=== PATIENT | female | born 1950 | race Caucasian/White ===

== ENCOUNTER 2016-09-21 12:25 | Observation (INO) | payer MEDICARE, OTHER ==
[2016-09-21] MEDS ORDERED: ASPIRIN 81 MG CHEW PO STA (13:00)
[2016-09-21] MEDS ORDERED: diphenhydrAMINE 50 MG/ML 1 ML VIAL IVP STA (13:12)
[2016-09-21] MEDS ORDERED: FAMOTIDINE 20 MG/2 ML VIAL IV STA (13:12)
[2016-09-21] MEDS ORDERED: MORPHINE SULFATE 4 MG/ML SYRINGE IV STA (13:12)
[2016-09-21] MEDS ORDERED: RX INFO: IV CONTRAST WAS GIVEN 1 EACH MISC MISCELLANE PRN (13:12)
--- NOTE | 2016-09-21 13:16 | ED ---
General Adult HPI - General Source: patient, RN notes reviewed Mode of arrival: ambulatory Limitations: no limitations <Aravind Park - Last Filed: 09/21/16 13:14> <Enio Harper - Last Filed: 09/21/16 16:01> - General Chief complaint: Shortness of Breath Stated complaint: Diff breathing since last night Time Seen by Provider: 09/21/16 12:53 - History of Present Illness Initial comments: Patient is a 65-year-old female who presents emergency room today with a chief complaint of increased shortness of breath and back pain chest pain that started yesterday. She does admit she has difficult time describing the pain. She does admit to chest pain feels like pressure. States does feel similar pain that she's had in the past once when she had a heart attack. Patient states that she's been experiencing pain in the right upper back next to the shoulder blade. Patient states it is worse with movements if she moves her right arm or twists or turns. She states is tender on palpation. Patient does not she's feeling short of breath when she tries take a deep breath has increased pain. Patient denies any other complaints or symptoms. Patient denies any recent fever, chills, abdominal pain, nausea or vomiting, numbness or tingling, dysuria or hematuria, constipation or diarrhea, headaches or visual changes, or any other complaints. (Aravind Park) - Related Data Home Medications Medication Instructions Recorded Confirmed Cyclobenzaprine [Flexeril] 10 mg PO BID 10/10/14 09/21/16 HYDROcodone/APAP 10-325MG [[place] 1 tab PO TID PRN 10/10/14 09/21/16 10-325] Lisinopril 40 mg PO DAILY 10/10/14 09/21/16 Omeprazole [PriLOSEC] 20 mg PO AC-BID 10/10/14 09/21/16 metFORMIN HCL 1,000 mg PO BID 10/10/14 09/21/16 Insulin Glargine [Lantus] 25 units SQ AC-SUPPER 10/11/14 09/21/16 Latanoprost Ophth [Xalatan 0.005%] 1 drop BOTH EYES HS 10/11/14 09/21/16 Ascorbic Acid [Vitamin C] 1,000 mg PO DAILY 04/10/16 09/21/16 Aspirin EC [Ecotrin] 325 mg PO BID 04/10/16 09/21/16 Vitamin B Complex 1 cap PO DAILY 04/10/16 09/21/16 amLODIPine [Norvasc] 10 mg PO DAILY 04/10/16 09/21/16 clonazePAM [KlonoPIN] 0.25 mg PO BID 04/10/16 09/21/16 Ergocalciferol (Vitamin D2) 50,000 unit PO MO 09/21/16 09/21/16 [Vitamin D2] Ezetimibe [Zetia] 10 mg PO DAILY 09/21/16 09/21/16 Furosemide [Lasix] 20 mg PO Q48H 09/21/16 09/21/16 Insulin Regular, Human [NovoLIN R] 10 ml PO BID 09/21/16 09/21/16 Allergies Allergy/AdvReac Type Severity Reaction Status Date / Time acetaminophen Allergy Unknown Verified 09/21/16 13:45 [From Darvocet-N] cephalexin monohydrate Allergy Nausea & Verified 09/21/16 13:45 [From Keflex] Vomiting & Diarrhea codeine Allergy Unknown Verified 09/21/16 13:45 cortisone Allergy Nausea & Verified 09/21/16 13:45 Vomiting epinephrine Allergy Unknown Verified 09/21/16 13:45 iodine Allergy Rash/Hives Verified 09/21/16 13:45 methadone Allergy Nausea & Verified 09/21/16 13:45 Vomiting & Diarrhea procaine HCl [From Novocain] Allergy Rapid Verified 09/21/16 13:45 Heart Rate propoxyphene Allergy Unknown Verified 09/21/16 13:45 [From Darvocet-N] Sulfa (Sulfonamide Allergy Rash/Hives Verified 09/21/16 13:45 Antibiotics) steroids Allergy Unknown Uncoded 09/21/16 12:36 Review of Systems ROS Other: All systems not noted in ROS Statement are negative. <Aravind Park - Last Filed: 09/21/16 13:14> ROS Other: All systems not noted in ROS Statement are negative. <Enio Harper - Last Filed: 09/21/16 16:01> ROS Statement: Those systems with pertinent positive or pertinent negative responses have been documented in the HPI. Past Medical History Past Medical History: Diabetes Mellitus, Fibromyalgia, Hypertension, Osteoarthritis (OA) Additional Past Medical History / Comment(s): neuropathy History of Any Multi-Drug Resistant Organisms: None Reported Past Surgical History: Bladder Surgery, Cholecystectomy, Tubal Ligation Additional Past Surgical History / Comment(s): rhinoplasty, hand surgery bilateral-carpal tunel Past Anesthesia/Blood Transfusion Reactions: No Reported Reaction Past Psychological History: Anxiety Smoking Status: Never smoker Past Alcohol Use History: None Reported Past Drug Use History: None Reported - Past Family History Father Family Medical History: CVA/TIA, Myocardial Infarction (MD) Mother Family Medical History: Cancer <XavierAravind - Last Filed: 09/21/16 13:14> General Exam Limitations: no limitations <Aravind Park - Last Filed: 09/21/16 13:14> General appearance: alert, in no apparent distress Head exam: Present: atraumatic, normocephalic, normal inspection Eye exam: Present: normal appearance, PERRL, EOMI. Absent: scleral icterus, conjunctival injection, periorbital swelling ENT exam: Present: normal exam, mucous membranes moist Neck exam: Present: normal inspection. Absent: tenderness, meningismus, lymphadenopathy Respiratory exam: Present: normal lung sounds bilaterally. Absent: respiratory distress, wheezes, rales, rhonchi, stridor Cardiovascular Exam: Present: regular rate, normal rhythm, normal heart sounds. Absent: systolic murmur, diastolic murmur, rubs, gallop, clicks GI/Abdominal exam: Present: soft, normal bowel sounds. Absent: distended, tenderness, guarding, rebound, rigid Extremities exam: Present: normal inspection, full ROM, normal capillary refill. Absent: tenderness, pedal edema, joint swelling, calf tenderness Back exam: Present: normal inspection Neurological exam: Present: alert, oriented X3, CN II-XII intact Psychiatric exam: Present: normal affect, normal mood Skin exam: Present: warm, dry, intact, normal color. Absent: rash <Enio Harper - Last Filed: 09/21/16 16:01> - General Exam Comments Initial Comments: General: The patient is awake and alert, in mild distress. Eye: Pupils are equal, round and reactive to light, extra-ocular movements are intact. No nystagmus. There is normal conjunctiva bilaterally. No signs of icterus. Ears, nose, mouth and throat: There are moist mucous membranes and no oral lesions. Neck: The neck is supple, there is no tenderness or JVD. Cardiovascular: There is a regular rate and rhythm. No murmur, rub or gallop is appreciated. Tender to palpation to the anterior chest wall. Respiratory: Lungs are clear to auscultation, respirations are non-labored, breath sounds are equal. No wheezes, stridor, rales, or rhonchi. Gastrointestinal: Soft, non-distended, non-tender abdomen without masses or organomegaly noted. There is no rebound or guarding present. No CVA tenderness. Bowel sounds are unremarkable. Musculoskeletal: Normal ROM. Tender to palpation to the upper right side of her back and muscular areas. Strength 5/5. Sensation intact. Pulses equal bilaterally 2+. Neurological: A&O x 3. CN II-XII intact, There are no obvious motor or sensory deficits. Coordination appears grossly intact. Speech is normal. Skin: Skin is warm and dry and no rashes or lesions are noted. Psychiatric: Cooperative, appropriate mood & affect, normal judgment. (Aravind Park) Course <Aravind Park - Last Filed: 09/21/16 13:14> <Enio Harper - Last Filed: 09/21/16 16:01> Vital Signs 09/21/16 09/21/16 09/21/16 12:34 13:05 13:45 Temperature 99.0 F Pulse Rate 118 H 100 Respiratory 22 20 20 Rate Blood Pressure 204/104 180/99 O2 Sat by Pulse 98 99 Oximetry 09/21/16 09/21/16 14:15 15:15 Temperature Pulse Rate 89 92 Respiratory 20 20 Rate Blood Pressure 140/79 149/79 O2 Sat by Pulse 100 94 L Oximetry - Reevaluation(s) Reevaluation #1: 09/21/16 15:50 Patient remains chest pain 09/21/16 16:01 mild chdest pain (Enio Harper) Medical Decision Making <Aravind Park - Last Filed: 09/21/16 13:14> - Lab Data Result diagrams: 09/21/16 13:45 09/21/16 13:45 - Radiology Data Radiology results: report reviewed (Chest x-ray CTA chest negative for acute disease), image reviewed <Enio Harper - Last Filed: 09/21/16 16:01> - Medical Decision Making 65-year-old ER for reevaluation chest pain, history of coronary artery disease with strep heart attack, patient has CT which is negative for acute disease, patient will be admitted for cardiac observation and anticoagulation (Enio Harper) - Lab Data Lab Results 09/21/16 09/21/16 09/21/16 Range/Units 13:45 13:45 13:45 WBC 8.1 (3.8-10.6) k/uL RBC 4.70 (3.80-5.40) m/uL Hgb 13.9 (11.4-16.0) gm/dL Hct 41.5 (34.0-46.0) % MCV 88.5 (80.0-100.0) fL MCH 29.7 (25.0-35.0) pg MCHC 33.5 (31.0-37.0) g/dL RDW 13.5 (11.5-15.5) % Plt Count 373 (150-450) k/uL Neutrophils % 61 % Lymphocytes % 28 % Monocytes % 6 % Eosinophils % 2 % Basophils % 1 % Neutrophils # 5.0 (1.3-7.7) k/uL Lymphocytes # 2.3 (1.0-4.8) k/uL Monocytes # 0.5 (0-1.0) k/uL Eosinophils # 0.1 (0-0.7) k/uL Basophils # 0.1 (0-0.2) k/uL PT (9.0-12.0) sec INR (<1.1) APTT (22.0-30.0) sec D-Dimer (<0.60) mg/L FEU Sodium 140 (137-145) mmol/L Potassium 4.1 (3.5-5.1) mmol/L Chloride 99 (98-107) mmol/L Carbon Dioxide 29 (22-30) mmol/L Anion Gap 12 mmol/L BUN 10 (7-17) mg/dL Creatinine 0.50 L (0.52-1.04) mg/dL Est GFR (MDRD) Af Amer >60 (>60 ml/min/1.73 sqM) Est GFR (MDRD) Non-Af >60 (>60 ml/min/1.73 sqM) Glucose 169 H (74-99) mg/dL Calcium 10.3 H (8.4-10.2) mg/dL Magnesium 1.3 L (1.6-2.3) mg/dL Total Bilirubin 0.6 (0.2-1.3) mg/dL AST 26 (14-36) U/L ALT 41 (9-52) U/L Alkaline Phosphatase 98 (38-126) U/L Total Creatine Kinase 130 (30-135) U/L CK-MB (CK-2) 2.6 H* (0.0-2.4) ng/mL CK-MB (CK-2) Rel Index 2.0 Troponin I <0.012 (0.000-0.034) ng/mL Total Protein 8.0 (6.3-8.2) g/dL Albumin 4.7 (3.5-5.0) g/dL 09/21/16 Range/Units 13:45 WBC (3.8-10.6) k/uL RBC (3.80-5.40) m/uL Hgb (11.4-16.0) gm/dL Hct (34.0-46.0) % MCV (80.0-100.0) fL MCH (25.0-35.0) pg MCHC (31.0-37.0) g/dL RDW (11.5-15.5) % Plt Count (150-450) k/uL Neutrophils % % Lymphocytes % % Monocytes % % Eosinophils % % Basophils % % Neutrophils # (1.3-7.7) k/uL Lymphocytes # (1.0-4.8) k/uL Monocytes # (0-1.0) k/uL Eosinophils # (0-0.7) k/uL Basophils # (0-0.2) k/uL PT 10.1 (9.0-12.0) sec INR 1.0 (<1.1) APTT 23.8 (22.0-30.0) sec D-Dimer 0.32 (<0.60) mg/L FEU Sodium (137-145) mmol/L Potassium (3.5-5.1) mmol/L Chloride (98-107) mmol/L Carbon Dioxide (22-30) mmol/L Anion Gap mmol/L BUN (7-17) mg/dL Creatinine (0.52-1.04) mg/dL Est GFR (MDRD) Af Amer (>60 ml/min/1.73 sqM) Est GFR (MDRD) Non-Af (>60 ml/min/1.73 sqM) Glucose (74-99) mg/dL Calcium (8.4-10.2) mg/dL Magnesium (1.6-2.3) mg/dL Total Bilirubin (0.2-1.3) mg/dL AST (14-36) U/L ALT (9-52) U/L Alkaline Phosphatase (38-126) U/L Total Creatine Kinase (30-135) U/L CK-MB (CK-2) (0.0-2.4) ng/mL CK-MB (CK-2) Rel Index Troponin I (0.000-0.034) ng/mL Total Protein (6.3-8.2) g/dL Albumin (3.5-5.0) g/dL Critical Care Time Critical Care Time: Yes Total Critical Care Time: 31 <Enio Harper - Last Filed: 09/21/16 16:01> Disposition <Aravind Park - Last Filed: 09/21/16 13:14> <Enio Harper - Last Filed: 09/21/16 16:01> Clinical Impression: Chest pain Disposition: ADMITTED IP TO THIS [facility] Condition: Fair Referrals: Jae Martinez MD [Primary Care Provider] - 1-2 days
[2016-09-21 14:10] LABS: Basophils # (A) 0.1 k/uL (0-0.2); Basophils % (A) 1 %; CH 30.3; CHCM 34.4; Eosinophils # (A) 0.1 k/uL (0-0.7); Eosinophils % (A) 2 %; HCT 41.5 % (34.0-46.0); HDW 2.72; HGB 13.9 gm/dL (11.4-16.0); Luc # (Auto) 0.18; Luc % (Auto) 2; Lymphocytes # (A) 2.3 k/uL (1.0-4.8); Lymphocytes % (A) 28 %; MCH 29.7 pg (25.0-35.0); MCHC 33.5 g/dL (31.0-37.0); MCV 88.5 fL (80.0-100.0); Mean Platelet Volume 6.9; Monocytes # (A) 0.5 k/uL (0-1.0); Monocytes % (A) 6 %; Neutrophils % (A) 61 %; RDW 13.5 % (11.5-15.5); WBC 8.1 k/uL (3.8-10.6); WBC (Perox) 8.06
[2016-09-21 14:19] LABS: ALT 41 U/L (9-52); AST 26 U/L (14-36); Alkaline Phosphatase 98 U/L (38-126); Anion Gap 12 mmol/L; Blood Urea Nitrogen 10 mg/dL (7-17); Calcium 10.3 mg/dL (8.4-10.2); Carbon Dioxide 29 mmol/L (22-30); Chloride 99 mmol/L (98-107); Glucose 169 mg/dL (74-99); Magnesium 1.3 mg/dL (1.6-2.3); Non-African American GFR(MDRD) >60 (>60 ml/min/1.73 sqM); Potassium 4.1 mmol/L (3.5-5.1); Sodium 140 mmol/L (137-145); Total Bilirubin 0.6 mg/dL (0.2-1.3)
[2016-09-21 14:23] LABS: Partial Thromboplastin Time 23.8 sec (22.0-30.0); Prothrombin Time 10.1 sec (9.0-12.0)
[2016-09-21 14:30] LABS: Creatine Kinase 130 U/L (30-135)
--- NOTE | 2016-09-21 14:35 | XR ---
EXAMINATION TYPE: XR chest 2V DATE OF EXAM: 09/21/2016 2:31 PM COMPARISON: Chest x-ray May 12, 2016. HISTORY: Left-sided chest pain and shortness of breath. TECHNIQUE: Frontal and lateral views of the chest are obtained. FINDINGS: Some eventration of right hemidiaphragm is redemonstrated. There is no focal air space [place], pleural effusion, or pneumothorax seen. The cardiac silhouette size is within normal limits. The osseous structures are somewhat demineralized. Cholecystectomy clips are noted on lateral view. IMPRESSION: No acute cardiopulmonary process. No significant change from prior.
[2016-09-21 14:44] LABS: Troponin I <0.012 ng/mL (0.000-0.034)
[2016-09-21 14:45] LABS: Creatine Kinase MB 2.6 ng/mL (0.0-2.4)
--- NOTE | 2016-09-21 15:15 | CT ---
EXAMINATION TYPE: CT angio chest DATE OF EXAM: 09/21/2016 3:05 PM COMPARISON: Chest x-ray earlier today. HISTORY: Shortness of breath. CT DLP: 232.50 mGycm. Automated Exposure Control for Dose Reduction was Utilized. CONTRAST: CTA scan of the thorax is performed with IV Contrast, patient injected with 68 mL of Omnipaque 350, p ulmonary embolism protocol. MIP Images are created on CT scanner and reviewed. FINDINGS: LUNGS: Respiratory motion artifact especially towards lung bases is noted making evaluation slightly suboptimal. The lungs are grossly clear, there is no concerning parenchymal mass or nodule identified . There is no pleural effusion or pneumothorax seen. The tracheobronchial tree is patent. MEDIASTINUM: There is satisfactory enhancement of the pulmonary artery and its branches, there is no CT evidence for pulmonary embolism. There are no greater than 1 cm hilar or mediastinal lymph nodes. No cardiomegaly or pericardial effusion is seen. Coronary artery calcification is likely present. OTHER: Cholecystectomy clips are noted. Osseous structures are demineralized. Levoconvex scoliotic cu rvature centered near the thoracolumbar junction is present. IMPRESSION: No CTA evidence for pulmonary embolism. No acute pulmonary process is evident.
[2016-09-21] MEDS ORDERED: MAGNESIUM SULFATE-D5W PMX 1 GM in DEXTROSE/WATER 1 100ML.BAG IVPB ONE (15:27)
[2016-09-21] MEDS ORDERED: NALOXONE 0.4 MG/ML 1 ML VIAL IV PRN (16:01)
[2016-09-21] MEDS ORDERED: SODIUM CHLORIDE 0.9% 1,000 ML IV ONE (16:01)
[2016-09-21] MEDS ORDERED: NITROGLYCERIN SL TABS 0.4 MG TAB SUBLINGUAL PRN (16:04)
[2016-09-21] MEDS ORDERED: HEPARIN SODIUM,PORCINE 5,000 UNIT/ML 1 ML VIAL IV ONE (16:04)
[2016-09-21] MEDS ORDERED: HEPARIN SODIUM,PORCINE/D5W PMX 25,000 UNIT in DEXTROSE/WATER 1 500ML.BAG IV SCH (16:15)
[2016-09-21] MEDS ORDERED: INSULIN GLARGINE 100 UNIT/ML 10 ML VIAL SQ SCH (17:30)
[2016-09-21] MEDS ORDERED: HYDROcodone/APAP 10-325MG 1 EACH TAB PO PRN (18:34)
[2016-09-21] MEDS: MORPHINE SULFATE 4 MG/ML SYRINGE IV PRN (20:29)
[2016-09-21 20:45] LABS: Creatine Kinase 124 U/L (30-135)
[2016-09-21 20:46] VITALS: RESP 16
[2016-09-21 20:58] LABS: Creatine Kinase MB 2.2 ng/mL (0.0-2.4); Troponin I <0.012 ng/mL (0.000-0.034)
[2016-09-21] MEDS ORDERED: LATANOPROST 0.005% OPHTH DROPS 2.5 ML BTL BOTH EYES SCH (21:00)
[2016-09-21] MEDS ORDERED: clonazePAM 0.5 MG TAB PO SCH (21:00)
[2016-09-21 21:35] LABS: Glucose,Whole Blood 228 mg/dL (75-99)
[2016-09-21] MEDS: ASPIRIN 325 MG TAB PO SCH (22:00)
[2016-09-21] MEDS: CYCLOBENZAPRINE 10 MG TAB PO SCH (22:02)
[2016-09-22] MEDS ORDERED: HEPARIN SODIUM,PORCINE 5,000 UNIT/ML 1 ML VIAL IV PRN (04:24)
[2016-09-22] MEDS: MORPHINE SULFATE 4 MG/ML SYRINGE IV PRN (04:42)
[2016-09-22 06:08] LABS: Cholesterol 248 mg/dL (<200); HDL Cholesterol 46 mg/dL (40-60)
[2016-09-22 06:17] LABS: Triglycerides 624 mg/dL (<150)
[2016-09-22] MEDS ORDERED: HYDROcodone/APAP 10-325MG 1 EACH TAB PO PRN (06:53)
[2016-09-22] MEDS ORDERED: MORPHINE SULFATE 4 MG/ML SYRINGE IVP PRN (06:58)
[2016-09-22 07:06] LABS: Glucose,Whole Blood 133 mg/dL (75-99)
[2016-09-22] MEDS ORDERED: INSULIN REGULAR 100 UNIT/ML VIAL SQ SCH (07:30)
[2016-09-22] MEDS ORDERED: PANTOPRAZOLE 40 MG TABLET PO SCH (07:30)
[2016-09-22 08:18] VITALS: PULSE 74
[2016-09-22] MEDS ORDERED: DOBUTamine DRIP for NUC MED 500 MG in DEXTROSE/WATER 1 250ML.BAG IV ONE (08:50)
[2016-09-22] MEDS ORDERED: EZETIMIBE 10 MG TAB PO SCH (09:00)
[2016-09-22] MEDS ORDERED: clonazePAM 0.5 MG TAB PO SCH (09:00)
[2016-09-22] MEDS ORDERED: ASCORBIC ACID 500 MG TAB PO SCH (09:00)
[2016-09-22] MEDS ORDERED: LISINOPRIL 20 MG TAB PO SCH (09:00)
[2016-09-22] MEDS ORDERED: FUROSEMIDE 20 MG TAB PO SCH (09:00)
[2016-09-22] MEDS ORDERED: amLODIPine 10 MG TAB PO SCH (09:00)
[2016-09-22] MEDS ORDERED: ASPIRIN 325 MG TAB PO SCH (09:00)
[2016-09-22] MEDS ORDERED: ATORVASTATIN 20 MG TAB PO SCH (09:30)
[2016-09-22 10:31] LABS: Basophils % (A) 1 %; CH 29.5; CHCM 32.6; Eosinophils # (A) 0.2 k/uL (0-0.7); Eosinophils % (A) 4 %; HCT 36.8 % (34.0-46.0); HDW 2.65; HGB 11.9 gm/dL (11.4-16.0); Luc # (Auto) 0.19; Luc % (Auto) 3; Lymphocytes # (A) 2.6 k/uL (1.0-4.8); Lymphocytes % (A) 43 %; MCH 29.3 pg (25.0-35.0); MCHC 32.3 g/dL (31.0-37.0); MCV 90.9 fL (80.0-100.0); Mean Platelet Volume 7.8; Monocytes # (A) 0.5 k/uL (0-1.0); Monocytes % (A) 8 %; Neutrophils # (A) 2.5 k/uL (1.3-7.7); Neutrophils % (A) 42 %; RBC 4.04 m/uL (3.80-5.40); RDW 13.7 % (11.5-15.5); WBC (Perox) 6.57
[2016-09-22 10:42] LABS: Anion Gap 13 mmol/L; Blood Urea Nitrogen 10 mg/dL (7-17); Calcium 9.1 mg/dL (8.4-10.2); Carbon Dioxide 26 mmol/L (22-30); Chloride 103 mmol/L (98-107); Glucose 132 mg/dL (74-99); Magnesium 1.7 mg/dL (1.6-2.3); Non-African American GFR(MDRD) >60 (>60 ml/min/1.73 sqM); Potassium 3.5 mmol/L (3.5-5.1); Sodium 142 mmol/L (137-145)
[2016-09-22] MEDS: ASPIRIN 325 MG TAB PO SCH (11:31)
[2016-09-22] MEDS: CYCLOBENZAPRINE 10 MG TAB PO SCH (11:32)
[2016-09-22] MEDS ORDERED: NALOXONE 0.4 MG/ML 1 ML VIAL IV PRN (11:39)
[2016-09-22] MEDS ORDERED: NITROGLYCERIN SL TABS 0.4 MG TAB SUBLINGUAL PRN (11:40)
--- NOTE | 2016-09-22 11:48 | ECHOF ---
Referral Reason:cp MEASUREMENTS -------- HEIGHT: 160.0 cm WEIGHT: 98.0 kg BP: 197/65 RVIDd: 2.7 cm (< 3.3) IVSd: 1.0 cm (0.6 - 1.1) LVIDd: 3.6 cm (3.9 - 5.3) LVPWd: 1.2 cm (0.6 - 1.1) IVSs: 1.6 cm LVIDs: 2.9 cm LVPWs: 1.7 cm LA Diam: 3.5 cm (2.7 - 3.8) LAESV Index (A-L): 19.26 ml/m Ao Diam: 3.2 cm (2.0 - 3.7) AV Cusp: 2.0 cm (1.5 - 2.6) MV EXCURSION: 15.514 mm (> 18.000) MV EF SLOPE: 86 mm/s (70 - 150) EPSS: 0.2 cm MV E Alfonso: 0.67 m/s MV DecT: 286 ms MV A Alfonso: 0.86 m/s MV E/A Ratio: 0.78 FINDINGS -------- Sinus rhythm. This was a technically good study. The left ventricular size is normal. There is borderline concentric left ventricular hypertrophy. Overall left ventricular systolic function is normal with, an EF between 55 - 60 %. The right ventricle is normal in size and function. Normal LA size by volume 22+/-6 ml/m2. The right atrium is normal in size. Aortic valve is trileaflet and is mildly thickened. The mitral valve leaflets are mildly thickened. Mild mitral annular calcification present. Mild mitral regurgitation is present. The tricuspid valve appears structurally normal. Pulmonic valve appears structurally normal. The aortic root size is normal. Normal inferior vena cava with normal inspiratory collapse consistent with estimated right atrial pressure of 5 mmHg. There is no pericardial effusion. CONCLUSIONS -------- 1. Sinus rhythm. 2. The mitral valve leaflets are mildly thickened. 3. Mild mitral annular calcification present. 4. Mild mitral regurgitation is present. 5. The tricuspid valve appears structurally normal. 6. Pulmonic valve appears structurally normal. 7. The aortic root size is normal. 8. Normal inferior vena cava with normal inspiratory collapse consistent with estimated right atrial pressure of 5 mmHg. 9. There is no pericardial effusion. 10. This was a technically good study. 11. The left ventricular size is normal. 12. There is borderline concentric left ventricular hypertrophy. 13. Overall left ventricular systolic function is normal with, an EF between 55 - 60 %. 14. The right ventricle is normal in size and function. 15. Normal LA size by volume 22+/-6 ml/m2. 16. The right atrium is normal in size. 17. Aortic valve is trileaflet and is mildly thickened. [employer] OPERATOR: Dede Jeff RDCS
--- NOTE | 2016-09-22 11:49 | ECHOS ---
DATE OF SERVICE: 09/22/2016 AGE: 65Y SEX: F HT: 63" WT: 216 lbs. Protocol Prakash: Others: Dobutamine Stress Echo Stage: 3 Dur. of Exercise: 8:15 *Heart Rate Blood Pressure *Rest: 91 Rest: 144/66 * *Max. Achieved: 131 Maximum BP: 177/55 85% PMHR: 131 100% PMHR: 154 *METS: - INDICATIONS: Chest pain. MEDICATIONS: - Patient was given dobutamine infusion according to the standard protocol. Peak heart rate of 131 was achieved. Maximum blood pressure of 177/55 mmHg was noted. Resting EKG shows normal sinus rhythm with nonspecific ST-T changes. Occasional PVCs were noted. During dobutamine infusion, equivocal upsloping ST segment changes were noted. The baseline echocardiographic images reveals a normal left ventricular chamber size with normal left ventricular systolic function. At the peak dose of dobutamine infusion, normal increase in the wall thickness and contractility is noted. FINAL IMPRESSION: 1. This dobutamine stress echocardiographic study is negative for stress-induced ischemia. 2. EKG portion of the stress test shows equivocal ST segment changes not diagnostic of ischemia. 3. Occasional premature ventricular contractions are noted.
[2016-09-22] MEDS ORDERED: ERGOCALCIFEROL 50,000 UNIT CAP PO SCH (12:00)
[2016-09-22 12:10] LABS: Glucose,Whole Blood 235 mg/dL (75-99)
[2016-09-22 12:39] VITALS: BP 142/86; TEMP 98.7
--- NOTE | 2016-09-22 12:56 | CONS ---
DATE OF CONSULTATION: Mrs. Trent is a 65-year-old female with known history of hypertension, hyperlipidemia, diabetes mellitus, who carries the diagnosis of myocardial infarction in 1988, the details of that are not available. She follows with Dr. Luciano on a regular basis who presented with symptoms of progressive dyspnea as well as symptoms of chest discomfort, worse when she takes a deep breath. She is not very active physically. She has no clear PND, orthopnea. No peripheral edema. No dizziness, palpitation or syncope. She has been relatively stable from the cardiac standpoint, her coronary risk factors are remarkable for the hypertension, hyperlipidemia, diabetes mellitus. She is a nonsmoker. Her medications include aspirin, cyclobenzaprine, [place], insulin, lisinopril 40 mg daily, Prilosec, Klonopin 0.5 mg daily, metformin 1 gm twice a day, Lasix 20 mg q. 48 hours, Norvasc 10 mg daily, vitamin D, Zyrtec 10 mg daily. REVIEW OF SYSTEMS: RESPIRATORY SYSTEM: She had dyspnea on exertion. She had recent infection. GI SYSTEM: No recent GI bleeding except related to what appears to be hemorrhoid. SYSTEM: No dysuria or hematuria. NERVOUS SYSTEM: She had a prior history of stroke and TIA. PHYSICAL EXAMINATION: A 65-year-old female, alert, in no apparent distress. Blood pressure 148/80 with a heart in the 70s. HEAD: Normocephalic. EYES: Sclerae nonicteric. NECK: Good upstroke. No bruit. No jugular venous distention. LUNGS: Clear to auscultation. HEART: Regular rate and rhythm. S1, S2, no S3, no rub. ABDOMEN: Soft, nontender, positive bowel sounds. No organomegaly. EXTREMITIES: No edema. Intact distal pulses. Lab data revealed cholesterol 248, triglyceride 624. Troponin less than 0.012. BUN and creatinine of 10 and 0.5. Magnesium 1.3. Hemoglobin of 13.9. EKG sinus mechanism, normal axis and intervals with no acute changes. CT angiogram of the chest revealed no evidence of pulmonary embolism. Chest x-ray shows no acute infiltrate. IMPRESSION: 1. Symptoms of chest discomfort, atypical for ischemic heart disease, probably noncardiac. 2. Remote history of myocardial infarction, detail not available. 3. History of hypertension. 4. Hyperlipidemia. 5. Diabetes mellitus. RECOMMENDATIONS: From the cardiac standpoint, I will stop the IV heparin. I will proceed with obtaining a dobutamine stress echocardiogram and a transthoracic echo. If there is no evidence of inducible ischemia, then no further cardiac work-up will be needed. Thank you for this consult. Will follow with you.
--- NOTE | 2016-09-22 12:59 | P.HPIM ---
History of Present Illness H&P Date: 09/22/16 Chief Complaint: Right shoulder pain This is a 65-year-old female with a known history of myocardial infarction, diabetes mellitus, fibromyalgia, hypertension, and osteoarthritis. Patient presents to emergency room with complaints of right shoulder pain and shortness of breath. Symptoms started yesterday. Patient did have a fall about 2 months ago and had x-rays of the right shoulder done no evidence of any fractures. Patient reports no new injury. Patient was admitted to observation and cardiac workup was requested. Troponins were negative 3 sets CTA of the chest was negative for PE. Chest x-ray was negative. Patient was seen evaluated by cardiology and did undergo a stress test. Patient denies any chest pain, any nausea or vomiting, bowel movement changes or urinary symptoms. Denies any fever or chills or sweats. She does report feeling warm at times. She also reports that the [place] did help with some of the pain. Review of Systems Please refer to HPI otherwise unremarkable Past Medical History Past Medical History: CVA/TIA, Diabetes Mellitus, Fibromyalgia, Hypertension, Osteoarthritis (OA) Additional Past Medical History / Comment(s): neuropathy History of Any Multi-Drug Resistant Organisms: None Reported Past Surgical History: Bladder Surgery, Cholecystectomy, Tubal Ligation Additional Past Surgical History / Comment(s): rhinoplasty, hand surgery bilateral-carpal tunel Past Anesthesia/Blood Transfusion Reactions: No Reported Reaction Past Psychological History: Anxiety Smoking Status: Never smoker Past Alcohol Use History: None Reported Past Drug Use History: None Reported - Past Family History Father Family Medical History: CVA/TIA, Myocardial Infarction ([place]) Mother Family Medical History: Cancer Medications and Allergies Home Medications Medication Instructions Recorded Confirmed Type Cyclobenzaprine [Flexeril] 10 mg PO BID 10/10/14 09/21/16 History HYDROcodone/APAP 10-325MG [[place] 1 tab PO TID PRN 10/10/14 09/21/16 History 10-325] Lisinopril 40 mg PO DAILY 10/10/14 09/21/16 History Omeprazole [PriLOSEC] 20 mg PO AC-BID 10/10/14 09/21/16 History metFORMIN HCL 1,000 mg PO BID 10/10/14 09/21/16 History Insulin Glargine [Lantus] 25 units SQ AC-SUPPER 10/11/14 09/21/16 History Latanoprost Ophth [Xalatan 0.005%] 1 drop BOTH EYES HS 10/11/14 09/21/16 History Ascorbic Acid [Vitamin C] 1,000 mg PO DAILY 04/10/16 09/21/16 History Aspirin EC [Ecotrin] 325 mg PO BID 04/10/16 09/21/16 History Vitamin B Complex 1 cap PO DAILY 04/10/16 09/21/16 History amLODIPine [Norvasc] 10 mg PO DAILY 04/10/16 09/21/16 History clonazePAM [KlonoPIN] 0.25 mg PO BID 04/10/16 09/21/16 History Ergocalciferol (Vitamin D2) 50,000 unit PO MO 09/21/16 09/21/16 History [Vitamin D2] Ezetimibe [Zetia] 10 mg PO DAILY 09/21/16 09/21/16 History Furosemide [Lasix] 20 mg PO Q48H 09/21/16 09/21/16 History Insulin Regular, Human [NovoLIN R] 10 units SQ BID 09/21/16 09/21/16 History Allergies Allergy/AdvReac Type Severity Reaction Status Date / Time acetaminophen Allergy Unknown Verified 09/21/16 13:45 [From Darvocet-N] cephalexin monohydrate Allergy Nausea & Verified 09/21/16 13:45 [From Keflex] Vomiting & Diarrhea codeine Allergy Unknown Verified 09/21/16 13:45 cortisone Allergy Nausea & Verified 09/21/16 13:45 Vomiting epinephrine Allergy Unknown Verified 09/21/16 13:45 iodine Allergy Rash/Hives Verified 09/21/16 13:45 methadone Allergy Nausea & Verified 09/21/16 13:45 Vomiting & Diarrhea procaine HCl [From Novocain] Allergy Rapid Verified 09/21/16 13:45 Heart Rate propoxyphene Allergy Unknown Verified 09/21/16 13:45 [From Darvocet-N] Sulfa (Sulfonamide Allergy Rash/Hives Verified 09/21/16 13:45 Antibiotics) steroids Allergy Unknown Uncoded 09/21/16 12:36 Physical Exam Vitals: Vital Signs Temp Pulse Pulse Resp BP BP Pulse Ox 09/22/16 12:00 98.7 F 16 142/86 97 09/22/16 08:00 97.8 F 74 16 148/80 97 09/22/16 05:39 160/72 09/22/16 04:00 98.4 F 88 16 191/94 95 09/22/16 00:00 81 16 09/21/16 23:55 97.7 F 93 16 181/93 95 09/21/16 22:30 158/63 09/21/16 20:40 161/72 09/21/16 20:00 98.3 F 107 H 16 210/112 97 09/21/16 17:59 93 18 09/21/16 17:39 98.0 F 93 18 185/92 100 09/21/16 16:43 98.3 F 92 20 158/83 99 09/21/16 16:15 98.9 F 90 20 150/68 95 Intake and Output 09/21/16 09/22/16 09/22/16 22:59 06:59 14:59 Intake Total 184.889 Balance 184.889 Intake: Intake, IV Titration 184.889 Amount Heparin Sodium,Porcine/ 184.889 D5w Pmx 25,000 unit In Dextrose/Water 1 500ml. bag @ 12 UNITS/KG/HR 15. 78 mls/hr IV .Q24H [facility] Rx #:[id number] Other: Voiding Method Toilet Toilet Toilet # Voids 0 1 Weight 98 kg Head normocephalic Neck supple Lungs clear to auscultation bilaterally no wheezing or crackles Heart regular rate and rhythm S1-S2, no rub or gallop Abdomen is soft nontender nondistended positive bowel sounds no hepatosplenomegaly Extremities no edema. Right shoulder posterior aspect tender with palpation. No bruising or skin lesions noted. Patient has full range of motion. +2 radial pulse. Neuro alert and orientated to 3 Results CBC & Chem 7: 09/22/16 05:29 09/22/16 05:29 Labs: Abnormal Lab Results - Last 24 Hours (Table) 09/21/16 09/21/16 09/22/16 Range/Units 21:26 22:47 05:29 APTT 21.7 L (22.0-30.0) sec Glucose (74-99) mg/dL POC Glucose (mg/dL) 228 H (75-99) mg/dL Triglycerides 624 H (<150) mg/dL Cholesterol 248 H (<200) mg/dL 09/22/16 09/22/16 09/22/16 Range/Units 05:29 07:05 12:09 APTT (22.0-30.0) sec Glucose 132 H (74-99) mg/dL POC Glucose (mg/dL) 133 H 235 H (75-99) mg/dL Triglycerides (<150) mg/dL Cholesterol (<200) mg/dL Thrombosis Risk Factor Assmnt - Choose All That Apply Any of the Below Risk Factors Present?: Yes Each Factor Represents 1 point: Obesity (BMI >25) Other Risk Factors: Yes Each Risk Factor Represents 2 Points: Age 61-74 years Other congenital or acquired thrombophilia - If yes, enter type in comment: No Thrombosis Risk Factor Assessment Total Risk Factor Score: 3 Thrombosis Risk Factor Assessment Level: Moderate Risk Assessment and Plan Plan: 1. Right shoulder pain with shortness of breath: Cardiac workup negative. Troponins negative 3 sets. Stress test was negative. Patient was seen and evaluated by cardiology. CTA of the chest was negative for PE. Chest x-rays negative. Patient had x-ray of the shoulder about 2 months ago after a fall with no evidence of any fracture. 2. Hypomagnesemia and patient received magnesium supplement. Repeat magnesium level I.7 3. Hypertriglyceridemia. Low-fat low-cholesterol diet. Cardiology added Lipitor 4. History of fibromyalgia 5. Diabetes mellitus type 2 6. History of myocardial infarction 7. History of TIA 8. Generalized anxiety disorder 9. Accelerated hypertension present on admission. Now blood pressures have improved Time with Patient: Greater than 30 (Greater than 50% of the total time spent in counseling and coordination of care.I performed an examination of the patient and discussed their management with the physician W[employer]aker. I have reviewed the Physician Wearing App[employer] Shaker's notes and agree with the documented findings and plan of care)
--- NOTE | 2016-09-22 13:06 | P.DS ---
Providers Date of admission: 09/21/16 15:50 Expected date of discharge: 09/22/16 Attending physician: Jae Martinze Consults: 09/21/16 16:04 Consult Physician Stat Consulting Provider: [facility] Consult Reason/Comments: Chest pain Do you want consulting provider notified?: Yes Primary care physician: Jae [facility] Course: Discharge diagnosis 1. Right shoulder pain with shortness of breath: Cardiac workup negative. GA ruled out. Symptoms are likely due to musculoskeletal pain. Troponins negative 3 sets. Stress test was negative. Patient was seen and evaluated by cardiology. CTA of the chest was negative for PE. Chest x-rays negative. Patient had x-ray of the shoulder about 2 months ago after a fall with no evidence of any fracture. 2. Hypomagnesemia and patient received magnesium supplement. Repeat magnesium level I.7 3. Hypertriglyceridemia. Low-fat low-cholesterol diet. Cardiology added Lipitor 4. History of fibromyalgia 5. Diabetes mellitus type 2 6. History of myocardial infarction 7. History of TIA 8. Generalized anxiety disorder 9. Accelerated hypertension present on admission. Now blood pressures have improved Hospital course This is a 65-year-old female with a known history of myocardial infarction, diabetes mellitus, fibromyalgia, hypertension, and osteoarthritis. Patient presents to emergency room with complaints of right shoulder pain and shortness of breath. Symptoms started yesterday. Patient did have a fall about 2 months ago and had x-rays of the right shoulder done no evidence of any fractures. Patient reports no new injury. Patient was admitted to observation and cardiac workup was requested. Troponins were negative 3 sets CTA of the chest was negative for PE. Chest x-ray was negative. Patient was seen evaluated by cardiology and did undergo a stress test. Stress test negative for stress- induced ischemia. Echo showed preserved EF. And no significant valvular abnormality. GA and PE has been ruled out. Patient is medically and cardiac stable for discharge. She'll follow-up with Dr. Martinez in the office. She did have elevated triglyceride level of 624. Cardiology did add Lipitor 20 mg daily during this admission. Recommend that patient follows a low-fat low- cholesterol diet. Patient Condition at Discharge: Stable Plan - Discharge Summary New Discharge Prescriptions: Atorvastatin [Lipitor] 20 mg PO DAILY #30 tab Discharge Medication List Cyclobenzaprine [Flexeril] 10 mg PO BID 10/10/14 [History] HYDROcodone/APAP 10-325MG [[place] 10-325] 1 tab PO TID PRN 10/10/14 [History] Lisinopril 40 mg PO DAILY 10/10/14 [History] Omeprazole [PriLOSEC] 20 mg PO AC-BID 10/10/14 [History] metFORMIN HCL 1,000 mg PO BID 10/10/14 [History] Insulin Glargine [Lantus] 25 units SQ AC-SUPPER 10/11/14 [History] Latanoprost Ophth [Xalatan 0.005%] 1 drop BOTH EYES HS 10/11/14 [History] Ascorbic Acid [Vitamin C] 1,000 mg PO DAILY 04/10/16 [History] Aspirin EC [Ecotrin] 325 mg PO BID 04/10/16 [History] Vitamin B Complex 1 cap PO DAILY 04/10/16 [History] amLODIPine [Norvasc] 10 mg PO DAILY 04/10/16 [History] clonazePAM [KlonoPIN] 0.25 mg PO BID 04/10/16 [History] Ergocalciferol (Vitamin D2) [Vitamin D2] 50,000 unit PO MO 09/21/16 [History] Ezetimibe [Zetia] 10 mg PO DAILY 09/21/16 [History] Furosemide [Lasix] 20 mg PO Q48H 09/21/16 [History] Insulin Regular, Human [NovoLIN R] 10 units SQ BID 09/21/16 [History] Atorvastatin [Lipitor] 20 mg PO DAILY #30 tab 09/22/16 [Rx] Follow up Appointment(s)/Referral(s): Jae Martinez MD [Primary Care Provider] - 1 Week Activity/Diet/Wound Care/Special Instructions: Diet: low fat, low cholesterol, diabetic, cardiac activity: as tolerated Discharge Disposition: HOME SELF-CARE
[2016-09-22] MEDS ORDERED: INSULIN GLARGINE 100 UNIT/ML 10 ML VIAL SQ SCH (21:00)
[2016-09-23] MEDS ORDERED: ASPIRIN 325 MG TAB PO SCH (09:00)
== END 2016-09-22 14:10 | disposition home or self-care (01) ==
LOC: EC 12:25 → 3OBS 15:50 → UNDODISOB 21:00
PROVIDERS: ADMIT Internal Medicine; ATTEND Internal Medicine
DX: R06.02 Shortness of breath (principal); M25.511 Pain in right shoulder; I25.10 Atherosclerotic heart disease of native coronary artery without angina pectoris; E11.9 Type 2 diabetes mellitus without complications; E78.1 Pure hyperglyceridemia; E83.42 Hypomagnesemia; F41.1 Generalized anxiety disorder; I10 Essential (primary) hypertension; R00.0 Tachycardia, unspecified; I25.2 Old myocardial infarction; M79.7 Fibromyalgia; Z79.4 Long term (current) use of insulin; Z86.73 Personal history of transient ischemic attack (TIA), and cerebral infarction without residual deficits; R07.89 Other chest pain; M54.9 Dorsalgia, unspecified; Z79.82 Long term (current) use of aspirin; Z79.899 Other long term (current) drug therapy; M19.90 Unspecified osteoarthritis, unspecified site; Z88.6 Allergy status to analgesic agent; Z88.4 Allergy status to anesthetic agent; Z88.1 Allergy status to other antibiotic agents; Z88.5 Allergy status to narcotic agent; Z88.2 Allergy status to sulfonamides; Z88.8 Allergy status to other drugs, medicaments and biological substances
CPT/HCPCS: 36415; 93005; 93017; 93306; 93350; 85379; 80061; 80053; 80048; 82550; 82553; 83735 ×2; 84484 ×2; 85025 ×2; 85610; 85730; 71020; 71275; 99291; 96365; 96375; 96376; G0378 ×2; J1250; J2270 ×2; J1200; J1644 ×2; Q9967; J3475; 96361; 96366; 96368

== ENCOUNTER 2016-10-13 17:25 | Emergency (ER) | payer MEDICARE, OTHER ==
[2016-10-13 17:51] VITALS: RESP 18
--- NOTE | 2016-10-13 18:43 | ED ---
General Adult HPI - General Chief complaint: Upper Respiratory Infection Stated complaint: THINKS THEY HAVE BEEN POISENED BY [employer] Time Seen by Provider: 10/13/16 18:18 Source: patient, RN notes reviewed Mode of arrival: ambulatory Limitations: no limitations - History of Present Illness Initial comments: 65-year-old female presents the emergency department with a chief complaint of cough cold runny nose like symptoms. Patient states that these started ever since he was turned back on after losing power. Patient states she has sore throat. Patient states she just feels ill. They were found. Mold in her apartment as well as her she did not know if maybe that was what it was related to. Patient states she was concerned so she thought that she should be evaluated. Patient does not know if it's her environment or something else. Patient denies any high fevers with this. Patient denies production with cough. Patient denies any recent fever, chills, shortness of breath, chest pain, back pain, abdominal pain, nausea vomiting, numbness or tingling, dysuria or hematuria, constipation or diarrhea, headaches or visual changes, or any other current symptoms. - Related Data Home Medications Medication Instructions Recorded Confirmed Cyclobenzaprine [Flexeril] 10 mg PO BID 10/10/14 09/21/16 HYDROcodone/APAP 10-325MG [[place] 1 tab PO TID PRN 10/10/14 09/21/16 10-325] Lisinopril 40 mg PO DAILY 10/10/14 09/21/16 Omeprazole [PriLOSEC] 20 mg PO AC-BID 10/10/14 09/21/16 metFORMIN HCL 1,000 mg PO BID 10/10/14 09/21/16 Insulin Glargine [Lantus] 25 units SQ AC-SUPPER 10/11/14 09/21/16 Latanoprost Ophth [Xalatan 0.005%] 1 drop BOTH EYES HS 10/11/14 09/21/16 Ascorbic Acid [Vitamin C] 1,000 mg PO DAILY 04/10/16 09/21/16 Aspirin EC [Ecotrin] 325 mg PO BID 04/10/16 09/21/16 Vitamin B Complex 1 cap PO DAILY 04/10/16 09/21/16 amLODIPine [Norvasc] 10 mg PO DAILY 04/10/16 09/21/16 clonazePAM [KlonoPIN] 0.25 mg PO BID 04/10/16 09/21/16 Ergocalciferol (Vitamin D2) 50,000 unit PO MO 09/21/16 09/21/16 [Vitamin D2] Ezetimibe [Zetia] 10 mg PO DAILY 09/21/16 09/21/16 Furosemide [Lasix] 20 mg PO Q48H 09/21/16 09/21/16 Insulin Regular, Human [NovoLIN R] 10 units SQ BID 09/21/16 09/21/16 Previous Rx's Medication Instructions Recorded Atorvastatin [Lipitor] 20 mg PO DAILY #30 tab 09/22/16 Allergies Allergy/AdvReac Type Severity Reaction Status Date / Time acetaminophen Allergy Unknown Verified 10/13/16 17:51 [From Darvocet-N] cephalexin monohydrate Allergy Nausea & Verified 10/13/16 17:51 [From Keflex] Vomiting & Diarrhea codeine Allergy Unknown Verified 10/13/16 17:51 cortisone Allergy Nausea & Verified 10/13/16 17:51 Vomiting epinephrine Allergy Unknown Verified 10/13/16 17:51 iodine Allergy Rash/Hives Verified 10/13/16 17:51 methadone Allergy Nausea & Verified 10/13/16 17:51 Vomiting & Diarrhea procaine HCl [From Novocain] Allergy Rapid Verified 10/13/16 17:51 Heart Rate propoxyphene Allergy Unknown Verified 10/13/16 17:51 [From Darvocet-N] Sulfa (Sulfonamide Allergy Rash/Hives Verified 10/13/16 17:51 Antibiotics) steroids Allergy Unknown Uncoded 10/13/16 17:51 Review of Systems ROS Statement: Those systems with pertinent positive or pertinent negative responses have been documented in the HPI. ROS Other: All systems not noted in ROS Statement are negative. Past Medical History Past Medical History: CVA/TIA, Diabetes Mellitus, Fibromyalgia, Hypertension, Osteoarthritis (OA) Additional Past Medical History / Comment(s): neuropathy History of Any Multi-Drug Resistant Organisms: None Reported Past Surgical History: Bladder Surgery, Cholecystectomy, Tubal Ligation Additional Past Surgical History / Comment(s): rhinoplasty, hand surgery bilateral-carpal tunel Past Anesthesia/Blood Transfusion Reactions: No Reported Reaction Past Psychological History: Anxiety Smoking Status: Never smoker Past Alcohol Use History: None Reported Past Drug Use History: None Reported - Past Family History Father Family Medical History: CVA/TIA, Myocardial Infarction ([place]) Mother Family Medical History: Cancer General Exam - General Exam Comments Initial Comments: General exam: Alert, active, comfortable in no apparent distress Head: Normocephalic Eyes: Normal reaction of pupils, equal size, normal range of extraocular motion Ears: normal external ear canals, pink tympanic membranes with normal cone of light Nose: clear with pink turbinates Throat: no erythema or exudates with normal sized tonsils Neck: no masses, no nuchal rigidity Chest: no chest wall deformity Lungs: equal air entry with no crackles or wheeze CVS: S1 and S2 normal with no audible mumurs, regular rhythm Spine: no scoliosis or deformity Skin: no rashes Neurological: No focal deficits, tone is normal in all 4 extremities Limitations: no limitations Course Vital Signs 10/13/16 17:43 Temperature 98.7 F Pulse Rate 114 H Respiratory 18 Rate Blood Pressure 188/95 O2 Sat by Pulse 97 Oximetry Medical Decision Making - Medical Decision Making 55-year-old male presents for cough cold like symptoms. At this time patient's symptoms are consistent with upper respiratory however we did discuss that could be related to ALLERGY from the environment that she is . We discussed follow-up with the aforementioned parameters. We discussed all patient's family's questions and she states she understood and she is in the plan. This time she'll be discharged home. - Lab Data Lab Results 10/13/16 10/13/16 Range/Units 18:40 18:40 Influenza Type A RNA Not Detected (Not Detectd) Influenza Type B (PCR) Not Detected (Not Detectd) Group A Strep Rapid Negative (Negative) - Radiology Data Radiology results: report reviewed, image reviewed Disposition Clinical Impression: Upper respiratory infection Disposition: HOME SELF-CARE Condition: Stable Instructions: Upper Respiratory Infection (ED) Additional Instructions: Please use medication as discussed. Please follow up with family doctor if symptoms have not improved over the next two days. Please return to the emergency room if your symptoms increase or worsen or for any other concerns. Referrals: Jae Martinez MD [Primary Care Provider] - 1-2 days Time of Disposition: 19:17
--- NOTE | 2016-10-13 19:07 | XR ---
EXAMINATION TYPE: XR chest 2V DATE OF EXAM: 10/13/2016 6:48 PM COMPARISON: Chest x-ray and CTA chest September 21, 2016. HISTORY: Cough. TECHNIQUE: Frontal and lateral views of the chest are obtained. FINDINGS: There is no focal air space opacity, pleural effusion, or pneumothorax seen. The cardiac silhouette size is within normal limits with atherosclerotic change in thoracic aorta. Scoliotic curv ature in the upper lumbar spine is present. Cholecystectomy clips are present. IMPRESSION: No acute cardiopulmonary process. No significant change from prior.
[2016-10-13 19:34] VITALS: BP 165/97; PULSE 109; TEMP 99
== END 2016-10-13 19:48 | disposition home or self-care (01) ==
LOC: EC 17:25
DX: J06.9 Acute upper respiratory infection, unspecified (principal); E11.40 Type 2 diabetes mellitus with diabetic neuropathy, unspecified; M79.7 Fibromyalgia; I10 Essential (primary) hypertension; M19.90 Unspecified osteoarthritis, unspecified site; F41.9 Anxiety disorder, unspecified; Z88.5 Allergy status to narcotic agent; Z88.2 Allergy status to sulfonamides; Z88.1 Allergy status to other antibiotic agents; Z88.4 Allergy status to anesthetic agent; Z88.8 Allergy status to other drugs, medicaments and biological substances; Z91.09 Other allergy status, other than to drugs and biological substances; Z79.82 Long term (current) use of aspirin; Z79.4 Long term (current) use of insulin; Z79.84 Long term (current) use of oral hypoglycemic drugs; Z79.899 Other long term (current) drug therapy; Z86.73 Personal history of transient ischemic attack (TIA), and cerebral infarction without residual deficits
CPT/HCPCS: 71020; 87081; 87430; 87502; 99283

== ENCOUNTER → 2016-10-20 | Outpatient (CLI) | payer MEDICARE, OTHER ==
--- NOTE | 2016-11-03 11:30 | MM ---
Reason for exam: screening (asymptomatic). History: Patient is postmenopausal. Benign excisional biopsy of the left breast, 1976. Took estrogen beginning at age 44. Physical Findings: A clinical breast exam by your physician is recommended on an annual basis and results should be correlated with mammographic findings. MG 3D Screening Mammo W/Cad Bilateral CC and MLO view(s) were taken. Prior study comparison: March 28, 2016, mammogram, performed at [facility]. December 22, 2013, mammogram, performed at [facility]. The breast tissue is extremely dense which could obscure a lesion on mammography. Finding: There are typically benign calcifications in both breasts. There is a chronic nodularity in the left breast. No significant changes in finding since March 28, 2016 and December 22, 2013. ASSESSMENT: Benign, BI-RAD 2 RECOMMENDATION: Routine screening mammogram of both breasts in 1 year.
== END | disposition home or self-care (01) ==
LOC: RADMAMWWP 15:58
PROVIDERS: ATTEND Internal Medicine
DX: Z12.31 Encounter for screening mammogram for malignant neoplasm of breast (principal)
CPT/HCPCS: 77063; G0202

== ENCOUNTER 2016-11-26 19:27 | Inpatient (IN) | payer MEDICARE, OTHER ==
[2016-11-26] MEDS ORDERED: SODIUM CHLORIDE 0.9% 1,000 ML IV STA (20:23)
[2016-11-26 20:25] LABS: Glucose,Whole Blood 147 mg/dL (75-99)
[2016-11-26 20:53] LABS: Basophils # (A) 0.1 k/uL (0-0.2); Basophils % (A) 1 %; CH 29.6; CHCM 34.5; Eosinophils # (A) 0.3 k/uL (0-0.7); Eosinophils % (A) 3 %; HCT 39.2 % (34.0-46.0); HDW 2.81; HGB 13.7 gm/dL (11.4-16.0); Luc # (Auto) 0.25; Luc % (Auto) 3; Lymphocytes # (A) 3.2 k/uL (1.0-4.8); Lymphocytes % (A) 37 %; MCHC 34.8 g/dL (31.0-37.0); MCV 86.2 fL (80.0-100.0); Mean Platelet Volume 6.3; Monocytes # (A) 0.6 k/uL (0-1.0); Monocytes % (A) 7 %; Neutrophils # (A) 4.2 k/uL (1.3-7.7); Neutrophils % (A) 49 %; RBC 4.55 m/uL (3.80-5.40); RDW 13.3 % (11.5-15.5); WBC 8.6 k/uL (3.8-10.6); WBC (Perox) 8.46
[2016-11-26 21:04] LABS: Partial Thromboplastin Time 24.9 sec (22.0-30.0); Prothrombin Time 10.4 sec (9.0-12.0)
--- NOTE | 2016-11-26 21:07 | XR ---
EXAMINATION TYPE: XR chest 2V DATE OF EXAM: 11/26/2016 8:50 PM COMPARISON: 10/13/2016 INDICATION: Intermittent right-sided numbness TECHNIQUE: 2 view chest FINDINGS: The heart size is normal. The pulmonary vasculature is normal. The lungs are clear. There is a focal eventration of the right hemidiaphragm. IMPRESSION: 1. No acute pulmonary process.
[2016-11-26 21:08] LABS: Creatine Kinase 206 U/L (30-135)
--- NOTE | 2016-11-26 21:08 | CT ---
EXAMINATION TYPE: CT brain wo con DATE OF EXAM: 11/26/2016 9:04 PM COMPARISON: 10/10/2014 INDICATION: Right sided body numbness for 1 week DLP: 1064 mGycm, Automated exposure control for dose reduction was used. CONTRAST: None CT of the brain is performed utilizing 3 mm thick sections through the posterior fossa and 3 mm thick sections through the remaining calvarium. Study is performed within 24 hours of arrival to the hosp [facility]. No abnormal hyperdensity is present to suggest an acute intracranial hemorrhage. No mass lesion is evident. No acute infarcts are evident. Ventricles and sulci are appropriate for the patient age. Paranasal sinuses and mastoid air cells within the [id number] are clear. IMPRESSIONS: 1. No acute intracranial process.
[2016-11-26 21:10] LABS: ALT 35 U/L (9-52); AST 30 U/L (14-36); Alkaline Phosphatase 85 U/L (38-126); Anion Gap 15 mmol/L; Blood Urea Nitrogen 22 mg/dL (7-17); Calcium 10.3 mg/dL (8.4-10.2); Carbon Dioxide 24 mmol/L (22-30); Chloride 95 mmol/L (98-107); Glucose 131 mg/dL (74-99); Non-African American GFR(MDRD) >60 (>60 ml/min/1.73 sqM); Potassium 3.7 mmol/L (3.5-5.1); Sodium 134 mmol/L (137-145); Total Bilirubin 0.7 mg/dL (0.2-1.3); Total Protein 7.9 g/dL (6.3-8.2)
[2016-11-26 21:21] LABS: Creatine Kinase MB 4.6 ng/mL (0.0-2.4); Troponin I <0.012 ng/mL (0.000-0.034)
--- NOTE | 2016-11-26 21:52 | ED ---
Neuro HPI - General Chief Complaint: Neuro Symptoms/Deficit Stated Complaint: poss TIA rt side numbness Time Seen by Provider: 11/26/16 20:23 Source: patient Mode of arrival: wheelchair Limitations: no limitations - History of Present Illness Is the patient presenting with stroke symptoms?: Yes Last Known Well Date: 11/25/16 Initial Comments: This is a 66-year-old female with a history of diabetes, TIA, and stroke who presents emergency department for headache, right-sided weakness, and right hand incoordination. She states that the symptoms been going on intermittently throughout the week especially with the numbness. She states that she woke up this morning and did not feel right. She states that she had numbness at that time and the symptoms seemed to progress throughout the day. She then noted that she was having difficulty with her right hand with weakness and incoordination. She also stated that her right leg seemed to be weak. She decided come to the emergency department for evaluation. She states the last time that she felt like she was normal was sometime yesterday however again she' s been feeling intermittently numb throughout the week. She does admit to headaches which are apical for her. She usually takes aspirin for them. She also admits to neuropathic pain which is also typical for her. She denies any head trauma. No nausea or vomiting. No vision changes. No slurred speech. She does state that she has some right eye drooping however this is chronic for her. No other complaints. - Related Data Home Medications: Home Medications Medication Instructions Recorded Confirmed HYDROcodone/APAP 10-325MG [[place] 1 tab PO TID PRN 10/10/14 11/26/16 10-325] Lisinopril 40 mg PO BID 10/10/14 11/26/16 Omeprazole [PriLOSEC] 20 mg PO BID 10/10/14 11/26/16 metFORMIN HCL 1,000 mg PO BID-W/MEALS 10/10/14 11/26/16 Insulin Glargine [Lantus] 25 units SQ HS 10/11/14 11/26/16 Latanoprost Ophth [Xalatan 0.005%] 1 drop BOTH EYES HS 10/11/14 11/26/16 Ascorbic Acid [Vitamin C] 1,000 mg PO DAILY 04/10/16 11/26/16 Aspirin EC [Ecotrin] 325 mg PO BID 04/10/16 11/26/16 Vitamin B Complex 2 cap PO DAILY 04/10/16 11/26/16 amLODIPine [Norvasc] 10 mg PO DAILY 04/10/16 11/26/16 clonazePAM [KlonoPIN] 0.25 mg PO BID 04/10/16 11/26/16 Ergocalciferol (Vitamin D2) 50,000 unit PO MO 09/21/16 11/26/16 [Vitamin D2] Ezetimibe [Zetia] 10 mg PO DAILY 09/21/16 11/26/16 Furosemide [Lasix] 20 mg PO Q48H 09/21/16 11/26/16 Insulin Regular, Human [NovoLIN R] 10 units SQ W/LUNCH 09/21/16 11/26/16 Carvedilol [Coreg] 12.5 mg PO BID 11/26/16 11/26/16 Cyclobenzaprine [Flexeril] 10 mg PO BID 11/26/16 11/26/16 Allergies/Adverse Reactions: Allergies Allergy/AdvReac Type Severity Reaction Status Date / Time epinephrine Allergy Anaphylaxis Verified 11/26/16 21:27 iodine Allergy Rash/Hives Verified 11/26/16 21:27 procaine HCl [From Novocain] Allergy Anaphylaxis Verified 11/26/16 21:27 Sulfa (Sulfonamide Allergy Rash/Hives Verified 11/26/16 21:27 Antibiotics) cephalexin monohydrate AdvReac Nausea & Verified 11/26/16 21:27 [From Keflex] Vomiting & Diarrhea codeine AdvReac Nausea & Verified 11/26/16 21:35 Vomiting cortisone AdvReac Nausea & Verified 11/26/16 21:27 Vomiting/Vertigo methadone AdvReac Nausea & Verified 11/26/16 21:27 Vomiting & Diarrhea propoxyphene AdvReac Nausea & Verified 11/26/16 21:27 [From Darvocet-N] Vomiting Sipwrwx-Zcw-Vgt Reductase AdvReac Nausea & Verified 11/26/16 21:35 Inhibitor Vomiting/Muscle Weakness steroids AdvReac Nausea & Uncoded 11/26/16 21:27 Vomiting Review of Systems ROS Statement: Those systems with pertinent positive or pertinent negative responses have been documented in the HPI. ROS Other: All systems not noted in ROS Statement are negative. General Exam - General Exam Comments Initial Comments: Constitutional: Awake alert Appears comfortable Head: Normocephalic atraumatic Eyes: no conjunctival injection No scleral icterus EOMI, pupils are 4 mm and reactive bilaterally Neck: No JVD Supple Heart: Regular rate rhythm normal S1-S2 no murmurs Lungs: Clear to auscultation bilaterally No wheezing No rales Abdomen: Soft nondistended nontender Extremities: Non edematous DP pulses intact Radial pulses intact Neuro: A&Ox3 the patient does seem to have some right eye ptosis however she states that this is chronic for her. She is able to open and close her eye fully and feels like she has full strength when she does so, extraocular muscles are intact, pupils are 4 mm reactive bilaterally to the rest of her cranial nerves are intact. She does admit to some decreased sensation of the entire right arm and right leg. She is able to feel however reports that it feels like "an alien limb ". When I ask her to hold both of her arms up she feels that the right 1 is drifting and it does drift down to the gurney however does not hit the gurney. However when I test the patient's stage set up worker strength is equal bilaterally and also she has equal biceps and triceps strength bilaterally. She does not have any ataxia in her extremities. Her right leg has 5 out of 5 strength in her left leg has 5 out of 5 strength. Psych: Appropriate mood and affect Limitations: no limitations Stroke MDM - Lab Data Result diagrams: 11/26/16 20:30 11/26/16 20:30 Lab Results 11/26/16 11/26/16 11/26/16 Range/Units 20:24 20:30 20:30 WBC 8.6 (3.8-10.6) k/uL RBC 4.55 (3.80-5.40) m/uL Hgb 13.7 (11.4-16.0) gm/dL Hct 39.2 (34.0-46.0) % MCV 86.2 (80.0-100.0) fL MCH 30.0 (25.0-35.0) pg MCHC 34.8 (31.0-37.0) g/dL RDW 13.3 (11.5-15.5) % Plt Count 441 (150-450) k/uL Neutrophils % 49 % Lymphocytes % 37 % Monocytes % 7 % Eosinophils % 3 % Basophils % 1 % Neutrophils # 4.2 (1.3-7.7) k/uL Lymphocytes # 3.2 (1.0-4.8) k/uL Monocytes # 0.6 (0-1.0) k/uL Eosinophils # 0.3 (0-0.7) k/uL Basophils # 0.1 (0-0.2) k/uL PT (9.0-12.0) sec INR (<1.1) APTT (22.0-30.0) sec Sodium (137-145) mmol/L Potassium (3.5-5.1) mmol/L Chloride (98-107) mmol/L Carbon Dioxide (22-30) mmol/L Anion Gap mmol/L BUN (7-17) mg/dL Creatinine (0.52-1.04) mg/dL Est GFR (MDRD) Af Amer (>60 ml/min/1.73 sqM) Est GFR (MDRD) Non-Af (>60 ml/min/1.73 sqM) Glucose (74-99) mg/dL POC Glucose (mg/dL) 147 H (75-99) mg/dL POC Glu Lamp Mechanic ID Briseida Carmichael Calcium (8.4-10.2) mg/dL Total Bilirubin (0.2-1.3) mg/dL AST (14-36) U/L ALT (9-52) U/L Alkaline Phosphatase (38-126) U/L Total Creatine Kinase 206 H (30-135) U/L CK-MB (CK-2) 4.6 H* (0.0-2.4) ng/mL CK-MB (CK-2) Rel Index 2.2 Troponin I <0.012 (0.000-0.034) ng/mL Total Protein (6.3-8.2) g/dL Albumin (3.5-5.0) g/dL 11/26/16 11/26/16 Range/Units 20:30 20:30 WBC (3.8-10.6) k/uL RBC (3.80-5.40) m/uL Hgb (11.4-16.0) gm/dL Hct (34.0-46.0) % MCV (80.0-100.0) fL MCH (25.0-35.0) pg MCHC (31.0-37.0) g/dL RDW (11.5-15.5) % Plt Count (150-450) k/uL Neutrophils % % Lymphocytes % % Monocytes % % Eosinophils % % Basophils % % Neutrophils # (1.3-7.7) k/uL Lymphocytes # (1.0-4.8) k/uL Monocytes # (0-1.0) k/uL Eosinophils # (0-0.7) k/uL Basophils # (0-0.2) k/uL PT 10.4 (9.0-12.0) sec INR 1.0 (<1.1) APTT 24.9 (22.0-30.0) sec Sodium 134 L (137-145) mmol/L Potassium 3.7 (3.5-5.1) mmol/L Chloride 95 L (98-107) mmol/L Carbon Dioxide 24 (22-30) mmol/L Anion Gap 15 mmol/L BUN 22 H (7-17) mg/dL Creatinine 0.76 (0.52-1.04) mg/dL Est GFR (MDRD) Af Amer >60 (>60 ml/min/1.73 sqM) Est GFR (MDRD) Non-Af >60 (>60 ml/min/1.73 sqM) Glucose 131 H (74-99) mg/dL POC Glucose (mg/dL) (75-99) mg/dL POC Glu Lamp Mechanic ID Calcium 10.3 H (8.4-10.2) mg/dL Total Bilirubin 0.7 (0.2-1.3) mg/dL AST 30 (14-36) U/L ALT 35 (9-52) U/L Alkaline Phosphatase 85 (38-126) U/L Total Creatine Kinase (30-135) U/L CK-MB (CK-2) (0.0-2.4) ng/mL CK-MB (CK-2) Rel Index Troponin I (0.000-0.034) ng/mL Total Protein 7.9 (6.3-8.2) g/dL Albumin 4.6 (3.5-5.0) g/dL - NIH Stroke Scale 1a. Level of Consciousness: (0) alert 1b. LOC Questions: (0) answers correctly 1c. LOC Commands: (0) performs tasks correctly 2. Best Gaze: (0) normal 3. Visual: (0) no visual loss 4. Facial Palsy: (0) normal symmetrical movement 5a. Motor Arm Left: (0) no drift 5b. Motor Arm Right: (1) drift 6a. Motor Leg Left: (0) no drift 6b. Motor Leg Right: (0) no drift 7. Limb Ataxia: (0) absent 8. Sensory: (1) mild/moderate sensory loss 9. Best Language: (0) no aphasia 10. Dysarthria: (0) normal 11. Extinction/Inattention: (0) no abnormality - Thrombolytic Inclusion/Exclusion Thrombolytic Exclusion Criteria: Symptom Onset > 3 Hours - Medical Decision Making This is a 66-year-old female presents emergency department for numbness, weakness, and headache. She had a CT of the brain performed which was unremarkable for any acute changes. The patient did wake up and stated that she had cyst symptoms upon waking. The last time she was normal was yesterday and that she is not TPA candidate. Her neuro exam is very inconsistent. However she does have some numbness and also some weakness of the right arm. Due to her history of like to keep her in the hospital for further evaluation for possible stroke. She does follow with Dr. Black as an outpatient. The patient agrees with this plan. Dr. Maritnez accepts the admission. He requests that Dr. Black see the patient Past Medical History Past Medical History: CVA/TIA, Diabetes Mellitus, Fibromyalgia, Hypertension, Osteoarthritis (OA) Additional Past Medical History / Comment(s): neuropathy History of Any Multi-Drug Resistant Organisms: None Reported Past Surgical History: Bladder Surgery, Cholecystectomy, Tubal Ligation Additional Past Surgical History / Comment(s): rhinoplasty, hand surgery bilateral-carpal tunel Past Anesthesia/Blood Transfusion Reactions: No Reported Reaction Past Psychological History: Anxiety Smoking Status: Never smoker Past Alcohol Use History: None Reported Past Drug Use History: None Reported - Past Family History Father Family Medical History: CVA/TIA, Myocardial Infarction ([place]) Mother Family Medical History: Cancer Course Vital Signs 11/26/16 20:01 Temperature 99.0 F Pulse Rate 90 Respiratory 18 Rate Blood Pressure 147/98 O2 Sat by Pulse 97 Oximetry - Reevaluation(s) Reevaluation #1: 11/26/16 22:04 EKG showing normal sinus rhythm with a rate of 89. No abnormal ST segment changes or T-wave inversions. QTC is 481. No other abnormal intervals. No ectopy. Disposition Clinical Impression: Diabetic peripheral neuropathy, Paresthesias, Weakness Disposition: ADMITTED IP TO THIS HOSP Condition: Stable Referrals: Jae Martinez MD [Primary Care Provider] - 1-2 days
[2016-11-26] MEDS ORDERED: ASPIRIN 325 MG TAB PO STA (22:00)
[2016-11-26] MEDS: HYDROcodone/APAP 10-325MG 1 EACH TAB PO PRN (23:37)
[2016-11-27 01:11] VITALS: BMI 25.5
[2016-11-27] MEDS: FUROSEMIDE 20 MG TAB PO SCH (01:11)
[2016-11-27] MEDS: HYDROcodone/APAP 10-325MG 1 EACH TAB PO PRN ×4 (04:04→22:05)
[2016-11-27 07:07] LABS: Glucose,Whole Blood 154 mg/dL (75-99)
[2016-11-27] MEDS: metFORMIN 500 MG TAB PO SCH ×2 (07:25→17:39)
[2016-11-27] MEDS: PANTOPRAZOLE 40 MG TABLET PO SCH ×2 (07:25→22:04)
[2016-11-27] MEDS: CYCLOBENZAPRINE 10 MG TAB PO SCH ×2 (08:32→23:27)
[2016-11-27] MEDS: EZETIMIBE 10 MG TAB PO SCH (08:33)
[2016-11-27] MEDS: CARVEDILOL 12.5 MG TAB PO SCH ×2 (08:33→22:04)
[2016-11-27] MEDS: amLODIPine 10 MG TAB PO SCH (08:33)
[2016-11-27] MEDS ORDERED: LISINOPRIL 20 MG TAB PO SCH (09:00)
[2016-11-27] MEDS ORDERED: ACETAMINOPHEN TAB 325 MG TAB PO PRN (10:44)
--- NOTE | 2016-11-27 11:09 | P.HPIM ---
History of Present Illness H&P Date: 11/27/16 Chief Complaint: Right-sided numbness and weakness This is a 66-year-old female with a very complex past medical history noted below significant for history of TIAs and prior stroke with residual right- sided hemiparesis who presented to the emergency room with right-sided numbness involving her face, right upper, and the right lower extremity. Patient said that her symptoms started approximately a week ago that he was only intermittent and then she was doing well for a couple of days but yesterday she noted that the numbness was more persistent and more severe. She did not have any headache or vision change. She said that the numbness was associated with worsening weakness on her right side. She usually uses a cane to ambulate. Yesterday she was unable to walk around without her grandsons assistance. She presented to the emergency room for further evaluation. Computed tomography scan of the brain showed no acute intracranial findings. Patient was admitted to the hospital for neurology evaluation for possible TIA. This morning she said that she is having slight headache. No vision change. She is still having intermittent numbness on the right side of her body. She has a chronic facial weakness on the right side of her face that appears slightly worse compared to her usual according to her grandson. Review of Systems Review of system: 14 points review of systems were obtained and were negative except to what were mentioned in the HPI. Past Medical History Past Medical History: CVA/TIA, Diabetes Mellitus, Fibromyalgia, Hypertension, Osteoarthritis (OA), Rheumatoid Arthritis (RA) Additional Past Medical History / Comment(s): neuropathy History of Any Multi-Drug Resistant Organisms: None Reported Past Surgical History: Bladder Surgery, Cholecystectomy, Tubal Ligation Additional Past Surgical History / Comment(s): rhinoplasty, hand surgery bilateral-carpal tunel Past Anesthesia/Blood Transfusion Reactions: No Reported Reaction Past Psychological History: Anxiety Smoking Status: Never smoker Past Alcohol Use History: None Reported Past Drug Use History: None Reported - Past Family History Father Family Medical History: CVA/TIA, Liver Disease, Myocardial Infarction ([place]) Additional Family Medical History / Comment(s): alcoholic, cirrhosis of the liver Mother Family Medical History: Cancer Medications and Allergies Home Medications Medication Instructions Recorded Confirmed Type HYDROcodone/APAP 10-325MG [[place] 1 tab PO TID PRN 10/10/14 11/27/16 History 10-325] Lisinopril 40 mg PO BID 10/10/14 11/27/16 History Omeprazole [PriLOSEC] 20 mg PO BID 10/10/14 11/27/16 History metFORMIN HCL 1,000 mg PO BID-W/MEALS 10/10/14 11/27/16 History Insulin Glargine [Lantus] 25 units SQ HS 10/11/14 11/27/16 History Latanoprost Ophth [Xalatan 0.005%] 1 drop BOTH EYES HS 10/11/14 11/27/16 History Ascorbic Acid [Vitamin C] 1,000 mg PO DAILY 04/10/16 11/27/16 History Aspirin EC [Ecotrin] 325 mg PO BID 04/10/16 11/27/16 History Vitamin B Complex 2 cap PO DAILY 04/10/16 11/27/16 History amLODIPine [Norvasc] 10 mg PO DAILY 04/10/16 11/27/16 History clonazePAM [KlonoPIN] 0.25 mg PO BID 04/10/16 11/27/16 History Ergocalciferol (Vitamin D2) 50,000 unit PO MO 09/21/16 11/27/16 History [Vitamin D2] Ezetimibe [Zetia] 10 mg PO DAILY 09/21/16 11/27/16 History Furosemide [Lasix] 20 mg PO Q48H 09/21/16 11/27/16 History Insulin Regular, Human [NovoLIN R] 10 units SQ W/LUNCH 09/21/16 11/27/16 History Carvedilol [Coreg] 12.5 mg PO BID 11/26/16 11/27/16 History Cyclobenzaprine [Flexeril] 10 mg PO BID 11/26/16 11/27/16 History Allergies Allergy/AdvReac Type Severity Reaction Status Date / Time epinephrine Allergy Anaphylaxis Verified 11/27/16 00:32 iodine Allergy Rash/Hives Verified 11/27/16 00:32 procaine HCl [From Novocain] Allergy Anaphylaxis Verified 11/27/16 00:32 Sulfa (Sulfonamide Allergy Rash/Hives Verified 11/27/16 00:32 Antibiotics) cephalexin monohydrate AdvReac Nausea & Verified 11/27/16 00:32 [From Keflex] Vomiting & Diarrhea codeine AdvReac Nausea & Verified 11/27/16 00:32 Vomiting cortisone AdvReac Nausea & Verified 11/27/16 00:32 Vomiting/Vertigo methadone AdvReac Nausea & Verified 11/27/16 00:32 Vomiting & Diarrhea propoxyphene AdvReac Nausea & Verified 11/27/16 00:32 [From Marisol-N] Vomiting Qlbmhnd-Bjp-Kfh Reductase AdvReac Nausea & Verified 11/27/16 00:32 Inhibitor Vomiting/Muscle Weakness steroids AdvReac Nausea & Uncoded 11/27/16 00:32 Vomiting Physical Exam Vitals: Vital Signs Temp Pulse Pulse Resp BP BP Pulse Ox 11/27/16 08:00 97.8 F 103 H 16 143/83 97 11/27/16 04:00 97.3 F L 88 16 159/74 97 11/26/16 23:38 82 16 123/88 98 Intake and Output 11/26/16 11/27/16 11/27/16 22:59 06:59 14:59 Intake Total 240 Balance 240 Intake: Oral 240 Other: Voiding Method Toilet Toilet # Voids 1 Weight 65.4 kg 65.4 kg General: The patient is awake and alert, in no distress, and does not appear acutely ill. There is noted mild right facial droop Eye: extra-ocular movements are intact; there is normal conjunctiva bilaterally. Neck: The neck is supple, there is no tenderness or JVD. Cardiovascular: Normal S1-S2, no S3-S4, no murmurs. Respiratory: Lungs clear to auscultation bilaterally with no wheezes rhonchi or rales. Gastrointestinal: Abdomen is soft, nontender, nondistended, with no organomegaly. . Musculoskeletal: Normal ROM, no tenderness, There is no pedal edema. Neurological: There are no obvious motor deficits. Speech is normal. Skin: Skin is warm and dry Results CBC & Chem 7: 11/26/16 20:30 11/26/16 20:30 Labs: Abnormal Lab Results - Last 24 Hours (Table) 11/27/16 Range/Units 07:06 POC Glucose (mg/dL) 154 H (75-99) mg/dL Thrombosis Risk Factor Assmnt - Choose All That Apply Any of the Below Risk Factors Present?: Yes Each Factor Represents 1 point: Obesity (BMI >25) Other Risk Factors: Yes Each Risk Factor Represents 2 Points: Age 61-74 years Other congenital or acquired thrombophilia - If yes, enter type in comment: Yes Each Risk Factor Represents 5 Points: Stroke (< 1 month) Thrombosis Risk Factor Assessment Total Risk Factor Score: 8 Thrombosis Risk Factor Assessment Level: High Risk Assessment and Plan Plan: 1. Right-sided numbness/weakness 2. Possible TIA 3. History of stroke/CVA with residual right-sided hemiparesis 4. Type 2 diabetes mellitus: Relatively well-controlled 5. Essential hypertension: Blood pressure well-controlled 6. Mixed hyperlipidemia: Patient is intolerant to statin. Currently on Zetia 7. Generalized anxiety disorder Today, I reviewed her medication list and lab work results. I would obtain a fasting lipid profile. Patient had echocardiogram in September of this year showing normal ejection fraction and no significant valvular abnormalities. Carotid Doppler done in July 2016 showed less than 50% stenosis bilaterally with nail hemodynamically significant stenosis. Neurology consulted for further evaluation. May consider MRI of the brain if recommended by neurology. We will continue telemetry monitoring. Neuro checks. Subcu heparin for DVT prophylaxis. Full dose aspirin daily. Will check A1c and thyroid function test. Repeat lab work in the morning. Continue supportive care otherwise. PT/ OT evaluation.
[2016-11-27 11:10] LABS: Glucose,Whole Blood 158 mg/dL (75-99)
[2016-11-27] MEDS ORDERED: Potassium Replacement Protocol 1 EACH MISC MISCELLANE PRN (11:10)
[2016-11-27] MEDS ORDERED: Magnesium Replacement Protocol 1 EACH MISC MISCELLANE PRN (11:10)
[2016-11-27] MEDS: ONDANSETRON 4 MG/2 ML VIAL IVP PRN (12:17)
[2016-11-27 13:13] LABS: Hemoglobin A1C 6.5 % (4.2-6.1)
[2016-11-27 16:10] LABS: Glucose,Whole Blood 154 mg/dL (75-99)
--- NOTE | 2016-11-27 21:24 | P.CNNES ---
History of Present Illness Consult date: 11/27/16 History of Present Illness: The patient is a 66-year-old right-handed white female reports that yesterday while walking in [facility] with her grandson she experienced right leg loss of control and right sided weakness. Later her grandson drove her to the emergency room. She had some slurred speech as well as right facial droop. She reports having had a TIA 2 years ago where she experienced left face arm and leg weakness which was transient. She had a CT of the brain in the emergency room which did not show any acute abnormality patient is also noted to do that her right eyelid has been droopier. She reports second overall she is doing somewhat better than yesterday. Review of Systems All systems: negative Constitutional: Denies chills, Denies fever Eyes: denies blurred vision, denies pain Ears, nose, mouth and throat: Denies headache, Denies sore throat Cardiovascular: Denies chest pain, Denies shortness of breath Respiratory: Denies cough Gastrointestinal: Denies abdominal pain, Denies diarrhea, Denies nausea, Denies vomiting Genitourinary: Denies dysuria, Denies hematuria Musculoskeletal: Denies myalgias Integumentary: Denies pruritus, Denies rash Neurological: Denies numbness, Denies weakness Psychiatric: Reports as per HPI Past Medical History Past Medical History: CVA/TIA, Diabetes Mellitus, Fibromyalgia, Hypertension, Osteoarthritis (OA), Rheumatoid Arthritis (RA) Additional Past Medical History / Comment(s): neuropathy History of Any Multi-Drug Resistant Organisms: None Reported Past Surgical History: Bladder Surgery, Cholecystectomy, Tubal Ligation Additional Past Surgical History / Comment(s): rhinoplasty, hand surgery bilateral-carpal tunel Past Anesthesia/Blood Transfusion Reactions: No Reported Reaction Past Psychological History: Anxiety Smoking Status: Never smoker Past Alcohol Use History: None Reported Past Drug Use History: None Reported - Past Family History Father Family Medical History: CVA/TIA, Liver Disease, Myocardial Infarction ([place]) Additional Family Medical History / Comment(s): alcoholic, cirrhosis of the liver Mother Family Medical History: Cancer Medications and Allergies Home Medications Medication Instructions Recorded Confirmed Type HYDROcodone/APAP 10-325MG [[place] 1 tab PO TID PRN 10/10/14 11/27/16 History 10-325] Lisinopril 40 mg PO BID 10/10/14 11/27/16 History Omeprazole [PriLOSEC] 20 mg PO BID 10/10/14 11/27/16 History metFORMIN HCL 1,000 mg PO BID-W/MEALS 10/10/14 11/27/16 History Insulin Glargine [Lantus] 25 units SQ HS 10/11/14 11/27/16 History Latanoprost Ophth [Xalatan 0.005%] 1 drop BOTH EYES HS 10/11/14 11/27/16 History Ascorbic Acid [Vitamin C] 1,000 mg PO DAILY 04/10/16 11/27/16 History Aspirin EC [Ecotrin] 325 mg PO BID 04/10/16 11/27/16 History Vitamin B Complex 2 cap PO DAILY 04/10/16 11/27/16 History amLODIPine [Norvasc] 10 mg PO DAILY 04/10/16 11/27/16 History clonazePAM [KlonoPIN] 0.25 mg PO BID 04/10/16 11/27/16 History Ergocalciferol (Vitamin D2) 50,000 unit PO MO 09/21/16 11/27/16 History [Vitamin D2] Ezetimibe [Zetia] 10 mg PO DAILY 09/21/16 11/27/16 History Furosemide [Lasix] 20 mg PO Q48H 09/21/16 11/27/16 History Insulin Regular, Human [NovoLIN R] 10 units SQ W/LUNCH 09/21/16 11/27/16 History Carvedilol [Coreg] 12.5 mg PO BID 11/26/16 11/27/16 History Cyclobenzaprine [Flexeril] 10 mg PO BID 11/26/16 11/27/16 History Allergies Allergy/AdvReac Type Severity Reaction Status Date / Time epinephrine Allergy Anaphylaxis Verified 11/27/16 00:32 iodine Allergy Rash/Hives Verified 11/27/16 00:32 procaine HCl [From Novocain] Allergy Anaphylaxis Verified 11/27/16 00:32 Sulfa (Sulfonamide Allergy Rash/Hives Verified 11/27/16 00:32 Antibiotics) cephalexin monohydrate AdvReac Nausea & Verified 11/27/16 00:32 [From Keflex] Vomiting & Diarrhea codeine AdvReac Nausea & Verified 11/27/16 00:32 Vomiting cortisone AdvReac Nausea & Verified 11/27/16 00:32 Vomiting/Vertigo methadone AdvReac Nausea & Verified 11/27/16 00:32 Vomiting & Diarrhea propoxyphene AdvReac Nausea & Verified 11/27/16 00:32 [From [place]] Vomiting Ssvtrkc-Qif-Sii Reductase AdvReac Nausea & Verified 11/27/16 00:32 Inhibitor Vomiting/Muscle Weakness steroids AdvReac Nausea & Uncoded 11/27/16 00:32 Vomiting Physical Examination - Vital Signs Vital Signs: Vital Signs Temp Pulse Pulse Resp BP BP Pulse Ox 11/27/16 16:00 97.1 F L 99 18 148/73 96 11/27/16 12:00 97.6 F 95 20 142/77 95 11/27/16 08:00 97.8 F 103 H 16 143/83 97 11/27/16 04:00 97.3 F L 88 16 159/74 97 11/26/16 23:38 82 16 123/88 98 Intake and Output 11/27/16 11/27/16 11/27/16 06:59 14:59 22:59 Intake Total 670 240 Balance 670 240 Intake: IV 10 .9 FLUSH 10 Oral 660 240 Other: Voiding Method Toilet Toilet Toilet # Voids 1 Weight 65.4 kg 65.4 kg Patient Weight 11/28/16 06:59 Weight 65.4 kg - Constitutional General appearance: average body habitus - EENT EENT: PERRL, hearing intact, vision intact - Respiratory Respiratory: chest non-tender, lungs clear - Cardiovascular Cardiovascular: regular rate, normal S1, normal S2 - Neurologic Mental status she was awake alert and oriented ,there was no a aphasia or dysarthria Cranial nerve examination: PERRL, EOMI, ptosis, V1/V2/V3 grossly intact, tongue midline Speech examination: intact Detailed motor examination: other (Right hemiparesis 4/5) Reflex and gait examination: other (Could not be tested) - Psychiatric Psychiatric: mood/affect appropriate Results - Laboratory Findings CBC and BMP: 11/26/16 20:30 11/26/16 20:30 Abnormal Lab Findings: Abnormal Labs 11/27/16 11/27/16 11/27/16 07:06 11:08 16:08 POC Glucose (mg/dL) 154 H 158 H 154 H Assessment and Plan (1) Stroke Status: Acute Code(s): I63.9 - CEREBRAL INFARCTION, UNSPECIFIED Plan: The patient is a 66-year-old woman presented to the hospital with right-sided weakness involving face arm and leg as well as right ptosis. The patient has likely had a left subcortical infarct. She has been taking 2 aspirin daily. She states she's tried Plavix in the past and she did not tolerate it. The patient had a CT of the brain which did not show any acute abnormality. Recommend MRI of the brain. Her risk factors for stroke include diabetes hypertension and previous TIA also in the differential would be demyelinating disease. She reports she has had a spinal tap 2 years ago which was negative for MS
[2016-11-27 22:03] LABS: Glucose,Whole Blood 194 mg/dL (75-99)
[2016-11-27] MEDS: ASPIRIN 325 MG TAB PO SCH (22:04)
[2016-11-27] MEDS: INSULIN GLARGINE 100 UNIT/ML 10 ML VIAL SQ SCH (22:04)
[2016-11-27] MEDS: HEPARIN SODIUM,PORCINE 5,000 UNIT/ML 1 ML VIAL SQ SCH (22:04)
[2016-11-28 06:00] VITALS: RESP 16
[2016-11-28 06:15] LABS: Basophils # (A) 0.1 k/uL (0-0.2); Basophils % (A) 1 %; CH 29.6; CHCM 33.1; Eosinophils # (A) 0.3 k/uL (0-0.7); Eosinophils % (A) 6 %; HDW 2.54; HGB 11.5 gm/dL (11.4-16.0); Luc # (Auto) 0.17; Luc % (Auto) 3; Lymphocytes # (A) 2.3 k/uL (1.0-4.8); Lymphocytes % (A) 44 %; MCH 29.4 pg (25.0-35.0); MCHC 32.8 g/dL (31.0-37.0); MCV 89.9 fL (80.0-100.0); Mean Platelet Volume 6.1; Monocytes # (A) 0.4 k/uL (0-1.0); Monocytes % (A) 8 %; Neutrophils # (A) 2.1 k/uL (1.3-7.7); Neutrophils % (A) 39 %; RDW 13.6 % (11.5-15.5); WBC 5.3 k/uL (3.8-10.6); WBC (Perox) 5.65
[2016-11-28] MEDS: metFORMIN 500 MG TAB PO SCH ×2 (06:32→17:44)
[2016-11-28] MEDS: PANTOPRAZOLE 40 MG TABLET PO SCH ×2 (06:32→20:03)
[2016-11-28 06:33] LABS: Anion Gap 6 mmol/L; Blood Urea Nitrogen 18 mg/dL (7-17); Calcium 9.5 mg/dL (8.4-10.2); Carbon Dioxide 32 mmol/L (22-30); Chloride 99 mmol/L (98-107); Cholesterol 202 mg/dL (<200); Glucose 98 mg/dL (74-99); HDL Cholesterol 43 mg/dL (40-60); Magnesium 1.3 mg/dL (1.6-2.3); Non-African American GFR(MDRD) >60 (>60 ml/min/1.73 sqM); Potassium 4.4 mmol/L (3.5-5.1); Sodium 137 mmol/L (137-145); Triglycerides 221 mg/dL (<150)
[2016-11-28 06:35] LABS: Glucose,Whole Blood 119 mg/dL (75-99)
[2016-11-28] MEDS: amLODIPine 10 MG TAB PO SCH (08:18)
[2016-11-28] MEDS: HEPARIN SODIUM,PORCINE 5,000 UNIT/ML 1 ML VIAL SQ SCH ×2 (08:18→20:03)
[2016-11-28] MEDS: ASPIRIN 325 MG TAB PO SCH (08:18)
[2016-11-28] MEDS: CYCLOBENZAPRINE 10 MG TAB PO SCH ×2 (08:19→20:03)
[2016-11-28] MEDS: EZETIMIBE 10 MG TAB PO SCH (08:19)
[2016-11-28] MEDS: CARVEDILOL 12.5 MG TAB PO SCH ×2 (08:19→20:03)
[2016-11-28] MEDS: LISINOPRIL 20 MG TAB PO SCH (08:20)
[2016-11-28] MEDS: HYDROcodone/APAP 10-325MG 1 EACH TAB PO PRN ×2 (08:28→20:04)
--- NOTE | 2016-11-28 10:00 | P.PN ---
Subjective Patient is doing better today. She was up with physical therapy earlier. She still complaining of persistent numbness now limited to the right hand and the right side of her nose. Objective - Vital Signs Vital signs: Vital Signs Temp 97.1 F L 11/28/16 00:00 Pulse 87 11/28/16 04:00 Resp 16 11/28/16 04:00 BP 146/74 11/28/16 04:00 Pulse Ox 98 11/28/16 04:00 Intake & Output 11/27/16 11/28/16 11/28/16 18:59 06:59 18:59 Intake Total 910 100 Output Total 400 Balance 910 -400 100 Weight 65.4 kg 64.7 kg Intake: IV 10 .9 FLUSH 10 Oral 900 100 Output: Urine 400 Other: Voiding Method Toilet Toilet # Voids 1 - Exam General: The patient is awake and alert, in no distress Eye: there is normal conjunctiva bilaterally. Neck: The neck is supple, there is no JVD. Cardiovascular: Normal S1-S2, no S3-S4, no murmurs. Respiratory: Lungs clear to auscultation bilaterally Gastrointestinal: Abdomen is soft, nontender Musculoskeletal: There is no pedal edema. Neurological:. Speech is normal. Skin: Skin is warm and dry - Labs CBC & Chem 7: 11/28/16 05:39 11/28/16 05:39 Labs: Abnormal Lab Results - Last 24 Hours (Table) 11/27/16 11/27/16 11/27/16 Range/Units 11:08 16:08 21:31 Carbon Dioxide (22-30) mmol/L BUN (7-17) mg/dL POC Glucose (mg/dL) 158 H 154 H 194 H (75-99) mg/dL Magnesium (1.6-2.3) mg/dL Triglycerides (<150) mg/dL Cholesterol (<200) mg/dL LDL Cholesterol, Calc (0-99) mg/dL 11/28/16 11/28/16 Range/Units 05:39 06:13 Carbon Dioxide 32 H (22-30) mmol/L BUN 18 H (7-17) mg/dL POC Glucose (mg/dL) 119 H (75-99) mg/dL Magnesium 1.3 L (1.6-2.3) mg/dL Triglycerides 221 H (<150) mg/dL Cholesterol 202 H (<200) mg/dL LDL Cholesterol, Calc 115 H (0-99) mg/dL Assessment and Plan Plan: 1. Right-sided numbness/weakness 2. Possible TIA 3. History of stroke/CVA with residual right-sided hemiparesis 4. Type 2 diabetes mellitus: Relatively well-controlled 5. Essential hypertension: Blood pressure well-controlled 6. Mixed hyperlipidemia: Patient is intolerant to statin. Currently on Zetia 7. Generalized anxiety disorder Today, I reviewed her medication list and lab work results. Patient had echocardiogram in September of this year showing normal ejection fraction and no significant valvular abnormalities. Carotid Doppler done in July 2016 showed less than 50% stenosis bilaterally with nail hemodynamically significant stenosis. Neurology consulted for further evaluation, appreciate recommendations. Plan for MRI today. Patient was unable to tolerate Plavix in the past. We will continue telemetry monitoring. Subcu heparin for DVT prophylaxis. Full dose aspirin daily. A1c and thyroid function test within acceptable range.. Repeat lab work in the morning. Continue supportive care otherwise. PT/OT.
[2016-11-28 12:18] LABS: Glucose,Whole Blood 154 mg/dL (75-99)
[2016-11-28] MEDS: ONDANSETRON 4 MG/2 ML VIAL IVP PRN (12:19)
[2016-11-28] MEDS ORDERED: LORazepam 2 MG/ML SYRINGE IV STA (16:14)
[2016-11-28 16:59] LABS: Glucose,Whole Blood 148 mg/dL (75-99)
--- NOTE | 2016-11-28 17:50 | MR ---
EXAMINATION TYPE: MR brain wo con DATE OF EXAM: 11/28/2016 4:40 PM COMPARISON: CT brain dated 11/26/2016. HISTORY: Rt sided weakness for one week. TECHNIQUE: Multiplanar, multisequence images of the brain and brainstem is performed without IV contrast. FINDINGS: Corresponding to the patient's provided history of right-sided weakness for one week there is a T2 hyperintense 9 mm left thalamic lacunar injury restricting diffusion. Gliosis from prior lacu joycelyn injury is seen at the superior lateral margin of the left basal ganglia, which does not restricte d diffusion. Scattered areas of T2 hyperintensity without restricted diffusion are seen within the hogan bcortical and periventricular white matter representing nonspecific white matter changes. Other focal area of encephalomalacia from prior infarct is seen within the right posterior parietal lobe. This a gain does not restricted diffusion. Fluid is seen within the right mastoid air cells and minimally within the ethmoid sinuses. There is no extra-axial fluid collection. The ventricular system and cisternal spaces are normal in size and a ppearance. The brain volume is age appropriate. Midline structures demonstrate normal morphology. The craniocervical junction appears within normal limits. The visualized sinuses are clear and the globes are intact. IMPRESSION: 1. Subacute left thalamic lacunar infarct. 2. Multiple old areas of encephalomalacia from prior lacunar injury is and scattered areas of nonspec ific white matter change, likely on the basis of chronic microangiopathy.
[2016-11-28] MEDS: FUROSEMIDE 20 MG TAB PO SCH (20:03)
[2016-11-28 20:46] LABS: Glucose,Whole Blood 179 mg/dL (75-99)
[2016-11-28] MEDS: INSULIN GLARGINE 100 UNIT/ML 10 ML VIAL SQ SCH (21:19)
[2016-11-28] MEDS ORDERED: LATANOPROST 0.005% OPHTH DROPS 2.5 ML BTL BOTH EYES SCH (21:30)
[2016-11-29] MEDS: HYDROcodone/APAP 10-325MG 1 EACH TAB PO PRN ×2 (05:26→13:08)
[2016-11-29 06:23] LABS: Glucose,Whole Blood 143 mg/dL (75-99)
[2016-11-29] MEDS: metFORMIN 500 MG TAB PO SCH (06:35)
[2016-11-29 06:47] LABS: Basophils % (A) 1 %; CH 29.9; CHCM 34.1; Eosinophils # (A) 0.3 k/uL (0-0.7); Eosinophils % (A) 7 %; HCT 36.4 % (34.0-46.0); HDW 2.69; HGB 12.5 gm/dL (11.4-16.0); Luc # (Auto) 0.18; Luc % (Auto) 4; Lymphocytes # (A) 1.8 k/uL (1.0-4.8); Lymphocytes % (A) 42 %; MCH 30.2 pg (25.0-35.0); MCHC 34.3 g/dL (31.0-37.0); MCV 87.9 fL (80.0-100.0); Mean Platelet Volume 6.2; Monocytes # (A) 0.4 k/uL (0-1.0); Monocytes % (A) 8 %; Neutrophils # (A) 1.7 k/uL (1.3-7.7); Neutrophils % (A) 38 %; RBC 4.14 m/uL (3.80-5.40); RDW 13.1 % (11.5-15.5); WBC 4.3 k/uL (3.8-10.6); WBC (Perox) 4.47
[2016-11-29] MEDS: LISINOPRIL 20 MG TAB PO SCH (06:52)
[2016-11-29] MEDS: PANTOPRAZOLE 40 MG TABLET PO SCH (06:53)
[2016-11-29 07:00] LABS: Anion Gap 11 mmol/L; Blood Urea Nitrogen 15 mg/dL (7-17); Calcium 9.4 mg/dL (8.4-10.2); Carbon Dioxide 31 mmol/L (22-30); Chloride 100 mmol/L (98-107); Glucose 150 mg/dL (74-99); Magnesium 1.2 mg/dL (1.6-2.3); Non-African American GFR(MDRD) >60 (>60 ml/min/1.73 sqM); Potassium 3.9 mmol/L (3.5-5.1); Sodium 142 mmol/L (137-145)
[2016-11-29] MEDS: CARVEDILOL 12.5 MG TAB PO SCH (08:24)
[2016-11-29] MEDS: HEPARIN SODIUM,PORCINE 5,000 UNIT/ML 1 ML VIAL SQ SCH (08:24)
[2016-11-29] MEDS: EZETIMIBE 10 MG TAB PO SCH (08:24)
[2016-11-29] MEDS: amLODIPine 10 MG TAB PO SCH (08:24)
[2016-11-29] MEDS: ASPIRIN 325 MG TAB PO SCH (08:24)
[2016-11-29] MEDS: CYCLOBENZAPRINE 10 MG TAB PO SCH (08:24)
[2016-11-29] MEDS ORDERED: Magnesium Replacement Protocol 1 EACH MISC MISCELLANE PRN (11:13)
[2016-11-29 11:50] LABS: Glucose,Whole Blood 130 mg/dL (75-99)
--- NOTE | 2016-11-29 12:13 | P.DS ---
Providers Date of admission: 11/26/16 22:00 Expected date of discharge: 11/29/16 Attending physician: Jae Martinez Primary care physician: Jae [facility] Hospital Course: 1. Subacute left thalamic lacunar infarct with right-sided numbness/weakness 2. Generalized anxiety disorder 3. History of stroke/CVA with residual right-sided hemiparesis 4. Type 2 diabetes mellitus: Relatively well-controlled 5. Essential hypertension: Blood pressure well-controlled 6. Mixed hyperlipidemia: Patient is intolerant to statin. Currently on Zetia Today, I reviewed her medication list and lab work results. Patient had echocardiogram in September of this year showing normal ejection fraction and no significant valvular abnormalities. Carotid Doppler done in July 2016 showed less than 50% stenosis bilaterally with nail hemodynamically significant stenosis. Patient was seen and evaluated by neurology. Patient was unable to tolerate Plavix in the past and refuses to try it again. A1c and thyroid function test within acceptable range. Patient will be discharged home in a stable condition. Patient Condition at Discharge: Stable Plan - Discharge Summary New Discharge Prescriptions: RX: Magnesium Oxide [Mag-Ox] 400 mg PO DAILY #10 tablet Discharge Medication List RX: HYDROcodone/APAP 10-325MG [[place] 10-325] 1 tab PO TID PRN 10/10/14 [History] RX: Omeprazole [PriLOSEC] 20 mg PO BID 10/10/14 [History] RX: metFORMIN HCL 1,000 mg PO BID-W/MEALS 10/10/14 [History] RX: Insulin Glargine [Lantus] 25 units SQ HS 10/11/14 [History] RX: Latanoprost Ophth [Xalatan 0.005%] 1 drop BOTH EYES HS 10/11/14 [History] RX: Ascorbic Acid [Vitamin C] 1,000 mg PO DAILY 04/10/16 [History] RX: Vitamin B Complex 2 cap PO DAILY 04/10/16 [History] RX: amLODIPine [Norvasc] 10 mg PO DAILY 04/10/16 [History] RX: clonazePAM [KlonoPIN] 0.25 mg PO BID 04/10/16 [History] RX: Ergocalciferol (Vitamin D2) [Vitamin D2] 50,000 unit PO MO 09/21/16 [History ] RX: Ezetimibe [Zetia] 10 mg PO DAILY 09/21/16 [History] RX: Furosemide [Lasix] 20 mg PO Q48H 09/21/16 [History] RX: Insulin Regular, Human [NovoLIN R] 10 units SQ W/LUNCH 09/21/16 [History] RX: Carvedilol [Coreg*] 12.5 mg PO BID 11/26/16 [History] RX: Aspirin 325 mg PO DAILY tab 11/29/16 [Rx] RX: Lisinopril 40 mg PO DAILY #0 11/29/16 [Rx] RX: Magnesium Oxide [Mag-Ox] 400 mg PO DAILY #10 tablet 11/29/16 [Rx] Follow up Appointment(s)/Referral(s): [facility], [NON-STAFF] - Jae Martinez MD [Primary Care Provider] - 1 Week Discharge Disposition: HOME WITH HOME HEALTH SERVICES
[2016-11-29] MEDS: MAGNESIUM SULFATE-D5W PMX 1 GM in DEXTROSE/WATER 1 100ML.BAG IVPB SCH ×3 (12:54→15:35)
[2016-11-29 15:53] VITALS: BP 134/69; PULSE 86; TEMP 98.3
[2016-11-29 17:20] LABS: Glucose,Whole Blood 184 mg/dL (75-99)
== END 2016-11-29 17:55 | disposition home health service (06) | DRG 65 ==
LOC: EC 19:27 → 6SEL 22:00
PROVIDERS: ADMIT Internal Medicine; ATTEND Internal Medicine
DX: I63.9 Cerebral infarction, unspecified (principal); G81.91 Hemiplegia, unspecified affecting right dominant side; E11.42 Type 2 diabetes mellitus with diabetic polyneuropathy; I69.351 Hemiplegia and hemiparesis following cerebral infarction affecting right dominant side; F41.1 Generalized anxiety disorder; I10 Essential (primary) hypertension; R47.81 Slurred speech; R26.2 Difficulty in walking, not elsewhere classified; E78.2 Mixed hyperlipidemia; I65.23 Occlusion and stenosis of bilateral carotid arteries; R29.810 Facial weakness; H02.401 Unspecified ptosis of right eyelid; M19.90 Unspecified osteoarthritis, unspecified site; M06.9 Rheumatoid arthritis, unspecified; M79.7 Fibromyalgia; R51 Headache; R27.9 Unspecified lack of coordination; R29.702 NIHSS score 2; Z71.3 Dietary counseling and surveillance; Z98.51 Tubal ligation status; Z90.49 Acquired absence of other specified parts of digestive tract; Z82.49 Family history of ischemic heart disease and other diseases of the circulatory system; Z79.899 Other long term (current) drug therapy; Z79.4 Long term (current) use of insulin; Z79.82 Long term (current) use of aspirin; Z80.9 Family history of malignant neoplasm, unspecified; Z79.891 Long term (current) use of opiate analgesic; Z88.5 Allergy status to narcotic agent; Z88.2 Allergy status to sulfonamides; Z88.8 Allergy status to other drugs, medicaments and biological substances; Z88.4 Allergy status to anesthetic agent; Z88.1 Allergy status to other antibiotic agents; Z91.041 Radiographic dye allergy status; Z82.3 Family history of stroke; Z81.1 Family history of alcohol abuse and dependence; Z83.79 Family history of other diseases of the digestive system; Z91.14 Patient's other noncompliance with medication regimen
CPT/HCPCS: 36415; 70450; 70551; 71020; 80048; 80053; 80061; 82550; 82553; 83036; 83735; 84443; 84484; 85025; 85610; 85730; 93005; 99285

== ENCOUNTER 2017-04-26 20:01 | Inpatient (IN) | payer MEDICARE, OTHER ==
[2017-04-26] MEDS ORDERED: SODIUM CHLORIDE 0.9% 1,000 ML IV STA (20:31)
--- NOTE | 2017-04-26 20:36 | ED ---
General Adult HPI - General Chief complaint: Neuro Symptoms/Deficit Stated complaint: Confused/Dizzy/Numbness in limbs/TIA Time Seen by Provider: 04/26/17 20:16 Source: patient, RN notes reviewed Mode of arrival: wheelchair Limitations: no limitations - History of Present Illness Initial comments: Patient is a pleasant 66-year-old female presenting to the emergency department with concern for TIA. Patient states she has a history of previous stroke and previous TIAs. Patient complains of left-sided paresthesias. Patient states it is somewhat burning and almost painful. Patient states it is essentially resolved at this time. Patient denies any weakness. Patient also has some discomfort of her right hand. Patient had an episode of chest discomfort earlier today. Patient has been somewhat confused today. - Related Data Home Medications Medication Instructions Recorded Confirmed HYDROcodone/APAP 10-325MG [[place] 1 tab PO TID PRN 10/10/14 11/27/16 10-325] Omeprazole [PriLOSEC] 20 mg PO BID 10/10/14 11/27/16 metFORMIN HCL 1,000 mg PO BID-W/MEALS 10/10/14 11/27/16 Insulin Glargine [Lantus] 25 units SQ HS 10/11/14 11/27/16 Latanoprost Ophth [Xalatan 0.005%] 1 drop BOTH EYES HS 10/11/14 11/27/16 Ezetimibe [Zetia] 10 mg PO DAILY 09/21/16 11/27/16 Furosemide [Lasix] 20 mg PO Q48H 09/21/16 11/27/16 Insulin Regular, Human [NovoLIN R] See Protocol SQ BID-W/MEALS 09/21/16 11/27/16 Previous Rx's Medication Instructions Recorded Lisinopril 40 mg PO DAILY #0 11/29/16 Allergies Allergy/AdvReac Type Severity Reaction Status Date / Time epinephrine Allergy Anaphylaxis Verified 04/26/17 20:11 iodine Allergy Rash/Hives Verified 04/26/17 20:11 procaine HCl [From Novocain] Allergy Anaphylaxis Verified 04/26/17 20:11 Sulfa (Sulfonamide Allergy Rash/Hives Verified 04/26/17 20:11 Antibiotics) amlodipine [From Norvasc] AdvReac Diarrhea Verified 04/26/17 21:46 cephalexin monohydrate AdvReac Nausea & Verified 04/26/17 20:11 [From Keflex] Vomiting & Diarrhea codeine AdvReac Nausea & Verified 04/26/17 20:11 Vomiting cortisone AdvReac Nausea & Verified 04/26/17 20:11 Vomiting/Vertigo methadone AdvReac Nausea & Verified 04/26/17 20:11 Vomiting & Diarrhea propoxyphene AdvReac Nausea & Verified 04/26/17 20:11 [From Darvocet-N] Vomiting Gdslrel-Zsp-Avr Reductase AdvReac Nausea & Verified 04/26/17 20:11 Inhibitor Vomiting/Muscle Weakness steroids AdvReac Nausea & Uncoded 04/26/17 20:11 Vomiting Review of Systems ROS Statement: Those systems with pertinent positive or pertinent negative responses have been documented in the HPI. ROS Other: All systems not noted in ROS Statement are negative. Constitutional: Denies: fever Eyes: Denies: eye pain ENT: Denies: ear pain Respiratory: Denies: cough Cardiovascular: Reports: chest pain (Resolved) Endocrine: Denies: fatigue Gastrointestinal: Denies: abdominal pain Genitourinary: Denies: dysuria Musculoskeletal: Denies: back pain Skin: Denies: rash Neurological: Reports: paresthesias, confusion. Denies: weakness Past Medical History Past Medical History: CVA/TIA, Diabetes Mellitus, Fibromyalgia, Hypertension, Osteoarthritis (OA), Rheumatoid Arthritis (RA) Additional Past Medical History / Comment(s): neuropathy History of Any Multi-Drug Resistant Organisms: None Reported Past Surgical History: Bladder Surgery, Cholecystectomy, Tubal Ligation Additional Past Surgical History / Comment(s): rhinoplasty, hand surgery bilateral-carpal tunel Past Anesthesia/Blood Transfusion Reactions: No Reported Reaction Past Psychological History: Anxiety Smoking Status: Never smoker Past Alcohol Use History: None Reported Past Drug Use History: None Reported - Past Family History Father Family Medical History: CVA/TIA, Liver Disease, Myocardial Infarction ([place]) Additional Family Medical History / Comment(s): alcoholic, cirrhosis of the liver Mother Family Medical History: Cancer General Exam Limitations: no limitations General appearance: alert, in no apparent distress Head exam: Present: atraumatic Eye exam: Present: normal appearance, PERRL, EOMI. Absent: nystagmus ENT exam: Present: normal oropharynx Neck exam: Present: normal inspection Respiratory exam: Present: normal lung sounds bilaterally Cardiovascular Exam: Present: regular rate, normal rhythm Expanded Peripheral pulses: 2+: Radial (R), Radial (L), Dorsalis Pedis (R), Dorsalis Pedis (L) GI/Abdominal exam: Present: soft. Absent: tenderness Extremities exam: Present: normal inspection. Absent: pedal edema, calf tenderness Neurological exam: Present: alert Psychiatric exam: Present: normal affect, normal mood Skin exam: Present: normal color Course Vital Signs 04/26/17 04/26/17 04/26/17 20:08 20:25 21:21 Temperature 98.3 F Pulse Rate 91 86 75 Respiratory 18 18 16 Rate Blood Pressure 193/93 199/102 179/86 O2 Sat by Pulse 99 99 99 Oximetry - Reevaluation(s) Reevaluation #1: 04/26/17 21:[address] Cuadra, who will admit for Dr. Fermin. EKG Findings - EKG Comments: EKG Findings:: Normal sinus rhythm 85. [place] 134. QRS 82. QT 368. QTC 437. Normal axis. Normal QRS. No acute ST change. Medical Decision Making - Medical Decision Making Patient reevaluated and resting comfortably in bed. Patient and family updated on results and plan. Dr. Fermin has been paged for admission. - Lab Data Result diagrams: 04/26/17 20:40 04/26/17 20:40 Lab Results 04/26/17 04/26/17 04/26/17 Range/Units 20:40 20:40 20:40 WBC 6.7 (3.8-10.6) k/uL RBC 4.09 (3.80-5.40) m/uL Hgb 12.4 (11.4-16.0) gm/dL Hct 37.2 (34.0-46.0) % MCV 90.8 (80.0-100.0) fL MCH 30.2 (25.0-35.0) pg MCHC 33.2 (31.0-37.0) g/dL RDW 13.8 (11.5-15.5) % Plt Count 400 (150-450) k/uL Neutrophils % 44 % Lymphocytes % 43 % Monocytes % 6 % Eosinophils % 4 % Basophils % 1 % Neutrophils # 3.0 (1.3-7.7) k/uL Lymphocytes # 2.9 (1.0-4.8) k/uL Monocytes # 0.4 (0-1.0) k/uL Eosinophils # 0.2 (0-0.7) k/uL Basophils # 0.1 (0-0.2) k/uL PT (9.0-12.0) sec INR (<1.2) APTT (22.0-30.0) sec Sodium 132 L (137-145) mmol/L Potassium 3.8 (3.5-5.1) mmol/L Chloride 95 L (98-107) mmol/L Carbon Dioxide 27 (22-30) mmol/L Anion Gap 10 mmol/L BUN 21 H (7-17) mg/dL Creatinine 0.60 (0.52-1.04) mg/dL Est GFR (MDRD) Af Amer >60 (>60 ml/min/1.73 sqM) Est GFR (MDRD) Non-Af >60 (>60 ml/min/1.73 sqM) Glucose 188 H (74-99) mg/dL POC Glucose (mg/dL) (75-99) mg/dL POC Glu [employer] ID Calcium 9.8 (8.4-10.2) mg/dL Total Bilirubin 0.4 (0.2-1.3) mg/dL AST 29 (14-36) U/L ALT 47 (9-52) U/L Alkaline Phosphatase 99 (38-126) U/L Total Creatine Kinase 239 H (30-135) U/L CK-MB (CK-2) 4.6 H* (0.0-2.4) ng/mL CK-MB (CK-2) Rel Index 1.9 Troponin I <0.012 (0.000-0.034) ng/mL Total Protein 6.7 (6.3-8.2) g/dL Albumin 4.0 (3.5-5.0) g/dL 04/26/17 04/26/17 Range/Units 20:40 21:14 WBC (3.8-10.6) k/uL RBC (3.80-5.40) m/uL Hgb (11.4-16.0) gm/dL Hct (34.0-46.0) % MCV (80.0-100.0) fL MCH (25.0-35.0) pg MCHC (31.0-37.0) g/dL RDW (11.5-15.5) % Plt Count (150-450) k/uL Neutrophils % % Lymphocytes % % Monocytes % % Eosinophils % % Basophils % % Neutrophils # (1.3-7.7) k/uL Lymphocytes # (1.0-4.8) k/uL Monocytes # (0-1.0) k/uL Eosinophils # (0-0.7) k/uL Basophils # (0-0.2) k/uL PT 10.2 (9.0-12.0) sec INR 1.0 (<1.2) APTT 24.0 (22.0-30.0) sec Sodium (137-145) mmol/L Potassium (3.5-5.1) mmol/L Chloride (98-107) mmol/L Carbon Dioxide (22-30) mmol/L Anion Gap mmol/L BUN (7-17) mg/dL Creatinine (0.52-1.04) mg/dL Est GFR (MDRD) Af Amer (>60 ml/min/1.73 sqM) Est GFR (MDRD) Non-Af (>60 ml/min/1.73 sqM) Glucose (74-99) mg/dL POC Glucose (mg/dL) 180 H (75-99) mg/dL POC Glu [employer] Operator ID Guadalupe Renner Calcium (8.4-10.2) mg/dL Total Bilirubin (0.2-1.3) mg/dL AST (14-36) U/L ALT (9-52) U/L Alkaline Phosphatase (38-126) U/L Total Creatine Kinase (30-135) U/L CK-MB (CK-2) (0.0-2.4) ng/mL CK-MB (CK-2) Rel Index Troponin I (0.000-0.034) ng/mL Total Protein (6.3-8.2) g/dL Albumin (3.5-5.0) g/dL - Radiology Data Radiology results: report reviewed (Skin the brain shows no acute process), image reviewed (Chest x-ray shows no acute process) Disposition Clinical Impression: Transient ischemic attack, acute Disposition: ADMITTED IP TO THIS HOSP Referrals: Jae Martinez MD [Primary Care Provider] - 1-2 days Decision Time: 21:53
[2017-04-26 21:02] LABS: Basophils # (A) 0.1 k/uL (0-0.2); Basophils % (A) 1 %; CH 30.2; CHCM 33.4; Eosinophils # (A) 0.2 k/uL (0-0.7); Eosinophils % (A) 4 %; HCT 37.2 % (34.0-46.0); HDW 2.47; HGB 12.4 gm/dL (11.4-16.0); Luc # (Auto) 0.15; Luc % (Auto) 2; Lymphocytes # (A) 2.9 k/uL (1.0-4.8); Lymphocytes % (A) 43 %; MCH 30.2 pg (25.0-35.0); MCHC 33.2 g/dL (31.0-37.0); MCV 90.8 fL (80.0-100.0); Mean Platelet Volume 6.5; Monocytes # (A) 0.4 k/uL (0-1.0); Monocytes % (A) 6 %; Neutrophils % (A) 44 %; RBC 4.09 m/uL (3.80-5.40); RDW 13.8 % (11.5-15.5); WBC 6.7 k/uL (3.8-10.6)
--- NOTE | 2017-04-26 21:08 | XR ---
EXAMINATION TYPE: XR chest 2V DATE OF EXAM: 04/26/2017 COMPARISON: 11/26/2016 HISTORY: Chest pain TECHNIQUE: Frontal and lateral views of the chest are obtained. FINDINGS: Heart is normal. Lungs are clear. There is no heart failure. There is no pleural effusion. Bony thorax is intact. There are chest leads. IMPRESSION: No active cardiopulmonary disease. No change.
[2017-04-26 21:10] LABS: ALT 47 U/L (9-52); AST 29 U/L (14-36); Alkaline Phosphatase 99 U/L (38-126); Anion Gap 10 mmol/L; Blood Urea Nitrogen 21 mg/dL (7-17); Calcium 9.8 mg/dL (8.4-10.2); Carbon Dioxide 27 mmol/L (22-30); Chloride 95 mmol/L (98-107); Glucose 188 mg/dL (74-99); Non-African American GFR(MDRD) >60 (>60 ml/min/1.73 sqM); Potassium 3.8 mmol/L (3.5-5.1); Sodium 132 mmol/L (137-145); Total Bilirubin 0.4 mg/dL (0.2-1.3); Total Protein 6.7 g/dL (6.3-8.2)
[2017-04-26 21:16] LABS: Glucose,Whole Blood 180 mg/dL (75-99)
[2017-04-26 21:28] LABS: Creatine Kinase 239 U/L (30-135)
[2017-04-26 21:30] LABS: Prothrombin Time 10.2 sec (9.0-12.0)
[2017-04-26 21:41] LABS: Troponin I <0.012 ng/mL (0.000-0.034)
--- NOTE | 2017-04-26 21:48 | CT ---
EXAMINATION TYPE: CT brain wo con DATE OF EXAM: 04/26/2017 COMPARISON: 11/26/2016 HISTORY: Facial numbness. History of brain lesions per patient CT DLP: 1017.9 mGycm Automated exposure control for dose reduction was used. FINDINGS: There is mild cerebral cortical atrophy. There is no mass effect nor midline shift. There is no sign of intracranial hemorrhage. The calvarium is intact. IMPRESSION: MILD ATROPHY. NO ACUTE INTRACRANIAL ABNORMALITY. NO CHANGE.
[2017-04-26 21:49] LABS: Creatine Kinase MB 4.6 ng/mL (0.0-2.4)
[2017-04-26] MEDS ORDERED: ASPIRIN 325 MG TAB PO STA (21:54)
[2017-04-26] MEDS: SODIUM CHLORIDE 0.9% 1,000 ML IV SCH (22:24)
[2017-04-27] MEDS: ALPRAZolam 0.25 MG TAB PO SCH ×3 (00:42→20:47)
[2017-04-27] MEDS: LATANOPROST 0.005% OPHTH DROPS 2.5 ML BTL BOTH EYES SCH ×2 (00:43→20:47)
[2017-04-27] MEDS: metFORMIN 500 MG TAB PO SCH ×3 (00:43→16:41)
[2017-04-27] MEDS: LISINOPRIL 20 MG TAB PO SCH ×2 (00:43→08:50)
[2017-04-27] MEDS: PANTOPRAZOLE 40 MG TABLET PO SCH ×3 (00:44→16:45)
[2017-04-27] MEDS: HYDROcodone/APAP 10-325MG 1 EACH TAB PO PRN ×3 (01:33→20:46)
[2017-04-27 02:58] LABS: Cholesterol 219 mg/dL (<200); HDL Cholesterol 48 mg/dL (40-60)
[2017-04-27] MEDS: CARVEDILOL 12.5 MG TAB PO SCH ×2 (07:04→16:41)
[2017-04-27] MEDS ORDERED: INSULIN REGULAR 100 UNIT/ML VIAL SQ SCH (07:30)
[2017-04-27] MEDS: SODIUM CHLORIDE 0.9% 1,000 ML IV SCH (08:49)
[2017-04-27] MEDS: EZETIMIBE 10 MG TAB PO SCH (08:49)
[2017-04-27] MEDS: SERTRALINE 50 MG TAB PO SCH (08:49)
[2017-04-27] MEDS: FUROSEMIDE 20 MG TAB PO SCH (08:49)
[2017-04-27] MEDS ORDERED: ASPIRIN PO SCH (09:00)
--- NOTE | 2017-04-27 10:32 | US ---
EXAMINATION TYPE: US carotid duplex BILAT DATE OF EXAM: 04/27/2017 COMPARISON: US CLINICAL HISTORY: Stenosis. Stroke, stenosis EXAM MEASUREMENTS: RIGHT: Peak Systolic Velocity (PSV) cm/sec ----- Right CCA: 64.3 ----- Right ICA: 82.3 ----- Right ECA: 82.8 ICA/CCA ratio: 1.3 RIGHT: End Diastole cm/sec ----- Right CCA: 18.0 ----- Right ICA: 30.1 ----- Right ECA: 15.7 LEFT: Peak Systolic Velocity (PSV) cm/sec ----- Left CCA: 67.8 ----- Left ICA: 76.5 ----- Left ECA: 74.7 ICA/CCA ratio: 1.1 LEFT: End Diastole cm/sec ----- Left CCA: 21.6 ----- Left ICA: 26.2 ----- Left ECA: 13.4 VERTEBRALS (direction of flow): Right Vertebral: Antegrade Left Vertebral: Antegrade Rhythm: Normal Bilateral intimal thickening, minimal plaque bilateral bulb, no elevated velocities, no significant s tenosis. IMPRESSION: 1. Bilateral intimal thickening minimal plaque noted bilaterally no significant hemodynamic stenosis.
[2017-04-27 11:33] LABS: Hemoglobin A1C 6.7 % (4.2-6.1)
[2017-04-27] MEDS ORDERED: ASPIRIN 325 MG TAB PO SCH (12:00)
--- NOTE | 2017-04-27 12:00 | P.HPIM ---
History of Present Illness H&P Date: 04/27/17 Chief Complaint: Left-sided arm numbness and tingling This is a 66-year-old female with past medical history noted below significant for known history of left thalamic lacunar infarct and prior CVA with chronic right-sided hemiparesis who presented who presented to the hospital with left- sided arm numbness and tingling. Patient said that her symptoms started the day before her presentation. She said that she ran out of her lisinopril for the past few days and her blood pressure is been running high. She was seen in the neurology clinic and was advised to go to the emergency room for further evaluation. In the emergency room, patient was evaluated and underwent computed tomography scan of the brain showing no acute findings. Her symptoms resolved soon after presentation. Patient appeared confused about some of her medications dosing in particular lisinopril as she was taking 40 mg twice daily Whereas the medication was prescribed once a day. She said that her grandson is helping taking care of her. Patient said that she is back to normal self right now. She underwent carotid Doppler showing no hemodynamically significant stenosis. She is awaiting neurology evaluation. Review of Systems Review of system: 14 points review of systems were obtained and were negative except to what were mentioned in the HPI. Past Medical History Past Medical History: CVA/TIA, Diabetes Mellitus, Fibromyalgia, Hypertension, Osteoarthritis (OA), Rheumatoid Arthritis (RA) Additional Past Medical History / Comment(s): neuropathy, glaucoma, cataracts, connective tissue dysfunction, peptic ulcer disease, grade 4 hital hernia History of Any Multi-Drug Resistant Organisms: None Reported Past Surgical History: Bladder Surgery, Cholecystectomy, Tubal Ligation Additional Past Surgical History / Comment(s): rhinoplasty, hand surgery bilateral-carpal tunel Past Anesthesia/Blood Transfusion Reactions: No Reported Reaction Past Psychological History: Anxiety Smoking Status: Never smoker Past Alcohol Use History: None Reported Past Drug Use History: None Reported - Past Family History Father Family Medical History: CVA/TIA, Liver Disease, Myocardial Infarction (MD) Additional Family Medical History / Comment(s): alcoholic, cirrhosis of the liver Mother Family Medical History: Cancer Medications and Allergies Home Medications Medication Instructions Recorded Confirmed Type HYDROcodone/APAP 10-325MG [[place] 1 tab PO TID PRN 10/10/14 04/26/17 History 10-325] Omeprazole [PriLOSEC] 20 mg PO BID 10/10/14 04/26/17 History metFORMIN HCL 1,000 mg PO BID-W/MEALS 10/10/14 04/26/17 History Insulin Glargine [Lantus] 25 units SQ HS 10/11/14 04/26/17 History Latanoprost Ophth [Xalatan 0.005%] 1 drop BOTH EYES HS 10/11/14 04/26/17 History Ezetimibe [Zetia] 10 mg PO DAILY 09/21/16 04/26/17 History Furosemide [Lasix] 20 mg PO Q48H 09/21/16 04/26/17 History Insulin Regular, Human [NovoLIN R] See Protocol SQ BID-W/MEALS 09/21/16 History ALPRAZolam [Xanax] 0.125 mg PO BID 04/26/17 04/26/17 History Aspirin EC [Ecotrin Low Dose] 243 mg PO BID 04/26/17 04/26/17 History Carvedilol [Coreg] 12.5 mg PO BID 04/26/17 04/26/17 History Lisinopril 40 mg PO BID 04/26/17 04/26/17 History Sertraline HCl [Zoloft] 50 mg PO DAILY 04/26/17 04/26/17 History Allergies Allergy/AdvReac Type Severity Reaction Status Date / Time epinephrine Allergy Anaphylaxis Verified 04/26/17 20:11 iodine Allergy Rash/Hives Verified 04/26/17 20:11 procaine HCl [From Novocain] Allergy Anaphylaxis Verified 04/26/17 20:11 Sulfa (Sulfonamide Allergy Rash/Hives Verified 04/26/17 20:11 Antibiotics) amlodipine [From Norvasc] AdvReac Diarrhea Verified 04/26/17 21:46 cephalexin monohydrate AdvReac Nausea & Verified 04/26/17 20:11 [From Keflex] Vomiting & Diarrhea codeine AdvReac Nausea & Verified 04/26/17 20:11 Vomiting cortisone AdvReac Nausea & Verified 04/26/17 20:11 Vomiting/Vertigo methadone AdvReac Nausea & Verified 04/26/17 20:11 Vomiting & Diarrhea propoxyphene AdvReac Nausea & Verified 04/26/17 20:11 [From Darvocet-N] Vomiting Sdtyskb-Ioj-Nfm Reductase AdvReac Nausea & Verified 04/26/17 20:11 Inhibitor Vomiting/Muscle Weakness steroids AdvReac Nausea & Uncoded 04/26/17 20:11 Vomiting Physical Exam Vitals: Vital Signs Temp Pulse Pulse Resp BP BP Pulse Ox 04/27/17 08:00 97.2 F L 76 18 167/81 98 04/27/17 07:11 97 04/27/17 04:00 96.5 F L 79 18 143/71 98 04/27/17 00:00 97.8 F 85 18 188/90 100 04/26/17 22:49 77 18 180/93 97 04/26/17 22:27 80 17 179/86 99 04/26/17 21:21 75 16 179/86 99 04/26/17 20:25 86 18 199/102 99 04/26/17 20:08 98.3 F 91 18 193/93 99 Intake and Output 04/26/17 04/27/17 04/27/17 22:59 06:59 14:59 Intake Total 1000 100 360 Balance 1000 100 360 Intake: Amount of Fluid Infused ( 1000 ml) Intake, IV Titration 100 Amount Sodium Chloride 0.9% 1, 100 000 ml @ 100 mls/hr IV . Q10H ON LICENSE OF [facility] Rx#:[id number] Oral 360 Other: Voiding Method Toilet Toilet # Voids 2 Weight 64.41 kg 67.6 kg General: The patient is awake and alert, in no distress Eye: there is normal conjunctiva bilaterally. Neck: The neck is supple, there is no JVD. Cardiovascular: Normal S1-S2, no S3-S4, no murmurs. Respiratory: Lungs clear to auscultation bilaterally Gastrointestinal: Abdomen is soft, nontender Musculoskeletal: There is no pedal edema. Neurological:. Speech is normal. Skin: Skin is warm and dry Results CBC & Chem 7: 04/26/17 20:40 04/26/17 20:40 Labs: Abnormal Lab Results - Last 24 Hours (Table) 04/26/17 04/26/17 04/26/17 Range/Units 20:40 20:40 20:40 Sodium 132 L (137-145) mmol/L Chloride 95 L (98-107) mmol/L BUN 21 H (7-17) mg/dL Glucose 188 H (74-99) mg/dL POC Glucose (mg/dL) (75-99) mg/dL Hemoglobin A1c (4.2-6.1) % Total Creatine Kinase 239 H (30-135) U/L CK-MB (CK-2) 4.6 H* (0.0-2.4) ng/mL Triglycerides 171 H (<150) mg/dL Cholesterol 219 H (<200) mg/dL LDL Cholesterol, Calc 137 H (0-99) mg/dL 04/26/17 04/26/17 Range/Units 20:40 21:14 Sodium (137-145) mmol/L Chloride (98-107) mmol/L BUN (7-17) mg/dL Glucose (74-99) mg/dL POC Glucose (mg/dL) 180 H (75-99) mg/dL Hemoglobin A1c 6.7 H (4.2-6.1) % Total Creatine Kinase (30-135) U/L CK-MB (CK-2) (0.0-2.4) ng/mL Triglycerides (<150) mg/dL Cholesterol (<200) mg/dL LDL Cholesterol, Calc (0-99) mg/dL Thrombosis Risk Factor Assmnt - Choose All That Apply Any of the Below Risk Factors Present?: No Each Risk Factor Represents 2 Points: Age 61-74 years Thrombosis Risk Factor Assessment Total Risk Factor Score: 2 Thrombosis Risk Factor Assessment Level: Low Risk Assessment and Plan Plan: 1. Possible TIA with episode of transient numbness involving the left arm now resolved, and computed tomography scan of the brain showed no acute findings. Carotid Doppler with no hemodynamically significant stenosis. Patient is on full dose aspirin daily. She was unable to tolerate Plavix in the past and refused to take it or tried again. Awaiting neurology evaluation. 2. History of subacute left thalamic lacunar infarct 3. Prior stroke/CVA with residual right-sided hemiparesis 4. Type 2 diabetes mellitus, awaiting repeat A1c 5. Essential hypertension, blood pressure not well controlled. We will continue to monitor and adjust medication as needed 6. Mixed hyperlipidemia, currently on Zetia. Patient is intolerant to statin. Today, I reviewed her medication list the lab work results. He should symptoms resolved. Awaiting neurology evaluation. PT/OT/speech pathology consultation requested. We'll continue to monitor closely. Repeat lab work in the morning.
[2017-04-27 13:08] VITALS: BMI 26.4
[2017-04-27 16:58] LABS: Glucose,Whole Blood 169 mg/dL (75-99)
--- NOTE | 2017-04-27 18:59 | ECHOF ---
Referral Reason:Thrombus MEASUREMENTS -------- HEIGHT: 160.0 cm WEIGHT: 67.6 kg BP: 143/71 IVSd: 1.4 cm (0.6 - 1.1) LVIDd: 3.2 cm (3.9 - 5.3) LVPWd: 1.6 cm (0.6 - 1.1) IVSs: 1.6 cm LVIDs: 2.4 cm LVPWs: 1.4 cm Ao Diam: 3.1 cm (2.0 - 3.7) AV Cusp: 1.4 cm (1.5 - 2.6) LA Diam: 3.0 cm (2.7 - 3.8) MV EXCURSION: 13.536 mm (> 18.000) MV EF SLOPE: 84 mm/s (70 - 150) EPSS: 0.7 cm MV E Alfonso: 0.93 m/s MV DecT: 181 ms MV A Alfonso: 1.11 m/s MV E/A Ratio: 0.84 AV maxP.22 mmHg AV meanP.93 mmHg RAP: 5.00 mmHg RVSP: 22.70 mmHg FINDINGS -------- Sinus rhythm. This was a technically good study. The left ventricular size is normal. There is moderate concentric left ventricular hypertrophy. Overall left ventricular systolic function is normal with, an EF between 55 - 60 %. The right ventricle is normal in size and function. The left atrium is normal in size. The right atrium is normal in size. Aortic valve is trileaflet and is mildly thickened. There is mild aortic valve sclerosis. Peak/mean gradient across the Aortic Valve is 16.22mmHg / 8.93mmHg. The mitral valve leaflets are mildly thickened. There is trace mitral regurgitation. Trace tricuspid regurgitation present. The right ventricular systolic pressure, as measured by Doppler, is 22.70mmHg. Pulmonic valve appears structurally normal. The aortic root size is normal. The pericardium is normal. CONCLUSIONS -------- 1. Sinus rhythm. 2. There is mild aortic valve sclerosis. 3. Peak/mean gradient across the Aortic Valve is 16.22mmHg / 8.93mmHg. 4. The mitral valve leaflets are mildly thickened. 5. There is trace mitral regurgitation. 6. Trace tricuspid regurgitation present. 7. The right ventricular systolic pressure, as measured by Doppler, is 22.70mmHg. 8. Pulmonic valve appears structurally normal. 9. The aortic root size is normal. 10. The pericardium is normal. 11. This was a technically good study. 12. The left ventricular size is normal. 13. There is moderate concentric left ventricular hypertrophy. 14. Overall left ventricular systolic function is normal with, an EF between 55 - 60 %. 15. The right ventricle is normal in size and function. 16. The left atrium is normal in size. 17. The right atrium is normal in size. 18. Aortic valve is trileaflet and is mildly thickened. CIRCULATING PROCESS INSPECTOR: Araceli Espinosa RDCS
--- NOTE | 2017-04-27 19:32 | P.CNNES ---
History of Present Illness Consult date: 04/27/17 Requesting physician: Jae Martinez Reason for Consult: Numbness Chief complaint: Numbness on left upper extremity History of Present Illness: The patient is a pleasant 66-year-old female who is being evaluated by the neurology service for numbness and tingling involving her left side. The patient doesn't have a previous history of stroke and is on aspirin 325 mg daily at home. She states that over the past few days, she has been having numbness and tingling involving her left upper extremity but the symptoms wax and wane. She did not notice any weakness. She does have a history of carpal tunnel syndrome that has recently worsened in severity. She also has history of dyslipidemia and does take exhibit at home. Her fasting lipid panel showed elevated LDL and total cholesterol on this admission. She has been unable to tolerate statin therapy. A computed tomography scan of the brain was done which showed only mild generalized atrophy. Her carotid Doppler showed no hemodynamically significant stenosis. Her cardiac enzymes showed slightly elevated CPK and CK-MB but her troponin was normal. Her CBC was normal. Her lipid panel showed elevated cholesterol at 219 and elevated LDL at 137. Her chemistry panel showed hyponatremia at 132 and hyperglycemia at 188. I did review her EEG which was normal. At the time of my evaluation, she reports resolution in her numbness and tingling. Review of Systems All systems: negative Constitutional: Denies chills, Denies fever Eyes: denies blurred vision, denies pain Ears, nose, mouth and throat: Denies headache, Denies sore throat Cardiovascular: Denies chest pain, Denies shortness of breath Respiratory: Denies cough Gastrointestinal: Denies abdominal pain, Denies diarrhea, Denies nausea, Denies vomiting Genitourinary: Denies dysuria, Denies hematuria Musculoskeletal: Reports low back pain, Denies myalgias Integumentary: Denies pruritus, Denies rash Neurological: Reports headaches, Reports numbness, Denies weakness Psychiatric: Denies anxiety, Denies depression Endocrine: Denies fatigue, Denies weight change Past Medical History Past Medical History: CVA/TIA, Diabetes Mellitus, Fibromyalgia, Hypertension, Osteoarthritis (OA), Rheumatoid Arthritis (RA) Additional Past Medical History / Comment(s): neuropathy, glaucoma, cataracts, connective tissue dysfunction, peptic ulcer disease, grade 4 hital hernia History of Any Multi-Drug Resistant Organisms: None Reported Past Surgical History: Bladder Surgery, Cholecystectomy, Tubal Ligation Additional Past Surgical History / Comment(s): rhinoplasty, hand surgery bilateral-carpal tunel Past Anesthesia/Blood Transfusion Reactions: No Reported Reaction Past Psychological History: Anxiety Smoking Status: Never smoker Past Alcohol Use History: None Reported Past Drug Use History: None Reported - Past Family History Father Family Medical History: CVA/TIA, Liver Disease, Myocardial Infarction ([place]) Additional Family Medical History / Comment(s): alcoholic, cirrhosis of the liver Mother Family Medical History: Cancer Medications and Allergies Home Medications Medication Instructions Recorded Confirmed Type HYDROcodone/APAP 10-325MG [[place] 1 tab PO TID PRN 10/10/14 04/26/17 History 10-325] Omeprazole [PriLOSEC] 20 mg PO BID 10/10/14 04/26/17 History metFORMIN HCL 1,000 mg PO BID-W/MEALS 10/10/14 04/26/17 History Insulin Glargine [Lantus] 25 units SQ HS 10/11/14 04/26/17 History Latanoprost Ophth [Xalatan 0.005%] 1 drop BOTH EYES HS 10/11/14 04/26/17 History Ezetimibe [Zetia] 10 mg PO DAILY 09/21/16 04/26/17 History Furosemide [Lasix] 20 mg PO Q48H 09/21/16 04/26/17 History Insulin Regular, Human [NovoLIN R] See Protocol SQ BID-W/MEALS 09/21/16 History ALPRAZolam [Xanax] 0.125 mg PO BID 04/26/17 04/26/17 History Aspirin EC [Ecotrin Low Dose] 243 mg PO BID 04/26/17 04/26/17 History Carvedilol [Coreg] 12.5 mg PO BID 04/26/17 04/26/17 History Lisinopril 40 mg PO BID 04/26/17 04/26/17 History Sertraline HCl [Zoloft] 50 mg PO DAILY 04/26/17 04/26/17 History Allergies Allergy/AdvReac Type Severity Reaction Status Date / Time epinephrine Allergy Anaphylaxis Verified 04/26/17 20:11 iodine Allergy Rash/Hives Verified 04/26/17 20:11 procaine HCl [From Novocain] Allergy Anaphylaxis Verified 04/26/17 20:11 Sulfa (Sulfonamide Allergy Rash/Hives Verified 04/26/17 20:11 Antibiotics) amlodipine [From Norvasc] AdvReac Diarrhea Verified 04/26/17 21:46 cephalexin monohydrate AdvReac Nausea & Verified 04/26/17 20:11 [From Keflex] Vomiting & Diarrhea codeine AdvReac Nausea & Verified 04/26/17 20:11 Vomiting cortisone AdvReac Nausea & Verified 04/26/17 20:11 Vomiting/Vertigo methadone AdvReac Nausea & Verified 04/26/17 20:11 Vomiting & Diarrhea propoxyphene AdvReac Nausea & Verified 04/26/17 20:11 [From Darvocet-N] Vomiting Gknzcxv-Gfq-Eta Reductase AdvReac Nausea & Verified 04/26/17 20:11 Inhibitor Vomiting/Muscle Weakness steroids AdvReac Nausea & Uncoded 04/26/17 20:11 Vomiting Physical Examination - Vital Signs Vital Signs: Vital Signs Temp Pulse Pulse Resp BP BP Pulse Ox 04/27/17 16:00 98.3 F 92 18 186/98 93 L 04/27/17 14:29 183/87 04/27/17 12:00 98.1 F 81 18 191/91 96 04/27/17 08:00 97.2 F L 76 18 167/81 98 04/27/17 07:11 97 04/27/17 04:00 96.5 F L 79 18 143/71 98 04/27/17 00:00 97.8 F 85 18 188/90 100 04/26/17 22:49 77 18 180/93 97 04/26/17 22:27 80 17 179/86 99 04/26/17 21:21 75 16 179/86 99 04/26/17 20:25 86 18 199/102 99 04/26/17 20:08 98.3 F 91 18 193/93 99 Intake and Output 04/27/17 04/27/17 04/27/17 06:59 14:59 22:59 Intake Total 100 1300 240 Balance 100 1300 240 Intake: Intake, IV Titration 100 700 Amount Sodium Chloride 0.9% 1, 100 700 000 ml @ 100 mls/hr IV . Q10H [facility] Rx#:[id number] Oral 600 240 Other: Voiding Method Toilet Toilet Toilet # Voids 2 Weight 67.6 kg 67.6 kg Patient Weight 04/28/17 06:59 Weight 67.6 kg - Constitutional General appearance: average body habitus, cooperative, no acute distress - EENT EENT: ATNC, hearing intact, vision intact - Cardiovascular Cardiovascular: regular rate Extremities: no peripheral edema bilaterally - Gastrointestinal Gastrointestinal: soft, non-tender, non-distended - Integumentary Integumentary: normal - Neurologic The patient is alert aware and oriented 3. Speech and language are normal. Strength is full in all 4 extremities. Sensory exam showed normal light touch sensation in all 4 extremities. Cranial nerve testing showed slightly diminished light touch sensation on the left face compared to the right. No facial weakness is noticed. No tremors or seizure-like activity is seen. Tinel sign is positive bilaterally, left more than right - Psychiatric Psychiatric: mood/affect appropriate, cooperative Results - Laboratory Findings CBC and BMP: 04/26/17 20:40 04/26/17 20:40 Abnormal Lab Findings: Abnormal Labs 04/26/17 04/26/17 04/26/17 20:40 20:40 20:40 Sodium 132 L Chloride 95 L BUN 21 H Glucose 188 H POC Glucose (mg/dL) Hemoglobin A1c Total Creatine Kinase 239 H CK-MB (CK-2) 4.6 H* Triglycerides 171 H Cholesterol 219 H LDL Cholesterol, Calc 137 H 04/26/17 04/26/17 04/27/17 20:40 21:14 16:49 Sodium Chloride BUN Glucose POC Glucose (mg/dL) 180 H 169 H Hemoglobin A1c 6.7 H Total Creatine Kinase CK-MB (CK-2) Triglycerides Cholesterol LDL Cholesterol, Calc Assessment and Plan (1) Paresthesias Status: Acute (2) Transient ischemic attack, acute Status: Acute (3) History of stroke Status: Chronic (4) Carpal tunnel syndrome Status: Chronic (5) Chronic pain syndrome Status: Chronic (6) Mixed hyperlipidemia Status: Chronic Plan: The patient has been having recurrent episodes of numbness and tingling involving her left side, mainly her left upper extremity. I dial any ischemic etiology but this is not ruled out. She is already on aspirin 325 mg daily at home. I will switch her aspirin to Plavix 75 mg daily. I did review her lipid panel with her but she is unable to tolerate any statin therapy. Continue Zetia. I do recommend better blood pressure control. Consider adjusting her hypertension medications. I will order a serum homocysteine level. Her carotid Doppler showed no hemodynamically significant stenosis. Continue neuro checks. I will continue to follow with you. Further recommendations to follow. Time with Patient: Greater than 30
--- NOTE | 2017-04-27 20:19 | EEG ---
ELECTROENCEPHALOGRAM REPORT DATE OF SERVICE: 04/27/2017 REASON FOR TESTING: Transient ischemic attack. DESCRIPTION OF THE PROCEDURE: This EEG was performed using a 21 channel digital electroencephalograph, following international 10-20 system. DESCRIPTION OF THE RECORDING: From the beginning of the tracing, and with the patient's eyes closed, the background rhythm was mostly consisting of 8 hertz alpha frequency in the posterior occipital leads. No obvious asymmetry is seen. Frequent movement and muscle artifacts are seen. Photic stimulation was performed with a minimal driving response seen. No pathological waves were elicited. Hyperventilation was not performed. The patient remains awake throughout the tracing. No epileptiform discharges were seen. Her EKG lead showed a regular rate and rhythm. INTERPRETATION: This awake EEG can be considered within normal limits. There was no asymmetry seen. No epileptiform discharges were noticed. The absence of epileptiform discharges does not rule out the diagnosis of epilepsy, therefore clinical correlation is recommended. MMDANAL / IJJabier: [id number] /
[2017-04-27] MEDS: HEPARIN SODIUM,PORCINE 5,000 UNIT/ML 1 ML VIAL SQ SCH (20:46)
[2017-04-27] MEDS: INSULIN GLARGINE 100 UNIT/ML 10 ML VIAL SQ SCH (20:46)
[2017-04-27 21:13] LABS: Glucose,Whole Blood 154 mg/dL (75-99)
[2017-04-27] MEDS ORDERED: hydrALAZINE HCL 20 MG/ML 1 ML VIAL IVP STA (23:47)
[2017-04-28 06:04] LABS: Basophils # (A) 0.1 k/uL (0-0.2); Basophils % (A) 1 %; CH 30.5; CHCM 34.3; Eosinophils # (A) 0.2 k/uL (0-0.7); Eosinophils % (A) 4 %; HCT 36.1 % (34.0-46.0); HDW 2.52; HGB 11.8 gm/dL (11.4-16.0); Luc # (Auto) 0.15; Luc % (Auto) 3; Lymphocytes # (A) 2.5 k/uL (1.0-4.8); Lymphocytes % (A) 44 %; MCH 29.2 pg (25.0-35.0); MCHC 32.6 g/dL (31.0-37.0); MCV 89.5 fL (80.0-100.0); Mean Platelet Volume 6.8; Monocytes # (A) 0.4 k/uL (0-1.0); Monocytes % (A) 8 %; Neutrophils # (A) 2.3 k/uL (1.3-7.7); Neutrophils % (A) 41 %; RBC 4.03 m/uL (3.80-5.40); RDW 14.3 % (11.5-15.5); WBC 5.6 k/uL (3.8-10.6); WBC (Perox) 5.51
[2017-04-28 06:17] LABS: ALT 42 U/L (9-52); AST 22 U/L (14-36); Alkaline Phosphatase 81 U/L (38-126); Anion Gap 7 mmol/L; Blood Urea Nitrogen 11 mg/dL (7-17); Carbon Dioxide 31 mmol/L (22-30); Chloride 99 mmol/L (98-107); Glucose 116 mg/dL (74-99); Non-African American GFR(MDRD) >60 (>60 ml/min/1.73 sqM); Potassium 3.2 mmol/L (3.5-5.1); Sodium 137 mmol/L (137-145); Total Bilirubin 0.3 mg/dL (0.2-1.3); Total Protein 6.2 g/dL (6.3-8.2)
[2017-04-28] MEDS: CARVEDILOL 12.5 MG TAB PO SCH ×2 (06:29→15:37)
[2017-04-28] MEDS: metFORMIN 500 MG TAB PO SCH ×2 (06:29→18:45)
[2017-04-28] MEDS: PANTOPRAZOLE 40 MG TABLET PO SCH ×2 (06:29→15:37)
[2017-04-28 06:41] LABS: Glucose,Whole Blood 121 mg/dL (75-99)
[2017-04-28] MEDS: HYDROcodone/APAP 10-325MG 1 EACH TAB PO PRN ×2 (08:52→20:59)
[2017-04-28] MEDS: LISINOPRIL 20 MG TAB PO SCH (08:52)
[2017-04-28] MEDS: ALPRAZolam 0.25 MG TAB PO SCH ×2 (08:52→20:59)
[2017-04-28] MEDS: SERTRALINE 50 MG TAB PO SCH (08:53)
[2017-04-28] MEDS: EZETIMIBE 10 MG TAB PO SCH (08:54)
[2017-04-28] MEDS: CLOPIDOGREL 75 MG TAB PO SCH (08:54)
[2017-04-28] MEDS: HEPARIN SODIUM,PORCINE 5,000 UNIT/ML 1 ML VIAL SQ SCH ×2 (08:54→20:59)
[2017-04-28 11:38] LABS: Glucose,Whole Blood 196 mg/dL (75-99)
--- NOTE | 2017-04-28 12:06 | P.PN ---
Subjective Patient is doing better today. Patient said that she had a rough night last night. Her blood pressure was significantly elevated with systolic blood pressure in the 220 range. Objective - Vital Signs Vital signs: Vital Signs Temp 98.1 F 04/28/17 08:00 Pulse 80 04/28/17 08:00 Resp 18 04/28/17 08:00 BP 154/78 04/28/17 08:00 Pulse Ox 97 04/28/17 08:00 Intake & Output 04/27/17 04/28/17 04/28/17 18:59 06:59 18:59 Intake Total 1540 20 240 Balance 1540 20 240 Weight 67.6 kg 64.6 kg Intake: IV 20 .9 20 Intake, IV Titration 700 Amount Sodium Chloride 0.9% 1, 700 000 ml @ 100 mls/hr IV . Q10H [facility] Rx#:[id number] Oral 840 240 Other: Voiding Method Toilet Toilet Toilet # Voids 1 - Exam General: The patient is awake and alert, in no distress Eye: there is normal conjunctiva bilaterally. Neck: The neck is supple, there is no JVD. Cardiovascular: Normal S1-S2, no S3-S4, no murmurs. Respiratory: Lungs clear to auscultation bilaterally Gastrointestinal: Abdomen is soft, nontender Musculoskeletal: There is no pedal edema. Neurological:. Speech is normal. Skin: Skin is warm and dry - Labs CBC & Chem 7: 04/28/17 05:38 04/28/17 05:38 Labs: Abnormal Lab Results - Last 24 Hours (Table) 04/27/17 04/27/17 04/28/17 Range/Units 16:49 21:09 05:38 Potassium 3.2 L (3.5-5.1) mmol/L Carbon Dioxide 31 H (22-30) mmol/L Creatinine 0.50 L (0.52-1.04) mg/dL Glucose 116 H (74-99) mg/dL POC Glucose (mg/dL) 169 H 154 H (75-99) mg/dL Total Protein 6.2 L (6.3-8.2) g/dL 04/28/17 04/28/17 Range/Units 06:27 11:35 Potassium (3.5-5.1) mmol/L Carbon Dioxide (22-30) mmol/L Creatinine (0.52-1.04) mg/dL Glucose (74-99) mg/dL POC Glucose (mg/dL) 121 H 196 H (75-99) mg/dL Total Protein (6.3-8.2) g/dL Assessment and Plan Plan: 1. Episode of transient numbness involving the left arm now resolved. Patient was seen and evaluated by neurology. CT computed tomography scan of the brain showed no acute findings. Carotid Doppler with no hemodynamically significant stenosis. Patient is on full dose aspirin daily at home and this was switched to Plavix.. 2. History of subacute left thalamic lacunar infarct 3. Prior stroke/CVA with residual right-sided hemiparesis 4. Type 2 diabetes mellitus, awaiting repeat A1c 5. Essential hypertension, blood pressure not well controlled. Coreg dose increased to 25 mg twice a day. Hydrochlorothiazide 25 mg daily added to her regimen 6. Mixed hyperlipidemia, currently on Zetia. Patient is intolerant to statin. Today, I reviewed her medication list the lab work results. He should symptoms resolved. Appreciate neurology evaluation. PT/OT/speech pathology consultation requested. We'll continue to monitor closely. Repeat lab work in the morning. anticipate discharge tomorrow.
[2017-04-28] MEDS: HYDROCHLOROTHIAZIDE 25 MG TAB PO SCH (12:28)
--- NOTE | 2017-04-28 15:38 | P.PN ---
Subjective Principal diagnosis: Patient is a pleasant 66-year-old female who is being followed by the neurology service for numbness and tingling of the left side. Patient was on aspirin 325 mg daily at home from previous stroke. Patient came to [facility] due to increasing numbness and tingling of the left upper extremity which was not going away. She denies any upper extremity weakness. Computed tomography scan of the brain was done which showed mild generalized atrophy. Her carotid Doppler showed no hemodynamically significant stenosis. EEG was normal. At the time of my evaluation, patient states symptoms of numbness and tingling in left upper extremity have resolved. Patient appears to be in no acute distress. Objective - Vital Signs Vital signs: Vital Signs Temp 98.5 F 04/28/17 12:00 Pulse 89 04/28/17 12:00 Resp 18 04/28/17 12:00 BP 164/87 04/28/17 12:00 Pulse Ox 89 L 04/28/17 12:00 Intake & Output 04/27/17 04/28/17 04/28/17 18:59 06:59 18:59 Intake Total 1540 20 360 Balance 1540 20 360 Weight 67.6 kg 64.6 kg Intake: IV 20 .9 20 Intake, IV Titration 700 Amount Sodium Chloride 0.9% 1, 700 000 ml @ 100 mls/hr IV . Q10H [facility] Rx#:[id number] Oral 840 360 Other: Voiding Method Toilet Toilet Toilet # Voids 1 - Exam PHYSICAL EXAM: GENERAL APPEARANCE: Patient is a well-developed, female who appears to be in no acute distress. HEENT: Normocephalic, atraumatic, no facial asymmetry is seen. Neck is supple with no masses felt. CARDIOVASCULAR: Regular rate and rhythm. ABDOMEN: Nontender, nondistended. EXTREMITIES: Show no edema or clubbing. NEUROLOGICAL EXAM: Patient is awake, alert, and oriented 3. Speech and language are normal. Strength is full in all 4 extremities. Sensory exam is normal to light touch in all 4 extremities. No facial asymmetry is noted on cranial nerve testing. No tremors or seizure-like activity noted. - Labs CBC & Chem 7: 04/28/17 05:38 04/28/17 05:38 Labs: Abnormal Lab Results - Last 24 Hours (Table) 04/27/17 04/27/1717 Range/Units 16:49 21:09 05:38 Potassium 3.2 L (3.5-5.1) mmol/L Carbon Dioxide 31 H (22-30) mmol/L Creatinine 0.50 L (0.52-1.04) mg/dL Glucose 116 H (74-99) mg/dL POC Glucose (mg/dL) 169 H 154 H (75-99) mg/dL Total Protein 6.2 L (6.3-8.2) g/dL 04/28/17 04/28/17 Range/Units 06:27 11:35 Potassium (3.5-5.1) mmol/L Carbon Dioxide (22-30) mmol/L Creatinine (0.52-1.04) mg/dL Glucose (74-99) mg/dL POC Glucose (mg/dL) 121 H 196 H (75-99) mg/dL Total Protein (6.3-8.2) g/dL Assessment and Plan (1) Transient ischemic attack, acute Status: Acute (2) Carpal tunnel syndrome Status: Chronic (3) History of stroke Status: Chronic (4) Paresthesias Status: Acute Plan: The patient has been having recurrent episodes of numbness and tingling involving the left side and mainly her left upper extremity. Her upper extremity numbness and tingling symptoms have resolved. I doubt any ischemic etiology but this cannot be ruled out. I recommend that she continue Plavix 75 mg daily. I recommend she continues Zetia as she is unable to tolerate statin therapy. Her homocystine level was 8.23 which is within normal range. I recommend continuing blood pressure control. She should follow up in the office upon discharge. Feel free to call with any questions or concerns. I performed an examination of the patient and discussed the management with the DIALYSIS TECHNICIAN. I have reviewed the DIALYSIS TECHNICIAN notes and agree with the findings and plan of care.
[2017-04-28 16:38] LABS: Glucose,Whole Blood 168 mg/dL (75-99)
[2017-04-28] MEDS: LATANOPROST 0.005% OPHTH DROPS 2.5 ML BTL BOTH EYES SCH (20:59)
[2017-04-28 21:42] LABS: Glucose,Whole Blood 165 mg/dL (75-99)
[2017-04-28] MEDS: INSULIN GLARGINE 100 UNIT/ML 10 ML VIAL SQ SCH (21:45)
[2017-04-29 05:17] VITALS: RESP 16
[2017-04-29 06:02] LABS: Glucose,Whole Blood 94 mg/dL (75-99)
[2017-04-29] MEDS: metFORMIN 500 MG TAB PO SCH (06:31)
[2017-04-29] MEDS: CARVEDILOL 12.5 MG TAB PO SCH (06:31)
[2017-04-29] MEDS: PANTOPRAZOLE 40 MG TABLET PO SCH (06:31)
[2017-04-29 07:16] LABS: Basophils # (A) 0.1 k/uL (0-0.2); Basophils % (A) 1 %; CHCM 33.4; Eosinophils # (A) 0.2 k/uL (0-0.7); Eosinophils % (A) 4 %; HCT 37.2 % (34.0-46.0); HDW 2.57; HGB 12.3 gm/dL (11.4-16.0); Luc # (Auto) 0.14; Luc % (Auto) 2; Lymphocytes # (A) 2.5 k/uL (1.0-4.8); Lymphocytes % (A) 42 %; MCH 29.8 pg (25.0-35.0); MCHC 33.1 g/dL (31.0-37.0); Mean Platelet Volume 7.1; Monocytes # (A) 0.5 k/uL (0-1.0); Monocytes % (A) 9 %; Neutrophils # (A) 2.6 k/uL (1.3-7.7); Neutrophils % (A) 42 %; RBC 4.13 m/uL (3.80-5.40); RDW 13.6 % (11.5-15.5); WBC (Perox) 6.12
[2017-04-29 07:32] LABS: ALT 32 U/L (9-52); AST 26 U/L (14-36); Alkaline Phosphatase 82 U/L (38-126); Anion Gap 13 mmol/L; Blood Urea Nitrogen 13 mg/dL (7-17); Calcium 9.6 mg/dL (8.4-10.2); Carbon Dioxide 25 mmol/L (22-30); Chloride 99 mmol/L (98-107); Glucose 81 mg/dL (74-99); Non-African American GFR(MDRD) >60 (>60 ml/min/1.73 sqM); Potassium 3.2 mmol/L (3.5-5.1); Sodium 137 mmol/L (137-145); Total Bilirubin 0.4 mg/dL (0.2-1.3); Total Protein 6.8 g/dL (6.3-8.2)
[2017-04-29] MEDS: FUROSEMIDE 20 MG TAB PO SCH (07:52)
[2017-04-29] MEDS: LISINOPRIL 20 MG TAB PO SCH (07:52)
[2017-04-29] MEDS: HEPARIN SODIUM,PORCINE 5,000 UNIT/ML 1 ML VIAL SQ SCH (07:52)
[2017-04-29] MEDS: ALPRAZolam 0.25 MG TAB PO SCH (07:52)
[2017-04-29] MEDS: SERTRALINE 50 MG TAB PO SCH (07:52)
[2017-04-29] MEDS: HYDROCHLOROTHIAZIDE 25 MG TAB PO SCH (07:52)
[2017-04-29] MEDS: EZETIMIBE 10 MG TAB PO SCH (07:52)
[2017-04-29] MEDS: CLOPIDOGREL 75 MG TAB PO SCH (07:52)
[2017-04-29] MEDS: HYDROcodone/APAP 10-325MG 1 EACH TAB PO PRN (07:59)
[2017-04-29 08:04] VITALS: BP 139/77; PULSE 77; TEMP 98.2
--- NOTE | 2017-04-29 12:05 | P.DS ---
Providers Date of admission: 04/26/17 21:54 Expected date of discharge: 04/29/17 Attending physician: Jae Martinez Consults: 04/26/17 21:55 Consult Physician Routine Consulting Provider: Kyleigh Black Consult Reason/Comments: tia Do you want consulting provider notified?: Yes 04/27/17 10:20 Consult Physician Routine Consulting Provider: Kyleigh Black Consult Reason/Comments: TIA? Do you want consulting provider notified?: Yes Primary care physician: Jae [facility] Course: 1. Episode of transient numbness involving the left arm now resolved. Patient was seen and evaluated by neurology. CT computed tomography scan of the brain showed no acute findings. Carotid Doppler with no hemodynamically significant stenosis. Patient is on full dose aspirin daily at home and this was switched to Plavix. 2. History of subacute left thalamic lacunar infarct 3. Prior stroke/CVA with residual right-sided hemiparesis 4. Type 2 diabetes mellitus, awaiting repeat A1c 5. Essential hypertension, blood pressure not well controlled. Coreg dose increased to 25 mg twice a day. Hydrochlorothiazide 25 mg daily added to her regimen 6. Mixed hyperlipidemia, currently on Zetia. Patient is intolerant to statin. Patient will be discharged home in a stable condition. She will follow-up with me in the office next week. Please refer to the electronic chart for further details about this hospitalization. Plan - Discharge Summary New Discharge Prescriptions: New Carvedilol [Coreg] 25 mg PO AC-BID #60 tablet Clopidogrel [Plavix] 75 mg PO DAILY #30 tab Hydrochlorothiazide [Hydrodiuril] 25 mg PO DAILY #30 tab Lisinopril 40 mg PO DAILY #30 tab Continue Omeprazole [PriLOSEC] 20 mg PO BID metFORMIN HCL 1,000 mg PO BID-W/MEALS HYDROcodone/APAP 10-325MG [[place] 10-325] 1 tab PO TID PRN PRN Reason: Pain Insulin Glargine [Lantus] 25 units SQ HS Latanoprost Ophth [Xalatan 0.005%] 1 drop BOTH EYES HS Insulin Regular, Human [NovoLIN R] See Protocol SQ BID-W/MEALS Furosemide [Lasix] 20 mg PO Q48H Ezetimibe [Zetia] 10 mg PO DAILY Sertraline HCl [Zoloft] 50 mg PO DAILY ALPRAZolam [Xanax] 0.125 mg PO BID Discontinued Carvedilol [Coreg] 12.5 mg PO BID Aspirin EC [Ecotrin Low Dose] 243 mg PO BID Lisinopril 40 mg PO BID Discharge Medication List HYDROcodone/APAP 10-325MG [[place] 10-325] 1 tab PO TID PRN 10/10/14 [History] Omeprazole [PriLOSEC] 20 mg PO BID 10/10/14 [History] metFORMIN HCL 1,000 mg PO BID-W/MEALS 10/10/14 [History] Insulin Glargine [Lantus] 25 units SQ HS 10/11/14 [History] Latanoprost Ophth [Xalatan 0.005%] 1 drop BOTH EYES HS 10/11/14 [History] Ezetimibe [Zetia] 10 mg PO DAILY 09/21/16 [History] Furosemide [Lasix] 20 mg PO Q48H 09/21/16 [History] Insulin Regular, Human [NovoLIN R] See Protocol SQ BID-W/MEALS 09/21/16 [History ] ALPRAZolam [Xanax] 0.125 mg PO BID 04/26/17 [History] Sertraline HCl [Zoloft] 50 mg PO DAILY 04/26/17 [History] Carvedilol [Coreg] 25 mg PO AC-BID #60 tablet 04/29/17 [Rx] Clopidogrel [Plavix] 75 mg PO DAILY #30 tab 04/29/17 [Rx] Hydrochlorothiazide [Hydrodiuril] 25 mg PO DAILY #30 tab 04/29/17 [Rx] Lisinopril 40 mg PO DAILY #30 tab 04/29/17 [Rx] Follow up Appointment(s)/Referral(s): Jae Martinez MD [Primary Care Provider] - 1-2 days Discharge Disposition: HOME SELF-CARE
[2017-04-29 12:07] LABS: Glucose,Whole Blood 162 mg/dL (75-99)
== END 2017-04-29 16:58 | disposition home or self-care (01) | DRG 69 ==
LOC: EC 20:01 → 6SEL 21:54
PROVIDERS: ADMIT Internal Medicine; ATTEND Internal Medicine
DX: G45.9 Transient cerebral ischemic attack, unspecified (principal); E11.42 Type 2 diabetes mellitus with diabetic polyneuropathy; I69.351 Hemiplegia and hemiparesis following cerebral infarction affecting right dominant side; E87.1 Hypo-osmolality and hyponatremia; E11.65 Type 2 diabetes mellitus with hyperglycemia; I10 Essential (primary) hypertension; M06.9 Rheumatoid arthritis, unspecified; T46.4X6A Underdosing of angiotensin-converting-enzyme inhibitors, initial encounter; M79.7 Fibromyalgia; G56.00 Carpal tunnel syndrome, unspecified upper limb; G89.4 Chronic pain syndrome; E78.2 Mixed hyperlipidemia; R74.8 Abnormal levels of other serum enzymes; H40.9 Unspecified glaucoma; R07.89 Other chest pain; M19.90 Unspecified osteoarthritis, unspecified site; R51 Headache; K44.9 Diaphragmatic hernia without obstruction or gangrene; E11.36 Type 2 diabetes mellitus with diabetic cataract; F41.9 Anxiety disorder, unspecified; Z82.49 Family history of ischemic heart disease and other diseases of the circulatory system; Z87.11 Personal history of peptic ulcer disease; Z79.82 Long term (current) use of aspirin; Z79.4 Long term (current) use of insulin; Z79.899 Other long term (current) drug therapy; Z71.3 Dietary counseling and surveillance; Z90.49 Acquired absence of other specified parts of digestive tract; Z98.51 Tubal ligation status; Z79.891 Long term (current) use of opiate analgesic; Z88.5 Allergy status to narcotic agent; Z88.2 Allergy status to sulfonamides; Z88.8 Allergy status to other drugs, medicaments and biological substances; Z88.4 Allergy status to anesthetic agent; Z88.1 Allergy status to other antibiotic agents; Z91.041 Radiographic dye allergy status; Z81.1 Family history of alcohol abuse and dependence; Z82.3 Family history of stroke; Z80.9 Family history of malignant neoplasm, unspecified; Z83.79 Family history of other diseases of the digestive system; Z91.14 Patient's other noncompliance with medication regimen; Z86.2 Personal history of diseases of the blood and blood-forming organs and certain disorders involving the immune mechanism
CPT/HCPCS: 36415; 70450; 71020; 80053; 80061; 82550; 82553; 83036; 83090; 84484; 85025; 85610; 85730; 93005; 93306; 93880; 94760; 95819; 96360; 96361; 99285

== ENCOUNTER 2017-09-09 07:31 | Day surgery (SDC) | payer MEDICARE, OTHER ==
[2017-09-07 09:36] VITALS: BMI 25.3
[~2017-09-09 07:31] MED LIST: LACTATED RINGERS 1,000 ML IV SCH; LIDOCAINE 1% 20 ML VIAL (10MG/ML) FOR IV START INTRADERMA PRN
[2017-09-09 07:56] VITALS: RESP 18; TEMP 98.3
[2017-09-09 08:05] LABS: Glucose,Whole Blood 154 mg/dL (75-99)
[2017-09-09] MEDS ORDERED: PROPOFOL 10 MG/ML 20 ML VIAL IV ONE (08:12)
[2017-09-09] MEDS ORDERED: MIDAZOLAM 2 MG/2 ML VIAL ONE (08:12)
[2017-09-09] MEDS ORDERED: LACTATED RINGERS 1,000 ML IV ONE (08:13)
--- NOTE | 2017-09-09 08:34 | P.PCN ---
Date of Procedure: 09/09/17 Procedure(s) Performed: Brief history: Patient is a pleasant 66-year-old white female, scheduled for an elective upper endoscopy as well as colonoscopy as a part of evaluation of long-standing history of GERD/Coombs's esophagus and change in bowel habits. Procedure performed: Esophagogastroduodenoscopy with biopsy Colonoscopy Preoperative diagnosis: Long-standing history of GERD/Coombs's esophagus Change in bowel habits Anesthesia: MAC Procedure: After informed consent was obtained from the patient was brought into the endoscopy unit and IV sedation was administered by anesthesia under continuous monitoring. Initially upper endoscopy was done. The Olympus GF 160 video endoscope was inserted inserted into the mouth and esophagus intubated without any difficulty and was gradually advanced into the stomach and duodenum and carefully examined. The bulb and second part of the duodenum appeared normal. Biopsies were done from the duodenum to rule out celiac disease. The scope was then withdrawn into the stomach adequately insufflated with air and upon careful examination the antrum and body, cardia and fundus appeared normal. The scope was then withdrawn into the esophagus. The GE junction was located at 40 cm to the incisors. There was a short segment of Coombs's esophagus extending 5-6 mm proximal to the GE junction and this was biopsied. The GE junction appeared regular with no erythema erosions or ulcerations. Rest of the esophagus appeared normal. Patient tolerated the procedure well. At this time the patient continued to remain sedation. Initial digital rectal examination was normal. Olympus CF 160 video colonoscope was then inserted into the rectum and gradually advanced to the cecum without any difficulty. Careful examination was performed as the scope was gradually being withdrawn. The prep was excellent. The cecum, ascending colon, transverse colon, descending colon, sigmoid colon and rectum appeared normal. Retroflexion was performed in the rectum and no lesions were noted. Patient tolerated the procedure well. Impression: 1. Upper endoscopy revealed small hiatal hernia and short segment Coombs's esophagus 2. Colonoscopy was within normal limits with no evidence of colitis or colorectal neoplasia Recommendations: Findings of this examination were discussed with the patient as well as her family. She was advised to follow with the biopsy results. If the biopsy confirms the presence of Coombs's esophagus, she can have a repeat upper endoscopy in 2-3 years
[2017-09-09 08:47] LABS: Glucose,Whole Blood 155 mg/dL (75-99)
[2017-09-09 08:55] VITALS: BP 155/72; PULSE 83
== END 2017-09-09 09:41 | disposition home or self-care (01) ==
LOC: ORWHC2ENDO 07:31
PROVIDERS: ATTEND Internal Medicine Gastroenterology
DX: K29.70 Gastritis, unspecified, without bleeding (principal); K22.70 Barrett's esophagus without dysplasia; K21.9 Gastro-esophageal reflux disease without esophagitis; R19.4 Change in bowel habit; K44.9 Diaphragmatic hernia without obstruction or gangrene; I25.2 Old myocardial infarction; I10 Essential (primary) hypertension; M06.9 Rheumatoid arthritis, unspecified; E78.5 Hyperlipidemia, unspecified; I69.951 Hemiplegia and hemiparesis following unspecified cerebrovascular disease affecting right dominant side; F39 Unspecified mood [affective] disorder; M79.7 Fibromyalgia; F03.90 Unspecified dementia, unspecified severity, without behavioral disturbance, psychotic disturbance, mood disturbance, and anxiety; E11.21 Type 2 diabetes mellitus with diabetic nephropathy; Z79.4 Long term (current) use of insulin; Z79.02 Long term (current) use of antithrombotics/antiplatelets; Z79.899 Other long term (current) drug therapy; Z79.891 Long term (current) use of opiate analgesic
CPT/HCPCS: 88305; 45378; 43239; J2250; J2704

== ENCOUNTER 2017-10-15 17:34 | Inpatient (IN) | payer MEDICARE, OTHER ==
[2017-10-15] MEDS ORDERED: SODIUM CHLORIDE 0.9% 1,000 ML IV STA (18:12)
[2017-10-15] MEDS ORDERED: LABETALOL 5 MG/ML VIAL MDV IVP STA ×2 (18:17→19:28)
--- NOTE | 2017-10-15 18:29 | ED ---
General Adult HPI - General Chief complaint: Weakness Stated complaint: Weakness & dizziness Time Seen by Provider: 10/15/17 17:46 Source: patient, family, RN notes reviewed, old records reviewed Mode of arrival: wheelchair Limitations: no limitations - History of Present Illness Initial comments: Chief complaint and history of present illness this is a 66-year-old female with a complaint of generally not feeling well, weakness, right-sided discomfort and weakness. Past history of TIAs and - Related Data Home Medications Medication Instructions Recorded Confirmed HYDROcodone/APAP 10-325MG [[place] 1 tab PO TID PRN 10/10/14 10/15/17 10-325] Omeprazole [PriLOSEC] 20 mg PO BID 10/10/14 10/15/17 metFORMIN HCL 1,000 mg PO BID-W/MEALS 10/10/14 10/15/17 Insulin Glargine [Lantus] 25 units SQ HS 10/11/14 10/15/17 Latanoprost Ophth [Xalatan 0.005%] 1 drop BOTH EYES HS 10/11/14 10/15/17 Ezetimibe [Zetia] 10 mg PO DAILY 09/21/16 10/15/17 Furosemide [Lasix] 20 mg PO Q48H 09/21/16 10/15/17 Insulin Regular, Human [NovoLIN R] See Protocol SQ BID-W/MEALS 09/21/16 10/15/17 ALPRAZolam [Xanax] 0.125 mg PO BID 04/26/17 10/15/17 Sertraline HCl [Zoloft] 50 mg PO DAILY 04/26/17 10/15/17 Carvedilol [Coreg] 25 mg PO BID 09/07/17 10/15/17 Hydrochlorothiazide [Hydrodiuril] 25 mg PO Q48H 10/15/17 10/15/17 Previous Rx's Medication Instructions Recorded Clopidogrel [Plavix] 75 mg PO DAILY #30 tab 04/29/17 Lisinopril 40 mg PO DAILY #30 tab 04/29/17 Allergies Allergy/AdvReac Type Severity Reaction Status Date / Time bee venom protein (honey bee) Allergy Anaphylaxis Verified 10/15/17 18:18 epinephrine Allergy Anaphylaxis Verified 10/15/17 18:18 influenza virus vaccine, Allergy Rash/Hives Verified 10/15/17 18:18 specific iodine Allergy Rash/Hives Verified 10/15/17 18:18 latex Allergy Rash/Hives Verified 10/15/17 18:18 procaine HCl [From Novocain] Allergy Anaphylaxis Verified 10/15/17 18:18 Sulfa (Sulfonamide Allergy Rash/Hives Verified 10/15/17 18:18 Antibiotics) amlodipine [From Norvasc] AdvReac Diarrhea,abdominal Verified 10/15/17 18:18 pain cephalexin monohydrate AdvReac Nausea & Verified 10/15/17 18:18 [From Keflex] Vomiting & Diarrhea codeine AdvReac Nausea & Verified 10/15/17 18:18 Vomiting cortisone AdvReac Nausea & Verified 10/15/17 18:18 Vomiting/Vertigo methadone AdvReac Nausea & Verified 10/15/17 18:18 Vomiting & Diarrhea propoxyphene AdvReac Nausea & Verified 10/15/17 18:18 [From Darvocet-N] Vomiting Ukp[place]k-Gfk-Ipf Reductase AdvReac Nausea & Verified 10/15/17 18:18 Inhibitor Vomiting/Muscle Weakness steroids AdvReac Nausea & Uncoded 10/15/17 17:43 Vomiting Review of Systems ROS Statement: Those systems with pertinent positive or pertinent negative responses have been documented in the HPI. discomfort and weakness. Past history of TIAs and CVAs affect of the right side. At home her blood pressure was elevated here initial blood pressure was 210/90 repeated at 190/90 the patient had an IV started she was given labetalol 10 mg. Patient reports she has a mild headacheand didn't patient has aches and pains all systems questioned. Most significantly generalized weakness with elevated blood pressure, right arm weakness. Past history of CVAs and TIAs. That affected the right side. Patient needed assistance by her grandson to get up and around the house. States when she walks with assistance tends to lean towards the right. All systems are reviewed.Past medical problems listed include angina, CVA, DM a TIA, diabetes mellitus, 5 myalgia, GERD, hyperlipidemia, hypertension. Memory impairment. Previous [place], osteoarthritis, rheumatoid arthritis and neuropathy both feet. Surgeries bladder surgery, cholecystectomy, hysterectomy , tubal ligation, rhinoplasty, hand surgery. And foot surgery. Patient has ALLERGIES to medications include epinephrine iodine, latex, procaine, also influenza vaccine be venom. Patient states nonsmoker nondrinker. ROS Other: All systems not noted in ROS Statement are negative. Past Medical History Past Medical History: Chest Pain / Angina, CVA/TIA, Diabetes Mellitus, Fibromyalgia, GERD/Reflux, Hyperlipidemia, Hypertension, Memory Impairment, Myocardial Infarction ([place]), Osteoarthritis (OA), Rheumatoid Arthritis (RA) Additional Past Medical History / Comment(s): neuropathy both feet and hands, glaucoma, connective tissue dysfunction, peptic ulcer disease, "bad" hiatal hernia, stroke x2-loss of short term memory, chest pain "last year", occ irregular heart beat, hx ulcers, hx carpal tunnel syndrome, states stools are thin "like a ribbon". Last Myocardial Infarction Date:: 1988 History of Any Multi-Drug Resistant Organisms: None Reported Past Surgical History: Bladder Surgery, Cholecystectomy, Hysterectomy, Tubal Ligation Additional Past Surgical History / Comment(s): rhinoplasty, hand surgery bilateral-carpal tunel , states sling for rectal prolapse. Past Anesthesia/Blood Transfusion Reactions: Motion Sickness Past Psychological History: Anxiety, Depression Smoking Status: Never smoker Past Alcohol Use History: None Reported Past Drug Use History: None Reported - Past Family History Father Family Medical History: CVA/TIA, Liver Disease, Myocardial Infarction ([place]) Additional Family Medical History / Comment(s): alcoholic, cirrhosis of the liver Mother Family Medical History: Cancer General Exam - General Exam Comments Initial Comments: General: The patient is awake , has multiple complaints including just generally feeling weak, poor appetite, dizziness, weakness in the right arm ongoing for more than one day. Sightly decreased appetite. Vital signs show temp 98.6 pulse 85 respiratory rate 20 pulse ox 99% room air. Eye: Pupils are equal, round and reactive to light, extra-ocular movements are intact ; there is normal conjunctiva bilaterally. No signs of icterus. Ears, nose, mouth and throat: There are moist mucous membranes and no oral lesions. Neck: The neck is supple, there is no tenderness . Cardiovascular: There is a regular rate and rhythm. No murmur, rub or gallop is appreciated. Respiratory: Lungs are clear to auscultation, respirations are non-labored, breath sounds are equal. No wheezes, stridor, rales, or rhonchi. Gastrointestinal: Soft, non-distended, non-tender abdomen without masses or organomegaly noted. There is no rebound or guarding present. No CVA tenderness. Bowel sounds are unremarkable. Back: patient complains of back pain and shoulder pain and wrist pain. History of fibromyalgia. Musculoskeletal: generally decreased range of motion upper and lower extremities secondary to joint pain. States she needs her grandson to help her to get around. More so in the past 2 days. Neurological: complains of weakness to the right arm. Previous TIAs CVAs affect the right side. Neurologically grossly exam is intact. Skin: Skin is warm and dry and no rashes or lesions are noted. Psychiatric: Cooperative, Limitations: no limitations Course Vital Signs 10/15/17 10/15/17 10/15/17 17:38 18:41 19:25 Temperature 98.6 F Pulse Rate 85 79 77 Respiratory 18 19 20 Rate Blood Pressure 210/92 212/104 225/99 O2 Sat by Pulse 99 99 100 Oximetry EKG Findings - EKG Comments: EKG Findings:: EKG was done and reviewed at 1755. Showing normal sinus rhythm rate [address]-T wave changes no acute ST elevation no ectopy no ischemic changes. CT interval is 136 QRS 88 QT [address] Bermudez. this EKG was compared to one that had been done on 04/26/2017 and a very similar. Medical Decision Making - Medical Decision Making medical decision making; this is a 66-year-old female who is coming in by ambulance. She lives with her grandson. He states that she's been having weakness difficulty walking for the past 2 days. She describes her complaints otherwise weakness to the right arm. Past history of TIAs and CVAs. Labs show white count 6.2 hemoglobin 9 hematocrit of 35 with a potassium 3.2. INR 1.0. BUN 17 creatinine 0.60 to GFR greater than 60 and a glucose of 139. Urine clean no signs of infection. MB elevated at 3.5 troponin less than 0.012. CT the brain was done and reviewed by radiologist his entire report was reviewed. His findings include there is mild cerebral cortical atrophy. There is no mass effect or , no shift. There is no sign of intracranial hemorrhage. The calvarium is intact. There is a millimeter hypodensity in the posterior left thalamus. There is a 1 cm hypodensity in the white matter insulin right temporal lobe. There is a 5 mm hypodensity in the anterior right internal capsule. Impression; there is evidence of chronic small vessel ischemia. No acute intracranial abdomen mildly. No change. As read by Dr. Nunez Chest x-ray is done AP and lateral view and reviewed by radiologist entire report included here showing findings; heart and mediastinum are normal. Lungs are clear consolidation. There is no pleural effusion. Bony thorax is intact. Impression no active cardiopulmonary disease. Normal heart. No change. As read by Dr. Nunez she received a second dose of labetalol 10 mg. 20 minutes later blood pressure is coming down to 180/87. I discussed with the patient her normal blood pressure which is in this range per patient and grandson. Patient's case discussed with her attending. The plan is to admit the patient for right sided weakness, hypokalemia and uncontrolled high blood pressure.with consultation from her neurologist, Dr. sainz. - Lab Data Result diagrams: 10/15/17 18:24 10/15/17 18:24 Lab Results 10/15/17 10/15/17 10/15/17 Range/Units 18:24 18:24 18:24 WBC 6.2 (3.8-10.6) k/uL RBC 4.33 (3.80-5.40) m/uL Hgb 9.7 L (11.4-16.0) gm/dL Hct 35.3 (34.0-46.0) % MCV 81.5 (80.0-100.0) fL MCH 22.3 L (25.0-35.0) pg MCHC 27.4 L (31.0-37.0) g/dL RDW 14.1 (11.5-15.5) % Plt Count 420 (150-450) k/uL Neutrophils % 56 % Lymphocytes % 32 % Monocytes % 7 % Eosinophils % 2 % Basophils % 1 % Neutrophils # 3.4 (1.3-7.7) k/uL Lymphocytes # 2.0 (1.0-4.8) k/uL Monocytes # 0.4 (0-1.0) k/uL Eosinophils # 0.1 (0-0.7) k/uL Basophils # 0.1 (0-0.2) k/uL PT (9.0-12.0) sec INR (<1.2) APTT (22.0-30.0) sec Sodium 135 L (137-145) mmol/L Potassium 3.2 L (3.5-5.1) mmol/L Chloride 93 L (98-107) mmol/L Carbon Dioxide 28 (22-30) mmol/L Anion Gap 14 mmol/L BUN 17 (7-17) mg/dL Creatinine 0.60 (0.52-1.04) mg/dL Est GFR (CKD-EPI)AfAm >90 (>60 ml/min/1.73 sqM) Est GFR (CKD-EPI)NonAf >90 (>60 ml/min/1.73 sqM) Glucose 139 H (74-99) mg/dL Calcium 10.0 (8.4-10.2) mg/dL Total Bilirubin 0.3 (0.2-1.3) mg/dL AST 23 (14-36) U/L ALT 24 (9-52) U/L Alkaline Phosphatase 91 (38-126) U/L Total Creatine Kinase 172 H (30-135) U/L CK-MB (CK-2) 3.5 H* (0.0-2.4) ng/mL CK-MB (CK-2) Rel Index 2.0 Troponin I <0.012 (0.000-0.034) ng/mL Total Protein 7.5 (6.3-8.2) g/dL Albumin 4.4 (3.5-5.0) g/dL Urine Color Urine Appearance (Clear) Urine pH (5.0-8.0) Ur Specific [place] (1.001-1.035) Urine Protein (Negative) Urine Glucose (UA) (Negative) Urine Ketones (Negative) Urine Blood (Negative) Urine Nitrite (Negative) Urine Bilirubin (Negative) Urine Urobilinogen (<2.0) mg/dL Ur Leukocyte Esterase (Negative) 10/15/17 10/15/17 Range/Units 18:24 18:37 WBC (3.8-10.6) k/uL RBC (3.80-5.40) m/uL Hgb (11.4-16.0) gm/dL Hct (34.0-46.0) % MCV (80.0-100.0) fL MCH (25.0-35.0) pg MCHC (31.0-37.0) g/dL RDW (11.5-15.5) % Plt Count (150-450) k/uL Neutrophils % % Lymphocytes % % Monocytes % % Eosinophils % % Basophils % % Neutrophils # (1.3-7.7) k/uL Lymphocytes # (1.0-4.8) k/uL Monocytes # (0-1.0) k/uL Eosinophils # (0-0.7) k/uL Basophils # (0-0.2) k/uL PT 9.9 (9.0-12.0) sec INR 1.0 (<1.2) APTT 24.1 (22.0-30.0) sec Sodium (137-145) mmol/L Potassium (3.5-5.1) mmol/L Chloride (98-107) mmol/L Carbon Dioxide (22-30) mmol/L Anion Gap mmol/L BUN (7-17) mg/dL Creatinine (0.52-1.04) mg/dL Est GFR (CKD-EPI)AfAm (>60 ml/min/1.73 sqM) Est GFR (CKD-EPI)NonAf (>60 ml/min/1.73 sqM) Glucose (74-99) mg/dL Calcium (8.4-10.2) mg/dL Total Bilirubin (0.2-1.3) mg/dL AST (14-36) U/L ALT (9-52) U/L Alkaline Phosphatase (38-126) U/L Total Creatine Kinase (30-135) U/L CK-MB (CK-2) (0.0-2.4) ng/mL CK-MB (CK-2) Rel Index Troponin I (0.000-0.034) ng/mL Total Protein (6.3-8.2) g/dL Albumin (3.5-5.0) g/dL Urine Color Yellow Urine Appearance Clear (Clear) Urine pH 5.5 (5.0-8.0) Ur Specific [place] 1.006 (1.001-1.035) Urine Protein Negative (Negative) Urine Glucose (UA) Negative (Negative) Urine Ketones Negative (Negative) Urine Blood Negative (Negative) Urine Nitrite Negative (Negative) Urine Bilirubin Negative (Negative) Urine Urobilinogen <2.0 (<2.0) mg/dL Ur Leukocyte Esterase Negative (Negative) Disposition Clinical Impression: Right sided weakness, Uncontrolled hypertension, Hypokalemia Disposition: ADMITTED IP TO THIS HOSP Condition: Fair Referrals: Jae Martinez MD [Primary Care Provider] - 1-2 days
[2017-10-15 18:52] LABS: Basophils # (A) 0.1 k/uL (0-0.2); Basophils % (A) 1 %; Eosinophils # (A) 0.1 k/uL (0-0.7); Eosinophils % (A) 2 %; HCT 35.3 % (34.0-46.0); HGB 9.7 gm/dL (11.4-16.0); Lymphocytes % (A) 32 %; MCH 22.3 pg (25.0-35.0); MCHC 27.4 g/dL (31.0-37.0); MCV 81.5 fL (80.0-100.0); Mean Platelet Volume 6.4; Monocytes # (A) 0.4 k/uL (0-1.0); Monocytes % (A) 7 %; Neutrophils # (A) 3.4 k/uL (1.3-7.7); Neutrophils % (A) 56 %; Platelet Count 420 k/uL (150-450); RBC 4.33 m/uL (3.80-5.40); RDW 14.1 % (11.5-15.5); WBC 6.2 k/uL (3.8-10.6)
[2017-10-15 18:55] LABS: ALT 24 U/L (9-52); AST 23 U/L (14-36); Albumin 4.4 g/dL (3.5-5.0); Alkaline Phosphatase 91 U/L (38-126); Anion Gap 14 mmol/L; Blood Urea Nitrogen 17 mg/dL (7-17); Carbon Dioxide 28 mmol/L (22-30); Chloride 93 mmol/L (98-107); Glucose 139 mg/dL (74-99); Potassium 3.2 mmol/L (3.5-5.1); Sodium 135 mmol/L (137-145); Total Bilirubin 0.3 mg/dL (0.2-1.3); Total Protein 7.5 g/dL (6.3-8.2)
[2017-10-15 18:59] LABS: Creatine Kinase 172 U/L (30-135)
[2017-10-15 19:02] LABS: Partial Thromboplastin Time 24.1 sec (22.0-30.0); Prothrombin Time 9.9 sec (9.0-12.0)
[2017-10-15 19:06] LABS: Appearance,Urine Clear (Clear); Bilirubin,Urine Negative (Negative); Blood,Urine Negative (Negative); Color,Urine Yellow; Glucose,Urine (UA) Negative (Negative); Ketones,Urine Negative (Negative); Leukocyte Esterase,Urine Negative (Negative); Nitrite,Urine Negative (Negative); PH, Urine 5.5 (5.0-8.0); Protein,Urine Negative (Negative); Specific Gravity,Urine 1.006 (1.001-1.035); Urobilinogen,Urine <2.0 mg/dL (<2.0)
[2017-10-15 19:12] LABS: Troponin I <0.012 ng/mL (0.000-0.034)
--- NOTE | 2017-10-15 19:13 | CT ---
EXAMINATION TYPE: CT brain wo con DATE OF EXAM: 10/15/2017 COMPARISON: 04/26/2017 HISTORY: Hypertension and dizziness CT DLP: 989.4 mGycm Automated exposure control for dose reduction was used. FINDINGS: There is mild cerebral cortical atrophy. There is no mass effect normal Shift. There is no sign of intracranial hemorrhage. The calvarium is intact. There is 8 mm hypodensit y in the posterior left thalamus. There is a 1 cm hypodensity in the white matter insula right tempor al lobe. There is 5 mm hypodensity in the anterior right internal capsule. IMPRESSION: THERE IS EVIDENCE OF CHRONIC SMALL VESSEL ISCHEMIA. NO ACUTE INTRACRANIAL ABNORMALITY. NO CHANGE.
[2017-10-15 19:16] LABS: Creatine Kinase MB 3.5 ng/mL (0.0-2.4)
--- NOTE | 2017-10-15 19:29 | XR ---
EXAMINATION TYPE: XR chest 2V DATE OF EXAM: 10/15/2017 COMPARISON: 04/26/2017 HISTORY: Weakness TECHNIQUE: Frontal and lateral views of the chest are obtained. FINDINGS: Heart and mediastinum are normal. Lungs are clear of consolidation. There is no pleural ef fusion. Bony thorax is intact. IMPRESSION: No active cardiopulmonary disease. Normal heart. No change.
[2017-10-15] MEDS ORDERED: POTASSIUM CHLORIDE 20 MEQ in SODIUM CHLORIDE 0.9% 100 ML IVPB ONE (19:30)
[2017-10-15] MEDS ORDERED: NALOXONE 0.4 MG/ML 1 ML VIAL IV PRN (19:55)
[2017-10-15] MEDS: HYDROcodone/APAP 10-325MG 1 EACH TAB PO PRN (20:18)
[2017-10-15] MEDS ORDERED: POTASSIUM CHLORIDE 2 MEQ/ML 20 ML VIAL IVPB SCH (21:00)
[2017-10-15] MEDS: POTASSIUM CHLORIDE 20 MEQ in SODIUM CHLORIDE 0.9% 100 ML IVPB SCH (21:05)
[2017-10-15 21:06] LABS: Glucose,Whole Blood 77 mg/dL (75-99)
[2017-10-15] MEDS: LATANOPROST 0.005% OPHTH DROPS 2.5 ML BTL BOTH EYES SCH (21:10)
[2017-10-15] MEDS: CARVEDILOL 12.5 MG TAB PO SCH (21:11)
[2017-10-15] MEDS: ALPRAZolam 0.25 MG TAB PO SCH (21:11)
[2017-10-15] MEDS: ENALAPRILAT 1.25 MG/ML 1 ML VIAL IVP PRN (21:12)
[2017-10-15] MEDS: FAMOTIDINE 20 MG TAB PO SCH (21:12)
[2017-10-15] MEDS: SODIUM CHLORIDE 0.9% 1,000 ML IV SCH (21:13)
[2017-10-15 21:42] VITALS: BMI 25.7
[2017-10-16] MEDS: HYDROcodone/APAP 10-325MG 1 EACH TAB PO PRN ×2 (06:15→19:30)
[2017-10-16 06:38] LABS: Glucose,Whole Blood 116 mg/dL (75-99)
[2017-10-16 06:42] LABS: Basophils % (A) 0 %; Eosinophils # (A) 0.2 k/uL (0-0.7); Eosinophils % (A) 3 %; HCT 35.8 % (34.0-46.0); HGB 11.6 gm/dL (11.4-16.0); Lymphocytes # (A) 1.7 k/uL (1.0-4.8); Lymphocytes % (A) 32 %; MCH 27.1 pg (25.0-35.0); MCHC 32.4 g/dL (31.0-37.0); MCV 83.7 fL (80.0-100.0); Mean Platelet Volume 6.6; Monocytes # (A) 0.5 k/uL (0-1.0); Monocytes % (A) 9 %; Neutrophils # (A) 2.9 k/uL (1.3-7.7); Neutrophils % (A) 53 %; Platelet Count 392 k/uL (150-450); RBC 4.28 m/uL (3.80-5.40); RDW 14.4 % (11.5-15.5); WBC 5.4 k/uL (3.8-10.6)
[2017-10-16 06:51] LABS: ALT 28 U/L (9-52); AST 23 U/L (14-36); Albumin 4.2 g/dL (3.5-5.0); Alkaline Phosphatase 86 U/L (38-126); Anion Gap 9 mmol/L; Blood Urea Nitrogen 13 mg/dL (7-17); Calcium 9.9 mg/dL (8.4-10.2); Carbon Dioxide 33 mmol/L (22-30); Chloride 97 mmol/L (98-107); Glucose 124 mg/dL (74-99); Potassium 4.4 mmol/L (3.5-5.1); Sodium 139 mmol/L (137-145); Total Bilirubin 0.4 mg/dL (0.2-1.3); Total Protein 7.1 g/dL (6.3-8.2)
[2017-10-16] MEDS ORDERED: HYDROCHLOROTHIAZIDE 25 MG TAB PO SCH (09:00)
[2017-10-16 09:06] LABS: Cholesterol 262 mg/dL (<200); HDL Cholesterol 56 mg/dL (40-60); LDL Cholesterol,Calculated 174 mg/dL (0-99); Triglycerides 161 mg/dL (<150)
--- NOTE | 2017-10-16 09:08 | US ---
EXAMINATION TYPE: US carotid duplex BILAT DATE OF EXAM: 10/16/2017 COMPARISON: US 2017 CLINICAL HISTORY: right sided weakness possible CVA. Stroke EXAM MEASUREMENTS: RIGHT: Peak Systolic Velocity (PSV) cm/sec ----- Right CCA: 56.6 ----- Right ICA: 86.2 ----- Right ECA: 71.1 ICA/CCA ratio: 1.5 RIGHT: End Diastole cm/sec ----- Right CCA: 14.3 ----- Right ICA: 24.8 ----- Right ECA: 8.7 LEFT: Peak Systolic Velocity (PSV) cm/sec ----- Left CCA: 67.9 ----- Left ICA: 77.4 ----- Left ECA: 77.3 ICA/CCA ratio: 1.1 LEFT: End Diastole cm/sec ----- Left CCA: 15.6 ----- Left ICA: 25.5 ----- Left ECA: 6.0 VERTEBRALS (direction of flow): Right Vertebral: Antegrade Left Vertebral: Antegrade Rhythm: Normal IMPRESSION: Bilateral intimal thickening, minimal plaque bilateral bulb, no elevated velocities, no significant stenosis. Criteria for Assigning % of Stenosis / Diameter reduction (Estimation based on the indirect measurements of the internal carotid artery velocities (ICA PSV). 1. Normal (no stenosis)=ICA PSV < 125 cm/s: ratio < 2.0: ICA EDV<40 cm/s. 2. Less than 50% stenosis=ICA PSV < 125 cm/s: ratio < 2.0: ICA EDV<40 cm/s. 3. 50 to 69% stenosis=ICA PSV of 125 to 230 cm/s: ration 2.0 ? 4.0: ICA EDV 40-100 cm/s. 4. Greater than 70% stenosis to near occlusion= ICA PSV > 230 cm/s: ratio > 4.0: ICA EDV > 100 cm/s. 5. Near occlusion= ICA PSV velocities may be low or undetectable: variable ratio and ICA EDV. 6. Total occlusion=unable to detect flow.
[2017-10-16] MEDS: ALPRAZolam 0.25 MG TAB PO SCH ×2 (10:04→20:42)
[2017-10-16] MEDS: metFORMIN 500 MG TAB PO SCH ×2 (10:05→17:39)
[2017-10-16] MEDS: CARVEDILOL 12.5 MG TAB PO SCH ×2 (10:05→17:39)
[2017-10-16] MEDS: FAMOTIDINE 20 MG TAB PO SCH ×2 (10:06→20:42)
[2017-10-16] MEDS: CLOPIDOGREL 75 MG TAB PO SCH (10:06)
[2017-10-16] MEDS: EZETIMIBE 10 MG TAB PO SCH (10:06)
[2017-10-16] MEDS: SERTRALINE 50 MG TAB PO SCH (10:07)
[2017-10-16] MEDS: LISINOPRIL 20 MG TAB PO SCH (10:07)
[2017-10-16] MEDS: SODIUM CHLORIDE 0.9% 1,000 ML IV SCH (10:08)
[2017-10-16] MEDS ORDERED: DIAZEPAM 5 MG TAB PO STA (11:24)
[2017-10-16] MEDS: POTASSIUM CHLORIDE 20 MEQ in SODIUM CHLORIDE 0.9% 100 ML IVPB SCH (11:32)
[2017-10-16 12:25] LABS: Glucose,Whole Blood 159 mg/dL (75-99)
[2017-10-16] MEDS ORDERED: ACETAMINOPHEN TAB 325 MG TAB PO PRN (12:53)
--- NOTE | 2017-10-16 13:00 | P.HPIM ---
History of Present Illness H&P Date: 10/16/17 This is 66-year-old female with past medical history noted below significant for known history of left thalamic lacunar infarct and prior CVA with chronic right-sided hemiparesis who presented to the emergency room with generalized weakness and not feeling well. Patient said that yesterday she started feeling weak on her left side of her body more than her usual. She said that she is leaning to the right side while walking around. She reported that her grandson noticed that she was walking in circles trying to keep her balance. He decided to bring her to the emergency room for further evaluation. In the emergency room patient was found to be significantly hypertensive with systolic blood pressure greater than 200. She was given IV labetalol. Computed tomography scan of the brain showed no acute intracranial findings. Patient is currently admitted to the hospital for stroke workup. She was seen and evaluated by neurology. She said that her symptoms now resolved and she is back to her normal self. She denies any headache, vision change, nausea, or vomiting. She said that she has been taking her medications at home as prescribed except for amlodipine. Patient reported that she stopped taking amlodipine approximately 2 weeks ago. She said that is causing her upset stomach. She did not consult with me before stopping her medications. Patient's blood pressure is now still not well controlled but better than what it was on presentation. She is scheduled for an MRI of the brain this afternoon. Review of Systems Review of system: 14 points review of systems were obtained and were negative except to what were mentioned in the HPI. Past Medical History Past Medical History: Chest Pain / Angina, CVA/TIA, Diabetes Mellitus, Fibromyalgia, GERD/Reflux, Hyperlipidemia, Hypertension, Memory Impairment, Myocardial Infarction ([place]), Osteoarthritis (OA), Rheumatoid Arthritis (RA) Additional Past Medical History / Comment(s): neuropathy both feet and hands, glaucoma, connective tissue dysfunction, peptic ulcer disease, "bad" hiatal hernia, stroke x2-loss of short term memory, chest pain "last year", occ irregular heart beat, hx ulcers, hx carpal tunnel syndrome, states stools are thin "like a ribbon". Last Myocardial Infarction Date:: 1988 History of Any Multi-Drug Resistant Organisms: None Reported Past Surgical History: Bladder Surgery, Cholecystectomy, Hysterectomy, Tubal Ligation Additional Past Surgical History / Comment(s): rhinoplasty, hand surgery bilateral-carpal tunel , states sling for rectal prolapse. Past Anesthesia/Blood Transfusion Reactions: Motion Sickness Past Psychological History: Anxiety, Depression Smoking Status: Never smoker Past Alcohol Use History: None Reported Past Drug Use History: None Reported - Past Family History Father Family Medical History: CVA/TIA, Liver Disease, Myocardial Infarction ([place]) Additional Family Medical History / Comment(s): alcoholic, cirrhosis of the liver Mother Family Medical History: Cancer Medications and Allergies Home Medications Medication Instructions Recorded Confirmed Type HYDROcodone/APAP 10-325MG [[place] 1 tab PO TID PRN 10/10/14 10/15/17 History 10-325] Omeprazole [PriLOSEC] 20 mg PO BID 10/10/14 10/15/17 History metFORMIN HCL 1,000 mg PO BID-W/MEALS 10/10/14 10/15/17 History Insulin Glargine [Lantus] 25 units SQ HS 10/11/14 10/15/17 History Latanoprost Ophth [Xalatan 0.005%] 1 drop BOTH EYES HS 10/11/14 10/15/17 History Ezetimibe [Zetia] 10 mg PO DAILY 09/21/16 10/15/17 History Furosemide [Lasix] 20 mg PO Q48H 09/21/16 10/15/17 History Insulin Regular, Human [NovoLIN R] See Protocol SQ BID-W/MEALS 09/21/16 History ALPRAZolam [Xanax] 0.125 mg PO BID 04/26/17 10/15/17 History Sertraline HCl [Zoloft] 50 mg PO DAILY 04/26/17 10/15/17 History Clopidogrel [Plavix] 75 mg PO DAILY #30 tab 04/29/17 10/15/17 Rx Lisinopril 40 mg PO DAILY #30 tab 04/29/17 10/15/17 Rx Carvedilol [Coreg] 25 mg PO BID 09/07/17 10/15/17 History Hydrochlorothiazide [Hydrodiuril] 25 mg PO Q48H 10/15/17 10/15/17 History Allergies Allergy/AdvReac Type Severity Reaction Status Date / Time bee venom protein (honey bee) Allergy Anaphylaxis Verified 10/15/17 18:18 epinephrine Allergy Anaphylaxis Verified 10/15/17 18:18 influenza virus vaccine, Allergy Rash/Hives Verified 10/15/17 18:18 specific iodine Allergy Rash/Hives Verified 10/15/17 18:18 latex Allergy Rash/Hives Verified 10/15/17 18:18 procaine HCl [From Novocain] Allergy Anaphylaxis Verified 10/15/17 18:18 Sulfa (Sulfonamide Allergy Rash/Hives Verified 10/15/17 18:18 Antibiotics) amlodipine [From Norvasc] AdvReac Diarrhea,abdominal Verified 10/15/17 18:18 pain cephalexin monohydrate AdvReac Nausea & Verified 10/15/17 18:18 [From Keflex] Vomiting & Diarrhea codeine AdvReac Nausea & Verified 10/15/17 18:18 Vomiting cortisone AdvReac Nausea & Verified 10/15/17 18:18 Vomiting/Vertigo methadone AdvReac Nausea & Verified 10/15/17 18:18 Vomiting & Diarrhea propoxyphene AdvReac Nausea & Verified 10/15/17 18:18 [From Darvocet-N] Vomiting Aazpxdh-Qvz-Jep Reductase AdvReac Nausea & Verified 10/15/17 18:18 Inhibitor Vomiting/Muscle Weakness steroids AdvReac Nausea & Uncoded 10/15/17 17:43 Vomiting Physical Exam Vitals: Vital Signs Temp Pulse Pulse Resp BP BP Pulse Ox 10/16/17 08:15 98.2 F 89 18 156/96 97 10/16/17 03:41 97.4 F L 87 16 159/89 98 10/15/17 23:16 75 18 152/79 100 10/15/17 20:53 98 F 74 16 190/85 99 10/15/17 20:00 98.5 F 79 18 187/97 97 10/15/17 19:25 77 20 225/99 100 10/15/17 18:41 79 19 212/104 99 10/15/17 17:38 98.6 F 85 18 210/92 99 Intake and Output 10/15/17 10/16/17 10/16/17 22:59 06:59 14:59 Intake Total 240 240 Balance 240 240 Intake: Oral 240 240 Other: Weight 65.771 kg 65.771 kg General: The patient is awake and alert, in no distress Eye: there is normal conjunctiva bilaterally. Neck: The neck is supple, there is no JVD. Cardiovascular: Normal S1-S2, no S3-S4, no murmurs. Respiratory: Lungs clear to auscultation bilaterally Gastrointestinal: Abdomen is soft, nontender Musculoskeletal: There is no pedal edema. Neurological:. Speech is normal. Skin: Skin is warm and dry Results CBC & Chem 7: 10/16/17 06:20 10/16/17 06:20 Labs: Abnormal Lab Results - Last 24 Hours (Table) 10/15/17 10/15/17 10/15/17 Range/Units 18:24 18:24 18:24 Hgb 9.7 L (11.4-16.0) gm/dL MCH 22.3 L (25.0-35.0) pg MCHC 27.4 L (31.0-37.0) g/dL Sodium 135 L (137-145) mmol/L Potassium 3.2 L (3.5-5.1) mmol/L Chloride 93 L (98-107) mmol/L Carbon Dioxide (22-30) mmol/L Creatinine (0.52-1.04) mg/dL Glucose 139 H (74-99) mg/dL POC Glucose (mg/dL) (75-99) mg/dL Total Creatine Kinase 172 H (30-135) U/L CK-MB (CK-2) 3.5 H* (0.0-2.4) ng/mL Triglycerides (<150) mg/dL Cholesterol (<200) mg/dL LDL Cholesterol, Calc (0-99) mg/dL 10/16/17 10/16/17 10/16/17 Range/Units 06:20 06:26 07:36 Hgb (11.4-16.0) gm/dL MCH (25.0-35.0) pg MCHC (31.0-37.0) g/dL Sodium (137-145) mmol/L Potassium (3.5-5.1) mmol/L Chloride 97 L (98-107) mmol/L Carbon Dioxide 33 H (22-30) mmol/L Creatinine 0.48 L (0.52-1.04) mg/dL Glucose 124 H (74-99) mg/dL POC Glucose (mg/dL) 116 H (75-99) mg/dL Total Creatine Kinase (30-135) U/L CK-MB (CK-2) (0.0-2.4) ng/mL Triglycerides 161 H (<150) mg/dL Cholesterol 262 H (<200) mg/dL LDL Cholesterol, Calc 174 H (0-99) mg/dL 10/16/17 Range/Units 12:07 Hgb (11.4-16.0) gm/dL MCH (25.0-35.0) pg MCHC (31.0-37.0) g/dL Sodium (137-145) mmol/L Potassium (3.5-5.1) mmol/L Chloride (98-107) mmol/L Carbon Dioxide (22-30) mmol/L Creatinine (0.52-1.04) mg/dL Glucose (74-99) mg/dL POC Glucose (mg/dL) 159 H (75-99) mg/dL Total Creatine Kinase (30-135) U/L CK-MB (CK-2) (0.0-2.4) ng/mL Triglycerides (<150) mg/dL Cholesterol (<200) mg/dL LDL Cholesterol, Calc (0-99) mg/dL Microbiology - Last 24 Hours (Table) 10/15/17 18:37 Urine Culture - Preliminary Urine,Voided Thrombosis Risk Factor Assmnt - Choose All That Apply Each Risk Factor Represents 2 Points: Age 61-74 years Thrombosis Risk Factor Assessment Total Risk Factor Score: 2 Thrombosis Risk Factor Assessment Level: Low Risk Assessment and Plan Assessment: 1. Hypertensive urgency: Probably secondary to medication noncompliance. Patient said that she stopped her amlodipine 2 weeks ago. Currently all of her other blood pressure medication has been ordered. I told her that she should be on hydrochlorothiazide and Lasix daily enema every other day. We will do those changes and monitor closely. Patient was counseled extensively about medication compliance. 2. Possible TIA with episode of transient weakness involving the right side of her body, computed tomography scan of the brain showed no acute findings. Patient was seen by neurology. She is scheduled for an MRI this afternoon. 3. History of subacute left thalamic lacunar infarct 4. Prior stroke/CVA with residual right-sided hemiparesis 5. Type 2 diabetes mellitus, awaiting A1c 6. Essential hypertension: Blood pressure better controlled. We'll continue to monitor closely 7. Mixed hyperlipidemia, not well controlled. Patient is intolerant to statin. She is maintained on Zetia daily.
--- NOTE | 2017-10-16 16:45 | MR ---
"EXAMINATION TYPE: MR brain wo con DATE OF EXAM: 10/16/2017 COMPARISON: CT brain dated 10/15/2017 MRI brain dated 11/28/2016 HISTORY: CVA TECHNIQUE: Multiplanar, multisequence images of the brain and brainstem is performed without intravenous contras t. FINDINGS: Diffusion weighted images demonstrate new foci of restricted diffusion within the clay shop supervisor ior globus pallidus and putamen on the left and periventricular white matter of the left will radia ta. There is redemonstration of multiple areas of encephalomalacia from prior lacunar injury within t he right posterior parietal lobe, xochitl, right external capsule, left thalamus, and subcortical white matter. Other scattered areas of periventricular and subcortical white matter T2/FLAIR hyperintensit y are likely on the basis of chronic microangiopathy and similar to the prior exam. There is no extra-axial fluid collection or significant white matter signal abnormality. The ventric ular system and cisternal spaces are normal in size and appearance. The brain volume is age appropri ate. Midline structures demonstrate normal morphology. The craniocervical junction appears within normal limits. The globes are intact. Mild mucosal thickening is seen within the ethmoid sinuses. Remaining paranasal sinuses and mastoid air cells are well aerated. Major intracranial flow voids are maintaine d. IMPRESSION: 1. Acute lacunar infarcts of the left globus pallidus, left putamen, and periventricular white matter of the left will radiata. 2. Multifocal encephalomalacia from numerous prior lacunar injuries and nonspecific white matter lorenzo ge as seen on the prior most commonly representing sequela chronic microangiopathy. A Yellow level critical message alert has been initiated for Kyleigh Black MD via the [employer] | Critical Results System on 10/16/2017 4:43 PM. This message alert has been sent to Kyleigh rma MD via the preferences provided by the clinician for the receipt of Radiology Critical Findings. Pamela essage ID [id number]."
[2017-10-16 17:22] LABS: Glucose,Whole Blood 166 mg/dL (75-99)
[2017-10-16] MEDS: hydrALAZINE HCL 25 MG TAB PO SCH (20:43)
[2017-10-16] MEDS: HEPARIN SODIUM,PORCINE 5,000 UNIT/ML 1 ML VIAL SQ SCH (20:43)
[2017-10-16 21:02] LABS: Glucose,Whole Blood 162 mg/dL (75-99)
[2017-10-16] MEDS: INSULIN ASPART 100 UNIT/ML 1 ML 10 ML VIAL SQ SCH (22:03)
[2017-10-16] MEDS: LATANOPROST 0.005% OPHTH DROPS 2.5 ML BTL BOTH EYES SCH (22:03)
[2017-10-16] MEDS: INSULIN DETEMIR 100 UNIT/ML 10 ML VIAL SQ SCH (22:34)
[2017-10-16] MEDS: ENALAPRILAT 1.25 MG/ML 1 ML VIAL IVP PRN (23:26)
--- NOTE | 2017-10-17 00:05 | P.CNNES ---
History of Present Illness Consult date: 10/16/17 Requesting physician: Dev Bermudez Reason for Consult: TIA Chief complaint: Right sided Weakness History of Present Illness: Neurology is consulting a 66-year-old female with a past history of left thalamic lacunar infarct and prior CVA with chronic right-sided hemiparesis. Patient presented to the ED for generalized weakness and not feeling well. Patient started feeling weak on her left side of the body more than usual several days ago. Patient stated that she began leaning to the right/veering to the right with ambulation 2-3 days ago. Patient was brought to the ED where she was found to be significantly hypertensive with systolic blood pressure greater than 200. Patient was given IV labetalol. CT of the brain in the ED noted no acute intracranial findings. She was admitted for possible stroke. On contact, patient was supine in bed, resting in no acute distress. Patient stated she had an intense left unilateral headache for the last several days. Patient also stated that she had heaviness in the right upper and lower extremities greater than baseline residual deficits. She was also observed to have right eye upper lid ptosis. Patient also states that she has increased sensation to touch in the left upper and lower extremities. Review of Systems systems not noted in HPI are negative Past Medical History Past Medical History: Chest Pain / Angina, CVA/TIA, Diabetes Mellitus, Fibromyalgia, GERD/Reflux, Hyperlipidemia, Hypertension, Memory Impairment, Myocardial Infarction ([place]), Osteoarthritis ([place]), Rheumatoid Arthritis ([place]) Additional Past Medical History / Comment(s): neuropathy both feet and hands, glaucoma, connective tissue dysfunction, peptic ulcer disease, "bad" hiatal hernia, stroke x2-loss of short term memory, chest pain "last year", occ irregular heart beat, hx ulcers, hx carpal tunnel syndrome, states stools are thin "like a ribbon". Last Myocardial Infarction Date:: 1988 History of Any Multi-Drug Resistant Organisms: None Reported Past Surgical History: Bladder Surgery, Cholecystectomy, Hysterectomy, Tubal Ligation Additional Past Surgical History / Comment(s): rhinoplasty, hand surgery bilateral-carpal tunel , states sling for rectal prolapse. Past Anesthesia/Blood Transfusion Reactions: Motion Sickness Past Psychological History: Anxiety, Depression Smoking Status: Never smoker Past Alcohol Use History: None Reported Past Drug Use History: None Reported - Past Family History Father Family Medical History: CVA/TIA, Liver Disease, Myocardial Infarction ([place]) Additional Family Medical History / Comment(s): alcoholic, cirrhosis of the liver Mother Family Medical History: Cancer Medications and Allergies Home Medications Medication Instructions Recorded Confirmed Type HYDROcodone/APAP 10-325MG [[place] 1 tab PO TID PRN 10/10/14 10/15/17 History 10-325] Omeprazole [PriLOSEC] 20 mg PO BID 10/10/14 10/15/17 History metFORMIN HCL 1,000 mg PO BID-W/MEALS 10/10/14 10/15/17 History Insulin Glargine [Lantus] 25 units SQ HS 10/11/14 10/15/17 History Latanoprost Ophth [Xalatan 0.005%] 1 drop BOTH EYES HS 10/11/14 10/15/17 History Ezetimibe [Zetia] 10 mg PO DAILY 09/21/16 10/15/17 History Furosemide [Lasix] 20 mg PO Q48H 09/21/16 10/15/17 History Insulin Regular, Human [NovoLIN R] See Protocol SQ BID-W/MEALS 09/21/16 History ALPRAZolam [Xanax] 0.125 mg PO BID 04/26/17 10/15/17 History Sertraline HCl [Zoloft] 50 mg PO DAILY 04/26/17 10/15/17 History Clopidogrel [Plavix] 75 mg PO DAILY #30 tab 04/29/17 10/15/17 Rx Lisinopril 40 mg PO DAILY #30 tab 04/29/17 10/15/17 Rx Carvedilol [Coreg] 25 mg PO BID 09/07/17 10/15/17 History Hydrochlorothiazide [Hydrodiuril] 25 mg PO Q48H 10/15/17 10/15/17 History Allergies Allergy/AdvReac Type Severity Reaction Status Date / Time bee venom protein (honey bee) Allergy Anaphylaxis Verified 10/15/17 18:18 epinephrine Allergy Anaphylaxis Verified 10/15/17 18:18 influenza virus vaccine, Allergy Rash/Hives Verified 10/15/17 18:18 specific iodine Allergy Rash/Hives Verified 10/15/17 18:18 latex Allergy Rash/Hives Verified 10/15/17 18:18 procaine HCl [From Novocain] Allergy Anaphylaxis Verified 10/15/17 18:18 Sulfa (Sulfonamide Allergy Rash/Hives Verified 10/15/17 18:18 Antibiotics) amlodipine [From Norvasc] AdvReac Diarrhea,abdominal Verified 10/15/17 18:18 pain cephalexin monohydrate AdvReac Nausea & Verified 10/15/17 18:18 [From Keflex] Vomiting & Diarrhea codeine AdvReac Nausea & Verified 10/15/17 18:18 Vomiting cortisone AdvReac Nausea & Verified 10/15/17 18:18 Vomiting/Vertigo methadone AdvReac Nausea & Verified 10/15/17 18:18 Vomiting & Diarrhea propoxyphene AdvReac Nausea & Verified 10/15/17 18:18 [From Darvocet-N] Vomiting Wodzeiw-Tui-Llv Reductase AdvReac Nausea & Verified 10/15/17 18:18 Inhibitor Vomiting/Muscle Weakness steroids AdvReac Nausea & Uncoded 10/15/17 17:43 Vomiting Physical Examination - Vital Signs Vital Signs: Vital Signs Temp Pulse Resp BP Pulse Ox 10/16/17 20:00 97.7 F 81 19 189/101 96 10/16/17 16:05 97.9 F 78 18 158/80 99 10/16/17 11:15 97.7 F 72 18 128/63 97 10/16/17 08:15 98.2 F 89 18 156/96 97 10/16/17 03:41 97.4 F L 87 16 159/89 98 Intake and Output 10/16/17 10/16/1718 14:59 22:59 06:59 Intake Total 430 430 Balance 430 430 Intake: Oral 430 430 Other: # Voids 2 General appearance: Alert & oriented x4, no apparent distress. Head: Atraumatic, normocephalic, normal inspection Eyes: Well appearance, PERRLA, EOMI. Absent scleral icterus, conjunctival injection, nystagmus, periorbital swelling. Ear, nose and throat: Normal exam, mucous membranes moist Neck: Normal inspection, absent tenderness, lymphadenopathy. Respiratory: No increased work of breathing Cardiovascular: Regular rate, rhythm GI/abdominal: no guarding, no rebound, no rigidity. Extremities: All range of motion, normal capillary refill, no tenderness, pedal edema joint swelling, calf tenderness. Neurological: cranial nerves II through XII intact right lateralizing weakness, greater than previous baseline no seizure activity noted on physical exam facial assymetry noted-- right upper lid ptosis right pronator drift and no nystagmus. positive dysmetria right greater than left Left lower extremity: 3-4/5 Right lower extremity: 3/5 Left upper extremity: 3-4/5 Right upper extremity: 3/5 Sensation: increased in left upper and lower extremities Psychological: Mood and affect appropriate for setting. Results - Laboratory Findings CBC and BMP: 10/16/17 06:20 10/16/17 06:20 Abnormal Lab Findings: Abnormal Labs 10/15/17 10/15/17 10/15/17 18:24 18:24 18:24 Hgb 9.7 L MCH 22.3 L MCHC 27.4 L Sodium 135 L Potassium 3.2 L Chloride 93 L Carbon Dioxide Creatinine Glucose 139 H POC Glucose (mg/dL) Total Creatine Kinase 172 H CK-MB (CK-2) 3.5 H* Triglycerides Cholesterol LDL Cholesterol, Calc 10/16/17 10/16/17 10/16/17 06:20 06:26 07:36 Hgb MCH MCHC Sodium Potassium Chloride 97 L Carbon Dioxide 33 H Creatinine 0.48 L Glucose 124 H POC Glucose (mg/dL) 116 H Total Creatine Kinase CK-MB (CK-2) Triglycerides 161 H Cholesterol 262 H LDL Cholesterol, Calc 174 H 10/16/17 10/16/17 10/16/17 12:07 17:05 20:54 Hgb MCH MCHC Sodium Potassium Chloride Carbon Dioxide Creatinine Glucose POC Glucose (mg/dL) 159 H 166 H 162 H Total Creatine Kinase CK-MB (CK-2) Triglycerides Cholesterol LDL Cholesterol, Calc Assessment and Plan (1) Right sided weakness Current Visit: Yes Status: Acute Code(s): R53.1 - WEAKNESS SNOMED Code(s) : 550450940 (2) Uncontrolled hypertension Current Visit: Yes Status: Acute Code(s): I10 - ESSENTIAL (PRIMARY) HYPERTENSION SNOMED Code(s): 49768679 (3) Stroke Current Visit: No Status: Acute Code(s): I63.9 - CEREBRAL INFARCTION, UNSPECIFIED SNOMED Code(s): 922393344 Plan: 1. Stroke 2. Right-sided weakness 3. Uncontrolled hypertension Based on the patient's complaints, physical exam findings, it does appear that the patient does have increased deficits in the right eyelid,right upper and lower extremities as well as increased sensation in the left upper and lower extremities. CT brain was previously negative. ordered:MRI brain without contrast at this time due to the patient's allergy to IV contrast dye and daily maximum allowable contrast medium. ordered:Carotid Doppler study ordered:Serum homocystine level ordered:fasting lipid panel continue neuro checks as ordered Continue DVT prophylaxis Continue Plavix 75 mg by mouth daily Continue Zetia 10 mg by mouth daily- for now Based on diagnostic workup consider possible change from Zetia to Lipitor unless contraindicated. status: Neurology will continue to follow and provide updates as needed or warranted. I have discussed the plan of care with the physician prior to implementation and he agrees with the plan as implemented.
[2017-10-17] MEDS: ENALAPRILAT 1.25 MG/ML 1 ML VIAL IVP PRN ×3 (04:11→20:55)
[2017-10-17] MEDS: HYDROcodone/APAP 10-325MG 1 EACH TAB PO PRN ×2 (04:11→20:55)
[2017-10-17 06:08] LABS: Glucose,Whole Blood 70 mg/dL (75-99)
[2017-10-17] MEDS: INSULIN ASPART 100 UNIT/ML 1 ML 10 ML VIAL SQ SCH ×4 (06:20→21:34)
[2017-10-17 06:38] LABS: Basophils % (A) 1 %; Eosinophils # (A) 0.2 k/uL (0-0.7); Eosinophils % (A) 4 %; HCT 35.3 % (34.0-46.0); HGB 11.7 gm/dL (11.4-16.0); Lymphocytes # (A) 1.8 k/uL (1.0-4.8); Lymphocytes % (A) 39 %; MCH 27.5 pg (25.0-35.0); MCHC 33.2 g/dL (31.0-37.0); MCV 82.8 fL (80.0-100.0); Mean Platelet Volume 6.4; Monocytes # (A) 0.4 k/uL (0-1.0); Monocytes % (A) 8 %; Neutrophils # (A) 2.1 k/uL (1.3-7.7); Neutrophils % (A) 45 %; Platelet Count 376 k/uL (150-450); RBC 4.26 m/uL (3.80-5.40); RDW 14.1 % (11.5-15.5); WBC 4.7 k/uL (3.8-10.6)
[2017-10-17 06:51] LABS: Anion Gap 10 mmol/L; Blood Urea Nitrogen 14 mg/dL (7-17); Calcium 9.8 mg/dL (8.4-10.2); Carbon Dioxide 31 mmol/L (22-30); Chloride 94 mmol/L (98-107); Glucose 77 mg/dL (74-99); Potassium 3.5 mmol/L (3.5-5.1); Sodium 135 mmol/L (137-145)
[2017-10-17] MEDS: metFORMIN 500 MG TAB PO SCH ×2 (06:54→18:26)
[2017-10-17] MEDS: CARVEDILOL 12.5 MG TAB PO SCH ×2 (06:55→18:26)
[2017-10-17] MEDS ORDERED: FUROSEMIDE 20 MG TAB PO SCH (09:00)
[2017-10-17] MEDS: ALPRAZolam 0.25 MG TAB PO SCH ×2 (09:03→20:46)
[2017-10-17] MEDS: hydrALAZINE HCL 25 MG TAB PO SCH ×3 (09:03→20:46)
[2017-10-17] MEDS: FAMOTIDINE 20 MG TAB PO SCH ×2 (09:03→20:46)
[2017-10-17] MEDS: SERTRALINE 50 MG TAB PO SCH (09:04)
[2017-10-17] MEDS: LISINOPRIL 20 MG TAB PO SCH (09:04)
[2017-10-17] MEDS: HEPARIN SODIUM,PORCINE 5,000 UNIT/ML 1 ML VIAL SQ SCH ×2 (09:05→20:46)
[2017-10-17] MEDS: CLOPIDOGREL 75 MG TAB PO SCH (11:02)
[2017-10-17] MEDS: EZETIMIBE 10 MG TAB PO SCH (11:02)
[2017-10-17] MEDS: HYDROCHLOROTHIAZIDE 25 MG TAB PO SCH (11:03)
[2017-10-17] MEDS: FUROSEMIDE 20 MG TAB PO SCH (11:03)
[2017-10-17 11:13] LABS: Glucose,Whole Blood 195 mg/dL (75-99)
--- NOTE | 2017-10-17 11:23 | CONS ---
CONSULTATION CHIEF COMPLAINT: CVANeil Carrero is a 66-year-old lady with history of hypertension, diabetes, who presented to hospital with right-sided weakness. The patient has a history of thalamic infarct in the past. She developed new onset worsening of the weakness on the right side of her body. Due to this, she came to the ER. She had severely elevated blood pressures and subsequently was evaluated by Neurology, who requested a transesophageal echo on her. At the time of my evaluation, she appears comfortable at rest. The neurological deficit has improved. An MRA shows lacunar infarct. PAST MEDICAL HISTORY: Past medical history is significant for hypertension and diabetes. MEDICATIONS: Medications at home included Plavix, lisinopril 40 q. daily, Coreg 25 b.i.d., HydroDIURIL, Xanax, Zoloft, Lasix, Zetia, insulin, metformin, Prilosec. FAMILY HISTORY: Family history is negative for premature coronary artery disease. SOCIAL HISTORY: Social history is negative for current smoking, ETOH abuse or drug abuse. REVIEW OF SYSTEMS: HEENT is unremarkable. CARDIAC: As described above. RESPIRATORY: Negative. GI: Negative. GENITOURINARY: Negative. ALLERGIES/IMMUNOLOGY: Negative. SKIN: Negative. MUSCULOSKELETAL: Significant for arthritis. PSYCHOSOCIAL: Negative ENDOCRINE: Negative. HEMATOLOGICAL: Negative. DERM: Negative. CONSTITUTIONAL: Negative. ONCOLOGICAL: Negative. Rest of the system review is not relevant. PHYSICAL EXAMINATION: On exam, patient is comfortable at rest. Vital signs are stable. Blood pressure is 152/75. There is no jugular venous distention. Carotid upstroke is normal. There is no bruit. Chest exam reveals good air entry bilaterally. Heart exam reveals first and second heart sounds. No gallop. No murmur. No rub. Abdomen is soft, nontender. Examination of extremities did not reveal edema. Peripheral pulses are felt. She has right lower extremity weakness. EKG shows normal sinus rhythm. LABS: Labs show that the hemoglobin is 11.7. Potassium is 3.5. Creatinine is 0.5. ASSESSMENT: 1. Acute cerebrovascular accident, rule out cardiac source of thromboembolic phenomenon. 2. Hypertension. 3. Dyslipidemia. 4. insulin-dependent diabetes. PLAN: The patient has multiple risk factors for stroke, but will perform transesophageal echo as per the neurologist's request. I reviewed all her records. MMODL / IJN: [id number] /
[2017-10-17 12:09] LABS: Hemoglobin A1C 6.5 % (4.0-6.0)
[2017-10-17] MEDS ORDERED: Potassium Replacement Protocol 1 EACH MISC MISCELLANE PRN (14:01)
--- NOTE | 2017-10-17 14:15 | P.PN ---
Subjective Patient is awake and alert today. No events overnight. I reviewed her MRI report with her today. Objective - Vital Signs Vital signs: Vital Signs Temp 98.6 F 10/17/17 08:50 Pulse 83 10/17/17 11:15 Resp 16 10/17/17 11:15 BP 153/70 10/17/17 11:15 Pulse Ox 98 10/17/17 11:15 Intake & Output 10/16/17 10/17/17 10/17/17 18:59 06:59 18:59 Intake Total 430 630 Balance 430 630 Weight 64 kg Intake: Oral 430 630 Other: # Voids 2 2 - Exam General: The patient is awake and alert, in no distress Eye: there is normal conjunctiva bilaterally. Neck: The neck is supple, there is no JVD. Cardiovascular: Normal S1-S2, no S3-S4, no murmurs. Respiratory: Lungs clear to auscultation bilaterally Gastrointestinal: Abdomen is soft, nontender Musculoskeletal: There is no pedal edema. Neurological:. Speech is normal. Skin: Skin is warm and dry - Labs CBC & Chem 7: 10/17/17 06:11 10/17/17 06:11 Labs: Abnormal Lab Results - Last 24 Hours (Table) 10/16/17 10/16/17 10/17/17 Range/Units 17:05 20:54 05:56 Sodium (137-145) mmol/L Chloride (98-107) mmol/L Carbon Dioxide (22-30) mmol/L Creatinine (0.52-1.04) mg/dL POC Glucose (mg/dL) 166 H 162 H 70 L (75-99) mg/dL 10/17/17 10/17/17 Range/Units 06:11 11:07 Sodium 135 L (137-145) mmol/L Chloride 94 L (98-107) mmol/L Carbon Dioxide 31 H (22-30) mmol/L Creatinine 0.50 L (0.52-1.04) mg/dL POC Glucose (mg/dL) 195 H (75-99) mg/dL Microbiology - Last 24 Hours (Table) 10/15/17 18:37 Urine Culture - Final Urine,Voided Assessment and Plan Assessment: 1. Acute lacunar infarct involving the left globus pallidus, left putamen, and left will radiata. Patient was seen and evaluated by neurology. She is maintained on Plavix daily. Plan for ABBEY on Thursday for further evaluation. 2. Hypertensive urgency: Blood pressure better controlled. Probably secondary to medication noncompliance. I added hydralazine 25 mg 3 times a day to her regimen. Patient was counseled extensively about medication compliance. 3. History of subacute left thalamic lacunar infarct 4. Prior stroke/CVA with residual right-sided hemiparesis 5. Type 2 diabetes mellitus, awaiting A1c 6. Essential hypertension: Blood pressure better controlled. We'll continue to monitor closely 7. Mixed hyperlipidemia, not well controlled. Patient is intolerant to statin. She is maintained on Zetia daily. Plan for ABBEY on Thursday
[2017-10-17] MEDS: POTASSIUM CHLORIDE ER 20 MEQ TAB.ER PO SCH (16:44)
[2017-10-17 17:21] LABS: Glucose,Whole Blood 194 mg/dL (75-99)
[2017-10-17] MEDS: LATANOPROST 0.005% OPHTH DROPS 2.5 ML BTL BOTH EYES SCH (20:46)
[2017-10-17 20:49] LABS: Glucose,Whole Blood 182 mg/dL (75-99)
[2017-10-17] MEDS: INSULIN DETEMIR 100 UNIT/ML 10 ML VIAL SQ SCH (21:35)
--- NOTE | 2017-10-18 00:39 | P.PN ---
Subjective Progress Note Date: 10/17/17 Principal diagnosis: Acute CVA Interval update (10/17/17): Patient was ambulating in the room, AOx4 on contact, in no acute distress. Patient states that her right hemiparesis is approximately 90% resolved. Headache has resolved as well. MR brain on 10/16/17 had critical finding that was communicated to supervising physician noting acute lacunar infarct in the left globus pallidus, left putamen, and periventricular white matter of the left will radiata. Also noted was multiofocal encephalomalacia, from numerous prior lacunar infarcts. Supervising physician ordered ABBEY for investigation of acute cerebrovascular accident, rule out cardiac thromboembolic phenomenon. Cardiology was also consulted by supervising physician. Neurology is following on a 66 year old female with history of thalamic infarct and prior CVA with acute on chronic right hemiparesis. Patient presented to the ED for generalized weakness and weakness. Patient developed leftsided UE and LEweakness more than usual. Patient was extremely hypertensive, given labetalol. CT brain in the ED noted no acute intracranial findings. Patient was admitted for possible stroke. Objective - Vital Signs Vital signs: Vital Signs Temp 97.9 F 10/17/17 20:00 Pulse 95 10/17/17 20:00 Resp 20 10/17/17 20:00 BP 228/111 10/17/17 20:00 Pulse Ox 98 10/17/17 20:00 Intake & Output 10/17/17 10/17/17 10/18/17 06:59 18:59 06:59 Intake Total 630 300 Balance 630 300 Weight 64 kg Intake: Oral 630 300 Other: # Voids 2 2 - Exam General appearance: Alert & oriented x4, no apparent distress. Head: Atraumatic, normocephalic, normal inspection Eyes: PERRLA, EOMI. Absent scleral icterus, conjunctival injection, nystagmus, periorbital swelling. Ear, nose and throat: Normal exam, mucous membranes moist Neck: Normal inspection, absent tenderness, lymphadenopathy. Respiratory: No increased work of breathing Cardiovascular: Regular rate, rhythm GI/abdominal: no tenderness, no guarding, no rebound, no rigidity. Extremities: All range of motion, normal capillary refill, no tenderness, pedal edema joint swelling, calf tenderness. Neurological: cranial nerves II through XII intact lateralizing weakness, prior right sided - 90% resolved no seizure activity noted on physical exam no pronator drift and no nystagmus. All upper extremities: 4+/5 All lower extremities: 4+/5 Psychological: Mood and affect appropriate for setting. - Labs CBC & Chem 7: 10/17/17 06:11 10/17/17 06:11 Labs: Abnormal Lab Results - Last 24 Hours (Table) 10/17/17 10/17/17 10/17/17 Range/Units 05:56 06:11 11:07 Sodium 135 L (137-145) mmol/L Chloride 94 L (98-107) mmol/L Carbon Dioxide 31 H (22-30) mmol/L Creatinine 0.50 L (0.52-1.04) mg/dL POC Glucose (mg/dL) 70 L 195 H (75-99) mg/dL 10/17/17 10/17/17 Range/Units 17:19 20:44 Sodium (137-145) mmol/L Chloride (98-107) mmol/L Carbon Dioxide (22-30) mmol/L Creatinine (0.52-1.04) mg/dL POC Glucose (mg/dL) 194 H 182 H (75-99) mg/dL Microbiology - Last 24 Hours (Table) 10/15/17 18:37 Urine Culture - Final Urine,Voided Assessment and Plan (1) Right sided weakness Current Visit: Yes Status: Acute Code(s): R53.1 - WEAKNESS SNOMED Code(s) : 459287959 (2) Uncontrolled hypertension Current Visit: Yes Status: Acute Code(s): I10 - ESSENTIAL (PRIMARY) HYPERTENSION SNOMED Code(s): 01822315 (3) Stroke Current Visit: No Status: Acute Code(s): I63.9 - CEREBRAL INFARCTION, UNSPECIFIED SNOMED Code(s): 396053145 Plan: 1. Stroke 2. Right-sided weakness- 90% resolved 3. Uncontrolled hypertension Based on the patient's complaints, physical exam findings, it does appear that the patient did have increased deficits in the right eyelid,right upper and lower extremities as well as increased sensation in the left upper and lower extremities consistent with CVA. CT brain was previously negative. MRI brain without contrast; multiple old infarcts, acute infarct noted (see comments in HPI) Carotid Doppler study-mild plaque ordered:Serum homocystine level- pending fasting lipid panel-abnormal continue neuro checks as ordered Continue DVT prophylaxis Continue Plavix 75 mg by mouth daily Continue Zetia 10 mg by mouth daily- for now ABBEY: rule out thromboembolic event, scheduled for Thu10/19/17 Based on diagnostic workup consider possible change from Zetia to Lipitor unless contraindicated. status: Neurology will continue to follow and provide updates as needed or warranted. I have discussed the plan of care with the physician prior to implementation and he agrees with the plan as implemented.
[2017-10-18 06:18] LABS: Glucose,Whole Blood 70 mg/dL (75-99)
[2017-10-18] MEDS: INSULIN ASPART 100 UNIT/ML 1 ML 10 ML VIAL SQ SCH ×4 (06:24→21:11)
[2017-10-18 06:47] LABS: Basophils # (A) 0.1 k/uL (0-0.2); Basophils % (A) 1 %; Eosinophils # (A) 0.2 k/uL (0-0.7); Eosinophils % (A) 3 %; HCT 35.9 % (34.0-46.0); HGB 12.3 gm/dL (11.4-16.0); Lymphocytes # (A) 2.6 k/uL (1.0-4.8); Lymphocytes % (A) 42 %; MCH 27.9 pg (25.0-35.0); MCHC 34.2 g/dL (31.0-37.0); MCV 81.8 fL (80.0-100.0); Mean Platelet Volume 6.4; Monocytes # (A) 0.5 k/uL (0-1.0); Monocytes % (A) 9 %; Neutrophils # (A) 2.7 k/uL (1.3-7.7); Neutrophils % (A) 43 %; Platelet Count 422 k/uL (150-450); RBC 4.39 m/uL (3.80-5.40); RDW 14.2 % (11.5-15.5); WBC 6.2 k/uL (3.8-10.6)
[2017-10-18 06:59] LABS: Anion Gap 11 mmol/L; Blood Urea Nitrogen 17 mg/dL (7-17); Carbon Dioxide 32 mmol/L (22-30); Chloride 94 mmol/L (98-107); Glucose 57 mg/dL (74-99); Potassium 3.6 mmol/L (3.5-5.1); Sodium 137 mmol/L (137-145)
[2017-10-18 08:46] LABS: Glucose,Whole Blood 214 mg/dL (75-99)
[2017-10-18] MEDS: SERTRALINE 50 MG TAB PO SCH (08:52)
[2017-10-18] MEDS: metFORMIN 500 MG TAB PO SCH ×2 (08:52→17:51)
[2017-10-18] MEDS: HYDROcodone/APAP 10-325MG 1 EACH TAB PO PRN ×2 (08:52→16:42)
[2017-10-18] MEDS: FAMOTIDINE 20 MG TAB PO SCH ×2 (08:52→19:38)
[2017-10-18] MEDS: HEPARIN SODIUM,PORCINE 5,000 UNIT/ML 1 ML VIAL SQ SCH ×2 (08:53→19:38)
[2017-10-18] MEDS: CARVEDILOL 12.5 MG TAB PO SCH ×2 (08:53→17:51)
[2017-10-18] MEDS: LISINOPRIL 20 MG TAB PO SCH (08:53)
[2017-10-18] MEDS: POTASSIUM CHLORIDE ER 20 MEQ TAB.ER PO SCH ×2 (08:53→11:54)
[2017-10-18] MEDS: hydrALAZINE HCL 25 MG TAB PO SCH ×3 (09:20→17:51)
--- NOTE | 2017-10-18 10:13 | CT ---
EXAMINATION TYPE: CT brain wo con DATE OF EXAM: 10/18/2017 COMPARISON: Previous study dated 10/15/2017. HISTORY: HX OF CVA, HYPERTENSION, HEADACHE CT DLP: 1121 mGycm Automated exposure control for dose reduction was used. FINDINGS: There are mild, generalized changes of sulcal prominence and ventriculomegaly, compatible with atroph ic change. There is diffuse periventricular white matter lucency, compatible with chronic white matte r ischemic change. There are multiple old lacunar infarct in the left thalamus as well as the posteri or limb of the external capsule on the left. There is no acute mass effect, midline shift or intracra nial blood. Visualized portions of the paranasal sinuses and mastoids are clear. The bony calvarium is intact. IMPRESSION: 1. NO ACUTE INTRACRANIAL ABNORMALITY. 2. MULTIPLE OLD LEFT-SIDED INFARCT. 3. ATROPHIC CHANGE. 4. CHRONIC WHITE MATTER ISCHEMIC CHANGE.
[2017-10-18] MEDS: ONDANSETRON 4 MG/2 ML VIAL IVP PRN ×2 (10:42→19:38)
[2017-10-18] MEDS: CLOPIDOGREL 75 MG TAB PO SCH (10:42)
[2017-10-18] MEDS: ENALAPRILAT 1.25 MG/ML 1 ML VIAL IVP PRN (10:42)
[2017-10-18] MEDS: ALPRAZolam 0.25 MG TAB PO SCH ×2 (10:42→19:38)
[2017-10-18] MEDS: HYDROCHLOROTHIAZIDE 25 MG TAB PO SCH (10:43)
--- NOTE | 2017-10-18 11:06 | CONS ---
CONSULTATION DATE OF SERVICE: 10/18/2017. HISTORY: Alise is admitted to hospital with a CVA and Cardiology had been consulted for a ABBEY. This morning she had another episode of weakness and went for a CT scan. She denies chest pain or difficulty in breathing. Blood pressures have been elevated. She is currently on Coreg 25 b.i.d., IV Vasotec, Lasix, Apresoline 25 t.i.d., and metformin. PHYSICAL EXAM: Blood pressure is elevated at 198/87. Chest exam reveals good air entry bilaterally. Heart exam reveals first and second heart sounds. No gallop. Extremities did not reveal any edema. Peripheral pulses are palpable. ASSESSMENT: Cerebrovascular accident, probably secondary to severe uncontrolled hypertension. PLAN: I will perform a transesophageal echo on her tomorrow. If the blood pressures are well controlled, if not, we may just to at bedside agitated saline contrast study. MMODL / IJN: [id number] /
[2017-10-18 11:47] LABS: Glucose,Whole Blood 127 mg/dL (75-99)
[2017-10-18] MEDS: EZETIMIBE 10 MG TAB PO SCH (11:53)
[2017-10-18] MEDS: FUROSEMIDE 20 MG TAB PO SCH (11:54)
--- NOTE | 2017-10-18 13:40 | ECHOF ---
Referral Reason:Stroke MEASUREMENTS -------- HEIGHT: 160.0 cm WEIGHT: 64.0 kg BP: 153/70 RVIDd: 2.4 cm (< 3.3) IVSd: 1.0 cm (0.6 - 1.1) LVIDd: 4.0 cm (3.9 - 5.3) LVPWd: 1.3 cm (0.6 - 1.1) IVSs: 1.5 cm LVIDs: 2.8 cm LVPWs: 1.4 cm LA Diam: 3.5 cm (2.7 - 3.8) LAESV Index (A-L): 28.59 ml/m Ao Diam: 3.1 cm (2.0 - 3.7) AV Cusp: 2.2 cm (1.5 - 2.6) MV EXCURSION: 12.408 mm (> 18.000) MV EF SLOPE: 37 mm/s (70 - 150) EPSS: 0.6 cm MV E Alfonso: 0.70 m/s MV DecT: 325 ms MV A Alfonso: 0.94 m/s MV E/A Ratio: 0.74 AV maxP.26 mmHg AV maxP.26 mmHg AV meanP.40 mmHg FINDINGS -------- Sinus rhythm. This was a technically good study. The left ventricular size is normal. There is mild concentric left ventricular hypertrophy. Overa ll left ventricular systolic function is normal with, an EF between 60 - 65 %. The right ventricle is normal in size. LA is midly dilated 29-33ml/m2. The right atrium is normal in size. There is mild aortic valve sclerosis. Peak/mean gradient across the Aortic Valve is 14.26mmHg / 7.4 0mmHg. The mitral valve leaflets are mildly thickened. Mild mitral annular calcification present. The tricuspid valve appears structurally normal. Trace/mild (physiologic) pulmonic regurgitation. The aortic root size is normal. Normal inferior vena cava with normal inspiratory collapse consistent with estimated right atrial pre ssure of 5 mmHg. There is no pericardial effusion. CONCLUSIONS -------- 1. Sinus rhythm. 2. This was a technically good study. 3. The left ventricular size is normal. 4. There is mild concentric left ventricular hypertrophy. 5. Overall left ventricular systolic function is normal with, an EF between 60 - 65 %. 6. The right ventricle is normal in size. 7. LA is midly dilated 29-33ml/m2. 8. The right atrium is normal in size. 9. There is mild aortic valve sclerosis. 10. Peak/mean gradient across the Aortic Valve is 14.26mmHg / 7.40mmHg. 11. The mitral valve leaflets are mildly thickened. 12. Mild mitral annular calcification present. 13. The tricuspid valve appears structurally normal. 14. Trace/mild (physiologic) pulmonic regurgitation. 15. The aortic root size is normal. 16. Normal inferior vena cava with normal inspiratory collapse consistent with estimated right atrial pressure of 5 mmHg. 17. There is no pericardial effusion. DATABASE SOFTWARE TECHNICIAN: Dede Jeff RDCS
--- NOTE | 2017-10-18 14:42 | P.PN ---
Subjective Patient is awake and alert today. No events overnight. I Objective - Vital Signs Vital signs: Vital Signs Temp 98 F 10/18/17 08:25 Pulse 84 10/18/17 13:19 Resp 16 10/18/17 11:30 BP 101/57 10/18/17 13:19 Pulse Ox 96 10/18/17 10:35 Intake & Output 10/17/17 10/18/17 10/18/17 18:59 06:59 18:59 Intake Total 300 Balance 300 Weight 63.5 kg Intake: Oral 300 Other: # Voids 2 2 2 - Exam General: The patient is awake and alert, in no distress Eye: there is normal conjunctiva bilaterally. Neck: The neck is supple, there is no JVD. Cardiovascular: Normal S1-S2, no S3-S4, no murmurs. Respiratory: Lungs clear to auscultation bilaterally Gastrointestinal: Abdomen is soft, nontender Musculoskeletal: There is no pedal edema. Neurological:. Speech is normal. Skin: Skin is warm and dry - Labs CBC & Chem 7: 10/18/17 05:52 10/18/17 05:52 Labs: Abnormal Lab Results - Last 24 Hours (Table) 10/17/17 10/17/17 10/18/17 Range/Units 17:19 20:44 05:52 Chloride 94 L (98-107) mmol/L Carbon Dioxide 32 H (22-30) mmol/L Glucose 57 L (74-99) mg/dL POC Glucose (mg/dL) 194 H 182 H (75-99) mg/dL 10/18/17 10/18/17 10/18/17 Range/Units 06:15 08:33 11:45 Chloride (98-107) mmol/L Carbon Dioxide (22-30) mmol/L Glucose (74-99) mg/dL POC Glucose (mg/dL) 70 L 214 H 127 H (75-99) mg/dL Assessment and Plan Assessment: 1. Acute lacunar infarct involving the left globus pallidus, left putamen, and left will radiata. Patient was seen and evaluated by neurology. She is maintained on Plavix daily. Plan for ABBEY on Thursday for further evaluation. 2. Hypertensive urgency: Blood pressure better controlled. Probably secondary to medication noncompliance. I added hydralazine 25 mg 3 times a day to her regimen. Patient was counseled extensively about medication compliance. 3. History of subacute left thalamic lacunar infarct 4. Prior stroke/CVA with residual right-sided hemiparesis 5. Type 2 diabetes mellitus, awaiting A1c 6. Essential hypertension: Blood pressure better controlled. We'll continue to monitor closely 7. Mixed hyperlipidemia, not well controlled. Patient is intolerant to statin. She is maintained on Zetia daily. Plan for ABBEY on Thursday
[2017-10-18 17:02] LABS: Glucose,Whole Blood 133 mg/dL (75-99)
--- NOTE | 2017-10-18 18:05 | P.PN ---
Subjective Progress Note Date: 10/18/17 Principal diagnosis: Acute CVA Interval Update 10/18/17: Patient is being followed by neurology for acute left lacunar infarct with multiple prior infarcts. Patient is scheduled for ABEBY tomorrow with Cardiology to rule out embolic phenomenon. On contact today, the patient was supine in bed AOx4. Patient was complaining of increased bilateral frontal head pain through the night that was still continuing to escalate in intensity. Pain was described as "ice pick" like and behind the eyes and in the fronto-temporal areas. Patient also was having increased nausea with intermittent feeling of urge to vomit but had not vomited. Nursing was given orders from other providers for medication to maintain blood pressure control but nothing was decreasing the BP. Patient's BP was in the high 190's at this point. Objective - Vital Signs Vital signs: Vital Signs Temp 99 F 10/18/17 16:29 Pulse 88 10/18/17 16:29 Resp 16 10/18/17 16:30 BP 159/77 10/18/17 16:29 Pulse Ox 97 10/18/17 16:29 Intake & Output 10/17/17 10/18/17 10/18/17 18:59 06:59 18:59 Intake Total 300 Balance 300 Weight 63.5 kg Intake: Oral 300 Other: # Voids 2 2 2 - Exam General appearance: Alert & oriented x4, no apparent distress. Head: Atraumatic, normocephalic, normal inspection Eyes: PERRLA, EOMI. extreme retro-ocular pain bilaterally Ear, nose and throat: Normal exam, mucous membranes moist Neck: Normal inspection, absent tenderness, lymphadenopathy. Respiratory: No increased work of breathing Cardiovascular: Regular rate, rhythm GI/abdominal: nausea, with guarding of the abdomen Extremities: All range of motion, normal capillary refill, no tenderness, pedal edema joint swelling, calf tenderness. Neurological: cranial nerves II through XII intact lateralizing weakness, prior right sided - 90% resolved no seizure activity noted on physical exam no pronator drift and no nystagmus. All upper extremities: 4+/5 All lower extremities: 4+/5 Psychological: Mood and affect appropriate for setting. - Labs CBC & Chem 7: 10/18/17 05:52 10/18/17 05:52 Labs: Abnormal Lab Results - Last 24 Hours (Table) 10/17/17 10/18/1710/18/18 Range/Units 20:44 05:52 06:15 Chloride 94 L (98-107) mmol/L Carbon Dioxide 32 H (22-30) mmol/L Glucose 57 L (74-99) mg/dL POC Glucose (mg/dL) 182 H 70 L (75-99) mg/dL 10/18/17 10/18/17 10/18/17 Range/Units 08:33 11:45 16:58 Chloride (98-107) mmol/L Carbon Dioxide (22-30) mmol/L Glucose (74-99) mg/dL POC Glucose (mg/dL) 214 H 127 H 133 H (75-99) mg/dL Assessment and Plan (1) Right sided weakness Current Visit: Yes Status: Acute Code(s): R53.1 - WEAKNESS SNOMED Code(s) : 481097921 (2) Uncontrolled hypertension Current Visit: Yes Status: Acute Code(s): I10 - ESSENTIAL (PRIMARY) HYPERTENSION SNOMED Code(s): 89850404 (3) Stroke Current Visit: No Status: Acute Code(s): I63.9 - CEREBRAL INFARCTION, UNSPECIFIED SNOMED Code(s): 377346113 Plan: 1. Stroke 2. Right-sided weakness- 90% resolved 3. Uncontrolled hypertension-Hypertensive crisis 4. Head pain- Severe Based on the patient's complaints, physical exam findings, it does appear that the patient did have increased deficits in the right eyelid,right upper and lower extremities as well as increased sensation in the left upper and lower extremities consistent with CVA. However, last evening into this morning, the patient had severe head pain consistent with possible acute intracranial process / CVA as noted in HPI. Patient was sent for stat CT Brain but was found to be unchanged from prior CT Brain. Blood pressure management by Cardiology and hospitalist Nursing to contact neurology if head pain requires medication for adequate control CT Brain #2- consistent with #1 CT brain was previously negative. MRI brain without contrast; multiple old infarcts, acute infarct noted (see comments in HPI) Carotid Doppler study-mild plaque ordered:Serum homocystine level- pending fasting lipid panel-abnormal continue neuro checks as ordered Continue DVT prophylaxis Continue Plavix 75 mg by mouth daily Continue Zetia 10 mg by mouth daily- for now ABBEY: rule out thromboembolic event, scheduled for 3/19/18 Based on diagnostic workup consider possible change from Zetia to Lipitor unless contraindicated. Continue medications at discharge as noted. Status: Neurology will continue to follow on an "as needed" at this point. I have discussed the plan of care with the physician prior to implementation and he agrees with the plan as implemented.
[2017-10-18] MEDS: LATANOPROST 0.005% OPHTH DROPS 2.5 ML BTL BOTH EYES SCH (19:38)
[2017-10-18 21:06] LABS: Glucose,Whole Blood 213 mg/dL (75-99)
[2017-10-18] MEDS: INSULIN DETEMIR 100 UNIT/ML 10 ML VIAL SQ SCH (21:11)
[2017-10-19] MEDS: hydrALAZINE HCL 25 MG TAB PO SCH ×5 (00:17→23:21)
[2017-10-19] MEDS: INSULIN ASPART 100 UNIT/ML 1 ML 10 ML VIAL SQ SCH ×4 (05:51→21:23)
[2017-10-19 05:55] LABS: Glucose,Whole Blood 71 mg/dL (75-99)
[2017-10-19 06:07] LABS: Basophils % (A) 1 %; Eosinophils # (A) 0.1 k/uL (0-0.7); Eosinophils % (A) 2 %; HCT 34.5 % (34.0-46.0); HGB 11.6 gm/dL (11.4-16.0); Lymphocytes # (A) 2.2 k/uL (1.0-4.8); Lymphocytes % (A) 34 %; MCH 27.8 pg (25.0-35.0); MCHC 33.6 g/dL (31.0-37.0); MCV 82.6 fL (80.0-100.0); Mean Platelet Volume 6.2; Monocytes # (A) 0.6 k/uL (0-1.0); Monocytes % (A) 9 %; Neutrophils # (A) 3.3 k/uL (1.3-7.7); Neutrophils % (A) 52 %; Platelet Count 449 k/uL (150-450); RBC 4.18 m/uL (3.80-5.40); RDW 14.5 % (11.5-15.5); WBC 6.4 k/uL (3.8-10.6)
[2017-10-19 06:19] LABS: Potassium 4.1 mmol/L (3.5-5.1)
[2017-10-19] MEDS: ONDANSETRON 4 MG/2 ML VIAL IVP PRN ×2 (08:38→19:38)
[2017-10-19] MEDS ORDERED: MIDAZOLAM 2 MG/2 ML VIAL ONE (09:38)
[2017-10-19] MEDS ORDERED: fentaNYL (PF) 50 MCG/ML 2 ML AMP ONE (09:39)
[2017-10-19] MEDS ORDERED: IV FLUID CONTINUATION 200 ML IV ONE (09:46)
[2017-10-19] MEDS: MIDAZOLAM 2 MG/2 ML VIAL IV ONE ×2 (10:03→10:07)
[2017-10-19] MEDS ORDERED: fentaNYL (PF) 50 MCG/ML 2 ML AMP IV ONE (10:05)
[2017-10-19] MEDS ORDERED: MIDAZOLAM 2 MG/2 ML VIAL IV ONE (10:10)
--- NOTE | 2017-10-19 10:43 | ECHOT ---
TRANSESOPHAGEAL ECHOCARDIOGRAM INDICATIONS: CVA. After obtaining informed consent, transesophageal echocardiogram was performed in left lateral position using an Omni plane probe. Patient received 3 mg of Versed and fentanyl. Because of her NOVOCAIN allergy, she did not reveal receive any Xylocaine spray. Tolerated the procedure well without any obvious immediate complications. Patient received moderate conscious sedation and her total sedation time was 15 minutes. FINDINGS: 1. There is no intracardiac thrombus within the left atrial appendage, left atrium, right atrium, or right ventricle. 2. Left ventricle has normal size and systolic function. 3. Mitral valve is anatomically normal. There is trace mitral regurgitation noted. 4. Aortic valve is a 3-leaflet valve. There is no evidence of aortic stenosis or regurgitation. 5. Tricuspid valve appears normal. 6. Interatrial septum: There is no evidence of [id number] shunt by color-flow Doppler or [id number] shunt by agitated saline contrast study. CONCLUSIONS: 1. No intracardiac thrombus. 2. No evidence of shunting across the interatrial septum. PLAN: Patient's CVA is probably related to uncontrolled hypertension. MMODL / IJN: [id number] /
[2017-10-19] MEDS: metFORMIN 500 MG TAB PO SCH ×2 (10:49→17:45)
[2017-10-19] MEDS: EZETIMIBE 10 MG TAB PO SCH (10:51)
[2017-10-19] MEDS: CLOPIDOGREL 75 MG TAB PO SCH (10:51)
[2017-10-19] MEDS: HYDROCHLOROTHIAZIDE 25 MG TAB PO SCH (10:51)
[2017-10-19] MEDS: FUROSEMIDE 20 MG TAB PO SCH (10:51)
[2017-10-19] MEDS: HEPARIN SODIUM,PORCINE 5,000 UNIT/ML 1 ML VIAL SQ SCH ×2 (10:52→21:23)
[2017-10-19] MEDS: ALPRAZolam 0.25 MG TAB PO SCH ×2 (10:52→21:22)
[2017-10-19] MEDS: SERTRALINE 50 MG TAB PO SCH (10:52)
[2017-10-19] MEDS: FAMOTIDINE 20 MG TAB PO SCH ×2 (10:56→21:22)
[2017-10-19] MEDS: SODIUM CHLORIDE 0.9% 1,000 ML IV SCH (10:59)
[2017-10-19 11:33] LABS: Glucose,Whole Blood 101 mg/dL (75-99)
[2017-10-19] MEDS: CARVEDILOL 12.5 MG TAB PO SCH ×2 (12:55→17:45)
--- NOTE | 2017-10-19 13:11 | P.PN ---
Subjective No events overnight Objective - Vital Signs Vital signs: Vital Signs Temp 97.8 F 10/19/17 13:01 Pulse 104 H 10/19/17 07:42 Resp 16 10/19/17 13:01 BP 125/67 10/19/17 13:01 Pulse Ox 95 10/19/17 13:01 Intake & Output 10/18/17 10/19/17 10/19/17 18:59 06:59 18:59 Intake Total 570 50 Balance 570 50 Weight 62.8 kg Intake: IV 50 Oral 570 0 Other: # Voids 2 1 - Exam General: The patient is awake and alert, in no distress Eye: there is normal conjunctiva bilaterally. Neck: The neck is supple, there is no JVD. Cardiovascular: Normal S1-S2, no S3-S4, no murmurs. Respiratory: Lungs clear to auscultation bilaterally Gastrointestinal: Abdomen is soft, nontender Musculoskeletal: There is no pedal edema. Neurological:. Speech is normal. Skin: Skin is warm and dry - Labs CBC & Chem 7: 10/19/17 05:27 10/19/17 05:27 Labs: Abnormal Lab Results - Last 24 Hours (Table) 10/17/17 10/18/17 10/18/17 Range/Units 06:11 16:58 21:05 Sodium (137-145) mmol/L Chloride (98-107) mmol/L Carbon Dioxide (22-30) mmol/L BUN (7-17) mg/dL Glucose (74-99) mg/dL POC Glucose (mg/dL) 133 H 213 H (75-99) mg/dL Hemoglobin A1c 6.5 H (4.0-6.0) % 10/19/17 10/19/17 10/19/17 Range/Units 05:27 05:43 11:31 Sodium 132 L (137-145) mmol/L Chloride 91 L (98-107) mmol/L Carbon Dioxide 32 H (22-30) mmol/L BUN 26 H (7-17) mg/dL Glucose 63 L (74-99) mg/dL POC Glucose (mg/dL) 71 L 101 H (75-99) mg/dL Hemoglobin A1c (4.0-6.0) % Assessment and Plan Assessment: 1. Acute lacunar infarct involving the left globus pallidus, left putamen, and left will radiata. Patient was seen and evaluated by neurology. She is maintained on Plavix daily. ABBEY showed no intracardiac source for stroke. 2. Hypertensive urgency: Blood pressure better controlled. Probably secondary to medication noncompliance. I added hydralazine 25 mg 3 times a day to her regimen. Patient was counseled extensively about medication compliance. 3. History of subacute left thalamic lacunar infarct 4. Prior stroke/CVA with residual right-sided hemiparesis 5. Type 2 diabetes mellitus, awaiting A1c 6. Essential hypertension: Blood pressure better controlled. We'll continue to monitor closely 7. Mixed hyperlipidemia, not well controlled. Patient is intolerant to statin. She is maintained on Zetia daily. - Blood pressure still not well controlled. Her hydralazine dose was increased. We will continue to monitor closely. If improved may consider discharge home tomorrow.
[2017-10-19] MEDS: HYDROcodone/APAP 10-325MG 1 EACH TAB PO PRN ×2 (16:19→21:32)
[2017-10-19] MEDS: LISINOPRIL 20 MG TAB PO SCH (16:20)
[2017-10-19 16:29] LABS: Glucose,Whole Blood 210 mg/dL (75-99)
[2017-10-19 17:23] LABS: Glucose,Whole Blood 193 mg/dL (75-99)
[2017-10-19 20:57] LABS: Glucose,Whole Blood 174 mg/dL (75-99)
[2017-10-19] MEDS: LATANOPROST 0.005% OPHTH DROPS 2.5 ML BTL BOTH EYES SCH (21:22)
[2017-10-19] MEDS: INSULIN DETEMIR 100 UNIT/ML 10 ML VIAL SQ SCH (21:26)
[2017-10-20 05:56] LABS: Basophils % (A) 1 %; Eosinophils # (A) 0.1 k/uL (0-0.7); Eosinophils % (A) 2 %; HCT 35.3 % (34.0-46.0); HGB 12.2 gm/dL (11.4-16.0); Lymphocytes # (A) 2.2 k/uL (1.0-4.8); Lymphocytes % (A) 36 %; MCH 28.1 pg (25.0-35.0); MCHC 34.5 g/dL (31.0-37.0); MCV 81.6 fL (80.0-100.0); Mean Platelet Volume 6.2; Monocytes # (A) 0.6 k/uL (0-1.0); Monocytes % (A) 10 %; Neutrophils # (A) 2.9 k/uL (1.3-7.7); Neutrophils % (A) 49 %; Platelet Count 457 k/uL (150-450); RBC 4.33 m/uL (3.80-5.40); RDW 14.4 % (11.5-15.5)
[2017-10-20 06:09] LABS: Anion Gap 8 mmol/L; Blood Urea Nitrogen 18 mg/dL (7-17); Calcium 9.9 mg/dL (8.4-10.2); Carbon Dioxide 34 mmol/L (22-30); Chloride 90 mmol/L (98-107); Glucose 66 mg/dL (74-99); Potassium 3.4 mmol/L (3.5-5.1); Sodium 132 mmol/L (137-145)
[2017-10-20] MEDS ORDERED: DOCUSATE 100 MG CAP PO PRN (06:26)
[2017-10-20 06:27] LABS: Glucose,Whole Blood 81 mg/dL (75-99)
[2017-10-20] MEDS: HYDROcodone/APAP 10-325MG 1 EACH TAB PO PRN ×2 (06:54→16:30)
[2017-10-20] MEDS: hydrALAZINE HCL 25 MG TAB PO SCH ×3 (06:55→22:27)
[2017-10-20] MEDS: metFORMIN 500 MG TAB PO SCH ×2 (06:55→17:28)
[2017-10-20] MEDS: CARVEDILOL 12.5 MG TAB PO SCH ×2 (06:55→16:29)
[2017-10-20] MEDS: INSULIN ASPART 100 UNIT/ML 1 ML 10 ML VIAL SQ SCH ×4 (06:56→22:07)
[2017-10-20 07:42] LABS: Glucose,Whole Blood 138 mg/dL (75-99)
[2017-10-20] MEDS: ONDANSETRON 4 MG/2 ML VIAL IVP PRN ×2 (08:09→20:08)
[2017-10-20] MEDS ORDERED: SODIUM CHLORIDE 0.9% 500 ML IV ONE (08:21)
[2017-10-20] MEDS: SODIUM CHLORIDE 0.9% 1,000 ML IV SCH (08:58)
[2017-10-20] MEDS: FUROSEMIDE 20 MG TAB PO SCH (09:55)
[2017-10-20] MEDS: HEPARIN SODIUM,PORCINE 5,000 UNIT/ML 1 ML VIAL SQ SCH ×2 (09:55→22:27)
[2017-10-20] MEDS: EZETIMIBE 10 MG TAB PO SCH (09:55)
[2017-10-20] MEDS: SERTRALINE 50 MG TAB PO SCH (09:55)
[2017-10-20] MEDS: CLOPIDOGREL 75 MG TAB PO SCH (09:55)
[2017-10-20] MEDS: ALPRAZolam 0.25 MG TAB PO SCH ×2 (09:56→20:08)
[2017-10-20] MEDS: FAMOTIDINE 20 MG TAB PO SCH ×2 (09:56→20:10)
[2017-10-20] MEDS: LISINOPRIL 20 MG TAB PO SCH (10:29)
[2017-10-20] MEDS: HYDROCHLOROTHIAZIDE 25 MG TAB PO SCH (10:29)
--- NOTE | 2017-10-20 10:29 | P.PN ---
Subjective Progress Note Date: 10/20/17 Principal diagnosis: CVA This is a 66-year-old female admitted to the hospital with a CVA. Cardiology consultation was initially requested because of hypertension, and also requested to perform transesophageal echocardiographic study. ABBEY revealed no intracardiac thrombus, no evidence of shunting across the intra- atrial septum. Yesterday patient continued to be quite hypertensive and medication adjustments were made. This morning, patient was up in the bathroom , blood pressure documented to be in the high 70s, on return to bed she was 80 systolic. She felt extremely dizzy and weak, lightheaded. We gave her 500 mL fluid bolus. Following that, patient states she felt significantly improved, blood pressure 88/60. White blood cell count this morning 6.0, hemoglobin 12.2 , platelet count 457. Sodium 132, potassium 3.4, BUN 18, creatinine 0.7. Objective - Vital Signs Vital signs: Vital Signs Temp 97.7 F 10/20/17 04:35 Pulse 97 10/20/17 04:35 Resp 17 10/20/17 04:35 BP 147/77 10/20/17 04:35 Pulse Ox 97 10/20/17 04:35 Intake & Output 10/19/17 10/20/17 10/20/17 18:59 06:59 18:59 Intake Total 410 Balance 410 Weight 62.5 kg Intake: IV 50 Oral 360 Other: Voiding Method Toilet # Voids 1 - Exam PHYSICAL EXAMINATION: HEENT: Head is atraumatic, normocephalic. Pupils equal, round. Neck is supple. There is no elevated jugular venous pressure. HEART EXAMINATION: Heart S1, S2 normal. No murmur or gallop heard. CHEST EXAMINATION: Lungs are clear to auscultation and precussion. No chest wall tenderness is noted on palpation or with deep breathing. ABDOMEN: Soft, nontender. Bowel sounds are heard. No organomegaly noted. EXTREMITIES: 2+ peripheral pulses with no evidence of peripheral edema and no calf tenderness noted. NEUROLOGIC patient is awake, alert and oriented -3. . - Labs CBC & Chem 7: 10/20/17 05:24 10/20/17 05:24 Labs: Abnormal Lab Results - Last 24 Hours (Table) 10/19/17 10/19/17 10/19/17 Range/Units 11:31 16:27 17:16 Plt Count (150-450) k/uL Sodium (137-145) mmol/L Potassium (3.5-5.1) mmol/L Chloride (98-107) mmol/L Carbon Dioxide (22-30) mmol/L BUN (7-17) mg/dL Glucose (74-99) mg/dL POC Glucose (mg/dL) 101 H 210 H 193 H (75-99) mg/dL 10/19/17 10/20/17 10/20/17 Range/Units 20:55 05:24 05:24 Plt Count 457 H (150-450) k/uL Sodium 132 L (137-145) mmol/L Potassium 3.4 L (3.5-5.1) mmol/L Chloride 90 L (98-107) mmol/L Carbon Dioxide 34 H (22-30) mmol/L BUN 18 H (7-17) mg/dL Glucose 66 L (74-99) mg/dL POC Glucose (mg/dL) 174 H (75-99) mg/dL 10/20/17 Range/Units 07:35 Plt Count (150-450) k/uL Sodium (137-145) mmol/L Potassium (3.5-5.1) mmol/L Chloride (98-107) mmol/L Carbon Dioxide (22-30) mmol/L BUN (7-17) mg/dL Glucose (74-99) mg/dL POC Glucose (mg/dL) 138 H (75-99) mg/dL Assessment and Plan Plan: Assessment and plan #1. Acute lacunar infarct involving the left globus pallidus, left putamen, and left will radiata. #2. Hypertensive urgency #3. History of subacute left thalamic lacunar infarct #4. Prior stroke/CVA with residual right-sided hemiparesis #5. Type 2 diabetes mellitus #6. Essential hypertension #7. Mixed hyperlipidemia Plan Patient underwent a ABBEY yesterday by Dr. Luciano which did not reveal any evidence of intracardiac thrombus. No evidence of shunting across the intra- atrial septum. Blood pressure this morning in the high 70s to low 80s systolic , patient quite symptomatic, dizzy lightheaded. 500 mL fluid bolus of normal saline was given, medication adjustments were made. At reevaluation, patient's blood pressure up to 88 systolic, patient symptom free. DNP note has been reviewed, I agree with a documented findings and plan of care. Patient was seen and examined.
[2017-10-20 12:10] LABS: Glucose,Whole Blood 126 mg/dL (75-99)
--- NOTE | 2017-10-20 12:36 | P.PN ---
Subjective Patient was feeling very dizzy this morning when she got up to the bathroom. Her blood pressure was checked and she was found to be significantly hypotensive with systolic blood pressure as low as in the 70s. Patient was helped back to bed and was given IV fluid bolus as ordered by cardiology. She is resting comfortably in bed today. Objective - Vital Signs Vital signs: Vital Signs Temp 96.8 F L 10/20/17 08:20 Pulse 77 10/20/17 10:30 Resp 20 10/20/17 08:20 BP 125/59 10/20/17 10:30 Pulse Ox 93 L 10/20/17 08:20 Intake & Output 10/19/17 10/20/17 10/20/17 18:59 06:59 18:59 Intake Total 410 60 Balance 410 60 Weight 62.5 kg Intake: IV 50 Oral 360 60 Other: Voiding Method Toilet # Voids 1 - Exam General: The patient is awake and alert, in no distress Eye: there is normal conjunctiva bilaterally. Neck: The neck is supple, there is no JVD. Cardiovascular: Normal S1-S2, no S3-S4, no murmurs. Respiratory: Lungs clear to auscultation bilaterally Gastrointestinal: Abdomen is soft, nontender Musculoskeletal: There is no pedal edema. Neurological:. Speech is normal. Skin: Skin is warm and dry - Labs CBC & Chem 7: 10/20/17 05:24 10/20/17 05:24 Labs: Abnormal Lab Results - Last 24 Hours (Table) 10/19/17 10/19/17 10/19/17 Range/Units 16:27 17:16 20:55 Plt Count (150-450) k/uL Sodium (137-145) mmol/L Potassium (3.5-5.1) mmol/L Chloride (98-107) mmol/L Carbon Dioxide (22-30) mmol/L BUN (7-17) mg/dL Glucose (74-99) mg/dL POC Glucose (mg/dL) 210 H 193 H 174 H (75-99) mg/dL 10/20/17 10/20/17 10/20/17 Range/Units 05:24 05:24 07:35 Plt Count 457 H (150-450) k/uL Sodium 132 L (137-145) mmol/L Potassium 3.4 L (3.5-5.1) mmol/L Chloride 90 L (98-107) mmol/L Carbon Dioxide 34 H (22-30) mmol/L BUN 18 H (7-17) mg/dL Glucose 66 L (74-99) mg/dL POC Glucose (mg/dL) 138 H (75-99) mg/dL 10/20/17 Range/Units 12:07 Plt Count (150-450) k/uL Sodium (137-145) mmol/L Potassium (3.5-5.1) mmol/L Chloride (98-107) mmol/L Carbon Dioxide (22-30) mmol/L BUN (7-17) mg/dL Glucose (74-99) mg/dL POC Glucose (mg/dL) 126 H (75-99) mg/dL Assessment and Plan Assessment: 1. Acute lacunar infarct involving the left globus pallidus, left putamen, and left will radiata. Patient was seen and evaluated by neurology. She is maintained on Plavix daily. ABBEY showed no intracardiac source for stroke. 2. Hypertensive urgency: On presentation 3. History of subacute left thalamic lacunar infarct 4. Prior stroke/CVA with residual right-sided hemiparesis 5. Type 2 diabetes mellitus, awaiting A1c 6. Essential hypertension: Blood pressure better controlled. We'll continue to monitor closely 7. Mixed hyperlipidemia, not well controlled. Patient is intolerant to statin. She is maintained on Zetia daily. 8. Hypotension: Probably attributed to over medication. Her hydralazine dose was increased from 5025 mg twice a day to 75 mg every 6 hours. - Today, I reviewed her medication list and lab work results - Continue current regimen with lisinopril 20 mg daily, Coreg 25 mg twice a day , hydralazine 25 mg 3 times a day, and Lasix 20 mg daily - Instructed the nurse to hold all of her blood pressure medication until evening dose and only give blood pressure medicine if systolic blood pressures are greater than 135 - Patient will not be able to be discharged home today given labile hypertension
[2017-10-20 14:08] VITALS: RESP 18
[2017-10-20] MEDS ORDERED: hydrALAZINE HCL 50 MG TAB PO SCH (16:00)
[2017-10-20 17:08] LABS: Glucose,Whole Blood 147 mg/dL (75-99)
[2017-10-20] MEDS: LATANOPROST 0.005% OPHTH DROPS 2.5 ML BTL BOTH EYES SCH (20:10)
[2017-10-20 21:37] LABS: Glucose,Whole Blood 142 mg/dL (75-99)
[2017-10-21 05:45] LABS: Glucose,Whole Blood 167 mg/dL (75-99)
[2017-10-21] MEDS: INSULIN DETEMIR 100 UNIT/ML 10 ML VIAL SQ SCH (06:01)
[2017-10-21] MEDS: CARVEDILOL 12.5 MG TAB PO SCH (06:30)
[2017-10-21 06:46] LABS: Basophils % (A) 1 %; Eosinophils # (A) 0.1 k/uL (0-0.7); Eosinophils % (A) 1 %; HCT 34.2 % (34.0-46.0); Lymphocytes # (A) 1.6 k/uL (1.0-4.8); Lymphocytes % (A) 27 %; MCH 26.9 pg (25.0-35.0); MCHC 32.2 g/dL (31.0-37.0); MCV 83.5 fL (80.0-100.0); Mean Platelet Volume 6.6; Monocytes # (A) 0.6 k/uL (0-1.0); Monocytes % (A) 10 %; Neutrophils # (A) 3.5 k/uL (1.3-7.7); Neutrophils % (A) 60 %; Platelet Count 398 k/uL (150-450); RBC 4.09 m/uL (3.80-5.40); RDW 14.7 % (11.5-15.5); WBC 5.8 k/uL (3.8-10.6)
[2017-10-21] MEDS: INSULIN ASPART 100 UNIT/ML 1 ML 10 ML VIAL SQ SCH ×2 (06:56→12:27)
[2017-10-21] MEDS: metFORMIN 500 MG TAB PO SCH (06:56)
[2017-10-21 06:58] LABS: Anion Gap 9 mmol/L; Blood Urea Nitrogen 16 mg/dL (7-17); Calcium 9.4 mg/dL (8.4-10.2); Carbon Dioxide 30 mmol/L (22-30); Chloride 93 mmol/L (98-107); Glucose 146 mg/dL (74-99); Potassium 3.2 mmol/L (3.5-5.1); Sodium 132 mmol/L (137-145)
[2017-10-21] MEDS: FUROSEMIDE 20 MG TAB PO SCH (08:55)
[2017-10-21] MEDS: FAMOTIDINE 20 MG TAB PO SCH (08:55)
[2017-10-21] MEDS: EZETIMIBE 10 MG TAB PO SCH (08:55)
[2017-10-21] MEDS: CLOPIDOGREL 75 MG TAB PO SCH (08:55)
[2017-10-21] MEDS: HEPARIN SODIUM,PORCINE 5,000 UNIT/ML 1 ML VIAL SQ SCH (08:56)
[2017-10-21] MEDS: SERTRALINE 50 MG TAB PO SCH (08:56)
[2017-10-21] MEDS: hydrALAZINE HCL 25 MG TAB PO SCH (08:56)
[2017-10-21] MEDS: ALPRAZolam 0.25 MG TAB PO SCH (08:59)
[2017-10-21] MEDS ORDERED: LISINOPRIL 20 MG TAB PO SCH (09:00)
[2017-10-21 11:06] VITALS: BP 178/84; PULSE 68; TEMP 98.7
[2017-10-21] MEDS ORDERED: POTASSIUM CHLORIDE ER 20 MEQ TAB.ER PO STA (11:19)
--- NOTE | 2017-10-21 11:46 | P.PN ---
Subjective Progress Note Date: 10/21/17 Principal diagnosis: CVA This is a 66-year-old female admitted to the hospital with a CVA. Cardiology consultation was initially requested because of hypertension, and also requested to perform transesophageal echocardiographic study. ABBEY revealed no intracardiac thrombus, no evidence of shunting across the intra- atrial septum. Yesterday patient continued to be quite hypertensive and medication adjustments were made. This morning, patient was up in the bathroom , blood pressure documented to be in the high 70s, on return to bed she was 80 systolic. She felt extremely dizzy and weak, lightheaded. We gave her 500 mL fluid bolus. Following that, patient states she felt significantly improved, blood pressure 88/60. White blood cell count this morning 6.0, hemoglobin 12.2 , platelet count 457. Sodium 132, potassium 3.4, BUN 18, creatinine 0.7. 10/21/2017 Patient seen and examined this morning, blood pressure this morning 164/70, heart rate in the 90s, 100% on room air. She denies any dizziness or lightheadedness. Objective - Vital Signs Vital signs: Vital Signs Temp 98.7 F 10/21/17 11:02 Pulse 68 10/21/17 11:02 Resp 18 10/21/17 11:02 BP 178/84 10/21/17 11:02 Pulse Ox 93 L 10/21/17 11:02 Intake & Output 10/20/17 10/21/17 10/21/17 18:59 06:59 18:59 Intake Total 680 120 240 Balance 680 120 240 Weight 61.8 kg Intake: Intake, IV Titration 500 Amount Sodium Chloride 0.9% 500 500 ml @ 999 mls/hr IV .Q31M ONE Rx#:[id number] Oral 180 120 240 Other: Voiding Method Bedside Commode Bedside Commode # Voids 2 3 1 # Bowel Movements 2 1 - Exam PHYSICAL EXAMINATION: HEENT: Head is atraumatic, normocephalic. Pupils equal, round. Neck is supple. There is no elevated jugular venous pressure. HEART EXAMINATION: Heart S1, S2 normal. No murmur or gallop heard. CHEST EXAMINATION: Lungs are clear to auscultation and precussion. No chest wall tenderness is noted on palpation or with deep breathing. ABDOMEN: Soft, nontender. Bowel sounds are heard. No organomegaly noted. EXTREMITIES: 2+ peripheral pulses with no evidence of peripheral edema and no calf tenderness noted. NEUROLOGIC patient is awake, alert and oriented -3. . - Labs CBC & Chem 7: 10/21/17 05:40 10/21/17 05:40 Labs: Abnormal Lab Results - Last 24 Hours (Table) 10/20/17 10/20/17 10/20/17 Range/Units 12:07 17:01 21:17 Hgb (11.4-16.0) gm/dL Sodium (137-145) mmol/L Potassium (3.5-5.1) mmol/L Chloride (98-107) mmol/L Glucose (74-99) mg/dL POC Glucose (mg/dL) 126 H 147 H 142 H (75-99) mg/dL 10/21/17 10/21/17 10/21/17 Range/Units 05:40 05:40 05:43 Hgb 11.0 L (11.4-16.0) gm/dL Sodium 132 L (137-145) mmol/L Potassium 3.2 L (3.5-5.1) mmol/L Chloride 93 L (98-107) mmol/L Glucose 146 H (74-99) mg/dL POC Glucose (mg/dL) 167 H (75-99) mg/dL Assessment and Plan Plan: Assessment and plan #1. Acute lacunar infarct involving the left globus pallidus, left putamen, and left will radiata. #2. Hypertensive urgency #3. History of subacute left thalamic lacunar infarct #4. Prior stroke/CVA with residual right-sided hemiparesis #5. Type 2 diabetes mellitus #6. Essential hypertension #7. Mixed hyperlipidemia Plan From cardiology's perspective, we'll continue the patient on her current medications. She may be able to be discharged home once cleared by the primary. We will make her a follow-up appointment in the office post discharge. DNP note has been reviewed, I agree with a documented findings and plan of care. Patient was seen and examined.
[2017-10-21 11:51] LABS: Glucose,Whole Blood 134 mg/dL (75-99)
[2017-10-21] MEDS: SODIUM CHLORIDE 0.9% 1,000 ML IV SCH (11:54)
--- NOTE | 2017-10-21 12:09 | P.DS ---
Providers Date of admission: 10/15/17 19:55 Expected date of discharge: 10/21/17 Attending physician: Jae Martinez Consults: 10/15/17 19:55 Consult Physician Stat Consulting Provider: Kyleigh Black Consult Reason/Comments: right sided weakness Do you want consulting provider notified?: Yes 10/16/17 17:53 Consult Physician Routine Consulting Provider: [facility] Consult Reason/Comments: Pt needs a ABBEY Do you want consulting provider notified?: Yes, Notify in am Primary care physician: [facility] Course: 1. Acute lacunar infarct involving the left globus pallidus, left putamen, and left will radiata. Patient was seen and evaluated by neurology. She is maintained on Plavix daily. ABBEY showed no intracardiac source for stroke. 2. Hypertensive urgency: On presentation. Her regimen was adjusted and patient was counseled regarding taken her medications as prescribed. She will follow-up with me in the office next week. 3. History of subacute left thalamic lacunar infarct 4. Prior stroke/CVA with residual right-sided hemiparesis 5. Type 2 diabetes mellitus, awaiting A1c 6. Essential hypertension: Blood pressure better controlled. 7. Mixed hyperlipidemia, not well controlled. Patient is intolerant to statin. She is maintained on Zetia daily. Patient Condition at Discharge: Fair Plan - Discharge Summary Discharge Rx Participant: No New Discharge Prescriptions: New RX: Furosemide [Lasix] 20 mg PO DAILY #30 tab RX: hydrALAZINE HCL [Apresoline] 50 mg PO TID #90 tab RX: Potassium Chloride ER [K-Dur 10] 10 meq PO DAILY #30 tab Continue RX: metFORMIN HCL 1,000 mg PO BID-W/MEALS RX: HYDROcodone/APAP 10-325MG [[place] 10-325] 1 tab PO TID PRN PRN Reason: Pain RX: Insulin Glargine [Lantus] 25 units SQ HS RX: Latanoprost Ophth [Xalatan 0.005%] 1 drop BOTH EYES HS RX: Insulin Regular, Human [NovoLIN R] See Protocol SQ BID-W/MEALS RX: Ezetimibe [Zetia] 10 mg PO DAILY RX: Sertraline HCl [Zoloft] 50 mg PO DAILY RX: ALPRAZolam [Xanax] 0.125 mg PO BID RX: Clopidogrel [Plavix] 75 mg PO DAILY #30 tab RX: Lisinopril 40 mg PO DAILY #30 tab RX: Carvedilol [Coreg] 25 mg PO BID Discontinued RX: Omeprazole [PriLOSEC] 20 mg PO BID RX: Furosemide [Lasix] 20 mg PO Q48H RX: Hydrochlorothiazide [Hydrodiuril] 25 mg PO Q48H Discharge Medication List RX: HYDROcodone/APAP 10-325MG [[place] 10-325] 1 tab PO TID PRN 10/10/14 [History] RX: metFORMIN HCL 1,000 mg PO BID-W/MEALS 10/10/14 [History] RX: Insulin Glargine [Lantus] 25 units SQ HS 10/11/14 [History] RX: Latanoprost Ophth [Xalatan 0.005%] 1 drop BOTH EYES HS 10/11/14 [History] RX: Ezetimibe [Zetia] 10 mg PO DAILY 09/21/16 [History] RX: Insulin Regular, Human [NovoLIN R] See Protocol SQ BID-W/MEALS 09/21/16 [ History] RX: ALPRAZolam [Xanax] 0.125 mg PO BID 04/26/17 [History] RX: Sertraline HCl [Zoloft] 50 mg PO DAILY 04/26/17 [History] RX: Clopidogrel [Plavix] 75 mg PO DAILY #30 tab 04/29/17 [Rx] RX: Lisinopril 40 mg PO DAILY #30 tab 04/29/17 [Rx] RX: Carvedilol [Coreg] 25 mg PO BID 09/07/17 [History] RX: Furosemide [Lasix] 20 mg PO DAILY #30 tab 10/21/17 [Rx] RX: Potassium Chloride ER [K-Dur 10] 10 meq PO DAILY #30 tab 10/21/17 [Rx] RX: hydrALAZINE HCL [Apresoline] 50 mg PO TID #90 tab 10/21/17 [Rx] Follow up Appointment(s)/Referral(s): Kyleigh Black MD [STAFF PHYSICIAN] - 2 Weeks Jae Martinez MD [Primary Care Provider] - 1 Week Patient Instructions/Handouts: Ischemic Stroke (DC) Discharge Disposition: HOME SELF-CARE
[2017-10-21] MEDS ORDERED: hydrALAZINE HCL 50 MG TAB PO SCH (16:00)
== END 2017-10-21 12:09 | disposition home or self-care (01) | DRG 65 ==
LOC: EC 17:34 → 6SEL 19:55
PROVIDERS: ADMIT Internal Medicine; ATTEND Internal Medicine
PROC: B246ZZ4 Ultrasonography of Right and Left Heart, Transesophageal (ICD-10-PCS; principal; 2017-10-19 09:40)
DX: I63.9 Cerebral infarction, unspecified (principal); G81.91 Hemiplegia, unspecified affecting right dominant side; E11.40 Type 2 diabetes mellitus with diabetic neuropathy, unspecified; I95.9 Hypotension, unspecified; G93.89 Other specified disorders of brain; I69.351 Hemiplegia and hemiparesis following cerebral infarction affecting right dominant side; R29.810 Facial weakness; R40.2362 Coma scale, best motor response, obeys commands, at arrival to emergency department; R40.2142 Coma scale, eyes open, spontaneous, at arrival to emergency department; R40.2252 Coma scale, best verbal response, oriented, at arrival to emergency department; H02.401 Unspecified ptosis of right eyelid; I16.0 Hypertensive urgency; I10 Essential (primary) hypertension; E78.2 Mixed hyperlipidemia; M79.7 Fibromyalgia; K21.9 Gastro-esophageal reflux disease without esophagitis; M06.9 Rheumatoid arthritis, unspecified; H40.9 Unspecified glaucoma; I25.2 Old myocardial infarction; F32.9 Major depressive disorder, single episode, unspecified; F41.9 Anxiety disorder, unspecified; M19.91 Primary osteoarthritis, unspecified site; K44.9 Diaphragmatic hernia without obstruction or gangrene; T46.1X6A Underdosing of calcium-channel blockers, initial encounter; Z91.138 Patient's unintentional underdosing of medication regimen for other reason; Z79.02 Long term (current) use of antithrombotics/antiplatelets; Z79.4 Long term (current) use of insulin; Z79.899 Other long term (current) drug therapy; Z87.11 Personal history of peptic ulcer disease; Z90.49 Acquired absence of other specified parts of digestive tract; Z90.710 Acquired absence of both cervix and uterus; Z88.5 Allergy status to narcotic agent; Z88.2 Allergy status to sulfonamides; Z88.7 Allergy status to serum and vaccine; Z88.8 Allergy status to other drugs, medicaments and biological substances; Z88.4 Allergy status to anesthetic agent; Z88.1 Allergy status to other antibiotic agents; Z91.030 Bee allergy status; Z91.040 Latex allergy status
CPT/HCPCS: 36415; 70450; 70551; 71046; 80048; 80053; 80061; 81003; 82550; 82553; 83036; 83090; 84484; 85025; 85610; 85730; 87086; 93005; 93306; 93312; 93320; 93325; 93880; 95819; 96361; 96365; 96375; 96376; 99285

== ENCOUNTER 2017-12-07 13:51 | Inpatient (IN) | payer MEDICARE, OTHER ==
[2017-12-07] MEDS ORDERED: LABETALOL 5 MG/ML VIAL MDV IVP STA ×2 (14:23→15:40)
--- NOTE | 2017-12-07 14:29 | ED ---
General Adult HPI - General Chief complaint: Recheck/Abnormal Lab/Rx Stated complaint: high blood pressure/poss stroke Time Seen by Provider: 12/07/17 14:00 Source: patient, RN notes reviewed Mode of arrival: wheelchair Limitations: no limitations - History of Present Illness Initial comments: This a 67-year-old female presents emergency Department stating that she has a history of high blood pressure. Patient comes in today because over the last couple of weeks her blood pressures been slowly going up and today she noticed it was high so she decided come emergency department. Patient states that she stopped taking her hydralazine 2 weeks ago. Patient denies any chest pain or palpitations. Patient denies any abdominal pain patient denies nausea vomiting or diarrhea. Patient denies lightheadedness patient denies dizziness patient denies any headache patieo because she thoughnt denies numbness weakness. Patient denies any blurred vision. Patient only that her blood pressure was measuring high today. - Related Data Home Medications Medication Instructions Recorded Confirmed HYDROcodone/APAP 10-325MG [[place] 1 tab PO TID PRN 10/10/14 12/07/17 10-325] metFORMIN HCL 1,000 mg PO BID-W/MEALS 10/10/14 12/07/17 Ezetimibe [Zetia] 10 mg PO DAILY 09/21/16 12/07/17 Insulin Regular, Human [NovoLIN R] See Protocol SQ BID-W/MEALS 09/21/16 12/07/17 ALPRAZolam [Xanax] 0.125 mg PO BID 04/26/17 12/07/17 Sertraline HCl [Zoloft] 50 mg PO DAILY 04/26/17 12/07/17 Carvedilol [Coreg] 25 mg PO BID 09/07/17 12/07/17 Insulin Degludec [Tresiba 25 unit SQ DAILY 12/07/17 12/07/17 Flextouch U-100] Insulin Regular, Human [NovoLIN R] 10 unit SQ AC-BID 12/07/17 12/07/17 Omeprazole 20 mg PO DAILY 12/07/17 12/07/17 Previous Rx's Medication Instructions Recorded Clopidogrel [Plavix] 75 mg PO DAILY #30 tab 04/29/17 Lisinopril 40 mg PO DAILY #30 tab 04/29/17 Furosemide [Lasix] 20 mg PO DAILY #30 tab 10/21/17 Potassium Chloride ER [K-Dur 10] 10 meq PO DAILY #30 tab 10/21/17 Allergies Allergy/AdvReac Type Severity Reaction Status Date / Time bee venom protein (honey bee) Allergy Anaphylaxis Verified 12/07/17 15:18 epinephrine Allergy Anaphylaxis Verified 12/07/17 15:18 influenza virus vaccine, Allergy Rash/Hives Verified 12/07/17 15:18 specific iodine Allergy Rash/Hives Verified 12/07/17 15:18 latex Allergy Rash/Hives Verified 12/07/17 15:18 procaine HCl [From Novocain] Allergy Anaphylaxis Verified 12/07/17 15:18 Sulfa (Sulfonamide Allergy Rash/Hives Verified 12/07/17 15:18 Antibiotics) amlodipine [From Norvasc] AdvReac Diarrhea,abdominal Verified 12/07/17 15:18 pain cephalexin monohydrate AdvReac Nausea & Verified 12/07/17 15:18 [From Keflex] Vomiting & Diarrhea codeine AdvReac Nausea & Verified 12/07/17 15:18 Vomiting cortisone AdvReac Nausea & Verified 12/07/17 15:18 Vomiting/Vertigo methadone AdvReac Nausea & Verified 12/07/17 15:18 Vomiting & Diarrhea propoxyphene AdvReac Nausea & Verified 12/07/17 15:18 [From Darvocet-N] Vomiting Ptsazjv-Oif-Vom Reductase AdvReac Nausea & Verified 12/07/17 15:18 Inhibitor Vomiting/Muscle Weakness cortisone AdvReac Unknown Uncoded 12/07/17 15:18 steroids AdvReac Nausea & Uncoded 12/07/17 14:05 Vomiting Review of Systems ROS Statement: Those systems with pertinent positive or pertinent negative responses have been documented in the HPI. ROS Other: All systems not noted in ROS Statement are negative. Past Medical History Past Medical History: Chest Pain / Angina, CVA/TIA, Diabetes Mellitus, Fibromyalgia, GERD/Reflux, Hyperlipidemia, Hypertension, Memory Impairment, Myocardial Infarction ([place]), Osteoarthritis (OA), Rheumatoid Arthritis (RA) Additional Past Medical History / Comment(s): neuropathy both feet and hands, glaucoma, connective tissue dysfunction, peptic ulcer disease, "bad" hiatal hernia, stroke x2-loss of short term memory, chest pain "last year", occ irregular heart beat, hx ulcers, hx carpal tunnel syndrome, states stools are thin "like a ribbon". Last Myocardial Infarction Date:: 1988 History of Any Multi-Drug Resistant Organisms: None Reported Past Surgical History: Bladder Surgery, Cholecystectomy, Hysterectomy, Tubal Ligation Additional Past Surgical History / Comment(s): rhinoplasty, hand surgery bilateral-carpal tunel , states sling for rectal prolapse. Past Anesthesia/Blood Transfusion Reactions: Motion Sickness Past Psychological History: Anxiety, Depression Smoking Status: Never smoker Past Alcohol Use History: None Reported Past Drug Use History: None Reported - Past Family History Father Family Medical History: CVA/TIA, Liver Disease, Myocardial Infarction ([place]) Additional Family Medical History / Comment(s): alcoholic, cirrhosis of the liver Mother Family Medical History: Cancer General Exam - General Exam Comments Initial Comments: GENERAL: Patient is well-developed and well-nourished. Patient is nontoxic and well- hydrated and is in no acute distress. ENT: Neck is soft and supple. No significant lymphadenopathy is noted. Oropharynx is clear. Moist mucous membranes. Neck has full range of motion without eliciting any pain. EYES: The sclera were anicteric and conjunctiva were pink and moist. Extraocular movements were intact and pupils were equal round and reactive to light. Eyelids were unremarkable. PULMONARY: Unlabored respirations. Good breath sounds bilaterally. No audible rales rhonchi or wheezing was noted. CARDIOVASCULAR: There is a regular rate and rhythm without any murmurs gallops or rubs. ABDOMEN: Soft and nontender with normal bowel sounds. No palpable organomegaly was noted. There is no palpable pulsatile mass. SKIN: Skin is clear with no lesions or rashes and otherwise unremarkable. NEUROLOGIC: Patient is alert and oriented x3. Cranial nerves II through XII are grossly intact. Motor and sensory are also intact. Normal speech, volume and content. Symmetrical smile. MUSCULOSKELETAL: Normal extremities with adequate strength and full range of motion. No lower extremity swelling or edema. No calf tenderness. LYMPHATICS: No significant lymphadenopathy is noted PSYCHIATRIC: Normal psychiatric evaluation. Normal interpersonal interactions appears functionally intact in deals appropriately with others. No signs of depression. No signs of anxiety. Limitations: no limitations Course Vital Signs 12/07/17 12/07/17 12/07/17 14:00 14:40 15:10 Temperature 99.7 F H Pulse Rate 78 71 80 Respiratory 18 16 18 Rate Blood Pressure 226/103 219/106 215/104 O2 Sat by Pulse 97 97 98 Oximetry 12/07/17 15:40 Temperature Pulse Rate 70 Respiratory 20 Rate Blood Pressure 192/111 O2 Sat by Pulse 98 Oximetry Medical Decision Making - Medical Decision Making EKG shows normal sinus rhythm at 70 bpm [place] interval is on a 36 QRS is 86 Q-T intervals 400 QTC is 432. Patient's EKG shows no ST segment elevation or depression or T wave abnormalities are noted. - Lab Data Result diagrams: 12/07/17 14:30 12/07/17 14:30 Lab Results 12/07/17 12/07/17 12/07/17 Range/Units 14:30 14:30 14:30 WBC 6.2 (3.8-10.6) k/uL RBC 4.12 (3.80-5.40) m/uL Hgb 11.2 L (11.4-16.0) gm/dL Hct 34.0 (34.0-46.0) % MCV 82.5 (80.0-100.0) fL MCH 27.1 (25.0-35.0) pg MCHC 32.8 (31.0-37.0) g/dL RDW 14.8 (11.5-15.5) % Plt Count 394 (150-450) k/uL Neutrophils % 64 % Lymphocytes % 26 % Monocytes % 7 % Eosinophils % 2 % Basophils % 0 % Neutrophils # 4.0 (1.3-7.7) k/uL Lymphocytes # 1.6 (1.0-4.8) k/uL Monocytes # 0.4 (0-1.0) k/uL Eosinophils # 0.1 (0-0.7) k/uL Basophils # 0.0 (0-0.2) k/uL PT (9.0-12.0) sec INR (<1.2) APTT (22.0-30.0) sec Sodium 137 (137-145) mmol/L Potassium 3.6 (3.5-5.1) mmol/L Chloride 95 L (98-107) mmol/L Carbon Dioxide 27 (22-30) mmol/L Anion Gap 15 mmol/L BUN 11 (7-17) mg/dL Creatinine 0.49 L (0.52-1.04) mg/dL Est GFR (CKD-EPI)AfAm >90 (>60 ml/min/1.73 sqM) Est GFR (CKD-EPI)NonAf >90 (>60 ml/min/1.73 sqM) Glucose 109 H (74-99) mg/dL Calcium 9.8 (8.4-10.2) mg/dL Magnesium 1.4 L (1.6-2.3) mg/dL Total Bilirubin 0.4 (0.2-1.3) mg/dL AST 24 (14-36) U/L ALT 23 (9-52) U/L Alkaline Phosphatase 78 (38-126) U/L Total Creatine Kinase 226 H (30-135) U/L CK-MB (CK-2) 3.2 H* (0.0-2.4) ng/mL CK-MB (CK-2) Rel Index 1.4 Troponin I <0.012 (0.000-0.034) ng/mL Total Protein 6.9 (6.3-8.2) g/dL Albumin 4.3 (3.5-5.0) g/dL 12/07/17 Range/Units 14:30 WBC (3.8-10.6) k/uL RBC (3.80-5.40) m/uL Hgb (11.4-16.0) gm/dL Hct (34.0-46.0) % MCV (80.0-100.0) fL MCH (25.0-35.0) pg MCHC (31.0-37.0) g/dL RDW (11.5-15.5) % Plt Count (150-450) k/uL Neutrophils % % Lymphocytes % % Monocytes % % Eosinophils % % Basophils % % Neutrophils # (1.3-7.7) k/uL Lymphocytes # (1.0-4.8) k/uL Monocytes # (0-1.0) k/uL Eosinophils # (0-0.7) k/uL Basophils # (0-0.2) k/uL PT 10.3 (9.0-12.0) sec INR 1.1 (<1.2) APTT 23.7 (22.0-30.0) sec Sodium (137-145) mmol/L Potassium (3.5-5.1) mmol/L Chloride (98-107) mmol/L Carbon Dioxide (22-30) mmol/L Anion Gap mmol/L BUN (7-17) mg/dL Creatinine (0.52-1.04) mg/dL Est GFR (CKD-EPI)AfAm (>60 ml/min/1.73 sqM) Est GFR (CKD-EPI)NonAf (>60 ml/min/1.73 sqM) Glucose (74-99) mg/dL Calcium (8.4-10.2) mg/dL Magnesium (1.6-2.3) mg/dL Total Bilirubin (0.2-1.3) mg/dL AST (14-36) U/L ALT (9-52) U/L Alkaline Phosphatase (38-126) U/L Total Creatine Kinase (30-135) U/L CK-MB (CK-2) (0.0-2.4) ng/mL CK-MB (CK-2) Rel Index Troponin I (0.000-0.034) ng/mL Total Protein (6.3-8.2) g/dL Albumin (3.5-5.0) g/dL Disposition Clinical Impression: Hypertensive urgency Disposition: ADMITTED IP TO THIS HOSP Referrals: Jae Martinez MD [Primary Care Provider] - 1-2 days Time of Disposition: 16:22
[2017-12-07 14:50] LABS: Basophils % (A) 0 %; Eosinophils # (A) 0.1 k/uL (0-0.7); Eosinophils % (A) 2 %; HGB 11.2 gm/dL (11.4-16.0); Lymphocytes # (A) 1.6 k/uL (1.0-4.8); Lymphocytes % (A) 26 %; MCH 27.1 pg (25.0-35.0); MCHC 32.8 g/dL (31.0-37.0); MCV 82.5 fL (80.0-100.0); Mean Platelet Volume 6.5; Monocytes # (A) 0.4 k/uL (0-1.0); Monocytes % (A) 7 %; Neutrophils % (A) 64 %; Platelet Count 394 k/uL (150-450); RBC 4.12 m/uL (3.80-5.40); RDW 14.8 % (11.5-15.5); WBC 6.2 k/uL (3.8-10.6)
[2017-12-07 14:58] LABS: INR 1.1 (<1.2); Partial Thromboplastin Time 23.7 sec (22.0-30.0); Prothrombin Time 10.3 sec (9.0-12.0)
[2017-12-07 14:59] LABS: ALT 23 U/L (9-52); AST 24 U/L (14-36); Albumin 4.3 g/dL (3.5-5.0); Alkaline Phosphatase 78 U/L (38-126); Anion Gap 15 mmol/L; Blood Urea Nitrogen 11 mg/dL (7-17); Calcium 9.8 mg/dL (8.4-10.2); Carbon Dioxide 27 mmol/L (22-30); Chloride 95 mmol/L (98-107); Glucose 109 mg/dL (74-99); Magnesium 1.4 mg/dL (1.6-2.3); Potassium 3.6 mmol/L (3.5-5.1); Sodium 137 mmol/L (137-145); Total Bilirubin 0.4 mg/dL (0.2-1.3); Total Protein 6.9 g/dL (6.3-8.2)
[2017-12-07 15:08] LABS: Creatine Kinase 226 U/L (30-135)
--- NOTE | 2017-12-07 15:15 | XR ---
EXAMINATION TYPE: XR chest 2V DATE OF EXAM: 12/07/2017 COMPARISON: Chest x-ray October 15, 2017. HISTORY: Chest pain and fever. TECHNIQUE: Frontal and lateral views of the chest are obtained. FINDINGS: There is chronic parenchymal change without suspicious focal air space opacity, pleural ef fusion, or pneumothorax seen. The cardiac silhouette size is within normal limits with atherosclerot ic change in the aortic knob. Underlying scoliosis in the lumbar spine is present. Cholecystectomy cl ips are noted. Eventration of right hemidiaphragm is seen. IMPRESSION: Chronic parenchymal changes without suspicious acute infiltrate.
[2017-12-07] MEDS ORDERED: MAGNESIUM SULFATE-D5W PMX 1 GM in DEXTROSE/WATER 1 100ML.BAG IVPB ONE (15:31)
[2017-12-07 15:40] LABS: Troponin I <0.012 ng/mL (0.000-0.034)
[2017-12-07 15:41] LABS: Creatine Kinase MB 3.2 ng/mL (0.0-2.4)
[2017-12-07] MEDS ORDERED: hydrALAZINE HCL 20 MG/ML 1 ML VIAL IVP STA (16:06)
[2017-12-07] MEDS ORDERED: SODIUM CHLORIDE 0.9% 1,000 ML IV ONE (16:22)
[2017-12-07] MEDS: CARVEDILOL 12.5 MG TAB PO SCH (19:04)
[2017-12-07] MEDS: HYDROcodone/APAP 10-325MG 1 EACH TAB PO PRN ×2 (19:47→22:52)
[2017-12-07] MEDS: ALPRAZolam 0.25 MG TAB PO SCH (19:48)
[2017-12-07 20:48] LABS: Glucose,Whole Blood 175 mg/dL (75-99)
[2017-12-07] MEDS ORDERED: hydrALAZINE HCL 20 MG/ML 1 ML VIAL IVP PRN (21:05)
[2017-12-07] MEDS ORDERED: LISINOPRIL 20 MG TAB PO STA (21:06)
[2017-12-07] MEDS: INSULIN ASPART 100 UNIT/ML 1 ML 10 ML VIAL SQ SCH (21:24)
[2017-12-07] MEDS ORDERED: HYDROcodone/APAP 10-325MG 1 EACH TAB PO ONE (22:15)
[2017-12-07] MEDS: LATANOPROST 0.005% OPHTH DROPS 2.5 ML BTL BOTH EYES SCH (23:25)
[2017-12-08] MEDS: CARVEDILOL 12.5 MG TAB PO SCH ×2 (04:46→17:18)
[2017-12-08 05:32] LABS: Hemoglobin A1C 6.4 % (4.0-6.0)
[2017-12-08 05:42] LABS: Glucose,Whole Blood 174 mg/dL (75-99)
[2017-12-08] MEDS: INSULIN ASPART 100 UNIT/ML 1 ML 10 ML VIAL SQ SCH ×4 (06:03→21:15)
[2017-12-08] MEDS ORDERED: FUROSEMIDE 20 MG TAB PO SCH (09:00)
[2017-12-08] MEDS: LISINOPRIL 20 MG TAB PO SCH (09:50)
[2017-12-08] MEDS: EZETIMIBE 10 MG TAB PO SCH (09:50)
[2017-12-08] MEDS: CLOPIDOGREL 75 MG TAB PO SCH (09:50)
[2017-12-08] MEDS: ALPRAZolam 0.25 MG TAB PO SCH ×2 (09:52→21:15)
[2017-12-08 11:15] LABS: HCT 33.5 % (34.0-46.0); HGB 11.2 gm/dL (11.4-16.0); MCHC 33.4 g/dL (31.0-37.0); MCV 83.8 fL (80.0-100.0); Mean Platelet Volume 6.7; Platelet Count 394 k/uL (150-450); RDW 15.3 % (11.5-15.5); WBC 5.4 k/uL (3.8-10.6)
[2017-12-08 11:25] LABS: ALT 27 U/L (9-52); AST 20 U/L (14-36); Albumin 4.1 g/dL (3.5-5.0); Alkaline Phosphatase 82 U/L (38-126); Anion Gap 11 mmol/L; Blood Urea Nitrogen 12 mg/dL (7-17); Calcium 10.1 mg/dL (8.4-10.2); Carbon Dioxide 30 mmol/L (22-30); Chloride 98 mmol/L (98-107); Glucose 138 mg/dL (74-99); Magnesium 1.7 mg/dL (1.6-2.3); Potassium 3.8 mmol/L (3.5-5.1); Sodium 139 mmol/L (137-145); Total Bilirubin 0.6 mg/dL (0.2-1.3); Total Protein 6.8 g/dL (6.3-8.2)
[2017-12-08 11:53] LABS: Glucose,Whole Blood 147 mg/dL (75-99)
[2017-12-08] MEDS ORDERED: cloNIDine HCL 0.1 MG TAB PO SCH (12:15)
--- NOTE | 2017-12-08 12:16 | P.HPIM ---
History of Present Illness H&P Date: 12/08/17 Chief Complaint: Elevated blood pressure This is a 67-year-old female with very complex past medical history noted below presented to the emergency room with elevated blood pressure. Patient's is usually maintained on multiple hypertension medications at home. Patient said that 2 weeks ago she stopped taking her hydralazine. She was describing nonspecific complaint of epigastric discomfort and indigestion that she was attributing to taking hydralazine. She said that she decided to stop the medicine. For the past few days she noted that her blood pressure is been going up gradually. Yesterday she noted that her systolic blood pressure at home was greater than 200. She presented to the emergency room for further evaluation. She did not have any significant headache, no vision change or dizziness. No other complaints. She was evaluated in the emergency room and was found to be in hypertensive urgency. She received multiple doses of IV labetalol and hydralazine and is currently admitted to the hospital for further evaluation. Yesterday patient received another dose of IV hydralazine for elevated blood pressure and again is described nonspecific adverse effect that she described as a flushing sensation with feeling that her throat was closing up on her. There was no documentation of any clinical evidence of ALLERGIC reaction otherwise. Review of Systems Review of system: 14 points review of systems were obtained and were negative except to what were mentioned in the HPI. Past Medical History Past Medical History: Chest Pain / Angina, CVA/TIA, Diabetes Mellitus, Fibromyalgia, GERD/Reflux, Hyperlipidemia, Hypertension, Memory Impairment, Myocardial Infarction ([place]), Osteoarthritis (OA), Rheumatoid Arthritis (RA) Additional Past Medical History / Comment(s): rt side dominant. neuropathy both feet and hands, glaucoma, connective tissue dysfunction, peptic ulcer disease, "bad" hiatal hernia, stroke x3-loss of short term memory, chest pain "last year ", occ irregular heart beat, hx ulcers, hx carpal tunnel syndrome. Last Myocardial Infarction Date:: 1988 History of Any Multi-Drug Resistant Organisms: None Reported Past Surgical History: Bladder Surgery, Cholecystectomy, Hysterectomy, Tubal Ligation Additional Past Surgical History / Comment(s): rhinoplasty, hand surgery bilateral-carpal tunel , states sling for rectal prolapse.thalia, rt foot-failed bunionectomy-has a metal romelia in foot Past Anesthesia/Blood Transfusion Reactions: Motion Sickness Smoking Status: Never smoker - Past Family History Father Family Medical History: CVA/TIA, Liver Disease, Myocardial Infarction ([place]) Additional Family Medical History / Comment(s): alcoholic, cirrhosis of the liver, Mother Family Medical History: Cancer Medications and Allergies Home Medications Medication Instructions Recorded Confirmed Type HYDROcodone/APAP 10-325MG [[place] 1 tab PO TID PRN 10/10/14 12/07/17 History 10-325] metFORMIN HCL 1,000 mg PO BID-W/MEALS 10/10/14 12/07/17 History Ezetimibe [Zetia] 10 mg PO DAILY 09/21/16 12/07/17 History Insulin Regular, Human [NovoLIN R] See Protocol SQ BID-W/MEALS 09/21/16 History ALPRAZolam [Xanax] 0.125 mg PO BID 04/26/17 12/07/17 History Sertraline HCl [Zoloft] 50 mg PO DAILY 04/26/17 12/07/17 History Clopidogrel [Plavix] 75 mg PO DAILY #30 tab 04/29/17 12/07/17 Rx Lisinopril 40 mg PO DAILY #30 tab 04/29/17 12/07/17 Rx Carvedilol [Coreg] 25 mg PO BID 09/07/17 12/07/17 History Furosemide [Lasix] 20 mg PO DAILY #30 tab 10/21/17 12/07/17 Rx Potassium Chloride ER [K-Dur 10] 10 meq PO DAILY #30 tab 10/21/17 12/07/17 Rx Insulin Degludec [Tresiba 25 unit SQ DAILY 12/07/17 12/07/17 History Flextouch U-100] Insulin Regular, Human [NovoLIN R] 10 unit SQ AC-BID 12/07/17 12/07/17 History Latanoprost Ophth [Xalatan 0.005%] 1 drop BOTH EYES HS 12/07/17 12/07/17 History Omeprazole 20 mg PO DAILY 12/07/17 12/07/17 History Allergies Allergy/AdvReac Type Severity Reaction Status Date / Time bee venom protein (honey bee) Allergy Anaphylaxis Verified 12/07/17 15:18 epinephrine Allergy Anaphylaxis Verified 12/07/17 15:18 influenza virus vaccine, Allergy Rash/Hives Verified 12/07/17 15:18 specific iodine Allergy Rash/Hives Verified 12/07/17 15:18 latex Allergy Rash/Hives Verified 12/07/17 15:18 procaine HCl [From Novocain] Allergy Anaphylaxis Verified 12/07/17 15:18 Sulfa (Sulfonamide Allergy Rash/Hives Verified 12/07/17 15:18 Antibiotics) amlodipine [From Norvasc] AdvReac Diarrhea,abdominal Verified 12/07/17 15:18 pain cephalexin monohydrate AdvReac Nausea & Verified 12/07/17 15:18 [From Keflex] Vomiting & Diarrhea codeine AdvReac Nausea & Verified 12/07/17 15:18 Vomiting cortisone AdvReac Nausea & Verified 12/07/17 15:18 Vomiting/Vertigo methadone AdvReac Nausea & Verified 12/07/17 15:18 Vomiting & Diarrhea propoxyphene AdvReac Nausea & Verified 12/07/17 15:18 [From Darvocet-N] Vomiting Gdlacoz-Hgt-Qgu Reductase AdvReac Nausea & Verified 12/07/17 15:18 Inhibitor Vomiting/Muscle Weakness cortisone AdvReac Unknown Uncoded 12/07/17 15:18 steroids AdvReac Nausea & Uncoded 12/07/17 14:05 Vomiting Physical Exam Vitals: Vital Signs Temp Pulse Pulse Resp BP BP BP 12/08/17 11:14 80 18 12/08/17 11:13 98.3 F 80 18 197/90 182/71 12/08/17 09:03 12/08/17 07:56 98.3 F 81 18 186/80 12/08/17 06:00 71 133/70 12/08/17 04:00 97.8 F 81 18 200/88 12/08/17 00:00 18 12/07/17 22:50 75 18 177/83 12/07/17 21:21 157/78 12/07/17 19:49 18 12/07/17 19:46 98.9 F 87 18 182/86 12/07/17 18:45 99 F 93 17 186/85 12/07/17 17:44 93 18 159/77 12/07/17 17:15 78 20 168/71 12/07/17 16:43 73 18 160/77 12/07/17 16:22 179/92 12/07/17 15:40 70 20 192/111 12/07/17 15:10 80 18 215/104 12/07/17 14:40 71 16 219/106 12/07/17 14:00 99.7 F H 78 18 226/103 Pulse Ox 12/08/17 11:14 12/08/17 11:13 98 12/08/17 09:03 96 12/08/17 07:56 96 12/08/17 06:00 12/08/17 04:00 97 12/08/17 00:00 12/07/17 22:50 95 12/07/17 21:21 12/07/17 19:49 12/07/17 19:46 96 12/07/17 18:45 95 12/07/17 17:44 94 L 12/07/17 17:15 98 12/07/17 16:43 98 12/07/17 16:22 12/07/17 15:40 98 12/07/17 15:10 98 12/07/17 14:40 97 12/07/17 14:00 97 Intake and Output 12/07/17 12/08/17 12/08/17 22:59 06:59 14:59 Intake Total 240 Output Total 1 325 Balance - Intake: Oral 240 Output: Urine 1 325 Other: Voiding Method Toilet # Voids 2 1 Weight 62.9 kg General: The patient is awake and alert, in no distress Eye: there is normal conjunctiva bilaterally. Neck: The neck is supple, there is no JVD. Cardiovascular: Normal S1-S2, no S3-S4, no murmurs. Respiratory: Lungs clear to auscultation bilaterally Gastrointestinal: Abdomen is soft, nontender Musculoskeletal: There is no pedal edema. Neurological:. Speech is normal. Skin: Skin is warm and dry Results CBC & Chem 7: 12/08/17 10:45 12/08/17 10:45 Labs: Abnormal Lab Results - Last 24 Hours (Table) 12/07/17 12/07/17 12/07/17 Range/Units 14:30 14:30 14:30 Hgb 11.2 L (11.4-16.0) gm/dL Hct (34.0-46.0) % Chloride 95 L (98-107) mmol/L Creatinine 0.49 L (0.52-1.04) mg/dL Glucose 109 H (74-99) mg/dL POC Glucose (mg/dL) (75-99) mg/dL Hemoglobin A1c (4.0-6.0) % Magnesium 1.4 L (1.6-2.3) mg/dL Total Creatine Kinase 226 H (30-135) U/L CK-MB (CK-2) 3.2 H* (0.0-2.4) ng/mL 12/07/17 12/07/17 12/08/17 Range/Units 14:30 20:47 05:27 Hgb (11.4-16.0) gm/dL Hct (34.0-46.0) % Chloride (98-107) mmol/L Creatinine (0.52-1.04) mg/dL Glucose (74-99) mg/dL POC Glucose (mg/dL) 175 H 174 H (75-99) mg/dL Hemoglobin A1c 6.4 H (4.0-6.0) % Magnesium (1.6-2.3) mg/dL Total Creatine Kinase (30-135) U/L CK-MB (CK-2) (0.0-2.4) ng/mL 12/08/17 12/08/17 12/08/17 Range/Units 10:45 10:45 11:50 Hgb 11.2 L (11.4-16.0) gm/dL Hct 33.5 L (34.0-46.0) % Chloride (98-107) mmol/L Creatinine (0.52-1.04) mg/dL Glucose 138 H (74-99) mg/dL POC Glucose (mg/dL) 147 H (75-99) mg/dL Hemoglobin A1c (4.0-6.0) % Magnesium (1.6-2.3) mg/dL Total Creatine Kinase (30-135) U/L CK-MB (CK-2) (0.0-2.4) ng/mL Thrombosis Risk Factor Assmnt - Choose All That Apply Any of the Below Risk Factors Present?: Yes Other Risk Factors: Yes Each Risk Factor Represents 2 Points: Age 61-74 years Thrombosis Risk Factor Assessment Total Risk Factor Score: 2 Thrombosis Risk Factor Assessment Level: Low Risk Assessment and Plan Assessment: 1. Hypertensive urgency: Most likely related to medication noncompliance. Patient was counseled extensively. She is currently maintained on Coreg 25 mg twice daily, Lasix 20 mg daily, and lisinopril 40 mg daily. Patient said that she is unable to tolerate hydralazine. I would add clonidine 0.1 mg 3 times a day to her regimen. 2. Recent lacunar infarct involving the left globus pallidus, left putamen, and left will radiata. She is maintained on Plavix daily. Please THALIA showed no intracardiac source for stroke. 3. History of subacute left thalamic lacunar infarct 4. Prior stroke/CVA with residual right-sided hemiparesis 5. Type 2 diabetes mellitus, well controlled 6. Mixed hyperlipidemia, not well controlled. Patient is intolerant to statin. She is maintained on Zetia daily.
[2017-12-08] MEDS: INSULIN DETEMIR 100 UNIT/ML 10 ML VIAL SQ SCH (13:09)
--- NOTE | 2017-12-08 14:53 | P.CRDCN ---
History of Present Illness Consult date: 12/08/17 Requesting physician: Jae Martinez Consult reason: hypertension Chief complaint: Hypertension History of present illness: This is a 67-year-old female who follows with Dr. Luciano in the office. She has known history of hypertension, diabetes, prior CVA, presented to the hospital with accelerated hypertension. Apparently the patient had stopped taking her hydralazine quite some time ago, she states that it made her tired and sleepy. Patient has several sensitivities to medications, she also states that Dr. Luciano has had her on Norvasc in the past which she states gave her significant epigastric burning for which reason she discontinued that. She is presenting to the hospital with significantly elevated blood pressure. On admission here the blood pressure was 226/103, heart rate in the 70s, 97% on room air. Low-grade temperature of 99.7. Let pressure this morning 197/90, heart rate in the 80s, 98% on room air. Pressures were checked in both arms, the opposite arm was 182/70. White blood cell count 5.4, hemoglobin 11.2, platelet count 394. Sodium 139, potassium 3.8, BUN 12, creatinine 0.5. Troponin 0.012. Magnesium on admission 1.4, this was replaced and was 1.7 this morning. Chest x-ray shows chronic parenchymal changes without suspicious acute infiltrate. EKG shows a normal sinus rhythm with no acute changes. We will increase the Catapres to 0.2 mg, add Aldactazide to the medication regime. Discontinue Lasix and potassium. Past Medical History Past Medical History: Chest Pain / Angina, CVA/TIA, Diabetes Mellitus, Fibromyalgia, GERD/Reflux, Hyperlipidemia, Hypertension, Memory Impairment, Myocardial Infarction ([place]), Osteoarthritis (OA), Rheumatoid Arthritis (RA) Additional Past Medical History / Comment(s): rt side dominant. neuropathy both feet and hands, glaucoma, connective tissue dysfunction, peptic ulcer disease, "bad" hiatal hernia, stroke x3-loss of short term memory, chest pain "last year ", occ irregular heart beat, hx ulcers, hx carpal tunnel syndrome. Last Myocardial Infarction Date:: 1988 History of Any Multi-Drug Resistant Organisms: None Reported Past Surgical History: Bladder Surgery, Cholecystectomy, Hysterectomy, Tubal Ligation Additional Past Surgical History / Comment(s): rhinoplasty, hand surgery bilateral-carpal tunel , states sling for rectal prolapse.thalia, rt foot-failed bunionectomy-has a metal romelia in foot Past Anesthesia/Blood Transfusion Reactions: Motion Sickness Smoking Status: Never smoker - Past Family History Father Family Medical History: CVA/TIA, Liver Disease, Myocardial Infarction ([place]) Additional Family Medical History / Comment(s): alcoholic, cirrhosis of the liver, Mother Family Medical History: Cancer Medications and Allergies Home Medications Medication Instructions Recorded Confirmed Type HYDROcodone/APAP 10-325MG [[place] 1 tab PO TID PRN 10/10/14 12/07/17 History 10-325] metFORMIN HCL 1,000 mg PO BID-W/MEALS 10/10/14 12/07/17 History Ezetimibe [Zetia] 10 mg PO DAILY 09/21/16 12/07/17 History Insulin Regular, Human [NovoLIN R] See Protocol SQ BID-W/MEALS 09/21/16 History ALPRAZolam [Xanax] 0.125 mg PO BID 04/26/17 12/07/17 History Sertraline HCl [Zoloft] 50 mg PO DAILY 04/26/17 12/07/17 History Clopidogrel [Plavix] 75 mg PO DAILY #30 tab 04/29/17 12/07/17 Rx Lisinopril 40 mg PO DAILY #30 tab 04/29/17 12/07/17 Rx Carvedilol [Coreg] 25 mg PO BID 09/07/17 12/07/17 History Furosemide [Lasix] 20 mg PO DAILY #30 tab 10/21/17 12/07/17 Rx Potassium Chloride ER [K-Dur 10] 10 meq PO DAILY #30 tab 10/21/17 12/07/17 Rx Insulin Degludec [Tresiba 25 unit SQ DAILY 12/07/17 12/07/17 History Flextouch U-100] Insulin Regular, Human [NovoLIN R] 10 unit SQ AC-BID 12/07/17 12/07/17 History Latanoprost Ophth [Xalatan 0.005%] 1 drop BOTH EYES HS 12/07/17 12/07/17 History Omeprazole 20 mg PO DAILY 12/07/17 12/07/17 History Allergies Allergy/AdvReac Type Severity Reaction Status Date / Time bee venom protein (honey bee) Allergy Anaphylaxis Verified 12/07/17 15:18 epinephrine Allergy Anaphylaxis Verified 12/07/17 15:18 influenza virus vaccine, Allergy Rash/Hives Verified 12/07/17 15:18 specific iodine Allergy Rash/Hives Verified 12/07/17 15:18 latex Allergy Rash/Hives Verified 12/07/17 15:18 procaine HCl [From Novocain] Allergy Anaphylaxis Verified 12/07/17 15:18 Sulfa (Sulfonamide Allergy Rash/Hives Verified 12/07/17 15:18 Antibiotics) amlodipine [From Norvasc] AdvReac Diarrhea,abdominal Verified 12/07/17 15:18 pain cephalexin monohydrate AdvReac Nausea & Verified 12/07/17 15:18 [From Keflex] Vomiting & Diarrhea codeine AdvReac Nausea & Verified 12/07/17 15:18 Vomiting cortisone AdvReac Nausea & Verified 12/07/17 15:18 Vomiting/Vertigo methadone AdvReac Nausea & Verified 12/07/17 15:18 Vomiting & Diarrhea propoxyphene AdvReac Nausea & Verified 12/07/17 15:18 [From Darvocet-N] Vomiting Xuklmiy-Skx-Nsi Reductase AdvReac Nausea & Verified 12/07/17 15:18 Inhibitor Vomiting/Muscle Weakness cortisone AdvReac Unknown Uncoded 12/07/17 15:18 steroids AdvReac Nausea & Uncoded 12/07/17 14:05 Vomiting Physical Exam Vitals: Vital Signs Temp Pulse Pulse Resp BP BP BP 12/08/17 11:14 80 18 12/08/17 11:13 98.3 F 80 18 197/90 182/71 12/08/17 09:03 12/08/17 07:56 98.3 F 81 18 186/80 12/08/17 06:00 71 133/70 12/08/17 04:00 97.8 F 81 18 200/88 12/08/17 00:00 18 12/07/17 22:50 75 18 177/83 12/07/17 21:21 157/78 12/07/17 19:49 18 12/07/17 19:46 98.9 F 87 18 182/86 12/07/17 18:45 99 F 93 17 186/85 12/07/17 17:44 93 18 159/77 05/07/18 17:15 78 20 168/71 05/07/18 16:43 73 18 160/77 12/07/17 16:22 179/92 12/07/17 15:40 70 20 192/111 12/07/17 15:10 80 18 215/104 12/07/17 14:40 71 16 219/106 12/07/17 14:00 99.7 F H 78 18 226/103 Pulse Ox 12/08/17 11:14 12/08/17 11:13 98 12/08/17 09:03 96 12/08/17 07:56 96 12/08/17 06:00 12/08/17 04:00 97 12/08/17 00:00 12/07/17 22:50 95 12/07/17 21:21 12/07/17 19:49 12/07/17 19:46 96 12/07/17 18:45 95 12/07/17 17:44 94 L 12/07/17 17:15 98 12/07/17 16:43 98 12/07/17 16:22 12/07/17 15:40 98 12/07/17 15:10 98 12/07/17 14:40 97 12/07/17 14:00 97 Intake and Output 12/07/17 12/08/17 12/08/17 22:59 06:59 14:59 Intake Total 480 Output Total 1 325 Balance -1 155 Intake: Oral 480 Output: Urine 1 325 Other: Voiding Method Toilet # Voids 2 1 Weight 62.9 kg PHYSICAL EXAMINATION: HEENT: Head is atraumatic, normocephalic. Pupils equal, round. Neck is supple. There is no elevated jugular venous pressure. HEART EXAMINATION: Heart S1, S2 normal. No murmur or gallop heard. CHEST EXAMINATION: Lungs are clear to auscultation and precussion. No chest wall tenderness is noted on palpation or with deep breathing. ABDOMEN: Soft, nontender. Bowel sounds are heard. No organomegaly noted. EXTREMITIES: 2+ peripheral pulses with no evidence of peripheral edema and no calf tenderness noted. NEUROLOGIC patient is awake, alert and oriented -3. . Results 12/08/17 10:45 12/08/17 10:45 Cardiac Enzymes 12/07/17 12/07/17 12/08/17 Range/Units 14:30 14:30 10:45 AST 24 20 (14-36) U/L CK-MB (CK-2) 3.2 H* (0.0-2.4) ng/mL Troponin I <0.012 (0.000-0.034) ng/mL Coagulation 12/07/17 Range/Units 14:30 PT 10.3 (9.0-12.0) sec APTT 23.7 (22.0-30.0) sec CBC 12/07/17 12/08/17 Range/Units 14:30 10:45 WBC 6.2 5.4 (3.8-10.6) k/uL RBC 4.12 4.00 (3.80-5.40) m/uL Hgb 11.2 L 11.2 L (11.4-16.0) gm/dL Hct 34.0 33.5 L (34.0-46.0) % Plt Count 394 394 (150-450) k/uL Comprehensive Metabolic Panel 12/07/17 12/08/17 Range/Units 14:30 10:45 Sodium 137 139 (137-145) mmol/L Potassium 3.6 3.8 (3.5-5.1) mmol/L Chloride 95 L 98 (98-107) mmol/L Carbon Dioxide 27 30 (22-30) mmol/L BUN 11 12 (7-17) mg/dL Creatinine 0.49 L 0.52 (0.52-1.04) mg/dL Glucose 109 H 138 H (74-99) mg/dL Calcium 9.8 10.1 (8.4-10.2) mg/dL AST 24 20 (14-36) U/L ALT 23 27 (9-52) U/L Alkaline Phosphatase 78 82 (38-126) U/L Total Protein 6.9 6.8 (6.3-8.2) g/dL Albumin 4.3 4.1 (3.5-5.0) g/dL Current Medications Generic Name Dose Route Start Last Admin Trade Name Freq PRN Reason Stop Dose Admin Hydrocodone Bitart/Acetaminophen 1 each 12/07/17 19:08 12/07/17 19:47 [place] 10 PO 1 each TID PRN Administration Pain Alprazolam 0.125 mg 12/07/17 21:00 12/08/17 09:52 Xanax PO 0.125 mg BID BILLY Administration Carvedilol 25 mg 12/07/17 17:30 12/08/17 04:46 Coreg PO 25 mg AC-BID BILLY Administration Clonidine 0.1 mg 12/08/17 12:15 12/08/17 13:09 Catapres PO 0.1 mg TID BILLY Administration Clopidogrel Bisulfate 75 mg 12/08/17 09:00 12/08/17 09:50 Plavix PO 75 mg DAILY BILLY Administration Ezetimibe 10 mg 12/08/17 09:00 12/08/17 09:50 Zetia PO 10 mg DAILY BILLY Administration Furosemide 20 mg 12/08/17 09:00 12/08/17 09:50 Lasix PO 20 mg DAILY BILLY Administration Insulin Aspart 0 unit 12/07/17 21:00 12/08/17 12:11 Novolog SQ 1 unit ACHS BILLY Administration Protocol Insulin Detemir 25 unit 12/08/17 12:30 12/08/17 13:09 Levemir SQ 25 unit DAILY BILLY Administration Latanoprost 1 drops 12/07/17 22:15 12/07/17 23:25 Xalatan 0.005% BOTH EYES 1 drops HS BILLY Administration Lisinopril 40 mg 12/08/17 09:00 12/08/17 09:50 Zestril PO 40 mg DAILY BILLY Administration Pantoprazole Sodium 40 mg 12/09/17 07:30 Protonix PO AC-BRKFST BILLY Potassium Chloride 10 meq 12/09/17 09:00 K-Dur 10 PO DAILY BILLY Sertraline HCl 50 mg 12/09/17 09:00 Zoloft PO DAILY [facility] Intake and Output 12/07/17 12/08/17 12/08/17 22:59 06:59 14:59 Intake Total 480 Output Total 1 325 Balance -1 155 Intake: Oral 480 Output: Urine 1 325 Other: Voiding Method Toilet # Voids 2 1 Weight 62.9 kg 12/08/17 10:45 12/08/17 10:45 EKG Interpretations (text) EKG shows normal sinus rhythm with no acute changes. Assessment and Plan Plan: Assessment and plan #1 hypertensive urgency, patient doesn't have a history of noncompliance with medications because they don't make her feel well. He has been encouraged strongly regarding not stopping medications unless she speaks with her physician. #2 recent listener infarct, THALIA performed at that time did not reveal any cardiac source for CVA. #3 diabetes #4 hypertension #5 hyperlipidemia, not well controlled, patient is intolerant to statins, she does take Zetia. Plan We will order an echocardiogram with Doppler study to be performed. We will increase the Catapres to 0.2 mg 3 times a day. Add Aldactazide to the medication regime discontinue Lasix and potassium. Continue to monitor blood pressure. DNP note has been reviewed, I agree with a documented findings and plan of care. Patient was seen and examined.
[2017-12-08] MEDS: cloNIDine HCL 0.2 MG TAB PO SCH ×2 (15:10→21:10)
[2017-12-08] MEDS: SPIRONOLACTONE-HCTZ 25-25MG 1 EACH TAB PO SCH (15:10)
[2017-12-08] MEDS: HYDROcodone/APAP 10-325MG 1 EACH TAB PO PRN (15:30)
[2017-12-08 16:30] LABS: Glucose,Whole Blood 190 mg/dL (75-99)
[2017-12-08 20:49] LABS: Glucose,Whole Blood 161 mg/dL (75-99)
[2017-12-08] MEDS ORDERED: hydrALAZINE HCL 25 MG TAB PO SCH (21:00)
[2017-12-08] MEDS: LATANOPROST 0.005% OPHTH DROPS 2.5 ML BTL BOTH EYES SCH (21:15)
[2017-12-09] MEDS: HYDROcodone/APAP 10-325MG 1 EACH TAB PO PRN ×2 (02:03→11:36)
[2017-12-09 06:18] LABS: Glucose,Whole Blood 127 mg/dL (75-99)
[2017-12-09] MEDS: CARVEDILOL 12.5 MG TAB PO SCH ×2 (06:18→16:18)
[2017-12-09] MEDS: INSULIN ASPART 100 UNIT/ML 1 ML 10 ML VIAL SQ SCH ×3 (06:50→16:18)
[2017-12-09 06:57] LABS: Basophils % (A) 1 %; Eosinophils # (A) 0.2 k/uL (0-0.7); Eosinophils % (A) 3 %; HCT 34.5 % (34.0-46.0); HGB 11.2 gm/dL (11.4-16.0); Lymphocytes # (A) 2.5 k/uL (1.0-4.8); Lymphocytes % (A) 39 %; MCH 27.2 pg (25.0-35.0); MCHC 32.5 g/dL (31.0-37.0); MCV 83.6 fL (80.0-100.0); Mean Platelet Volume 6.3; Monocytes # (A) 0.4 k/uL (0-1.0); Monocytes % (A) 7 %; Neutrophils % (A) 47 %; Platelet Count 410 k/uL (150-450); RBC 4.12 m/uL (3.80-5.40); RDW 14.9 % (11.5-15.5); WBC 6.4 k/uL (3.8-10.6)
[2017-12-09 07:19] LABS: Anion Gap 12 mmol/L; Blood Urea Nitrogen 18 mg/dL (7-17); Calcium 9.6 mg/dL (8.4-10.2); Carbon Dioxide 29 mmol/L (22-30); Chloride 95 mmol/L (98-107); Glucose 124 mg/dL (74-99); Potassium 3.4 mmol/L (3.5-5.1); Sodium 136 mmol/L (137-145)
[2017-12-09] MEDS ORDERED: PANTOPRAZOLE 40 MG TABLET PO SCH (07:30)
[2017-12-09] MEDS ORDERED: POTASSIUM CHLORIDE ER 10 MEQ TAB.ER.PRT PO SCH (09:00)
[2017-12-09] MEDS ORDERED: SERTRALINE 50 MG TAB PO SCH (09:00)
[2017-12-09] MEDS: ALPRAZolam 0.25 MG TAB PO SCH (09:12)
[2017-12-09] MEDS: EZETIMIBE 10 MG TAB PO SCH (09:12)
[2017-12-09] MEDS: CLOPIDOGREL 75 MG TAB PO SCH (09:12)
[2017-12-09] MEDS: LISINOPRIL 20 MG TAB PO SCH (09:13)
[2017-12-09] MEDS: cloNIDine HCL 0.2 MG TAB PO SCH ×2 (09:13→16:18)
[2017-12-09] MEDS: INSULIN DETEMIR 100 UNIT/ML 10 ML VIAL SQ SCH (09:13)
--- NOTE | 2017-12-09 09:22 | XR ---
EXAMINATION TYPE: XR chest 2V DATE OF EXAM: 12/09/2017 COMPARISON: 12/07/2017 TECHNIQUE: PA and lateral views submitted. HISTORY: Follow-up abnormal x-ray FINDINGS: The lungs are clear and there is no pneumothorax, pleural effusion, or focal pneumonia. Atheroscler otic change aorta. Surgical clips in the abdomen noted. Mild hypertrophic changes of the spine. IMPRESSION: 1. No acute process.
[2017-12-09] MEDS: SPIRONOLACTONE-HCTZ 25-25MG 1 EACH TAB PO SCH (10:46)
[2017-12-09 11:38] VITALS: PULSE 70; TEMP 96.8
[2017-12-09 11:48] LABS: Glucose,Whole Blood 200 mg/dL (75-99)
--- NOTE | 2017-12-09 12:40 | P.DS ---
Providers Date of admission: 12/07/17 16:23 Expected date of discharge: 12/09/17 Attending physician: Jae Martinez Consults: 12/07/17 16:22 Consult Physician Urgent Consulting Provider: [facility] Consult Reason/Comments: Hypertensive urgency Do you want consulting provider notified?: Yes [facility] Course: 1. Hypertensive urgency: Most likely related to medication noncompliance. Patient was counseled extensively. She is currently maintained on Coreg 25 mg twice daily, Lasix 20 mg daily, and lisinopril 40 mg daily. Patient said that she is unable to tolerate hydralazine. Started on clonidine 0.2 mg 3 times a day 2. Recent lacunar infarct involving the left globus pallidus, left putamen, and left will radiata. She is maintained on Plavix daily. recent ABBEY showed no intracardiac source for stroke. 3. History of subacute left thalamic lacunar infarct 4. Prior stroke/CVA with residual right-sided hemiparesis 5. Type 2 diabetes mellitus, well controlled 6. Mixed hyperlipidemia, not well controlled. Patient is intolerant to statin. She is maintained on Zetia daily. Patient Condition at Discharge: Fair Plan - Discharge Summary Discharge Rx Participant: No New Discharge Prescriptions: New cloNIDine HCL [Catapres] 0.2 mg PO TID #90 tab Continue metFORMIN HCL 1,000 mg PO BID-W/MEALS HYDROcodone/APAP 10-325MG [[place] 10-325] 1 tab PO TID PRN PRN Reason: Pain Insulin Regular, Human [NovoLIN R] See Protocol SQ BID-W/MEALS Ezetimibe [Zetia] 10 mg PO DAILY Sertraline HCl [Zoloft] 50 mg PO DAILY ALPRAZolam [Xanax] 0.125 mg PO BID Clopidogrel [Plavix] 75 mg PO DAILY #30 tab Lisinopril 40 mg PO DAILY #30 tab Carvedilol [Coreg] 25 mg PO BID Furosemide [Lasix] 20 mg PO DAILY #30 tab Potassium Chloride ER [K-Dur 10] 10 meq PO DAILY #30 tab Insulin Degludec [Tresiba Flextouch U-100] 25 unit SQ DAILY Insulin Regular, Human [NovoLIN R] 10 unit SQ AC-BID Omeprazole 20 mg PO DAILY Latanoprost Ophth [Xalatan 0.005%] 1 drop BOTH EYES HS Discharge Medication List HYDROcodone/APAP 10-325MG [[place] 10-325] 1 tab PO TID PRN 10/10/14 [History] metFORMIN HCL 1,000 mg PO BID-W/MEALS 10/10/14 [History] Ezetimibe [Zetia] 10 mg PO DAILY 09/21/16 [History] Insulin Regular, Human [NovoLIN R] See Protocol SQ BID-W/MEALS 09/21/16 [History ] ALPRAZolam [Xanax] 0.125 mg PO BID 04/26/17 [History] Sertraline HCl [Zoloft] 50 mg PO DAILY 04/26/17 [History] Clopidogrel [Plavix] 75 mg PO DAILY #30 tab 04/29/17 [Rx] Lisinopril 40 mg PO DAILY #30 tab 04/29/17 [Rx] Carvedilol [Coreg] 25 mg PO BID 09/07/17 [History] Furosemide [Lasix] 20 mg PO DAILY #30 tab 10/21/17 [Rx] Potassium Chloride ER [K-Dur 10] 10 meq PO DAILY #30 tab 10/21/17 [Rx] Insulin Degludec [Tresiba Flextouch U-100] 25 unit SQ DAILY 12/07/17 [History] Insulin Regular, Human [NovoLIN R] 10 unit SQ AC-BID 12/07/17 [History] Latanoprost Ophth [Xalatan 0.005%] 1 drop BOTH EYES HS 12/07/17 [History] Omeprazole 20 mg PO DAILY 12/07/17 [History] cloNIDine HCL [Catapres] 0.2 mg PO TID #90 tab 12/09/17 [Rx] Follow up Appointment(s)/Referral(s): Jae Martinez MD [Primary Care Provider] - 1 Week Discharge Disposition: HOME SELF-CARE
[2017-12-09] MEDS ORDERED: CHLORTHALIDONE 25 MG TAB PO SCH (13:30)
[2017-12-09] MEDS ORDERED: POTASSIUM CHLORIDE ER 20 MEQ TAB.ER PO STA (13:45)
--- NOTE | 2017-12-09 15:04 | P.PN ---
Subjective Progress Note Date: 12/09/17 This is a 67-year-old female who follows with Dr. Luciano in the office. She has known history of hypertension, diabetes, prior CVA, presented to the hospital with accelerated hypertension. Apparently the patient had stopped taking her hydralazine quite some time ago, she states that it made her tired and sleepy. Patient has several sensitivities to medications, she also states that Dr. uLciano has had her on Norvasc in the past which she states gave her significant epigastric burning for which reason she discontinued that. She is presenting to the hospital with significantly elevated blood pressure. On admission here the blood pressure was 226/103, heart rate in the 70s, 97% on room air. Low-grade temperature of 99.7. Let pressure this morning 197/90, heart rate in the 80s, 98% on room air. Pressures were checked in both arms, the opposite arm was 182/70. White blood cell count 5.4, hemoglobin 11.2, platelet count 394. Sodium 139, potassium 3.8, BUN 12, creatinine 0.5. Troponin 0.012. Magnesium on admission 1.4, this was replaced and was 1.7 this morning. Chest x-ray shows chronic parenchymal changes without suspicious acute infiltrate. EKG shows a normal sinus rhythm with no acute changes. We will increase the Catapres to 0.2 mg, add Aldactazide to the medication regime. Discontinue Lasix and potassium. 12/09/2017 seen and examined this morning, blood pressure under much better control today. Patient states that she is unable to take Aldactazide because it makes her not feel well at all. We will add [place] to her medication regime. Blood pressure today 134/70, heart rate in the 70s. Objective - Vital Signs Vital signs: Vital Signs Temp 96.8 F L 12/09/17 11:37 Pulse 70 12/09/17 11:40 Resp 20 12/09/17 11:40 BP 134/72 12/09/17 11:37 Pulse Ox 96 12/09/17 11:37 Intake & Output 12/08/17 12/09/17 12/09/17 18:59 06:59 18:59 Intake Total 720 480 Output Total 675 400 Balance 45 80 Weight 62.7 kg Intake: Oral 720 480 Output: Urine 675 400 Other: Voiding Method Toilet Toilet Toilet # Voids 1 2 1 # Bowel Movements 3 1 - Exam PHYSICAL EXAMINATION: HEENT: Head is atraumatic, normocephalic. Pupils equal, round. Neck is supple. There is no elevated jugular venous pressure. HEART EXAMINATION: Heart S1, S2 normal. No murmur or gallop heard. CHEST EXAMINATION: Lungs are clear to auscultation and precussion. No chest wall tenderness is noted on palpation or with deep breathing. ABDOMEN: Soft, nontender. Bowel sounds are heard. No organomegaly noted. EXTREMITIES: 2+ peripheral pulses with no evidence of peripheral edema and no calf tenderness noted. NEUROLOGIC patient is awake, alert and oriented -3. - Labs CBC & Chem 7: 12/09/17 06:45 12/09/17 06:45 Labs: Abnormal Lab Results - Last 24 Hours (Table) 12/08/17 12/08/17 12/09/17 Range/Units 16:28 20:48 06:05 Hgb (11.4-16.0) gm/dL Sodium (137-145) mmol/L Potassium (3.5-5.1) mmol/L Chloride (98-107) mmol/L BUN (7-17) mg/dL Glucose (74-99) mg/dL POC Glucose (mg/dL) 190 H 161 H 127 H (75-99) mg/dL 12/09/17 12/09/17 12/09/17 Range/Units 06:45 06:45 11:44 Hgb 11.2 L (11.4-16.0) gm/dL Sodium 136 L (137-145) mmol/L Potassium 3.4 L (3.5-5.1) mmol/L Chloride 95 L (98-107) mmol/L BUN 18 H (7-17) mg/dL Glucose 124 H (74-99) mg/dL POC Glucose (mg/dL) 200 H (75-99) mg/dL Assessment and Plan Plan: Assessment and plan #1 hypertensive urgency, patient doesn't have a history of noncompliance with medications because they don't make her feel well. He has been encouraged strongly regarding not stopping medications unless she speaks with her physician. #2 recent listener infarct, ABBEY performed at that time did not reveal any cardiac source for CVA. #3 diabetes #4 hypertension #5 hyperlipidemia, not well controlled, patient is intolerant to statins, she does take Zetia. Plan From cardiology's perspective, we'll continue current medications, we'll stop the Aldactazide because the patient doesn't feel well on it, at [place] to her medication regime. Continue to monitor blood pressure for the next 24 hours. DNP note has been reviewed, I agree with a documented findings and plan of care. Patient was seen and examined.
[2017-12-09 16:15] VITALS: BP 116/84; RESP 18
== END 2017-12-09 16:05 | disposition home or self-care (01) | DRG 305 ==
LOC: EC 13:51 → 6SEL 16:23
PROVIDERS: ADMIT Internal Medicine; ATTEND Internal Medicine
DX: I16.0 Hypertensive urgency (principal); I69.351 Hemiplegia and hemiparesis following cerebral infarction affecting right dominant side; F41.9 Anxiety disorder, unspecified; F32.9 Major depressive disorder, single episode, unspecified; K21.9 Gastro-esophageal reflux disease without esophagitis; E11.40 Type 2 diabetes mellitus with diabetic neuropathy, unspecified; M06.9 Rheumatoid arthritis, unspecified; E78.2 Mixed hyperlipidemia; H40.9 Unspecified glaucoma; I49.9 Cardiac arrhythmia, unspecified; K44.9 Diaphragmatic hernia without obstruction or gangrene; T50.906A Underdosing of unspecified drugs, medicaments and biological substances, initial encounter; Z79.899 Other long term (current) drug therapy; Z88.5 Allergy status to narcotic agent; Z88.2 Allergy status to sulfonamides; Z88.7 Allergy status to serum and vaccine; Z88.8 Allergy status to other drugs, medicaments and biological substances; Z88.1 Allergy status to other antibiotic agents; Z91.030 Bee allergy status; Z91.040 Latex allergy status; I25.2 Old myocardial infarction; Z90.49 Acquired absence of other specified parts of digestive tract; Z90.710 Acquired absence of both cervix and uterus; Z98.51 Tubal ligation status; Z82.49 Family history of ischemic heart disease and other diseases of the circulatory system; Z79.4 Long term (current) use of insulin; Z87.11 Personal history of peptic ulcer disease; I69.311 Memory deficit following cerebral infarction; Z91.128 Patient's intentional underdosing of medication regimen for other reason; M79.7 Fibromyalgia; M19.90 Unspecified osteoarthritis, unspecified site; Z79.02 Long term (current) use of antithrombotics/antiplatelets
CPT/HCPCS: 36415; 71046; 80048; 80053; 82550; 82553; 83036; 83735; 84484; 85025; 85027; 85610; 85730; 93005; 94760; 96361; 96365; 96375; 96376; 99284

== ENCOUNTER → 2018-01-11 | Outpatient (CLI) | payer MEDICARE, OTHER ==
[2018-01-11 15:46] LABS: Basophils % (A) 1 %; Eosinophils # (A) 0.2 k/uL (0-0.7); Eosinophils % (A) 3 %; HCT 32.6 % (34.0-46.0); HGB 10.4 gm/dL (11.4-16.0); Lymphocytes # (A) 2.2 k/uL (1.0-4.8); Lymphocytes % (A) 37 %; MCH 27.1 pg (25.0-35.0); MCHC 31.9 g/dL (31.0-37.0); MCV 84.7 fL (80.0-100.0); Mean Platelet Volume 6.4; Monocytes # (A) 0.3 k/uL (0-1.0); Monocytes % (A) 6 %; Neutrophils % (A) 51 %; Platelet Count 384 k/uL (150-450); RBC 3.85 m/uL (3.80-5.40); RDW 14.6 % (11.5-15.5); WBC 5.8 k/uL (3.8-10.6)
[2018-01-11 15:53] LABS: ALT 30 U/L (9-52); AST 22 U/L (14-36); Albumin 3.9 g/dL (3.5-5.0); Alkaline Phosphatase 78 U/L (38-126); Anion Gap 10 mmol/L; Blood Urea Nitrogen 13 mg/dL (7-17); Calcium 8.9 mg/dL (8.4-10.2); Carbon Dioxide 32 mmol/L (22-30); Chloride 93 mmol/L (98-107); Glucose 78 mg/dL (74-99); Potassium 3.8 mmol/L (3.5-5.1); Sodium 135 mmol/L (137-145); Total Bilirubin 0.2 mg/dL (0.2-1.3); Total Protein 6.2 g/dL (6.3-8.2)
== END | disposition home or self-care (01) ==
LOC: LABWHC1 15:22
PROVIDERS: ATTEND Nurse Practitioner Acute Care
DX: E55.9 Vitamin D deficiency, unspecified (principal); M13.0 Polyarthritis, unspecified
CPT/HCPCS: 36415; 80053; 85025

== ENCOUNTER 2018-05-25 14:14 | Emergency (ER) | payer MEDICARE, OTHER ==
[2018-05-25 14:57] VITALS: RESP 18
[2018-05-25] MEDS ORDERED: SODIUM CHLORIDE 0.9% 500 ML 500 ML IV STA (15:20)
[2018-05-25] MEDS ORDERED: LABETALOL 5 MG/ML VIAL MDV IVP STA ×2 (15:21→16:32)
--- NOTE | 2018-05-25 15:24 | ED ---
General Adult HPI - General Chief complaint: Recheck/Abnormal Lab/Rx Stated complaint: Hypertensive Time Seen by Provider: 05/25/18 15:07 Source: patient, family, RN notes reviewed Mode of arrival: ambulatory Limitations: no limitations - History of Present Illness Initial comments: Patient 59-year-old female who presents emergency room today with multiple complaints. Patient does admit that she's had elevated blood pressures over the last several weeks gestation been having headaches off and on with this. Patient also admits that she has history of chronic low back pain. States change in her back pain but does feel better she was worried about possible rash. Patient does admit that she's also had some chest discomfort and shortness breath at times over the last 10 days. Patient states that she has been taking her blood pressure medication as prescribed. She did try to follow- up the family doctor but has not returned performed equal. Patient denies any other complaints currently. Patient denies any recent fever, chills, shortness of breath, chest pain, abdominal pain, nausea or vomiting, numbness or tingling , visual changes, or any other complaints. - Related Data Home Medications Medication Instructions Recorded Confirmed HYDROcodone/APAP 10-325MG [[place] 1 tab PO TID PRN 10/10/14 05/25/18 10-325] metFORMIN HCL 1,000 mg PO BID-W/MEALS 10/10/14 05/25/18 Ezetimibe [Zetia] 10 mg PO DAILY 09/21/16 05/25/18 Sertraline HCl [Zoloft] 50 mg PO DAILY 04/26/17 05/25/18 Insulin Degludec [Tresiba 25 unit SQ HS 12/07/17 05/25/18 Flextouch U-100] Latanoprost Ophth [Xalatan 0.005%] 1 drop BOTH EYES HS 12/07/17 05/25/18 Omeprazole 20 mg PO DAILY 12/07/17 05/25/18 ALPRAZolam [Xanax] 0.25 mg PO BID PRN 05/25/18 05/25/18 Furosemide [Lasix] 20 mg PO Q48H 05/25/18 05/25/18 cloNIDine HCL [Catapres] 0.2 mg PO BID 05/25/18 05/25/18 Previous Rx's Medication Instructions Recorded Clopidogrel [Plavix] 75 mg PO DAILY #30 tab 04/29/17 Lisinopril 40 mg PO DAILY #30 tab 04/29/17 Allergies Allergy/AdvReac Type Severity Reaction Status Date / Time bee venom protein (honey bee) Allergy Anaphylaxis Verified 05/25/18 15:06 epinephrine Allergy Anaphylaxis Verified 05/25/18 15:06 influenza virus vaccine, Allergy Rash/Hives Verified 05/25/18 15:06 specific iodine Allergy Rash/Hives Verified 05/25/18 15:06 latex Allergy Rash/Hives Verified 05/25/18 15:06 procaine HCl [From Novocain] Allergy Anaphylaxis Verified 05/25/18 15:06 Sulfa (Sulfonamide Allergy Rash/Hives Verified 05/25/18 15:06 Antibiotics) amlodipine [From Norvasc] AdvReac Diarrhea,abdominal Verified 05/25/18 15:06 pain cephalexin monohydrate AdvReac Nausea & Verified 05/25/18 15:06 [From Keflex] Vomiting & Diarrhea codeine AdvReac Nausea & Verified 05/25/18 15:06 Vomiting cortisone AdvReac Nausea & Verified 05/25/18 15:06 Vomiting/Vertigo methadone AdvReac Nausea & Verified 05/25/18 15:06 Vomiting & Diarrhea propoxyphene AdvReac Nausea & Verified 05/25/18 15:06 [From Darvocet-N] Vomiting Iplvrvk-[id number]-Gfb Reductase AdvReac Nausea & Verified 05/25/18 15:06 Inhibitor Vomiting/Muscle Weakness cortisone AdvReac Unknown Uncoded 05/25/18 14:49 steroids AdvReac Nausea & Uncoded 05/25/18 14:49 Vomiting Review of Systems ROS Statement: Those systems with pertinent positive or pertinent negative responses have been documented in the HPI. ROS Other: All systems not noted in ROS Statement are negative. Past Medical History Past Medical History: Chest Pain / Angina, CVA/TIA, Diabetes Mellitus, Fibromyalgia, GERD/Reflux, Hyperlipidemia, Hypertension, Memory Impairment, Myocardial Infarction (AR), Osteoarthritis (OA), Rheumatoid Arthritis (RA) Additional Past Medical History / Comment(s): rt side dominant. neuropathy both feet and hands, glaucoma, connective tissue dysfunction, peptic ulcer disease, "bad" hiatal hernia, stroke x3-loss of short term memory, chest pain "last year ", occ irregular heart beat, hx ulcers, hx carpal tunnel syndrome. 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 Eye: Pupils are equal, round and reactive to light. Extra-ocular movements are intact. No nystagmus. There is normal conjunctiva bilaterally. No signs of icterus. Ears, nose, mouth and throat: There are moist mucous membranes and no oral lesions. Neck: The neck is supple, there is no tenderness or JVD. Cardiovascular: There is a regular rate and rhythm. No murmur, rub or gallop is appreciated. Respiratory: Lungs are clear to auscultation, respirations are non-labored, breath sounds are equal. No wheezes, stridor, rales, or rhonchi. Gastrointestinal: Soft, non-distended, non-tender abdomen without masses or organomegaly noted. There is no rebound or guarding present. No CVA tenderness. Musculoskeletal: Normal ROM, no tenderness. Sensation intact. Strength 5/5. Pulses equal bilaterally 2+. Neurological: A&O x 3. CN II-XII intact, There are no obvious motor or sensory deficits. Coordination appears grossly intact. Speech is normal. Skin: Skin is warm and dry and no rashes or lesions are noted. Psychiatric: Cooperative, appropriate mood & affect, normal judgment. Limitations: no limitations Course Vital Signs 05/25/18 05/25/18 05/25/18 14:50 15:01 16:03 Temperature 100.3 F H Pulse Rate 70 68 Pulse Rate [ 78 [employer] ] Respiratory 18 18 Rate Blood Pressure 206/119 180/111 O2 Sat by Pulse 98 97 Oximetry 05/25/18 05/25/18 05/25/18 16:50 17:30 18:17 Temperature 99 F Pulse Rate 80 Pulse Rate [ [employer] ] Respiratory 18 Rate Blood Pressure 204/110 209/104 208/118 O2 Sat by Pulse 98 Oximetry 05/25/18 19:02 Temperature Pulse Rate 65 Pulse Rate [ [employer] ] Respiratory 18 Rate Blood Pressure 225/97 O2 Sat by Pulse 97 Oximetry EKG Findings - EKG Comments: EKG Findings:: EKG performed at 1508: Shows normal sinus rhythm at 75 bpm. OK interval 130. QRS 70. QT/QTC 392/437. No acute ST changes. Medical Decision Making - Medical Decision Making Patient reexamined at this time shows no signs of distress. Resting comfortably. She does admit that this blood pressure is been elevated for the past 2 weeks. She states there are no new symptoms today with elevated blood pressure. Patient's blood pressures remained elevated here in the emergency room currently 197/118. Was given several doses of blood pressure medication. She did not want repeat labetalol she states she felt that it made her nose stuffy. At this time was discussed with the patient about admission to the hospital. She does not want to be admitted to the hospital. Was recommended to her. She'll be discharged home advised to take her clonidine when she gets home to follow-up the family doctor tomorrow. Patient states understanding and is in agreement. She states she will return if symptoms increase or worsen. - Lab Data Result diagrams: 05/25/18 15:05 05/25/18 15:05 Lab Results 05/25/18 05/25/18 05/25/18 Range/Units 15:05 15:05 15:05 WBC 6.9 (3.8-10.6) k/uL RBC 4.14 (3.80-5.40) m/uL Hgb 11.3 L (11.4-16.0) gm/dL Hct 34.9 (34.0-46.0) % MCV 84.4 (80.0-100.0) fL MCH 27.3 (25.0-35.0) pg MCHC 32.4 (31.0-37.0) g/dL RDW 15.5 (11.5-15.5) % Plt Count 397 (150-450) k/uL Neutrophils % 63 % Lymphocytes % 26 % Monocytes % 6 % Eosinophils % 3 % Basophils % 1 % Neutrophils # 4.4 (1.3-7.7) k/uL Lymphocytes # 1.8 (1.0-4.8) k/uL Monocytes # 0.4 (0-1.0) k/uL Eosinophils # 0.2 (0-0.7) k/uL Basophils # 0.0 (0-0.2) k/uL PT (9.0-12.0) sec INR (<1.2) APTT (22.0-30.0) sec Sodium 134 L (137-145) mmol/L Potassium 3.9 (3.5-5.1) mmol/L Chloride 99 (98-107) mmol/L Carbon Dioxide 26 (22-30) mmol/L Anion Gap 9 mmol/L BUN 15 (7-17) mg/dL Creatinine 0.61 (0.52-1.04) mg/dL Est GFR (CKD-EPI)AfAm >90 (>60 ml/min/1.73 sqM) Est GFR (CKD-EPI)NonAf >90 (>60 ml/min/1.73 sqM) Glucose 135 H (74-99) mg/dL Plasma Lactic Acid Lloyd (0.7-2.0) mmol/L Calcium 9.5 (8.4-10.2) mg/dL Total Bilirubin 0.4 (0.2-1.3) mg/dL AST 22 (14-36) U/L ALT 24 (9-52) U/L Alkaline Phosphatase 81 (38-126) U/L Total Creatine Kinase 152 H (30-135) U/L CK-MB (CK-2) 2.9 H (0.0-2.4) ng/mL CK-MB (CK-2) Rel Index 1.9 Troponin I <0.012 (0.000-0.034) ng/mL Total Protein 7.0 (6.3-8.2) g/dL Albumin 3.9 (3.5-5.0) g/dL Urine Color Urine Appearance (Clear) Urine pH (5.0-8.0) Ur Specific [place] (1.001-1.035) Urine Protein (Negative) Urine Glucose (UA) (Negative) Urine Ketones (Negative) Urine Blood (Negative) Urine Nitrite (Negative) Urine Bilirubin (Negative) Urine Urobilinogen (<2.0) mg/dL Ur Leukocyte Esterase (Negative) 05/25/18 05/25/18 05/25/18 Range/Units 15:05 15:05 15:45 WBC (3.8-10.6) k/uL RBC (3.80-5.40) m/uL Hgb (11.4-16.0) gm/dL Hct (34.0-46.0) % MCV (80.0-100.0) fL MCH (25.0-35.0) pg MCHC (31.0-37.0) g/dL RDW (11.5-15.5) % Plt Count (150-450) k/uL Neutrophils % % Lymphocytes % % Monocytes % % Eosinophils % % Basophils % % Neutrophils # (1.3-7.7) k/uL Lymphocytes # (1.0-4.8) k/uL Monocytes # (0-1.0) k/uL Eosinophils # (0-0.7) k/uL Basophils # (0-0.2) k/uL PT 10.1 (9.0-12.0) sec INR 1.0 (<1.2) APTT 23.6 (22.0-30.0) sec Sodium (137-145) mmol/L Potassium (3.5-5.1) mmol/L Chloride (98-107) mmol/L Carbon Dioxide (22-30) mmol/L Anion Gap mmol/L BUN (7-17) mg/dL Creatinine (0.52-1.04) mg/dL Est GFR (CKD-EPI)AfAm (>60 ml/min/1.73 sqM) Est GFR (CKD-EPI)NonAf (>60 ml/min/1.73 sqM) Glucose (74-99) mg/dL Plasma Lactic Acid Lloyd 1.7 (0.7-2.0) mmol/L Calcium (8.4-10.2) mg/dL Total Bilirubin (0.2-1.3) mg/dL AST (14-36) U/L ALT (9-52) U/L Alkaline Phosphatase (38-126) U/L Total Creatine Kinase (30-135) U/L CK-MB (CK-2) (0.0-2.4) ng/mL CK-MB (CK-2) Rel Index Troponin I (0.000-0.034) ng/mL Total Protein (6.3-8.2) g/dL Albumin (3.5-5.0) g/dL Urine Color Light Yellow Urine Appearance Clear (Clear) Urine pH 6.0 (5.0-8.0) Ur Specific [place] 1.006 (1.001-1.035) Urine Protein Negative (Negative) Urine Glucose (UA) Negative (Negative) Urine Ketones Negative (Negative) Urine Blood Negative (Negative) Urine Nitrite Negative (Negative) Urine Bilirubin Negative (Negative) Urine Urobilinogen <2.0 (<2.0) mg/dL Ur Leukocyte Esterase Negative (Negative) Disposition Clinical Impression: Hypertension Disposition: HOME SELF-CARE Condition: Good Instructions: Hypertension (ED) Additional Instructions: Please use clonidine 0.2 mg when you get home. Please follow the family doctor tomorrow. Please return to the emergency room if any symptoms increase or worsen. Is patient prescribed a controlled substance at d/c from ED?: No Referrals: Alfa Cuadra MD [Primary Care Provider] - 1-2 days Time of Disposition: 19:39
[2018-05-25 15:36] LABS: Basophils % (A) 1 %; Eosinophils # (A) 0.2 k/uL (0-0.7); Eosinophils % (A) 3 %; HCT 34.9 % (34.0-46.0); HGB 11.3 gm/dL (11.4-16.0); Lymphocytes # (A) 1.8 k/uL (1.0-4.8); Lymphocytes % (A) 26 %; MCH 27.3 pg (25.0-35.0); MCHC 32.4 g/dL (31.0-37.0); MCV 84.4 fL (80.0-100.0); Monocytes # (A) 0.4 k/uL (0-1.0); Monocytes % (A) 6 %; Neutrophils # (A) 4.4 k/uL (1.3-7.7); Neutrophils % (A) 63 %; Platelet Count 397 k/uL (150-450); RBC 4.14 m/uL (3.80-5.40); RDW 15.5 % (11.5-15.5); WBC 6.9 k/uL (3.8-10.6)
[2018-05-25 15:45] LABS: ALT 24 U/L (9-52); AST 22 U/L (14-36); Albumin 3.9 g/dL (3.5-5.0); Alkaline Phosphatase 81 U/L (38-126); Anion Gap 9 mmol/L; Blood Urea Nitrogen 15 mg/dL (7-17); Calcium 9.5 mg/dL (8.4-10.2); Carbon Dioxide 26 mmol/L (22-30); Chloride 99 mmol/L (98-107); Glucose 135 mg/dL (74-99); Potassium 3.9 mmol/L (3.5-5.1); Sodium 134 mmol/L (137-145); Total Bilirubin 0.4 mg/dL (0.2-1.3)
[2018-05-25 15:49] LABS: Prothrombin Time 10.1 sec (9.0-12.0)
[2018-05-25 15:50] LABS: Partial Thromboplastin Time 23.6 sec (22.0-30.0)
[2018-05-25 16:03] LABS: Appearance,Urine Clear (Clear); Bilirubin,Urine Negative (Negative); Blood,Urine Negative (Negative); Color,Urine Light Yellow; Glucose,Urine (UA) Negative (Negative); Ketones,Urine Negative (Negative); Leukocyte Esterase,Urine Negative (Negative); Nitrite,Urine Negative (Negative); Protein,Urine Negative (Negative); Specific Gravity,Urine 1.006 (1.001-1.035); Urobilinogen,Urine <2.0 mg/dL (<2.0)
[2018-05-25 16:03] LABS: Creatine Kinase 152 U/L (30-135)
[2018-05-25 16:17] LABS: Creatine Kinase MB 2.9 ng/mL (0.0-2.4); Troponin I <0.012 ng/mL (0.000-0.034)
[2018-05-25] MEDS ORDERED: cloNIDine HCL 0.2 MG TAB PO STA (16:33)
--- NOTE | 2018-05-25 16:40 | XR ---
EXAMINATION: XR chest 2V DATE AND TIME: 05/25/2018 4:29 PM CLINICAL INDICATION: cough TECHNIQUE: PA and lateral COMPARISON: 12/09/2017 FINDINGS: The lungs are clear. The pleural spaces are negative. The cardiac silhouette is top normal in size. The remainder of the mediastinal silhouette is unremarkable. The skeletal structures are notable for right anterolateral 1 cm hyperdensities corresponding to the anterior right sixth and seventh ribs, not seen on the prior study of December 09, 2017. If there is a hist ory of intervening trauma then the findings could be explained with remodeled old fractures. If no in tervening trauma, then further catheterization can be provided using CT. The soft tissues are negative for acute findings. IMPRESSION: NO DEFINITE ACUTE PROCESS ALTHOUGH RIGHT ANTERIOR RIB FINDINGS DISCUSSED.
[2018-05-25 16:51] VITALS: TEMP 99
[2018-05-25] MEDS ORDERED: ENALAPRILAT 1.25 MG/ML 1 ML VIAL IVP STA (18:16)
[2018-05-25 19:04] VITALS: BP 225/97; PULSE 65
== END 2018-05-25 20:00 | disposition home or self-care (01) ==
LOC: EC 14:14
DX: I10 Essential (primary) hypertension (principal); E78.5 Hyperlipidemia, unspecified; I25.2 Old myocardial infarction; F41.9 Anxiety disorder, unspecified; F32.9 Major depressive disorder, single episode, unspecified; E11.40 Type 2 diabetes mellitus with diabetic neuropathy, unspecified; Z79.4 Long term (current) use of insulin; Z79.899 Other long term (current) drug therapy; Z91.030 Bee allergy status; Z88.7 Allergy status to serum and vaccine; Z88.6 Allergy status to analgesic agent; Z91.040 Latex allergy status; Z91.048 Other nonmedicinal substance allergy status; Z88.2 Allergy status to sulfonamides; Z88.8 Allergy status to other drugs, medicaments and biological substances; Z88.1 Allergy status to other antibiotic agents; Z88.5 Allergy status to narcotic agent; Z86.73 Personal history of transient ischemic attack (TIA), and cerebral infarction without residual deficits
CPT/HCPCS: 36415; 71046; 80053; 81003; 82550; 82553; 83605; 84484; 85025; 85610; 85730; 87040; 93005; 96374; 96375; 99284

== ENCOUNTER 2018-08-11 15:47 | Inpatient (IN) | payer MEDICARE, OTHER ==
[2018-08-11] MEDS ORDERED: MORPHINE SULFATE 4 MG/ML SYRINGE IVP STA (17:39)
[2018-08-11] MEDS ORDERED: ONDANSETRON 4 MG/2 ML VIAL IVP STA (17:39)
[2018-08-11 18:11] LABS: INR 0.9 (<1.2); Partial Thromboplastin Time 25.5 sec (22.0-30.0); Prothrombin Time 10.2 sec (9.0-12.0)
[2018-08-11 18:12] LABS: ALT 30 U/L (9-52); AST 24 U/L (14-36); Albumin 4.1 g/dL (3.5-5.0); Alkaline Phosphatase 68 U/L (38-126); Anion Gap 10 mmol/L; Blood Urea Nitrogen 17 mg/dL (7-17); Calcium 9.7 mg/dL (8.4-10.2); Carbon Dioxide 28 mmol/L (22-30); Chloride 97 mmol/L (98-107); Glucose 101 mg/dL (74-99); Lipase 29 U/L (23-300); Magnesium 1.6 mg/dL (1.6-2.3); Potassium 4.3 mmol/L (3.5-5.1); Sodium 135 mmol/L (137-145); Total Bilirubin 0.4 mg/dL (0.2-1.3); Total Protein 6.9 g/dL (6.3-8.2)
--- NOTE | 2018-08-11 18:19 | ED ---
General Adult HPI - General Chief complaint: Recheck/Abnormal Lab/Rx Stated complaint: Hypertension/Fall Time Seen by Provider: 08/11/18 17:28 Source: patient, RN notes reviewed Mode of arrival: ambulatory Limitations: no limitations - History of Present Illness Initial comments: 67-year-old female presents emergency Department with multiple complaints. Patient primary complains of hypertension, chest pain and falls. Patient states she checked her blood pressure today and it was 220/100. She did take over medications as directed. Patient states she's had a few falls the last few weeks and states that she has hip pain, low back pain, pain there is some her legs. She does have chronic pain issues she currently is on [place]. Patient is currently taking care of by caregiver at home. She does have a history of CVA. She states the chest pain is intermittent. Patient denies any URI symptoms including fever or chills. She denies any bowel bladder incontinence or retention. Patient also complains of nausea, upset stomach. Denies any vomiting diarrhea. - Related Data Home Medications Medication Instructions Recorded Confirmed HYDROcodone/APAP 10-325MG [[place] 1 tab PO TID PRN 10/10/14 08/11/18 10-325] metFORMIN HCL 1,000 mg PO BID-W/MEALS 10/10/14 08/11/18 Sertraline HCl [Zoloft] 50 mg PO DAILY 04/26/17 08/11/18 Insulin Degludec [Tresiba 25 unit SQ HS 12/07/17 08/11/18 Flextouch U-100] Latanoprost Ophth [Xalatan 0.005%] 1 drop BOTH EYES HS 12/07/17 08/11/18 Omeprazole 20 mg PO DAILY 12/07/17 08/11/18 ALPRAZolam [Xanax] 0.25 mg PO BID PRN 05/25/18 08/11/18 Furosemide [Lasix] 20 mg PO Q48H 05/25/18 08/11/18 cloNIDine HCL [Catapres] 0.2 mg PO BID 05/25/18 08/11/18 Aspirin 81 mg PO DAILY PRN 08/11/18 08/11/18 Carvedilol 25 mg PO DAILY 08/11/18 08/11/18 Previous Rx's Medication Instructions Recorded Clopidogrel [Plavix] 75 mg PO DAILY #30 tab 04/29/17 Lisinopril 40 mg PO DAILY #30 tab 04/29/17 Allergies Allergy/AdvReac Type Severity Reaction Status Date / Time bee venom protein (honey bee) Allergy Anaphylaxis Verified 08/11/18 19:37 epinephrine Allergy Anaphylaxis Verified 08/11/18 19:37 influenza virus vaccine, Allergy Rash/Hives Verified 08/11/18 19:37 specific iodine Allergy Rash/Hives Verified 08/11/18 19:37 latex Allergy Rash/Hives Verified 08/11/18 19:37 procaine HCl [From Novocain] Allergy Anaphylaxis Verified 08/11/18 19:37 Sulfa (Sulfonamide Allergy Rash/Hives Verified 08/11/18 19:37 Antibiotics) amlodipine [From Norvasc] AdvReac Diarrhea,abdominal Verified 08/11/18 19:37 pain cephalexin monohydrate AdvReac Nausea & Verified 08/11/18 19:37 [From Keflex] Vomiting & Diarrhea codeine AdvReac Nausea & Verified 08/11/18 19:37 Vomiting cortisone AdvReac Nausea & Verified 08/11/18 19:37 Vomiting/Vertigo methadone AdvReac Nausea & Verified 08/11/18 19:37 Vomiting & Diarrhea propoxyphene AdvReac Nausea & Verified 08/11/18 19:37 [From Darvocet-N] Vomiting Vwbolga-Ras-Oqo Reductase AdvReac Nausea & Verified 08/11/18 19:37 Inhibitor Vomiting/Muscle Weakness cortisone AdvReac Unknown Uncoded 05/25/18 14:49 steroids AdvReac Nausea & Uncoded 05/25/18 14:49 Vomiting Review of Systems ROS Statement: Those systems with pertinent positive or pertinent negative responses have been documented in the HPI. ROS Other: All systems not noted in ROS Statement are negative. Past Medical History Past Medical History: Chest Pain / Angina, CVA/TIA, Diabetes Mellitus, Fibromyalgia, GERD/Reflux, Hyperlipidemia, Hypertension, Memory Impairment, Myocardial Infarction ([place]), Osteoarthritis (OA), Rheumatoid Arthritis (RA) Additional Past Medical History / Comment(s): rt side dominant. neuropathy both feet and hands, glaucoma, connective tissue dysfunction, peptic ulcer disease, "bad" hiatal hernia, stroke x3-loss of short term memory, chest pain "last year ", occ irregular heart beat, hx ulcers, hx carpal tunnel syndrome. Last Myocardial Infarction Date:: 1988 History of Any Multi-Drug Resistant Organisms: None Reported Past Surgical History: Bladder Surgery, Cholecystectomy, Hysterectomy, Tubal Ligation Additional Past Surgical History / Comment(s): rhinoplasty, hand surgery bilateral-carpal tunel , states sling for rectal prolapse.thalia, rt foot-failed bunionectomy-has a metal romelia in foot Past Anesthesia/Blood Transfusion Reactions: Motion Sickness Past Psychological History: Anxiety, Depression Smoking Status: Never smoker Past Alcohol Use History: None Reported Past Drug Use History: None Reported - Past Family History Father Family Medical History: CVA/TIA, Liver Disease, Myocardial Infarction ([place]) Additional Family Medical History / Comment(s): alcoholic, cirrhosis of the liver, Mother Family Medical History: Cancer General Exam Limitations: no limitations General appearance: alert, in no apparent distress Head exam: Present: atraumatic, normocephalic, normal inspection Eye exam: Present: normal appearance, PERRL, EOMI. Absent: scleral icterus, conjunctival injection, periorbital swelling ENT exam: Present: normal exam, normal oropharynx, mucous membranes moist, TM's normal bilaterally Neck exam: Present: normal inspection, full ROM. Absent: tenderness, meningismus, lymphadenopathy Respiratory exam: Present: normal lung sounds bilaterally. Absent: respiratory distress, wheezes, rales, rhonchi, stridor Cardiovascular Exam: Present: regular rate, normal rhythm, normal heart sounds. Absent: systolic murmur, diastolic murmur, rubs, gallop, clicks GI/Abdominal exam: Present: soft, normal bowel sounds. Absent: distended, tenderness, guarding, rebound, rigid Extremities exam: Present: normal inspection (Lower and upper extremity strength equal), full ROM, normal capillary refill. Absent: tenderness, pedal edema, joint swelling, calf tenderness Back exam: Present: full ROM, tenderness, paraspinal tenderness. Absent: CVA tenderness (R), CVA tenderness (L), vertebral tenderness Neurological exam: Present: alert, oriented X3, CN II-XII intact, reflexes normal. Absent: motor sensory deficit Skin exam: Present: warm, dry, intact, normal color. Absent: rash Course Vital Signs 08/11/18 08/11/18 16:00 18:15 Temperature 98 F Pulse Rate 71 64 Respiratory 18 16 Rate Blood Pressure 186/83 211/98 O2 Sat by Pulse 98 98 Oximetry EKG Findings - EKG Comments: EKG Findings:: EKG performed at 18:07 sinus bradycardia with rate of 56 UT 136 QRS 88 QT/QTC 434/[address] elevation depression normal axis normal intervals Medical Decision Making - Medical Decision Making 59-year-old female presented emergency from for multiple complaints. Patient went of hypertension, fall, chest pain. Patient will be admitted for chest pain , blood pressure control. - Lab Data Result diagrams: 08/11/18 17:44 08/11/18 17:44 Lab Results 08/11/18 08/11/18 08/11/18 Range/Units 17:44 17:44 17:44 WBC 5.7 (3.8-10.6) k/uL RBC 3.86 (3.80-5.40) m/uL Hgb 10.4 L (11.4-16.0) gm/dL Hct 32.2 L (34.0-46.0) % MCV 83.3 (80.0-100.0) fL MCH 26.9 (25.0-35.0) pg MCHC 32.3 (31.0-37.0) g/dL RDW 14.4 (11.5-15.5) % Plt Count 368 (150-450) k/uL Neutrophils % 50 % Lymphocytes % 33 % Monocytes % 7 % Eosinophils % 5 % Basophils % 1 % Neutrophils # 2.8 (1.3-7.7) k/uL Lymphocytes # 1.9 (1.0-4.8) k/uL Monocytes # 0.4 (0-1.0) k/uL Eosinophils # 0.3 (0-0.7) k/uL Basophils # 0.1 (0-0.2) k/uL PT (9.0-12.0) sec INR (<1.2) APTT (22.0-30.0) sec Sodium 135 L (137-145) mmol/L Potassium 4.3 (3.5-5.1) mmol/L Chloride 97 L (98-107) mmol/L Carbon Dioxide 28 (22-30) mmol/L Anion Gap 10 mmol/L BUN 17 (7-17) mg/dL Creatinine 0.60 (0.52-1.04) mg/dL Est GFR (CKD-EPI)AfAm >90 (>60 ml/min/1.73 sqM) Est GFR (CKD-EPI)NonAf >90 (>60 ml/min/1.73 sqM) Glucose 101 H (74-99) mg/dL Calcium 9.7 (8.4-10.2) mg/dL Magnesium 1.6 (1.6-2.3) mg/dL Total Bilirubin 0.4 (0.2-1.3) mg/dL AST 24 (14-36) U/L ALT 30 (9-52) U/L Alkaline Phosphatase 68 (38-126) U/L Total Creatine Kinase 200 H (30-135) U/L CK-MB (CK-2) 3.9 H (0.0-2.4) ng/mL CK-MB (CK-2) Rel Index 2.0 Troponin I <0.012 (0.000-0.034) ng/mL Total Protein 6.9 (6.3-8.2) g/dL Albumin 4.1 (3.5-5.0) g/dL Lipase 29 (23-300) U/L 08/11/18 Range/Units 17:44 WBC (3.8-10.6) k/uL RBC (3.80-5.40) m/uL Hgb (11.4-16.0) gm/dL Hct (34.0-46.0) % MCV (80.0-100.0) fL MCH (25.0-35.0) pg MCHC (31.0-37.0) g/dL RDW (11.5-15.5) % Plt Count (150-450) k/uL Neutrophils % % Lymphocytes % % Monocytes % % Eosinophils % % Basophils % % Neutrophils # (1.3-7.7) k/uL Lymphocytes # (1.0-4.8) k/uL Monocytes # (0-1.0) k/uL Eosinophils # (0-0.7) k/uL Basophils # (0-0.2) k/uL PT 10.2 (9.0-12.0) sec INR 0.9 (<1.2) APTT 25.5 (22.0-30.0) sec Sodium (137-145) mmol/L Potassium (3.5-5.1) mmol/L Chloride (98-107) mmol/L Carbon Dioxide (22-30) mmol/L Anion Gap mmol/L BUN (7-17) mg/dL Creatinine (0.52-1.04) mg/dL Est GFR (CKD-EPI)AfAm (>60 ml/min/1.73 sqM) Est GFR (CKD-EPI)NonAf (>60 ml/min/1.73 sqM) Glucose (74-99) mg/dL Calcium (8.4-10.2) mg/dL Magnesium (1.6-2.3) mg/dL Total Bilirubin (0.2-1.3) mg/dL AST (14-36) U/L ALT (9-52) U/L Alkaline Phosphatase (38-126) U/L Total Creatine Kinase (30-135) U/L CK-MB (CK-2) (0.0-2.4) ng/mL CK-MB (CK-2) Rel Index Troponin I (0.000-0.034) ng/mL Total Protein (6.3-8.2) g/dL Albumin (3.5-5.0) g/dL Lipase (23-300) U/L Disposition Clinical Impression: Hypertension, Fall, Chest pain Disposition: ADMITTED IP TO THIS HOSP Condition: Fair Referrals: Alfa Cuadra MD [Primary Care Provider] - 1-2 days
[2018-08-11 18:22] LABS: Basophils # (A) 0.1 k/uL (0-0.2); Basophils % (A) 1 %; Eosinophils # (A) 0.3 k/uL (0-0.7); Eosinophils % (A) 5 %; HCT 32.2 % (34.0-46.0); HGB 10.4 gm/dL (11.4-16.0); Lymphocytes # (A) 1.9 k/uL (1.0-4.8); Lymphocytes % (A) 33 %; MCH 26.9 pg (25.0-35.0); MCHC 32.3 g/dL (31.0-37.0); MCV 83.3 fL (80.0-100.0); Monocytes # (A) 0.4 k/uL (0-1.0); Monocytes % (A) 7 %; Neutrophils # (A) 2.8 k/uL (1.3-7.7); Neutrophils % (A) 50 %; Platelet Count 368 k/uL (150-450); RBC 3.86 m/uL (3.80-5.40); RDW 14.4 % (11.5-15.5); WBC 5.7 k/uL (3.8-10.6)
[2018-08-11 18:25] LABS: Creatine Kinase 200 U/L (30-135)
[2018-08-11] MEDS ORDERED: hydrALAZINE HCL 20 MG/ML 1 ML VIAL IVP STA (18:27)
[2018-08-11 18:37] LABS: Creatine Kinase MB 3.9 ng/mL (0.0-2.4); Troponin I <0.012 ng/mL (0.000-0.034)
--- NOTE | 2018-08-11 19:19 | XR ---
EXAMINATION TYPE: XR pelvis AP view DATE OF EXAM: 08/11/2018 COMPARISON: NONE HISTORY: Pain TECHNIQUE: Single view FINDINGS: The pelvic ring is intact. Proximal femurs are intact. Sacroiliac joints appear normal. The re is no evidence of a fracture. IMPRESSION: Negative pelvis x-ray exam.
--- NOTE | 2018-08-11 19:20 | XR ---
EXAMINATION TYPE: XR lumbar spine 2 or 3V DATE OF EXAM: 08/11/2018 COMPARISON: NONE HISTORY: Pain after fall TECHNIQUE: 3 views FINDINGS: There is moderate mid lumbar dextrorotoscoliosis. I see no compression fracture. There is a nterior spurring at L5-S1. Posterior elements are intact. Sacroiliac joints are normal. IMPRESSION: Spondylosis and scoliotic deformity. No fracture seen.
--- NOTE | 2018-08-11 19:26 | XR ---
EXAMINATION TYPE: XR chest 2V DATE OF EXAM: 08/11/2018 COMPARISON: 05/25/2018 HISTORY: Pain TECHNIQUE: Frontal and lateral views of the chest are obtained. FINDINGS: Heart and mediastinum are normal for age. Lungs are clear. Costophrenic angles are clear. There are chest leads. Bony thorax is intact. IMPRESSION: Normal chest. No change.
[2018-08-11] MEDS ORDERED: HEPARIN SODIUM,PORCINE 5,000 UNIT/ML 1 ML VIAL IV ONE (19:40)
[2018-08-11] MEDS ORDERED: NITROGLYCERIN SL TABS 0.4 MG TAB SUBLINGUAL PRN (19:40)
[2018-08-11] MEDS ORDERED: ASPIRIN 81 MG PO STA (19:40)
[2018-08-11] MEDS ORDERED: hydrALAZINE HCL 20 MG/ML 1 ML VIAL IVP PRN (19:43)
[2018-08-11] MEDS ORDERED: HEPARIN SOD,PORK IN 0.45% NACL 25,000 UNIT in 0.45% NACL 1 250ML.BAG IV SCH (19:45)
[2018-08-11] MEDS: HYDROcodone/APAP 10-325MG 1 EACH TAB PO PRN (20:40)
[2018-08-11 22:34] LABS: Glucose,Whole Blood 105 mg/dL (75-99)
[2018-08-11] MEDS: ALPRAZolam 0.25 MG TAB PO PRN (23:41)
[2018-08-11] MEDS: cloNIDine HCL 0.2 MG TAB PO SCH (23:41)
[2018-08-12 00:49] LABS: Creatine Kinase 178 U/L (30-135)
[2018-08-12 01:01] LABS: Troponin I <0.012 ng/mL (0.000-0.034)
[2018-08-12 01:14] LABS: Creatine Kinase MB 3.5 ng/mL (0.0-2.4)
[2018-08-12] MEDS: INSULIN DETEMIR 100 UNIT/ML 10 ML VIAL SQ SCH ×2 (05:35→21:12)
[2018-08-12 05:52] LABS: Glucose,Whole Blood 141 mg/dL (75-99)
[2018-08-12 06:15] LABS: Mean Platelet Volume 6.1; Platelet Count 329 k/uL (150-450)
[2018-08-12 06:29] LABS: Cholesterol 226 mg/dL (<200); HDL Cholesterol 47 mg/dL (40-60); LDL Cholesterol,Calculated 127 mg/dL (0-99); Triglycerides 261 mg/dL (<150)
[2018-08-12] MEDS: metFORMIN 500 MG TAB PO SCH ×3 (06:52→16:59)
[2018-08-12] MEDS: CARVEDILOL 12.5 MG TAB PO SCH (06:52)
[2018-08-12] MEDS: PANTOPRAZOLE 40 MG TABLET PO SCH (06:52)
[2018-08-12] MEDS: HYDROcodone/APAP 10-325MG 1 EACH TAB PO PRN ×2 (06:56→16:59)
[2018-08-12 07:08] LABS: Creatine Kinase 145 U/L (30-135)
[2018-08-12 07:21] LABS: Creatine Kinase MB 2.5 ng/mL (0.0-2.4); Troponin I <0.012 ng/mL (0.000-0.034)
[2018-08-12 08:43] LABS: Basophils % (A) 1 %; Eosinophils # (A) 0.4 k/uL (0-0.7); Eosinophils % (A) 8 %; HCT 33.7 % (34.0-46.0); HGB 10.7 gm/dL (11.4-16.0); Hypochromasia Slight; Lymphocytes # (A) 1.8 k/uL (1.0-4.8); Lymphocytes % (A) 37 %; MCH 27.4 pg (25.0-35.0); MCHC 31.8 g/dL (31.0-37.0); MCV 86.1 fL (80.0-100.0); Mean Platelet Volume 6.6; Monocytes # (A) 0.5 k/uL (0-1.0); Monocytes % (A) 10 %; Neutrophils % (A) 42 %; RBC 3.92 m/uL (3.80-5.40); RDW 14.7 % (11.5-15.5); WBC 4.8 k/uL (3.8-10.6)
[2018-08-12 08:44] LABS: Platelet Count 329 k/uL (150-450)
[2018-08-12 08:59] LABS: ALT 25 U/L (9-52); AST 24 U/L (14-36); Albumin 3.3 g/dL (3.5-5.0); Alkaline Phosphatase 64 U/L (38-126); Anion Gap 4 mmol/L; Blood Urea Nitrogen 11 mg/dL (7-17); Calcium 8.7 mg/dL (8.4-10.2); Carbon Dioxide 26 mmol/L (22-30); Chloride 107 mmol/L (98-107); Glucose 137 mg/dL (74-99); Potassium 3.8 mmol/L (3.5-5.1); Sodium 137 mmol/L (137-145); Total Bilirubin 0.4 mg/dL (0.2-1.3); Total Protein 5.9 g/dL (6.3-8.2)
[2018-08-12] MEDS: LISINOPRIL 20 MG TAB PO SCH (10:10)
[2018-08-12] MEDS: CLOPIDOGREL 75 MG TAB PO SCH (10:10)
[2018-08-12] MEDS: ASPIRIN 325 MG TAB PO SCH (10:10)
[2018-08-12] MEDS: cloNIDine HCL 0.2 MG TAB PO SCH ×2 (10:10→21:12)
[2018-08-12] MEDS: SERTRALINE 50 MG TAB PO SCH (10:11)
[2018-08-12] MEDS: ALPRAZolam 0.25 MG TAB PO PRN (10:15)
--- NOTE | 2018-08-12 10:36 | P.HPIM ---
History of Present Illness H&P Date: 08/12/18 This is a 67-year-old female patient who presented to the emergency room with multiple complaints. Patient complained of hypertension which chest pain. Patient reports her blood pressure was higher than 200s at home. Patient also states she's been falling more at home. Patient does have a significant past medical history for CVA, diabetes mellitus, fibromyalgia, GERD, hyperlipidemia, hypertension, memory impairment, myocardial infarction, osteoarthritis, rheumatoid arthritis, neuropathy both feet and hands, glaucoma, connective- tissue dysfunction, peptic ulcer disease, hiatal hernia, cholecystectomy, anxiety and depression. Chest x-ray completed showing normal chest. No change. Lumbar spine x-ray completed showing spondylolisthesis and sclerotic deformity. No fracture seen. Pelvic x-ray completed showing negative pelvis x- ray exam. EKG completed showing sinus bradycardia, possible anterior infarct, age undetermined. Abnormal EKG. Troponins negative. Cardiology services have been consulted. Patient started on heparin drip. At this time patient does complain of some chest pain with shortness of breath. Patient also complaining of pain to her bilateral hands and feet which she says she has neuropathy. Patient denies nausea vomiting or diarrhea. Patient denies any urinary burning or frequency. Review of Systems Please refer to HPI otherwise unremarkable Past Medical History Past Medical History: Chest Pain / Angina, CVA/TIA, Diabetes Mellitus, Fibromyalgia, GERD/Reflux, Hyperlipidemia, Hypertension, Memory Impairment, Myocardial Infarction ([place]), Osteoarthritis (OA), Rheumatoid Arthritis (RA) Additional Past Medical History / Comment(s): rt side dominant. neuropathy both feet and hands, glaucoma, connective tissue dysfunction, peptic ulcer disease, "bad" hiatal hernia, stroke x3-loss of short term memory, chest pain "last year ", occ irregular heart beat, hx ulcers, hx carpal tunnel syndrome. Last Myocardial Infarction Date:: 1988 History of Any Multi-Drug Resistant Organisms: None Reported Past Surgical History: Bladder Surgery, Cholecystectomy, Hysterectomy, Tubal Ligation Additional Past Surgical History / Comment(s): rhinoplasty, hand surgery bilateral-carpal tunel , states "sling for rectal prolapse" , rt foot-failed bunionectomy-has a metal larisa in foot, ABBE[place]. Past Anesthesia/Blood Transfusion Reactions: Motion Sickness Smoking Status: Never smoker - Past Family History Father Family Medical History: CVA/TIA, Liver Disease, Myocardial Infarction ([place]) Additional Family Medical History / Comment(s): alcoholic, cirrhosis of the liver, Mother Family Medical History: Cancer Medications and Allergies Home Medications Medication Instructions Recorded Confirmed Type HYDROcodone/APAP 10-325MG [[place] 1 tab PO TID PRN 10/10/14 08/11/18 History 10-325] metFORMIN HCL 1,000 mg PO BID-W/MEALS 10/10/14 08/11/18 History Sertraline HCl [Zoloft] 50 mg PO DAILY 04/26/17 08/11/18 History Clopidogrel [Plavix] 75 mg PO DAILY #30 tab 04/29/17 08/11/18 Rx Lisinopril 40 mg PO DAILY #30 tab 04/29/17 08/11/18 Rx Insulin Degludec [Tresiba 25 unit SQ HS 12/07/17 08/11/18 History Flextouch U-100] Latanoprost Ophth [Xalatan 0.005%] 1 drop BOTH EYES HS 12/07/17 08/11/18 History Omeprazole 20 mg PO DAILY 12/07/17 08/11/18 History ALPRAZolam [Xanax] 0.25 mg PO BID PRN 05/25/18 08/11/18 History Furosemide [Lasix] 20 mg PO Q48H 05/25/18 08/11/18 History cloNIDine HCL [Catapres] 0.2 mg PO BID 05/25/18 08/11/18 History Aspirin 81 mg PO DAILY PRN 08/11/18 08/11/18 History Carvedilol 25 mg PO DAILY 08/11/18 08/11/18 History Allergies Allergy/AdvReac Type Severity Reaction Status Date / Time bee venom protein (honey bee) Allergy Anaphylaxis Verified 08/11/18 19:37 epinephrine Allergy Anaphylaxis Verified 08/11/18 19:37 influenza virus vaccine, Allergy Rash/Hives Verified 08/11/18 19:37 specific iodine Allergy Rash/Hives Verified 08/11/18 19:37 latex Allergy Rash/Hives Verified 08/11/18 19:37 procaine HCl [From Novocain] Allergy Anaphylaxis Verified 08/11/18 19:37 Sulfa (Sulfonamide Allergy Rash/Hives Verified 08/11/18 19:37 Antibiotics) amlodipine [From Norvasc] AdvReac Diarrhea,abdominal Verified 08/11/18 19:37 pain cephalexin monohydrate AdvReac Nausea & Verified 08/11/18 19:37 [From Keflex] Vomiting & Diarrhea codeine AdvReac Nausea & Verified 08/11/18 19:37 Vomiting cortisone AdvReac Nausea & Verified 08/11/18 19:37 Vomiting/Vertigo methadone AdvReac Nausea & Verified 08/11/18 19:37 Vomiting & Diarrhea propoxyphene AdvReac Nausea & Verified 08/11/18 19:37 [From Darvocet-N] Vomiting Toacnqd-Uqt-Qhm Reductase AdvReac Nausea & Verified 08/11/18 19:37 Inhibitor Vomiting/Muscle Weakness cortisone AdvReac Unknown Uncoded 05/25/18 14:49 steroids AdvReac Nausea & Uncoded 05/25/18 14:49 Vomiting Physical Exam Vitals: Vital Signs Temp Pulse Pulse Resp BP BP Pulse Ox 08/12/18 07:03 74 17 08/12/18 06:05 98.3 F 70 17 178/82 98 08/12/18 02:15 98.5 F 66 17 185/81 98 08/12/18 02:10 88 18 08/11/18 22:10 98.1 F 85 18 180/86 97 08/11/18 21:48 98.7 F 72 18 160/89 98 08/11/18 20:48 95 16 149/89 98 08/11/18 20:12 78 16 160/88 99 08/11/18 19:41 67 18 195/88 98 08/11/18 18:15 64 16 211/98 98 08/11/18 16:00 98 F 71 18 186/83 98 Intake and Output 08/11/18 08/12/18 08/12/18 22:59 06:59 14:59 Intake Total 45.466 0 Balance 45.466 0 Intake: Intake, IV Titration 45.466 Amount Heparin Sod,Pork in 0.45% 45.466 NaCl 25,000 unit In 0.45 % NaCl 1 250ml.bag @ 12 UNITS/KG/HR 7.62 mls/hr IV .Q24H [facility] Rx#: [id number] Oral 0 Other: Voiding Method Toilet Toilet Toilet # Voids 1 2 3 Weight 63.503 kg 63.2 kg Head normocephalic Neck supple Lungs clear to auscultation bilaterally no wheezing or crackles Heart regular rate and rhythm S1-S2, no rub or gallop Abdomen is soft nontender nondistended positive bowel sounds no hepatosplenomegaly Extremities no edema Neuro alert and orientated to 3 Results CBC & Chem 7: 08/12/18 05:51 08/12/18 05:51 Labs: Abnormal Lab Results - Last 24 Hours (Table) 08/11/18 08/11/18 08/11/18 Range/Units 17:44 17:44 17:44 Hgb 10.4 L (11.4-16.0) gm/dL Hct 32.2 L (34.0-46.0) % APTT (22.0-30.0) sec Sodium 135 L (137-145) mmol/L Chloride 97 L (98-107) mmol/L Creatinine (0.52-1.04) mg/dL Glucose 101 H (74-99) mg/dL POC Glucose (mg/dL) (75-99) mg/dL Total Creatine Kinase 200 H (30-135) U/L CK-MB (CK-2) 3.9 H (0.0-2.4) ng/mL Total Protein (6.3-8.2) g/dL Albumin (3.5-5.0) g/dL Triglycerides (<150) mg/dL Cholesterol (<200) mg/dL LDL Cholesterol, Calc (0-99) mg/dL 08/11/18 08/12/18 08/12/18 Range/Units 22:32 00:01 02:23 Hgb (11.4-16.0) gm/dL Hct (34.0-46.0) % APTT 38.0 H (22.0-30.0) sec Sodium (137-145) mmol/L Chloride (98-107) mmol/L Creatinine (0.52-1.04) mg/dL Glucose (74-99) mg/dL POC Glucose (mg/dL) 105 H (75-99) mg/dL Total Creatine Kinase 178 H (30-135) U/L CK-MB (CK-2) 3.5 H (0.0-2.4) ng/mL Total Protein (6.3-8.2) g/dL Albumin (3.5-5.0) g/dL Triglycerides (<150) mg/dL Cholesterol (<200) mg/dL LDL Cholesterol, Calc (0-99) mg/dL 08/12/18 08/12/18 08/12/18 Range/Units 05:50 05:51 05:51 Hgb (11.4-16.0) gm/dL Hct (34.0-46.0) % APTT (22.0-30.0) sec Sodium (137-145) mmol/L Chloride (98-107) mmol/L Creatinine (0.52-1.04) mg/dL Glucose (74-99) mg/dL POC Glucose (mg/dL) 141 H (75-99) mg/dL Total Creatine Kinase 145 H (30-135) U/L CK-MB (CK-2) 2.5 H (0.0-2.4) ng/mL Total Protein (6.3-8.2) g/dL Albumin (3.5-5.0) g/dL Triglycerides 261 H (<150) mg/dL Cholesterol 226 H (<200) mg/dL LDL Cholesterol, Calc 127 H (0-99) mg/dL 08/12/18 08/12/18 08/12/18 Range/Units 05:51 05:51 07:19 Hgb 10.7 L (11.4-16.0) gm/dL Hct 33.7 L (34.0-46.0) % APTT 37.2 H (22.0-30.0) sec Sodium (137-145) mmol/L Chloride (98-107) mmol/L Creatinine 0.51 L (0.52-1.04) mg/dL Glucose 137 H (74-99) mg/dL POC Glucose (mg/dL) (75-99) mg/dL Total Creatine Kinase (30-135) U/L CK-MB (CK-2) (0.0-2.4) ng/mL Total Protein 5.9 L (6.3-8.2) g/dL Albumin 3.3 L (3.5-5.0) g/dL Triglycerides (<150) mg/dL Cholesterol (<200) mg/dL LDL Cholesterol, Calc (0-99) mg/dL Thrombosis Risk Factor Assmnt - Choose All That Apply Any of the Below Risk Factors Present?: No Other Risk Factors: Yes Each Risk Factor Represents 2 Points: Age 61-74 years Thrombosis Risk Factor Assessment Total Risk Factor Score: 2 Thrombosis Risk Factor Assessment Level: Low Risk Assessment and Plan Assessment: 1. Chest pain. Troponins negative. EKG completed showing sinus bradycardia. Possible anterior infarct, age undetermined. Chest x-ray completed showing normal chest. No change. Cardiology services have been consulted. Patient started on heparin drip 2. Hypertensive urgency. Patient's blood pressure reported to over 200 at home. Patient was given IV hydralazine. Home meds resumed and cardiology consult placed 3. History of CVA with right sided hemiparesis residual. 4. Type 2 diabetes mellitus. Home meds resumed sliding scale added. Hemoglobin A1c ordered 5. Hyperlipidemia 6. Anemia. Will order iron studies 7. History of rheumatoid arthritis 8. History of diabetic neuropathy 9. History of fibromyalgia 10. History of myocardial infarction 11. History of depression and anxiety 12. Recent falls. Lumbar spine completed showing spondylosis and scoliotic deformity. No fracture seen. Pelvic x-ray completed showing negative pelvic x- ray exam. Time with Patient: Greater than 30 (Greater than 60% of the total time spent in counseling and coordination of care. I performed an examination of the patient and discussed their management with the Nurse Practitioner. I have reviewed the Nurse Practitioner's notes and agree with the documented findings and plan of care)
--- NOTE | 2018-08-12 11:16 | CONS ---
QAMAR Carrero is a 67-year-old lady with history of hypertension, insulin-requiring diabetes,who presented to the hospital with multiple symptoms including not feeling well, fatigued, tired, worsening neuropathy, pains all over her body and along the way she complained of chest discomfort also. The patient is admitted to hospital for chest pain and Cardiology had been consulted for the same. She has had 3 sets of cardiac enzymes that were all within normal limits. EKG that shows normal sinus rhythm without significant ST-T wave changes. At the time of my evaluation this morning she is still complaining of sharp atypical chest pain that is probably related to fibromyalgia. The patient has multiple medical problems including rheumatoid arthritis, diabetes, hypertension, dyslipidemia, and GERD. I will obtain a 2D echo to assess her LV function and wall motion. If this is normal, she does not require further cardiac workup at this time. I am going to stop the IV heparin. PAST MEDICAL HISTORY: Past medical history is significant for diabetes, hypertension, GERD. MEDICATIONS: Medications include Xalatan, insulin, metformin, Catapres 0.2 b.i.d., Zoloft 50 q. daily, omeprazole, lisinopril 40 q. daily, [place], Lasix 20, Plavix, carvedilol, aspirin and Xanax. ALLERGIES: the patient has multiple allergies. They are charted and I reviewed them. REVIEW OF SYSTEMS: HEENT is unremarkable. CARDIAC: As described above. RESPIRATORY: As described above. GI: Negative. GENITOURINARY: Negative. ALLERGY/IMMUNOLOGY: Negative. SKIN: Negative. MUSCULOSKELETAL: Significant for arthritis. PSYCHOSOCIAL: Negative. ENDOCRINE: Negative. HEMATOLOGICAL: DERM: Negative. CONSTITUTIONAL: Negative. ONCOLOGICAL: Negative. Rest of the system review is not relevant. PHYSICAL EXAMINATION: On exam, heart rate is 70 beats per minute, blood pressure is 178/82, respiratory rate is 18. Chest exam reveals good air entry bilaterally. Heart exam reveals first and second heart sounds. No murmur. No rub. Abdomen is soft, nontender. Examination of extremities did not reveal any edema. Peripheral pulses are felt. ASSESSMENT: 1. Precordial chest pain. 2. Uncontrolled hypertension. 3. Fibromyalgia with musculoskeletal pain. PLAN: Myocardial infarction is ruled out. EKG does not reveal acute ischemic changes. I will obtain a 2D echo to evaluate LV function and wall motion. I will adjust the antihypertensives for more optimal control of the blood pressure. MMODL / IJN: [id number] /
[2018-08-12 11:47] LABS: Glucose,Whole Blood 131 mg/dL (75-99)
[2018-08-12] MEDS: INSULIN ASPART 100 UNIT/ML 1 ML 10 ML VIAL SQ SCH ×3 (12:23→21:12)
[2018-08-12 16:32] LABS: Iron Saturation 8.99 (12.00-45.00)
[2018-08-12 17:06] LABS: Glucose,Whole Blood 172 mg/dL (75-99)
[2018-08-12 20:14] LABS: Hemoglobin A1C 7.1 % (4.0-6.0)
[2018-08-12 20:45] LABS: Glucose,Whole Blood 150 mg/dL (75-99)
[2018-08-13] MEDS: ALPRAZolam 0.25 MG TAB PO PRN ×2 (00:35→16:07)
[2018-08-13] MEDS: HYDROcodone/APAP 10-325MG 1 EACH TAB PO PRN ×3 (01:29→20:41)
[2018-08-13 06:29] LABS: Glucose,Whole Blood 78 mg/dL (75-99)
[2018-08-13] MEDS: INSULIN ASPART 100 UNIT/ML 1 ML 10 ML VIAL SQ SCH ×4 (06:31→20:43)
[2018-08-13] MEDS: metFORMIN 500 MG TAB PO SCH ×2 (06:54→18:24)
[2018-08-13] MEDS: CARVEDILOL 12.5 MG TAB PO SCH ×2 (06:54→16:06)
[2018-08-13] MEDS: PANTOPRAZOLE 40 MG TABLET PO SCH (06:54)
[2018-08-13 07:23] LABS: Basophils % (A) 1 %; Eosinophils # (A) 0.3 k/uL (0-0.7); Eosinophils % (A) 6 %; HCT 31.6 % (34.0-46.0); HGB 10.5 gm/dL (11.4-16.0); Lymphocytes # (A) 1.9 k/uL (1.0-4.8); Lymphocytes % (A) 35 %; MCH 28.4 pg (25.0-35.0); MCHC 33.1 g/dL (31.0-37.0); MCV 85.8 fL (80.0-100.0); Mean Platelet Volume 6.5; Monocytes # (A) 0.5 k/uL (0-1.0); Monocytes % (A) 10 %; Neutrophils # (A) 2.6 k/uL (1.3-7.7); Neutrophils % (A) 46 %; Platelet Count 330 k/uL (150-450); RBC 3.69 m/uL (3.80-5.40); RDW 14.9 % (11.5-15.5); WBC 5.6 k/uL (3.8-10.6)
[2018-08-13 07:43] LABS: ALT 21 U/L (9-52); AST 22 U/L (14-36); Albumin 3.6 g/dL (3.5-5.0); Alkaline Phosphatase 57 U/L (38-126); Anion Gap 6 mmol/L; Blood Urea Nitrogen 11 mg/dL (7-17); Carbon Dioxide 27 mmol/L (22-30); Chloride 106 mmol/L (98-107); Glucose 69 mg/dL (74-99); Potassium 4.3 mmol/L (3.5-5.1); Sodium 139 mmol/L (137-145); Total Bilirubin 0.5 mg/dL (0.2-1.3); Total Protein 6.3 g/dL (6.3-8.2)
--- NOTE | 2018-08-13 07:46 | ECHOF ---
Referral Reason:cp MEASUREMENTS -------- HEIGHT: 160.0 cm WEIGHT: 63.0 kg BP: 183/81 RVIDd: 2.1 cm (< 3.3) IVSd: 1.0 cm (0.6 - 1.1) LVIDd: 3.4 cm (3.9 - 5.3) LVPWd: 1.7 cm (0.6 - 1.1) IVSs: 1.5 cm LVIDs: 2.7 cm LVPWs: 1.6 cm LA Diam: 3.2 cm (2.7 - 3.8) LAESV Index (A-L): 21.34 ml/m Ao Diam: 2.6 cm (2.0 - 3.7) AV Cusp: 1.5 cm (1.5 - 2.6) LA Diam: 3.5 cm (2.7 - 3.8) MV EXCURSION: 9.371 mm (> 18.000) MV EF SLOPE: 65 mm/s (70 - 150) EPSS: 0.3 cm MV E Alfonso: 0.48 m/s MV DecT: 245 ms MV A Alfonso: 0.58 m/s MV E/A Ratio: 0.82 RAP: 5.00 mmHg RVSP: 28.15 mmHg FINDINGS -------- Sinus rhythm. This was a technically good study. LV size, wall thickness and systolic function are normal, with an EF greater than 55%. The left yamila tricular size is normal. The right ventricle is normal in size. The left atrial size is normal. Normal LA size by volume 22+/-6 ml/m2. The right atrial size is normal. There is mild aortic valve sclerosis. There is no evidence of aortic regurgitation. Mild mitral annular calcification present. Mild mitral regurgitation is present. Mild tricuspid regurgitation present. There is no evidence of pulmonary hypertension. The right v entricular systolic pressure, as measured by Doppler, is 28.15mmHg. There is no pulmonic regurgitation present. The aortic root size is normal. There is no pericardial effusion. CONCLUSIONS -------- 1. LV size, wall thickness and systolic function are normal, with an EF greater than 55%. 2. The left ventricular size is normal. 3. The right ventricle is normal in size. 4. The left atrial size is normal. 5. The right atrial size is normal. 6. There is mild aortic valve sclerosis. 7. Mild mitral annular calcification present. 8. Mild mitral regurgitation is present. 9. Mild tricuspid regurgitation present. 10. There is no evidence of pulmonary hypertension. 11. The right ventricular systolic pressure, as measured by Doppler, is 28.15mmHg. 12. There is no pulmonic regurgitation present. 13. The aortic root size is normal. 14. There is no pericardial effusion. PUBLICITY WRITER: Susan Tan RDCS
[2018-08-13] MEDS ORDERED: CARVEDILOL 12.5 MG TAB PO STA (08:43)
[2018-08-13] MEDS: ASPIRIN 325 MG TAB PO SCH (08:55)
[2018-08-13] MEDS: cloNIDine HCL 0.1 MG TAB PO SCH ×3 (08:55→20:42)
[2018-08-13] MEDS: CLOPIDOGREL 75 MG TAB PO SCH (08:55)
[2018-08-13] MEDS: LISINOPRIL 20 MG TAB PO SCH (08:55)
[2018-08-13] MEDS ORDERED: FUROSEMIDE 20 MG TAB PO SCH (09:00)
[2018-08-13] MEDS: SERTRALINE 50 MG TAB PO SCH (09:04)
--- NOTE | 2018-08-13 09:47 | PN ---
PROGRESS NOTE Alise is a 67-year-old lady who was admitted to hospital with chest pain and has severe uncontrolled hypertension. This morning she is feeling much better. The chest discomfort has resolved. An echocardiogram that she had on admission showed normal LV function and wall motion. On exam today, comfortable at rest. Blood pressure is elevated at 185/84, respiratory rate is 18. There is no jugular venous distention. Carotid upstroke is normal. There is no bruit. Chest exam reveals good air entry bilaterally. Heart exam reveals first and second heart sounds, . Abdomen is soft. Exam of extremities did not reveal any edema. Peripheral pulses are felt. Patient is currently on Catapres 0.2 b.i.d., Coreg 25 mg b.i.d. She is not able to tolerate hydralazine. She is on Zestril 40 mg daily. She could not tolerate Norvasc in the past. She is already on Lasix. ASSESSMENT: 1. Atypical chest pain. 2. Uncontrolled hypertension. 3. Non-insulin dependent diabetes. PLAN: I am going to go up on the dose of Catapres to 0.3 t.i.d., Coreg to 50 b.i.d. If necessary we may have to add Cardura 2 mg daily. If blood pressure is better controlled, patient can be discharged home and we can optimize the antihypertensives in the outpatient setting. MMODL / IJN: [id number] /
[2018-08-13 11:56] LABS: Glucose,Whole Blood 130 mg/dL (75-99)
--- NOTE | 2018-08-13 14:38 | P.DS ---
Providers Date of admission: 08/11/18 19:58 Expected date of discharge: 08/13/18 Attending physician: Alfa Cuadra Consults: 08/11/18 19:40 Consult Physician Urgent Consulting Provider: Rei Luciano Consult Reason/Comments: hypertension Do you want consulting provider notified?: Yes Primary care physician: Alfa Cuadra [facility] Course: Discharge diagnosis 1. Chest pain. Troponins negative. EKG completed showing sinus bradycardia. Possible anterior infarct, age undetermined. Chest x-ray completed showing normal chest. No change. Cardiology services have been consulted. 2-D echo completed showing EF greater than 55%. Per cardiology myocardial infarction is ruled out. 2. Hypertensive urgency. Patient's blood pressure reported to over 200 at home. Patient was given IV hydralazine. Home meds resumed. Per cardiology services Catapres has been increased 0.3 3 times a day Coreg increased to 50 twice a day blood pressure has improved. Per cardiology service is patient to be discharged home and we can optimize antihypertensives in outpatient setting. Patient will follow up with cardiology services outpatient 3. History of CVA with right sided hemiparesis residual. 4. Type 2 diabetes mellitus. Home meds resumed sliding scale added. Hemoglobin A1c 7.1. Patient will follow up with PCP 5. Hyperlipidemia 6. Anemia. Will order iron studies 7. History of rheumatoid arthritis 8. History of diabetic neuropathy 9. History of fibromyalgia 10. History of myocardial infarction 11. History of depression and anxiety 12. Recent falls. Lumbar spine completed showing spondylosis and scoliotic deformity. No fracture seen. Pelvic x-ray completed showing negative pelvic x- ray exam. Hospital course This is a 67-year-old female patient who presented to the emergency room with multiple complaints. Patient complained of hypertension which chest pain. Patient reports her blood pressure was higher than 200s at home. Patient also states she's been falling more at home. Patient does have a significant past medical history for CVA, diabetes mellitus, fibromyalgia, GERD, hyperlipidemia, hypertension, memory impairment, myocardial infarction, osteoarthritis, rheumatoid arthritis, neuropathy both feet and hands, glaucoma, connective- tissue dysfunction, peptic ulcer disease, hiatal hernia, cholecystectomy, anxiety and depression. Chest x-ray completed showing normal chest. No change. Lumbar spine x-ray completed showing spondylolisthesis and sclerotic deformity. No fracture seen. Pelvic x-ray completed showing negative pelvis x- ray exam. EKG completed showing sinus bradycardia, possible anterior infarct, age undetermined. Abnormal EKG. Troponins negative. Cardiology services have been consulted. Patient started on heparin drip. At this time patient does complain of some chest pain with shortness of breath. Patient also complaining of pain to her bilateral hands and feet which she says she has neuropathy. Patient denies nausea vomiting or diarrhea. Patient denies any urinary burning or frequency. On 08/13/2018 cardiology has adjusted antihypertensives. Patient's Coreg and Catapres has been increased per cardiology. Blood pressure better controlled. Patient has been cleared from cardiology for discharge. Patient to follow-up with PCP and cardiology services outpatient. At this time patient denies chest pain or shortness breath. Patient denies nausea vomiting or diarrhea. Patient denies any urinary burning or frequency I performed an examination of the patient and discussed their management with the Nurse Practitioner. I have reviewed the Nurse Practitioner's notes and agree with the documented findings and plan of care Patient Condition at Discharge: Stable Plan - Discharge Summary Discharge Rx Participant: No New Discharge Prescriptions: New Carvedilol [Coreg*] 50 mg PO AC-BID 30 Days #60 tab cloNIDine HCL [Catapres] 0.3 mg PO TID #90 tab Continue metFORMIN HCL 1,000 mg PO BID-W/MEALS HYDROcodone/APAP 10-325MG [[place] 10-325] 1 tab PO TID PRN PRN Reason: Pain Sertraline HCl [Zoloft] 50 mg PO DAILY Clopidogrel [Plavix] 75 mg PO DAILY #30 tab Lisinopril 40 mg PO DAILY #30 tab Insulin Degludec [Tresiba Flextouch U-100] 25 unit SQ HS Omeprazole 20 mg PO DAILY Latanoprost Ophth [Xalatan 0.005%] 1 drop BOTH EYES HS ALPRAZolam [Xanax] 0.25 mg PO BID PRN PRN Reason: Anxiety Furosemide [Lasix] 20 mg PO Q48H Aspirin 81 mg PO DAILY PRN PRN Reason: Pain Discontinued cloNIDine HCL [Catapres] 0.2 mg PO BID Carvedilol 25 mg PO DAILY Discharge Medication List HYDROcodone/APAP 10-325MG [[place] 10-325] 1 tab PO TID PRN 10/10/14 [History] metFORMIN HCL 1,000 mg PO BID-W/MEALS 10/10/14 [History] Sertraline HCl [Zoloft] 50 mg PO DAILY 04/26/17 [History] Clopidogrel [Plavix] 75 mg PO DAILY #30 tab 04/29/17 [Rx] Lisinopril 40 mg PO DAILY #30 tab 04/29/17 [Rx] Insulin Degludec [Tresiba Flextouch U-100] 25 unit SQ HS 12/07/17 [History] Latanoprost Ophth [Xalatan 0.005%] 1 drop BOTH EYES HS 12/07/17 [History] Omeprazole 20 mg PO DAILY 12/07/17 [History] ALPRAZolam [Xanax] 0.25 mg PO BID PRN 05/25/18 [History] Furosemide [Lasix] 20 mg PO Q48H 05/25/18 [History] Aspirin 81 mg PO DAILY PRN 08/11/18 [History] Carvedilol [Coreg*] 50 mg PO AC-BID 30 Days #60 tab 08/13/18 [Rx] cloNIDine HCL [Catapres] 0.3 mg PO TID #90 tab 08/13/18 [Rx] Follow up Appointment(s)/Referral(s): Alfa Cuadra MD [Primary Care Provider] - 1-2 days Rei Luciano MD [STAFF PHYSICIAN] - 1 Week Activity/Diet/Wound Care/Special Instructions: Activity as tolerated Diet regular Patient to follow-up with PCP and cardiology services Discharge Disposition: HOME SELF-CARE
[2018-08-13 16:58] LABS: Glucose,Whole Blood 189 mg/dL (75-99)
[2018-08-13] MEDS: DOXAZOSIN 2 MG TAB PO SCH (19:15)
[2018-08-13 20:14] LABS: Glucose,Whole Blood 235 mg/dL (75-99)
[2018-08-13] MEDS: INSULIN DETEMIR 100 UNIT/ML 10 ML VIAL SQ SCH (20:43)
[2018-08-13] MEDS ORDERED: LATANOPROST 0.005% OPHTH DROPS 2.5 ML BTL BOTH EYES SCH (21:00)
[2018-08-14] MEDS: ALPRAZolam 0.25 MG TAB PO PRN ×2 (01:45→08:22)
[2018-08-14 05:52] LABS: Glucose,Whole Blood 80 mg/dL (75-99)
[2018-08-14] MEDS: INSULIN ASPART 100 UNIT/ML 1 ML 10 ML VIAL SQ SCH ×2 (05:58→12:31)
[2018-08-14] MEDS: CARVEDILOL 12.5 MG TAB PO SCH (06:07)
[2018-08-14] MEDS: PANTOPRAZOLE 40 MG TABLET PO SCH (06:08)
[2018-08-14] MEDS: LISINOPRIL 20 MG TAB PO SCH (06:08)
[2018-08-14] MEDS: metFORMIN 500 MG TAB PO SCH (06:09)
[2018-08-14 07:18] LABS: Basophils # (A) 0.1 k/uL (0-0.2); Basophils % (A) 1 %; Eosinophils # (A) 0.4 k/uL (0-0.7); Eosinophils % (A) 7 %; HCT 31.1 % (34.0-46.0); HGB 10.1 gm/dL (11.4-16.0); Lymphocytes # (A) 1.6 k/uL (1.0-4.8); Lymphocytes % (A) 32 %; MCH 27.4 pg (25.0-35.0); MCHC 32.3 g/dL (31.0-37.0); MCV 84.8 fL (80.0-100.0); Mean Platelet Volume 6.2; Monocytes # (A) 0.4 k/uL (0-1.0); Monocytes % (A) 8 %; Neutrophils # (A) 2.5 k/uL (1.3-7.7); Neutrophils % (A) 49 %; Platelet Count 302 k/uL (150-450); RBC 3.67 m/uL (3.80-5.40); RDW 14.8 % (11.5-15.5)
[2018-08-14 07:34] LABS: ALT 18 U/L (9-52); AST 20 U/L (14-36); Albumin 3.6 g/dL (3.5-5.0); Alkaline Phosphatase 62 U/L (38-126); Anion Gap 5 mmol/L; Blood Urea Nitrogen 12 mg/dL (7-17); Calcium 9.4 mg/dL (8.4-10.2); Carbon Dioxide 29 mmol/L (22-30); Chloride 103 mmol/L (98-107); Glucose 72 mg/dL (74-99); Potassium 3.7 mmol/L (3.5-5.1); Sodium 137 mmol/L (137-145); Total Bilirubin 0.3 mg/dL (0.2-1.3); Total Protein 6.3 g/dL (6.3-8.2)
[2018-08-14 08:08] VITALS: RESP 16; TEMP 97.2
[2018-08-14] MEDS: SERTRALINE 50 MG TAB PO SCH (08:17)
[2018-08-14] MEDS: ASPIRIN 325 MG TAB PO SCH (08:17)
[2018-08-14] MEDS: DOXAZOSIN 2 MG TAB PO SCH (08:17)
[2018-08-14] MEDS: CLOPIDOGREL 75 MG TAB PO SCH (08:17)
[2018-08-14] MEDS: cloNIDine HCL 0.1 MG TAB PO SCH ×2 (08:17→14:49)
[2018-08-14] MEDS: HYDROcodone/APAP 10-325MG 1 EACH TAB PO PRN (08:22)
[2018-08-14 11:25] VITALS: PULSE 60
[2018-08-14 11:27] VITALS: BP 164/78
--- NOTE | 2018-08-14 12:23 | P.PN ---
Subjective This is a pleasant 67-year-old female past medical history significant for hypertension and diabetes mellitus. She is being followed in the hospital for symptoms of chest discomfort and uncontrolled hypertension. Adjustments have been made to her antihypertensive regimen. Echocardiogram reveals preserved left ventricular systolic function with ejection fraction 55% . She continued to have elevated blood pressures last night Cardura 2 mg daily was added. She is seen and examined resting comfortably in bed in no acute distress. She denies symptoms of chest pain, shortness of breath or dizziness. Blood pressure 164/78 heart rate 60 afebrile maintaining oxygen saturation on room air. Laboratory data reviewed, WBC 5, hemoglobin 10.1, platelets 14.8, sodium 137, potassium 3.7, creatinine 0.57. GENERAL: Well-appearing, well-nourished and in no acute distress. NECK: Supple without JVD or thyromegaly. LUNGS: Breath sounds clear to auscultation bilaterally. Respiration equal and unlabored. No wheezes, rales or rhonchi. HEART: Regular rate and rhythm with systolic ejection murmur at the base, no rubs or gallops. S1 and S2 heard. EXTREMITIES: Normal range of motion, no edema. No clubbing or cyanosis. Peripheral pulses intact. ASSESSMENT Chest pain atypical. An acute coronary event has been ruled out. Hypertension uncontrolled. Improved Diabetes mellitus. PLAN Stable from a cardiac perspective on current medication regimen. Follow-up with Dr. Luciano upon discharge. The above impression and plan of care have been discussed and directed by the signing physician. Janie Baumann, nurse practitioner, acting as scribe for signing physician. Objective - Vital Signs Vital signs: Vital Signs Temp 97.2 F L 08/14/18 08:00 Pulse 60 08/14/18 11:28 Resp 16 08/14/18 11:21 BP 164/78 08/14/18 11:25 Pulse Ox 98 08/14/18 11:21 Intake & Output 08/13/18 08/14/18 08/14/18 18:59 06:59 18:59 Intake Total 850 Balance 850 Weight 62.6 kg Intake: IV 10 Invasive Line 2 10 Oral 840 Other: Voiding Method Toilet Toilet # Voids 1 1 1 # Bowel Movements 1 - Labs CBC & Chem 7: 08/14/18 06:48 08/14/18 06:48 Labs: Abnormal Lab Results - Last 24 Hours (Table) 08/13/18 08/13/18 08/14/18 Range/Units 16:53 20:13 06:48 RBC 3.67 L (3.80-5.40) m/uL Hgb 10.1 L (11.4-16.0) gm/dL Hct 31.1 L (34.0-46.0) % Glucose (74-99) mg/dL POC Glucose (mg/dL) 189 H 235 H (75-99) mg/dL 08/14/18 Range/Units 06:48 RBC (3.80-5.40) m/uL Hgb (11.4-16.0) gm/dL Hct (34.0-46.0) % Glucose 72 L (74-99) mg/dL POC Glucose (mg/dL) (75-99) mg/dL
[2018-08-14 12:26] LABS: Glucose,Whole Blood 164 mg/dL (75-99)
== END 2018-08-14 15:00 | disposition home or self-care (01) | DRG 305 ==
LOC: EC 15:47 → 3SCARD 19:58
PROVIDERS: ADMIT Internal Medicine; ATTEND Internal Medicine
DX: I16.0 Hypertensive urgency (principal); I69.351 Hemiplegia and hemiparesis following cerebral infarction affecting right dominant side; R07.89 Other chest pain; R07.2 Precordial pain; F41.9 Anxiety disorder, unspecified; F32.9 Major depressive disorder, single episode, unspecified; D64.9 Anemia, unspecified; E11.40 Type 2 diabetes mellitus with diabetic neuropathy, unspecified; E78.5 Hyperlipidemia, unspecified; G89.29 Other chronic pain; H40.9 Unspecified glaucoma; K21.9 Gastro-esophageal reflux disease without esophagitis; M06.9 Rheumatoid arthritis, unspecified; M43.10 Spondylolisthesis, site unspecified; R00.1 Bradycardia, unspecified; M47.9 Spondylosis, unspecified; M79.7 Fibromyalgia; Z91.81 History of falling; Z82.49 Family history of ischemic heart disease and other diseases of the circulatory system; I25.2 Old myocardial infarction; Z79.02 Long term (current) use of antithrombotics/antiplatelets; Z79.4 Long term (current) use of insulin; Z79.82 Long term (current) use of aspirin; Z79.899 Other long term (current) drug therapy; Z87.11 Personal history of peptic ulcer disease; Z90.710 Acquired absence of both cervix and uterus; Z98.51 Tubal ligation status
CPT/HCPCS: 36415; 71046; 72100; 72170; 80053; 80061; 82550; 82553; 82728; 83036; 83540; 83550; 83690; 83735; 84484; 85025; 85049; 85610; 85730; 87324; 93005; 93306; 96365; 96375; 96376; 99284

== ENCOUNTER 2018-09-23 12:39 | Emergency (ER) | payer MEDICARE, OTHER ==
[2018-09-23 12:48] VITALS: RESP 18
[2018-09-23] MEDS ORDERED: ONDANSETRON 4 MG/2 ML VIAL IVP STA (13:51)
[2018-09-23] MEDS ORDERED: SODIUM CHLORIDE 0.9% 1,000 ML IV STA (13:51)
[2018-09-23] MEDS ORDERED: LABETALOL SYRINGE 5 MG/ML IVP STA ×2 (13:52→18:01)
--- NOTE | 2018-09-23 14:31 | ED ---
General Adult HPI - General Chief complaint: Nausea/Vomiting/Diarrhea Stated complaint: High BP, constipation, vomiting Time Seen by Provider: 09/23/18 13:41 Source: patient, RN notes reviewed Mode of arrival: ambulatory Limitations: no limitations - History of Present Illness Initial comments: 67-year-old female presents emergency Department with multiple complaints. Primary complaint is hypertension. Patient that she's been struggling with her blood pressure and states that she had recent hospitalization for. Patient saw PCP yesterday who wanted to increase her cadura states that she feels that this is making her sick. Patient's been having issues with constipation states that she's felt nauseated from it to did not take most of her blood pressure medications this morning. denies any fevers or chills. Patient states that she just feels very constipated and bloated. Patient denies any current chest pain or shortness of breath. Patient is here with caregiver. Patient has a focal weakness. Patient has had CVAs in the past. - Related Data Home Medications Medication Instructions Recorded Confirmed HYDROcodone/APAP 10-325MG [[place] 1 tab PO TID PRN 10/10/14 09/23/18 10-325] metFORMIN HCL 1,000 mg PO BID-W/MEALS 10/10/14 09/23/18 Sertraline HCl [Zoloft] 50 mg PO DAILY 04/26/17 09/23/18 Insulin Degludec [Tresiba 25 unit SQ HS 12/07/17 09/23/18 Flextouch U-100] Omeprazole 20 mg PO BID 12/07/17 09/23/18 ALPRAZolam [Xanax] 0.25 mg PO BID PRN 05/25/18 09/23/18 Furosemide [Lasix] 20 mg PO Q48H 05/25/18 09/23/18 Carvedilol 25 mg PO BID 09/23/18 09/23/18 Previous Rx's Medication Instructions Recorded Clopidogrel [Plavix] 75 mg PO DAILY #30 tab 04/29/17 Lisinopril 40 mg PO DAILY #30 tab 04/29/17 cloNIDine HCL [Catapres] 0.3 mg PO TID #90 tab 08/13/18 Doxazosin [Cardura] 2 mg PO DAILY 30 Days #30 tab 08/14/18 Allergies Allergy/AdvReac Type Severity Reaction Status Date / Time bee venom protein (honey bee) Allergy Anaphylaxis Verified 09/23/18 13:54 epinephrine Allergy Anaphylaxis Verified 09/23/18 13:54 influenza virus vaccine, Allergy Rash/Hives Verified 09/23/18 13:54 specific iodine Allergy Rash/Hives Verified 09/23/18 13:54 latex Allergy Rash/Hives Verified 09/23/18 13:54 procaine HCl [From Novocain] Allergy Anaphylaxis Verified 09/23/18 13:54 Sulfa (Sulfonamide Allergy Rash/Hives Verified 09/23/18 13:54 Antibiotics) amlodipine [From Norvasc] AdvReac Diarrhea,abdominal Verified 09/23/18 13:54 pain cephalexin monohydrate AdvReac Nausea & Verified 09/23/18 13:54 [From Keflex] Vomiting & Diarrhea codeine AdvReac Nausea & Verified 09/23/18 13:54 Vomiting cortisone AdvReac Nausea & Verified 09/23/18 13:54 Vomiting/Vertigo hydralazine AdvReac Unknown Verified 09/23/18 13:54 methadone AdvReac Nausea & Verified 09/23/18 13:54 Vomiting & Diarrhea propoxyphene AdvReac Nausea & Verified 09/23/18 13:54 [From Darvocet-N] Vomiting Dgnxzct-Pkq-Hju Reductase AdvReac Nausea & Verified 09/23/18 13:54 Inhibitor Vomiting/Muscle Weakness cortisone AdvReac Unknown Uncoded 05/25/18 14:49 steroids AdvReac Nausea & Uncoded 05/25/18 14:49 Vomiting Review of Systems ROS Statement: Those systems with pertinent positive or pertinent negative responses have been documented in the HPI. ROS Other: All systems not noted in ROS Statement are negative. Past Medical History Past Medical History: Chest Pain / Angina, CVA/TIA, Diabetes Mellitus, Fibromyalgia, GERD/Reflux, Hyperlipidemia, Hypertension, Memory Impairment, Myocardial Infarction (NM), Osteoarthritis (OA), Rheumatoid Arthritis (RA) Additional Past Medical History / Comment(s): rt side dominant. neuropathy both feet and hands, glaucoma, connective tissue dysfunction, peptic ulcer disease, "bad" hiatal hernia, stroke x3-loss of short term memory, chest pain "last year ", occ irregular heart beat, hx ulcers, hx carpal tunnel syndrome. Last Myocardial Infarction Date:: 1988 History of Any Multi-Drug Resistant Organisms: None Reported Past Surgical History: Bladder Surgery, Cholecystectomy, Hysterectomy, Tubal Ligation Additional Past Surgical History / Comment(s): rhinoplasty, hand surgery bilateral-carpal tunel , states "sling for rectal prolapse" , rt foot-failed bunionectomy-has a metal larisa in foot, ABBEY. Past Anesthesia/Blood Transfusion Reactions: Motion Sickness Past Psychological History: Anxiety, Depression Smoking Status: Never smoker Past Alcohol Use History: None Reported Past Drug Use History: None Reported - Past Family History Father Family Medical History: CVA/TIA, Liver Disease, Myocardial Infarction (NM) Additional Family Medical History / Comment(s): alcoholic, cirrhosis of the liver, Mother Family Medical History: Cancer General Exam Limitations: no limitations General appearance: alert, in no apparent distress Head exam: Present: atraumatic, normocephalic, normal inspection Eye exam: Present: normal appearance, PERRL, EOMI. Absent: scleral icterus, conjunctival injection, periorbital swelling ENT exam: Present: normal exam, normal oropharynx, mucous membranes moist Neck exam: Present: normal inspection, full ROM. Absent: tenderness, meningismus, lymphadenopathy Respiratory exam: Present: normal lung sounds bilaterally. Absent: respiratory distress, wheezes, rales, rhonchi, stridor Cardiovascular Exam: Present: regular rate, normal rhythm, normal heart sounds. Absent: systolic murmur, diastolic murmur, rubs, gallop, clicks GI/Abdominal exam: Present: soft, tenderness (Mild diffuse), normal bowel sounds. Absent: distended, guarding, rebound, rigid Extremities exam: Present: normal inspection, full ROM, normal capillary refill. Absent: tenderness, pedal edema, joint swelling, calf tenderness Back exam: Present: normal inspection. Absent: CVA tenderness (L) Neurological exam: Present: alert, oriented X3, CN II-XII intact Psychiatric exam: Present: normal affect, normal mood Skin exam: Present: warm, dry, intact, normal color. Absent: rash Course Vital Signs 09/23/18 09/23/18 09/23/18 12:45 14:33 15:20 Temperature 98.8 F Pulse Rate 91 83 64 Respiratory 18 18 18 Rate Blood Pressure 211/112 200/105 191/90 O2 Sat by Pulse 97 97 96 Oximetry 09/23/18 09/23/18 16:40 17:13 Temperature Pulse Rate 80 69 Respiratory 18 18 Rate Blood Pressure 198/121 202/98 O2 Sat by Pulse 98 98 Oximetry EKG Findings - EKG Comments: EKG Findings:: EKG performed at 14:14 normal sinus rhythm with rate of 73 NV 142 QRS 80 QT/QTC 374/412 Medical Decision Making - Medical Decision Making 59-year-old female presents emergency department for abdominal pain, hypertension. Patient's hypertension is related to medication noncompliance. Patient's blood pressure has improved. She is advised to take medications as directed and follow-up with her PCP. Patient was given elements emergency Department which has alleviated her constipation. - Lab Data Result diagrams: 09/23/18 14:03 09/23/18 14:03 Lab Results 09/23/18 09/23/18 09/23/18 Range/Units 14:03 14:03 14:03 WBC 6.4 (3.8-10.6) k/uL RBC 4.46 (3.80-5.40) m/uL Hgb 12.2 (11.4-16.0) gm/dL Hct 37.5 (34.0-46.0) % MCV 84.1 (80.0-100.0) fL MCH 27.4 (25.0-35.0) pg MCHC 32.5 (31.0-37.0) g/dL RDW 14.9 (11.5-15.5) % Plt Count 384 (150-450) k/uL Neutrophils % 74 % Lymphocytes % 18 % Monocytes % 5 % Eosinophils % 2 % Basophils % 1 % Neutrophils # 4.7 (1.3-7.7) k/uL Lymphocytes # 1.1 (1.0-4.8) k/uL Monocytes # 0.3 (0-1.0) k/uL Eosinophils # 0.2 (0-0.7) k/uL Basophils # 0.0 (0-0.2) k/uL Sodium 140 (137-145) mmol/L Potassium 3.6 (3.5-5.1) mmol/L Chloride 98 (98-107) mmol/L Carbon Dioxide 31 H (22-30) mmol/L Anion Gap 11 mmol/L BUN 13 (7-17) mg/dL Creatinine 0.52 (0.52-1.04) mg/dL Est GFR (CKD-EPI)AfAm >90 (>60 ml/min/1.73 sqM) Est GFR (CKD-EPI)NonAf >90 (>60 ml/min/1.73 sqM) Glucose 77 (74-99) mg/dL Calcium 9.8 (8.4-10.2) mg/dL Total Bilirubin 0.5 (0.2-1.3) mg/dL AST 24 (14-36) U/L ALT 25 (9-52) U/L Alkaline Phosphatase 94 (38-126) U/L Total Creatine Kinase 173 H (30-135) U/L CK-MB (CK-2) 2.6 H (0.0-2.4) ng/mL CK-MB (CK-2) Rel Index 1.5 Troponin I <0.012 (0.000-0.034) ng/mL Total Protein 7.8 (6.3-8.2) g/dL Albumin 4.5 (3.5-5.0) g/dL Amylase 55 (30-110) U/L Lipase 25 (23-300) U/L Urine Color Urine Appearance (Clear) Urine pH (5.0-8.0) Ur Specific [place] (1.001-1.035) Urine Protein (Negative) Urine Glucose (UA) (Negative) Urine Ketones (Negative) Urine Blood (Negative) Urine Nitrite (Negative) Urine Bilirubin (Negative) Urine Urobilinogen (<2.0) mg/dL Ur Leukocyte Esterase (Negative) 09/23/18 Range/Units 14:03 WBC (3.8-10.6) k/uL RBC (3.80-5.40) m/uL Hgb (11.4-16.0) gm/dL Hct (34.0-46.0) % MCV (80.0-100.0) fL MCH (25.0-35.0) pg MCHC (31.0-37.0) g/dL RDW (11.5-15.5) % Plt Count (150-450) k/uL Neutrophils % % Lymphocytes % % Monocytes % % Eosinophils % % Basophils % % Neutrophils # (1.3-7.7) k/uL Lymphocytes # (1.0-4.8) k/uL Monocytes # (0-1.0) k/uL Eosinophils # (0-0.7) k/uL Basophils # (0-0.2) k/uL Sodium (137-145) mmol/L Potassium (3.5-5.1) mmol/L Chloride (98-107) mmol/L Carbon Dioxide (22-30) mmol/L Anion Gap mmol/L BUN (7-17) mg/dL Creatinine (0.52-1.04) mg/dL Est GFR (CKD-EPI)AfAm (>60 ml/min/1.73 sqM) Est GFR (CKD-EPI)NonAf (>60 ml/min/1.73 sqM) Glucose (74-99) mg/dL Calcium (8.4-10.2) mg/dL Total Bilirubin (0.2-1.3) mg/dL AST (14-36) U/L ALT (9-52) U/L Alkaline Phosphatase (38-126) U/L Total Creatine Kinase (30-135) U/L CK-MB (CK-2) (0.0-2.4) ng/mL CK-MB (CK-2) Rel Index Troponin I (0.000-0.034) ng/mL Total Protein (6.3-8.2) g/dL Albumin (3.5-5.0) g/dL Amylase (30-110) U/L Lipase (23-300) U/L Urine Color Yellow Urine Appearance Clear (Clear) Urine pH 6.5 (5.0-8.0) Ur Specific [place] 1.008 (1.001-1.035) Urine Protein Negative (Negative) Urine Glucose (UA) Negative (Negative) Urine Ketones Negative (Negative) Urine Blood Negative (Negative) Urine Nitrite Negative (Negative) Urine Bilirubin Negative (Negative) Urine Urobilinogen <2.0 (<2.0) mg/dL Ur Leukocyte Esterase Negative (Negative) Disposition Clinical Impression: Constipation, Hypertension Disposition: HOME SELF-CARE Condition: Stable Instructions (If sedation given, give patient instructions): Constipation (DC) Additional Instructions: Please return to the Emergency Department if symptoms worsen or any other concerns. Is patient prescribed a controlled substance at d/c from ED?: No Referrals: Alfa Cuadra MD [Primary Care Provider] - 1-2 days Time of Disposition: 17:43
[2018-09-23 15:14] LABS: Appearance,Urine Clear (Clear); Bilirubin,Urine Negative (Negative); Blood,Urine Negative (Negative); Color,Urine Yellow; Glucose,Urine (UA) Negative (Negative); Ketones,Urine Negative (Negative); Leukocyte Esterase,Urine Negative (Negative); Nitrite,Urine Negative (Negative); PH, Urine 6.5 (5.0-8.0); Protein,Urine Negative (Negative); Specific Gravity,Urine 1.008 (1.001-1.035); Urobilinogen,Urine <2.0 mg/dL (<2.0)
[2018-09-23 15:15] LABS: Basophils % (A) 1 %; Eosinophils # (A) 0.2 k/uL (0-0.7); Eosinophils % (A) 2 %; HCT 37.5 % (34.0-46.0); HGB 12.2 gm/dL (11.4-16.0); Lymphocytes # (A) 1.1 k/uL (1.0-4.8); Lymphocytes % (A) 18 %; MCH 27.4 pg (25.0-35.0); MCHC 32.5 g/dL (31.0-37.0); MCV 84.1 fL (80.0-100.0); Mean Platelet Volume 6.3; Monocytes # (A) 0.3 k/uL (0-1.0); Monocytes % (A) 5 %; Neutrophils # (A) 4.7 k/uL (1.3-7.7); Neutrophils % (A) 74 %; Platelet Count 384 k/uL (150-450); RBC 4.46 m/uL (3.80-5.40); RDW 14.9 % (11.5-15.5); WBC 6.4 k/uL (3.8-10.6)
--- NOTE | 2018-09-23 15:24 | XR ---
EXAMINATION TYPE: XR KUB DATE OF EXAM: 09/23/2018 COMPARISON: NONE HISTORY: 67 year-old female abdominal pain TECHNIQUE: 2 views FINDINGS: Cholecystectomy clips. Nonobstructive bowel gas pattern. No evidence for free intraperitoneal air. Moderate overall stool burden. Air and stool extends distally into the rectum. No suspicious calcifications seen. Rotary dextroconvex scoliosis of the lumbar spine. IMPRESSION: 1. No evidence for free air or bowel obstruction. 2. Moderate stool burden. Correlate for constipation. 3. Degenerated rotary dextroconvex scoliosis of the lumbar spine.
[2018-09-23] MEDS ORDERED: ENALAPRILAT 1.25 MG/ML 1 ML VIAL IVP STA (15:28)
[2018-09-23 15:29] LABS: ALT 25 U/L (9-52); AST 24 U/L (14-36); Albumin 4.5 g/dL (3.5-5.0); Alkaline Phosphatase 94 U/L (38-126); Amylase 55 U/L (30-110); Anion Gap 11 mmol/L; Blood Urea Nitrogen 13 mg/dL (7-17); Calcium 9.8 mg/dL (8.4-10.2); Carbon Dioxide 31 mmol/L (22-30); Chloride 98 mmol/L (98-107); Glucose 77 mg/dL (74-99); Lipase 25 U/L (23-300); Potassium 3.6 mmol/L (3.5-5.1); Sodium 140 mmol/L (137-145); Total Bilirubin 0.5 mg/dL (0.2-1.3); Total Protein 7.8 g/dL (6.3-8.2)
[2018-09-23 15:33] LABS: Creatine Kinase 173 U/L (30-135)
[2018-09-23 15:47] LABS: Creatine Kinase MB 2.6 ng/mL (0.0-2.4); Troponin I <0.012 ng/mL (0.000-0.034)
[2018-09-23] MEDS ORDERED: cloNIDine HCL 0.1 MG TAB PO STA (16:50)
[2018-09-23] MEDS ORDERED: LABETALOL 5 MG/ML VIAL MDV IVP STA (17:46)
[2018-09-23 18:20] VITALS: BP 177/68; PULSE 67; TEMP 97.8
== END 2018-09-23 18:15 | disposition home or self-care (01) ==
LOC: EC 12:39
DX: I10 Essential (primary) hypertension (principal); K59.00 Constipation, unspecified; R11.2 Nausea with vomiting, unspecified; R19.7 Diarrhea, unspecified; K21.9 Gastro-esophageal reflux disease without esophagitis; I25.2 Old myocardial infarction; E11.40 Type 2 diabetes mellitus with diabetic neuropathy, unspecified; F41.9 Anxiety disorder, unspecified; F32.9 Major depressive disorder, single episode, unspecified; Z86.73 Personal history of transient ischemic attack (TIA), and cerebral infarction without residual deficits; Z90.49 Acquired absence of other specified parts of digestive tract; Z90.710 Acquired absence of both cervix and uterus; Z98.51 Tubal ligation status; Z79.4 Long term (current) use of insulin; Z79.899 Other long term (current) drug therapy; Z91.013 Allergy to seafood; Z88.8 Allergy status to other drugs, medicaments and biological substances; Z88.7 Allergy status to serum and vaccine; Z91.048 Other nonmedicinal substance allergy status; Z91.040 Latex allergy status; Z88.4 Allergy status to anesthetic agent; Z88.2 Allergy status to sulfonamides; Z88.1 Allergy status to other antibiotic agents; Z88.5 Allergy status to narcotic agent; Z53.8 Procedure and treatment not carried out for other reasons
CPT/HCPCS: 36415; 93005; 80053; 82150; 82550; 82553; 83690; 84484; 85025; 81003; 74018; 99284; 96374; 96375 ×2; 96361 ×4; J2405

== ENCOUNTER 2018-09-30 14:01 | Emergency (ER) | payer MEDICARE, OTHER ==
[2018-09-30 14:09] VITALS: TEMP 99.3
[2018-09-30 15:16] LABS: Appearance,Urine Clear (Clear); Bilirubin,Urine Negative (Negative); Blood,Urine Negative (Negative); Color,Urine Light Yellow; Glucose,Urine (UA) 1+ (Negative); Leukocyte Esterase,Urine Negative (Negative); Nitrite,Urine Negative (Negative); Protein,Urine Negative (Negative); Specific Gravity,Urine 1.006 (1.001-1.035); Urobilinogen,Urine <2.0 mg/dL (<2.0)
[2018-09-30 15:23] LABS: ALT 32 U/L (9-52); AST 21 U/L (14-36); Albumin 4.8 g/dL (3.5-5.0); Alkaline Phosphatase 108 U/L (38-126); Amylase 36 U/L (30-110); Anion Gap 12 mmol/L; Blood Urea Nitrogen 9 mg/dL (7-17); Calcium 10.3 mg/dL (8.4-10.2); Carbon Dioxide 30 mmol/L (22-30); Chloride 95 mmol/L (98-107); Glucose 168 mg/dL (74-99); Lipase 26 U/L (23-300); Potassium 3.8 mmol/L (3.5-5.1); Sodium 137 mmol/L (137-145); Total Bilirubin 0.8 mg/dL (0.2-1.3); Total Protein 8.3 g/dL (6.3-8.2)
[2018-09-30 15:33] LABS: Basophils % (A) 1 %; Eosinophils # (A) 0.1 k/uL (0-0.7); Eosinophils % (A) 1 %; HCT 39.2 % (34.0-46.0); HGB 12.7 gm/dL (11.4-16.0); Lymphocytes # (A) 1.3 k/uL (1.0-4.8); Lymphocytes % (A) 23 %; MCH 26.7 pg (25.0-35.0); MCHC 32.5 g/dL (31.0-37.0); MCV 82.1 fL (80.0-100.0); Mean Platelet Volume 5.5; Monocytes # (A) 0.3 k/uL (0-1.0); Monocytes % (A) 6 %; Neutrophils # (A) 3.8 k/uL (1.3-7.7); Neutrophils % (A) 69 %; Platelet Count 445 k/uL (150-450); RBC 4.77 m/uL (3.80-5.40); WBC 5.5 k/uL (3.8-10.6)
[2018-09-30 15:34] LABS: Ketones,Urine 2+ (Negative)
--- NOTE | 2018-09-30 16:03 | CT ---
EXAMINATION TYPE: CT abdomen pelvis wo con DATE OF EXAM: 09/30/2018 COMPARISON: Abdomen 09/23/2018 HISTORY: Generalized pain with nausea and vomiting CT DLP: 352.1 mGycm Automated exposure control for dose reduction was used. TECHNIQUE: Helical acquisition of images from the lung bases through the pelvis. FINDINGS: Lack of contrast may compromise sensitivity of the exam. There are coronary artery calcific ations present. LUNG BASES: No significant abnormality is appreciated. AORTA: No significant abnormality is appreciated. LIVER/GB: Patient is post cholecystectomy. Liver is normal as seen PANCREAS: No significant abnormality is seen. SPLEEN: No significant abnormality is seen. ADRENALS: No significant abnormality is seen. KIDNEYS: No significant abnormality is seen. REPRODUCTIVE ORGANS: Not seen URINARY BLADDER: No significant abnormality is seen. BOWEL: Possible small hiatal hernia present. Small bowel loops in the left hemiabdomen shows some wa ll thickening. Appendix not seen with certainty FREE AIR: No Free Air is visible. ASCITES: None visible. PELVIC ADENOPATHY: None visualized. RETROPERITONEAL ADENOPATHY: No Retroperitoneal Adenopathy visible. OSSEOUS STRUCTURES: There is an underlying scoliosis, degenerative disc changes are present in the v isualized spine. IMPRESSION: NONCONTRAST EXAM. CORRELATE FOR POSSIBLE ENTERITIS. ADDITIONAL FINDINGS ABOVE. FOLLOW-UP INDICATED .
[2018-09-30] MEDS ORDERED: PEG 3350-NA SULF,BICARB,CL/KCL 4,000 ML BOTTLE PO ONE (16:10)
[2018-09-30] MEDS ORDERED: ONDANSETRON 4 MG/2 ML VIAL IVP STA (16:10)
--- NOTE | 2018-09-30 16:50 | ED ---
Nausea/Vomiting/Diarrhea HPI - General Chief complaint: Nausea/Vomiting/Diarrhea Stated complaint: High BP, vomiting Time Seen by Provider: 09/30/18 14:17 Source: patient Mode of arrival: ambulatory Limitations: no limitations - History of Present Illness Initial comments: This patient is a 67-year-old woman who presents to be evaluated for going on 2 days of some diffuse abdominal pains that seem to be colicky as well as having some vomiting accompanying. Patient denies any blood or coffee-ground material. Patient does state that it has felt like she needs to have a bowel movement. Currently not having pains MD complaint: nausea, vomiting, abdominal pain Onset/Timin -: days(s) Description of Vomiting: food contents Associated Abdominal Pain: Yes Location: diffuse Severity: mild Quality: cramping Consistency: now resolved, colicky Improves with: none Worsens with: none Associated Symptoms: denies other symptoms - Related Data Home Medications Medication Instructions Recorded Confirmed HYDROcodone/APAP 10-325MG [[place] 1 tab PO Q8HR PRN 10/10/14 10/19/18 10-325] metFORMIN HCL 1,000 mg PO BID 10/10/14 10/19/18 Sertraline HCl [Zoloft] 50 mg PO DAILY 04/26/17 10/19/18 Insulin Degludec [Tresiba 20 - 25 unit SQ W/SUPPER 12/07/17 10/19/18 Flextouch U-100] Omeprazole 20 mg PO BID 12/07/17 10/19/18 ALPRAZolam [Xanax] 0.25 mg PO BID PRN 05/25/18 10/19/18 Furosemide [Lasix] 20 mg PO Q48H 05/25/18 10/19/18 Carvedilol 25 mg PO BID 09/23/18 10/19/18 Insulin Regular, Human [NovoLIN R] 5 - 10 unit SQ DAILY PRN 09/30/18 10/19/18 Azithromycin [Zithromax] 250 mg PO DAILY 10/19/18 10/19/18 Doxazosin [Cardura] 2 mg PO 1500 10/19/18 10/19/18 Latanoprost/Pf [Latanoprost 0.005% 1 drop BOTH EYES HS 10/19/18 10/19/18 Eye Drop] Lisinopril 40 mg PO DAILY 10/19/18 10/19/18 Previous Rx's Medication Instructions Recorded Clopidogrel [Plavix] 75 mg PO DAILY #30 tab 04/29/17 cloNIDine HCL [Catapres] 0.3 mg PO TID #90 tab 08/13/18 Allergies Allergy/AdvReac Type Severity Reaction Status Date / Time bee venom protein (honey bee) Allergy Anaphylaxis Verified 10/19/18 08:56 doxazosin [From Cardura] Allergy constipatio Verified 10/19/18 08:57 n epinephrine Allergy Anaphylaxis Verified 10/19/18 08:56 influenza virus vaccine, Allergy Rash/Hives Verified 10/19/18 08:56 specific iodine Allergy Rash/Hives Verified 10/19/18 08:56 latex Allergy Rash/Hives Verified 10/19/18 08:56 procaine HCl [From Novocain] Allergy Anaphylaxis Verified 10/19/18 08:56 Sulfa (Sulfonamide Allergy Rash/Hives Verified 10/19/18 08:56 Antibiotics) amlodipine [From Norvasc] AdvReac Diarrhea,abdominal Verified 10/19/18 08:56 pain cephalexin monohydrate AdvReac Nausea & Verified 10/19/18 08:56 [From Keflex] Vomiting & Diarrhea codeine AdvReac Nausea & Verified 10/19/18 08:56 Vomiting cortisone AdvReac Nausea & Verified 10/19/18 08:56 Vomiting/Vertigo hydralazine AdvReac Unknown Verified 10/19/18 08:56 methadone AdvReac Nausea & Verified 10/19/18 08:56 Vomiting & Diarrhea propoxyphene AdvReac Nausea & Verified 10/19/18 08:56 [From Darvocet-N] Vomiting [id number]-Tnp Reductase AdvReac Nausea & Verified 10/19/18 08:56 Inhibitor Vomiting/Muscle Weakness cortisone AdvReac Unknown Uncoded 10/19/18 08:56 steroids AdvReac Nausea & Uncoded 10/19/18 08:56 Vomiting Review of Systems ROS Statement: Those systems with pertinent positive or pertinent negative responses have been documented in the HPI. ROS Other: All systems not noted in ROS Statement are negative. Constitutional: Denies: fever, chills Respiratory: Denies: cough, dyspnea Cardiovascular: Denies: chest pain, palpitations, edema Gastrointestinal: Reports: abdominal pain, nausea, vomiting, constipation. Denies: melena, hematochezia Genitourinary: Denies: dysuria, hematuria Musculoskeletal: Denies: back pain Skin: Denies: rash Neurological: Denies: headache, weakness, numbness Past Medical History Past Medical History: Chest Pain / Angina, CVA/TIA, Diabetes Mellitus, Fibromyalgia, GERD/Reflux, Hyperlipidemia, Hypertension, Memory Impairment, Myocardial Infarction ([place]), Osteoarthritis (OA), Rheumatoid Arthritis (RA) Additional Past Medical History / Comment(s): rt side dominant. neuropathy both feet and hands, glaucoma, connective tissue dysfunction, peptic ulcer disease, "bad" hiatal hernia, stroke x3-loss of short term memory, chest pain "last year", occ irregular heart beat, hx ulcers, hx carpal tunnel syndrome. Last Myocardial Infarction Date:: 1988 History of Any Multi-Drug Resistant Organisms: None Reported Past Surgical History: Bladder Surgery, Cholecystectomy, Hysterectomy, Tubal Ligation Additional Past Surgical History / Comment(s): rhinoplasty, hand surgery bilat eral-carpal tunel , states "sling for rectal prolapse" , rt foot-failed bunionectomy-has a metal larisa in foot, ABBEY. Past Anesthesia/Blood Transfusion Reactions: Motion Sickness Past Psychological History: Anxiety, Depression Smoking Status: Never smoker Past Alcohol Use History: None Reported Past Drug Use History: None Reported - Past Family History Father Family Medical History: CVA/TIA, Liver Disease, Myocardial Infarction ([place]) Additional Family Medical History / Comment(s): alcoholic, cirrhosis of the liver, Mother Family Medical History: Cancer General Exam Limitations: no limitations General appearance: alert, in no apparent distress Head exam: Present: atraumatic, normocephalic Eye exam: Present: normal appearance. Absent: scleral icterus, conjunctival injection ENT exam: Present: normal oropharynx Respiratory exam: Present: normal lung sounds bilaterally. Absent: respiratory distress, wheezes, rales, rhonchi, stridor Cardiovascular Exam: Present: regular rate, normal rhythm, normal heart sounds. Absent: systolic murmur, diastolic murmur, rubs, gallop GI/Abdominal exam: Present: soft, normal bowel sounds. Absent: distended, tenderness, guarding, rebound, rigid, pulsatile mass, hernia Extremities exam: Present: normal inspection, normal capillary refill. Absent: pedal edema, calf tenderness Back exam: Present: normal inspection. Absent: CVA tenderness (R), CVA tend erness (L) Neurological exam: Present: alert Skin exam: Present: warm, dry, intact, normal color. Absent: rash Course Vital Signs 09/30/18 09/30/18 14:06 17:37 Temperature 99.3 F Pulse Rate 107 H 88 Respiratory 16 18 Rate Blood Pressure 219/98 164/98 O2 Sat by Pulse 97 98 Oximetry Medical Decision Making - Medical Decision Making Patient's 67-year-old woman with nausea vomiting and some intermittent abdominal pains. She was feeling better here following antiemetic. She did tolerate oral intake. The patient did feel well and wants to go home. She was concerned about not having a bowel movement and will be provided with GoLYTELY should she not resume normal bowel movement within 1-2 days she may try that. Discussed appropriate follow-up as well as return parameters should the abdominal pain recur - Lab Data Result diagrams: 09/30/18 14:40 09/30/18 14:40 Lab Results 09/30/18 09/30/18 09/30/18 Range/Units 14:40 14:40 15:00 WBC 5.5 (3.8-10.6) k/uL RBC 4.77 (3.80-5.40) m/uL Hgb 12.7 (11.4-16.0) gm/dL Hct 39.2 (34.0-46.0) % MCV 82.1 (80.0-100.0) fL MCH 26.7 (25.0-35.0) pg MCHC 32.5 (31.0-37.0) g/dL RDW 15.0 (11.5-15.5) % Plt Count 445 (150-450) k/uL Neutrophils % 69 % Lymphocytes % 23 % Monocytes % 6 % Eosinophils % 1 % Basophils % 1 % Neutrophils # 3.8 (1.3-7.7) k/uL Lymphocytes # 1.3 (1.0-4.8) k/uL Monocytes # 0.3 (0-1.0) k/uL Eosinophils # 0.1 (0-0.7) k/uL Basophils # 0.0 (0-0.2) k/uL Sodium 137 (137-145) mmol/L Potassium 3.8 (3.5-5.1) mmol/L Chloride 95 L (98-107) mmol/L Carbon Dioxide 30 (22-30) mmol/L Anion Gap 12 mmol/L BUN 9 (7-17) mg/dL Creatinine 0.50 L (0.52-1.04) mg/dL Est GFR (CKD-EPI)AfAm >90 (>60 ml/min/1.73 sqM) Est GFR (CKD-EPI)NonAf >90 (>60 ml/min/1.73 sqM) Glucose 168 H (74-99) mg/dL Calcium 10.3 H (8.4-10.2) mg/dL Total Bilirubin 0.8 (0.2-1.3) mg/dL AST 21 (14-36) U/L ALT 32 (9-52) U/L Alkaline Phosphatase 108 (38-126) U/L Total Protein 8.3 H (6.3-8.2) g/dL Albumin 4.8 (3.5-5.0) g/dL Amylase 36 (30-110) U/L Lipase 26 (23-300) U/L Urine Color Light Yellow Urine Appearance Clear (Clear) Urine pH 7.0 (5.0-8.0) Ur Specific [place] 1.006 (1.001-1.035) Urine Protein Negative (Negative) Urine Glucose (UA) 1+ H (Negative) Urine Ketones 2+ H (Negative) Urine Blood Negative (Negative) Urine Nitrite Negative (Negative) Urine Bilirubin Negative (Negative) Urine Urobilinogen <2.0 (<2.0) mg/dL Ur Leukocyte Esterase Negative (Negative) Disposition Clinical Impression: Constipation, Vomiting Disposition: HOME SELF-CARE Condition: Fair Instructions (If sedation given, give patient instructions): Acute Nausea and Vomiting (ED) Is patient prescribed a controlled substance at d/c from ED?: No Referrals: Alfa Cuadra MD [Primary Care Provider] - 1-2 days
[2018-09-30 17:38] VITALS: BP 164/98; PULSE 88; RESP 18
== END 2018-09-30 17:25 | disposition home or self-care (01) ==
LOC: EC 14:01
DX: K59.00 Constipation, unspecified (principal); R11.10 Vomiting, unspecified; I10 Essential (primary) hypertension; I25.2 Old myocardial infarction; K21.9 Gastro-esophageal reflux disease without esophagitis; E11.40 Type 2 diabetes mellitus with diabetic neuropathy, unspecified; F41.9 Anxiety disorder, unspecified; F32.9 Major depressive disorder, single episode, unspecified; Z79.4 Long term (current) use of insulin; Z79.02 Long term (current) use of antithrombotics/antiplatelets; Z79.899 Other long term (current) drug therapy; Z91.030 Bee allergy status; Z88.8 Allergy status to other drugs, medicaments and biological substances; Z88.7 Allergy status to serum and vaccine; Z91.048 Other nonmedicinal substance allergy status; Z91.040 Latex allergy status; Z88.2 Allergy status to sulfonamides; Z88.5 Allergy status to narcotic agent; Z88.4 Allergy status to anesthetic agent; Z88.1 Allergy status to other antibiotic agents; Z86.73 Personal history of transient ischemic attack (TIA), and cerebral infarction without residual deficits
CPT/HCPCS: 36415; 80053; 82150; 83690; 85025; 81003; 74176; 99284; 96374; J2405

== ENCOUNTER 2018-10-29 10:02 | Day surgery (SDC) | payer MEDICARE, OTHER ==
[2018-10-19 09:26] VITALS: BMI 25.3
[2018-10-29 10:37] VITALS: TEMP 98
[2018-10-29] MEDS ORDERED: LACTATED RINGERS 1,000 ML IV ONE (10:38)
[2018-10-29 10:41] LABS: Glucose,Whole Blood 136 mg/dL (75-99)
[2018-10-29] MEDS ORDERED: LABETALOL 5 MG/ML VIAL MDV ONE (11:56)
[2018-10-29] MEDS ORDERED: PROPOFOL 10 MG/ML 20 ML VIAL IV ONE (11:56)
[2018-10-29] MEDS ORDERED: IV FLUID CONTINUATION 1,000 ML IV ONE (12:17)
--- NOTE | 2018-10-29 12:18 | P.PCN ---
Date of Procedure: 10/29/18 Procedure(s) Performed: BRIEF HISTORY: Patient is a 67-year-old pleasant white female, scheduled for an elective colonoscopy as a part of his part of value should change in bowel habits for the last 6 months duration. She is been having pencil thin stools lately. Denies any rectal bleeding. PROCEDURE PERFORMED: Colonoscopy. PREOPERATIVE DIAGNOSIS: Change in bowel habits. IV sedation per Anesthesia. PROCEDURE: After informed consent was obtained, the patient, was brought into the endoscopy unit. IV sedation was administered by Anesthesia under continuous monitoring. Digital rectal examination was normal. Initially the Olympus CF-160 flexible video colonoscope was then inserted in the rectum, gradually advanced into the cecum without any difficulty. Careful examination was performed as the scope was gradually being withdrawn. Ileocecal valve and the appendiceal orifice were visualized and appeared normal. Prep was excellent. Mucosa of the cecum, ascending colon, transverse colon, descending colon, sigmoid colon, and rectum appeared normal. Retroflexion was performed in the rectum and weight 2 internal hemorrhoids were seen. The patient tolerated the procedure well. IMPRESSION: Normal-appearing colon from rectum to cecum with no evidence of colorectal neoplasia Grade 2 internal hemorrhoids. RECOMMENDATIONS: Findings of this examination were discussed with the patient as well as a family. She was advised to have a repeat screening colonoscopy in 10 years.
[2018-10-29 12:20] VITALS: RESP 16
[2018-10-29] MEDS ORDERED: LABETALOL SYRINGE 5 MG/ML IVP ONE (12:56)
[2018-10-29 13:30] VITALS: BP 185/85; PULSE 71
== END 2018-10-29 13:46 | disposition home or self-care (01) ==
LOC: ORWHC2ENDO 10:02
PROVIDERS: ATTEND Internal Medicine Gastroenterology
DX: R19.4 Change in bowel habit (principal); K64.1 Second degree hemorrhoids; E11.9 Type 2 diabetes mellitus without complications; M19.90 Unspecified osteoarthritis, unspecified site; F03.90 Unspecified dementia, unspecified severity, without behavioral disturbance, psychotic disturbance, mood disturbance, and anxiety; M06.9 Rheumatoid arthritis, unspecified; K21.9 Gastro-esophageal reflux disease without esophagitis; I25.2 Old myocardial infarction; Z90.49 Acquired absence of other specified parts of digestive tract; Z90.710 Acquired absence of both cervix and uterus; Z79.02 Long term (current) use of antithrombotics/antiplatelets; Z79.4 Long term (current) use of insulin; Z79.899 Other long term (current) drug therapy; Z88.8 Allergy status to other drugs, medicaments and biological substances; Z91.040 Latex allergy status
CPT/HCPCS: 45378; J2704

== ENCOUNTER → 2018-11-09 | Outpatient (CLI) | payer MEDICARE, OTHER ==
--- NOTE | 2018-11-10 11:54 | MM ---
Reason for exam: screening (asymptomatic). Last mammogram was performed 2 years and 1 month ago. History: Patient is postmenopausal. Benign excisional biopsy of the left breast, 1976. Took estrogen beginning at age 44. Physical Findings: A clinical breast exam by your physician is recommended on an annual basis and results should be correlated with mammographic findings. MG 3D Screening Mammo W/Cad Bilateral CC and MLO view(s) were taken. Prior study comparison: October 20, 2016, bilateral MG 3d screening mammo w/cad. March 28, 2016, mammogram, performed at [facility]. The breast tissue is extremely dense which could obscure a lesion on mammography. Benign appearing bilateral calcifications. No suspicious abnormality. No significant changes when compared with prior studies. ASSESSMENT: Benign, BI-RAD 2 RECOMMENDATION: Routine screening mammogram of both breasts in 1 year.
== END | disposition home or self-care (01) ==
LOC: RADMAMWWP 14:51
PROVIDERS: ATTEND Internal Medicine
DX: Z12.31 Encounter for screening mammogram for malignant neoplasm of breast (principal)
CPT/HCPCS: 77063; 77067

== ENCOUNTER → 2018-12-02 | Outpatient (CLI) | payer MEDICARE, OTHER ==
--- NOTE | 2018-12-03 07:14 | CT ---
EXAMINATION TYPE: CT brain wo con DATE OF EXAM: 12/02/2018 HISTORY: Migraines w/out aura. Pt c/o facial and extremity numbness, dizziness and weakness. Pt state s hx strokes CT DLP: 1054.2 mGycm. Automated Exposure Control for Dose Reduction was Utilized. TECHNIQUE: CT scan of the head is performed without contrast. COMPARISON: CT brain October 18, 2017. FINDINGS: There is no acute intracranial hemorrhage or midline shift identified. There is diffuse v entricular and sulcal prominence consistent with diffuse age-related cerebral atrophy. There is low- attenuation in the periventricular white matter consistent with chronic small vessel ischemic change. Old left-sided infarcts at level of basal ganglia near axial image 24 remain present Vascular calcif ication distal internal carotid arteries is present bilaterally. The globes are intact and the visual ized sinuses are clear. IMPRESSION: No acute intracranial hemorrhage or midline shift. There is mild to moderate diffuse ag e-related cerebral atrophy and chronic small vessel ischemic change as well as old left-sided lacunar infarcts all redemonstrated. No significant change from prior CT.
--- NOTE | 2018-12-03 11:31 | XR ---
Lumbosacral spine HISTORY: Low back pain 5 views of lumbosacral spine correlated to prior lumbar spine 08/11/2018 Dextroscoliosis is again noted. Lumbar vertebral bodies show preserved height. Bone mineralization is reduced. Multilevel loss of disc spaces noted, there is multilevel spondylosis. Sclerosis in the pos terior elements is compatible with facet arthropathy. Vascular calcifications are noted incidentally. IMPRESSION: Degenerative disc disease, facet arthropathy, scoliosis and osteopenia.
--- NOTE | 2018-12-03 11:47 | XR ---
Right foot HISTORY: Pain, trauma 2 months prior 3 views of the right foot Postop changes noted to the first metatarsal. There is a marked varus deformity, subluxation at the m etatarsophalangeal joint of the first digit, second digit metatarsophalangeal joint. Arthropathy lorenzo ges are present at the first metatarsophalangeal joint with marginal spurring, joint space loss and s ubchondral sclerosis, remodeling. Bone mineralization is reduced. No evident fracture. There is a chapo ntar calcaneal spur. IMPRESSION: No acute fracture is evident. Additional findings above.
== END ==
LOC: RADCTMAIN 15:56
PROVIDERS: ATTEND Psychiatry & Neurology Neurology
DX: M51.37 Other intervertebral disc degeneration, lumbosacral region (principal); M46.97 Unspecified inflammatory spondylopathy, lumbosacral region; M41.87 Other forms of scoliosis, lumbosacral region; M85.80 Other specified disorders of bone density and structure, unspecified site; M79.671 Pain in right foot; G31.89 Other specified degenerative diseases of nervous system; I67.82 Cerebral ischemia
CPT/HCPCS: 70450; 72110

== ENCOUNTER 2018-12-26 15:36 | Inpatient (IN) | payer MEDICARE, OTHER ==
[2018-12-26] MEDS ORDERED: FAMOTIDINE 20 MG/2 ML VIAL IV STA (16:13)
--- NOTE | 2018-12-26 16:17 | ED ---
Chest Pain HPI - General Chief Complaint: Chest Pain Stated Complaint: Hypertensive Time Seen by Provider: 12/26/18 16:02 Source: patient Mode of arrival: ambulatory Limitations: no limitations - History of Present Illness Initial Comments: 68-year-old female presenting with sporadic, intermittent, sharp stabbing substernal chest pain that is nonradiating, occurs when angry and while at rest, is not alleviated or exacerbated by anything, and is accompanied by lightheadedness and nausea. Patient denies any shortness of breath, cough, constitutional symptoms. She denies a history of CHF, DVT/PE, recent surgery, active cancer, hormone replacement therapy. It's her last stress test was 2 years prior and was normal. She states she had an [place] in 1988 but denies any stent placement. She is currently on Plavix but not on anticoagulation. Patient states she also has a history of a hiatal hernia which causes her to have a decreased appetite and chest burning. She's been taking her Prilosec twice a day. She also admits to episodes of hypertension but states she's been compliant with her medications. Patient is a history of hypertension, diabetes, hyperlipidemia. Currently the patient is asymptomatic. Patient states she presents the emergency department today because the episodes of chest pain or increasing in frequency and duration. - Related Data Home Medications Medication Instructions Recorded Confirmed HYDROcodone/APAP 10-325MG [[place] 1 tab PO Q8HR PRN 10/10/14 12/26/18 10-325] metFORMIN HCL 1,000 mg PO BID 10/10/14 12/26/18 Sertraline HCl [Zoloft] 50 mg PO DAILY 04/26/17 12/26/18 Insulin Degludec [Tresiba 20 - 25 unit SQ HS 12/07/17 12/26/18 Flextouch U-100] Omeprazole 20 mg PO BID 12/07/17 12/26/18 ALPRAZolam [Xanax] 0.25 mg PO BID PRN 05/25/18 12/26/18 Furosemide [Lasix] 20 mg PO Q48H 05/25/18 12/26/18 Carvedilol 25 mg PO BID 09/23/18 12/26/18 Insulin Regular, Human [NovoLIN R] 5 - 10 unit SQ DAILY PRN 09/30/18 12/26/18 Doxazosin [Cardura] 2 mg PO Q72H 10/19/18 12/26/18 Latanoprost/Pf [Latanoprost 0.005% 1 drop BOTH EYES HS 10/19/18 12/26/18 Eye Drop] Lisinopril 40 mg PO DAILY 10/19/18 12/26/18 Docusate [Colace] 100 mg PO BID 12/26/18 12/26/18 Polyethylene Glycol 3350 [Miralax] 17 gm PO DAILY 12/26/18 12/26/18 Previous Rx's Medication Instructions Recorded Clopidogrel [Plavix] 75 mg PO DAILY #30 tab 04/29/17 cloNIDine HCL [Catapres] 0.3 mg PO TID #90 tab 08/13/18 Allergies Allergy/AdvReac Type Severity Reaction Status Date / Time bee venom protein (honey bee) Allergy Anaphylaxis Verified 12/26/18 19:18 epinephrine Allergy Anaphylaxis Verified 12/26/18 19:18 influenza virus vaccine, Allergy Rash/Hives Verified 12/26/18 19:18 specific iodine Allergy Rash/Hives Verified 12/26/18 19:18 latex Allergy Rash/Hives Verified 12/26/18 19:18 procaine HCl [From Novocain] Allergy Anaphylaxis Verified 12/26/18 19:18 Sulfa (Sulfonamide Allergy Rash/Hives Verified 12/26/18 19:18 Antibiotics) amlodipine [From Norvasc] AdvReac Diarrhea,abdominal Verified 12/26/18 19:18 pain cephalexin monohydrate AdvReac Nausea & Verified 12/26/18 19:18 [From Keflex] Vomiting & Diarrhea codeine AdvReac Nausea & Verified 12/26/18 19:18 Vomiting cortisone AdvReac Nausea & Verified 12/26/18 19:18 Vomiting/Vertigo doxazosin [From Cardura] AdvReac constipatio Verified 12/26/18 19:18 n hydralazine AdvReac muscle Verified 12/26/18 19:18 cramps & muscular pain methadone AdvReac Nausea & Verified 12/26/18 19:18 Vomiting & Diarrhea propoxyphene AdvReac Nausea & Verified 12/26/18 19:18 [From Darvocet-N] Vomiting Muccdij-Czu-Mat Reductase AdvReac Nausea & Verified 12/26/18 19:18 Inhibitor Vomiting/Muscle Weakness cortisone AdvReac Unknown Uncoded 10/27/18 12:06 steroids AdvReac Nausea & Uncoded 10/27/18 12:06 Vomiting Review of Systems ROS Statement: Those systems with pertinent positive or pertinent negative responses have been documented in the HPI. Review of Systems Constitutional: Denies fever, chills Eyes: Denies change in vision, Denies pain Ears, nose, mouth, throat: Denies headaches, Denies sore throat Cardiovascular: Positive chest pain. Denies palpitations Respiratory: Denies shortness of breath, Denies cough Gastrointestinal: Denies abdominal pain. Positive nausea. Denies vomiting, diarrhea. Genitourinary: Denies hematuria, Denies infections Musculoskeletal: Denies pain, Denies swelling Integumentary: Denies rash Neurological: Denies headache, focal weakness, focal numbness Psychiatric: Denies anxiety, Denies depression Hematologic/Lymphatic: Denies easy bleeding or bruising ROS Other: All systems not noted in ROS Statement are negative. EKG Findings - EKG Comments: EKG Findings:: EKG shows sinus bradycardia at a rate of 56 bpm. OR interval 130, QRS duration 84, QT/QTc 434/418 Past Medical History Past Medical History: Chest Pain / Angina, CVA/TIA, Diabetes Mellitus, Eye Disorder, Fibromyalgia, GERD/Reflux, Hyperlipidemia, Hypertension, Memory Impairment, Myocardial Infarction ([place]), Osteoarthritis (OA), Rheumatoid Arthritis (RA) Additional Past Medical History / Comment(s): neuropathy both feet and hands, glaucoma, connective tissue dysfunction, peptic ulcer disease, grade 4 hiatal hernia, stroke/TIA x3-loss of short term memory, occ irregular heart beat, hx ulcers, hx carpal tunnel syndrome. dusty shoulder rotator cuff tear, finished antibiotic for cold sx-now resolved Last Myocardial Infarction Date:: 1988 History of Any Multi-Drug Resistant Organisms: None Reported Past Surgical History: Bladder Surgery, Cholecystectomy, Hysterectomy, Orthopedic Surgery, Tubal Ligation Additional Past Surgical History / Comment(s): rhinoplasty, hand surgery bilateral-carpal tunel , cystocele/rectocele repair , rt foot-failed bunionectomy-has a metal larisa in foot, ABBEY. fatty tumor removed from rt shoulder, Past Anesthesia/Blood Transfusion Reactions: Family History of Problems w/ Anesthesia, Motion Sickness Additional Past Anesthesia/Blood Transfusion Reaction / Comment(s): mother- tongue swelled up Past Psychological History: Anxiety, Depression Smoking Status: Never smoker Past Alcohol Use History: None Reported Past Drug Use History: None Reported - Past Family History Father Additional Family Medical History / Comment(s): alcoholic, cirrhosis of the liver, Mother Family Medical History: Cancer General Exam - General Exam Comments Initial Comments: General: Awake, alert, No acute Distress HENT: Normocephalic. Atraumatic Eyes: PERRL. EOMI. No scleral icterus. No injected conjunctiva Neck: Full ROM Chest/Lungs: Clear to auscultation bilaterally. No wheezing, rhonchi, or rales Cardiac: Regular rate, rhythm. No murmurs or rubs Abdomen/GI: Soft, nontender, nondistended. No rebound, guarding, or rigidity. Musculoskeletal: Full ROM Skin: Warm, dry, intact Neurologic: A/Ox3, no weakness, no sensory deficit, no abnormal gait, no coordination deficit Limitations: no limitations Course Vital Signs 12/26/18 12/26/18 12/26/18 15:51 16:47 16:51 Temperature 98.2 F Pulse Rate 64 58 L Pulse Rate [ 56 L Dye Range Feeder ] Respiratory 22 18 Rate Blood Pressure 162/77 O2 Sat by Pulse 99 98 Oximetry 12/26/18 12/26/18 18:00 19:46 Temperature 98.1 F Pulse Rate 65 Pulse Rate [ [place] Range Feeder ] Respiratory 18 18 Rate Blood Pressure 214/109 O2 Sat by Pulse 98 98 Oximetry Chest Pain MDM - [facility] 68-year-old female presenting with intermittent sharp and stabbing chest pain. Initial exam the patient is awake, alert, no acute distress. VSS. Patient is not markedly hypertensive and she is currently asymptomatic. She is having no shortness of breath, her chest pain is not pleuritic in nature, she has no history of DVT or PE, risk factors at this time. Will defer PE workup as is unlikely to be the cause of her symptoms. Remainder of laboratory workup is unremarkable. Her chest x-ray was negative for acute process. Patient's heart score is 5. At this time she requires admission for stress testing. I spoke with Dr. Cuadra who is agreeable to admission. - STEFANY Score Age > 65: (1) Yes 3 or more CAD Risk Factors: (1) Yes Known CAD with more than 50% Stenosis: (0) No Aspirin use within the Past 7 Days: (1) Yes Elevated Cardiac Markers: (0) No ST Deviation Greater than 0.5mm: (0) No Disposition Clinical Impression: Chest pain with moderate risk for cardiac etiology Disposition: ADMITTED IP TO THIS [facility] Decision to Admit Reason: Admit from [facility] Decision Date: 12/26/18 Decision Time: 18:57
[2018-12-26 16:56] LABS: Basophils # (A) 0.1 k/uL (0-0.2); Basophils % (A) 1 %; Eosinophils # (A) 0.2 k/uL (0-0.7); Eosinophils % (A) 3 %; HCT 31.8 % (34.0-46.0); HGB 10.3 gm/dL (11.4-16.0); Lymphocytes # (A) 2.3 k/uL (1.0-4.8); Lymphocytes % (A) 39 %; MCH 26.4 pg (25.0-35.0); MCHC 32.6 g/dL (31.0-37.0); Mean Platelet Volume 6.4; Monocytes # (A) 0.4 k/uL (0-1.0); Monocytes % (A) 7 %; Neutrophils # (A) 2.9 k/uL (1.3-7.7); Neutrophils % (A) 48 %; Platelet Count 394 k/uL (150-450); RBC 3.92 m/uL (3.80-5.40); RDW 15.9 % (11.5-15.5)
[2018-12-26 17:09] LABS: Anion Gap 5 mmol/L; Blood Urea Nitrogen 16 mg/dL (7-17); Calcium 9.7 mg/dL (8.4-10.2); Carbon Dioxide 32 mmol/L (22-30); Chloride 97 mmol/L (98-107); Glucose 101 mg/dL (74-99); Potassium 4.3 mmol/L (3.5-5.1); Sodium 134 mmol/L (137-145)
--- NOTE | 2018-12-26 18:19 | XR ---
EXAMINATION TYPE: XR chest 2V DATE OF EXAM: 12/26/2018 COMPARISON: 08/11/2018 INDICATION: Pain TECHNIQUE: Frontal and lateral views of the chest are obtained. FINDINGS: The heart size is normal. The pulmonary vasculature is normal. The lungs are clear. Small focal eventration of the right diaphragm is present and stable from prior . IMPRESSION: 1. No acute pulmonary process.
[2018-12-26] MEDS ORDERED: NALOXONE 0.4 MG/ML 1 ML VIAL IV PRN (18:58)
[2018-12-26] MEDS ORDERED: INSULIN REGULAR 100 UNIT/ML VIAL SQ PRN (19:43)
[2018-12-26] MEDS: cloNIDine HCL 0.1 MG TAB PO SCH (19:55)
[2018-12-26 20:35] LABS: Glucose,Whole Blood 130 mg/dL (75-99)
[2018-12-26] MEDS: INSULIN DETEMIR (LEVEMIR) 100 UNIT/ML SYR SQ SCH (20:41)
[2018-12-26] MEDS: DOCUSATE 100 MG CAP PO SCH (21:14)
[2018-12-26] MEDS: PANTOPRAZOLE 40 MG TABLET PO SCH (21:14)
[2018-12-26] MEDS: metFORMIN 500 MG TAB PO SCH (21:14)
[2018-12-26] MEDS: CARVEDILOL 12.5 MG TAB PO SCH (21:14)
[2018-12-26] MEDS: LATANOPROST 0.005% OPHTH DROPS 2.5 ML BTL BOTH EYES SCH (21:15)
[2018-12-27 05:00] LABS: Glucose,Whole Blood 126 mg/dL (75-99)
[2018-12-27] MEDS: HYDROcodone/APAP 10-325MG 1 EACH TAB PO PRN ×3 (05:00→23:42)
[2018-12-27 06:35] LABS: Glucose,Whole Blood 132 mg/dL (75-99)
[2018-12-27] MEDS: CARVEDILOL 12.5 MG TAB PO SCH ×2 (06:37→16:35)
[2018-12-27] MEDS: PANTOPRAZOLE 40 MG TABLET PO SCH ×2 (06:37→18:01)
[2018-12-27] MEDS: cloNIDine HCL 0.1 MG TAB PO SCH ×3 (08:05→19:54)
[2018-12-27] MEDS: FUROSEMIDE 20 MG TAB PO SCH (08:05)
[2018-12-27] MEDS: SERTRALINE 50 MG TAB PO SCH (08:05)
[2018-12-27] MEDS: CLOPIDOGREL 75 MG TAB PO SCH (08:05)
[2018-12-27] MEDS: POLYETHYLENE GLYCOL 3350 17 GM POWD.PACK PO SCH (08:06)
[2018-12-27] MEDS: LISINOPRIL 20 MG TAB PO SCH (08:06)
[2018-12-27] MEDS: DOCUSATE 100 MG CAP PO SCH ×2 (08:06→19:54)
[2018-12-27] MEDS: ALPRAZolam 0.25 MG TAB PO PRN ×2 (08:10→19:54)
[2018-12-27 09:07] LABS: Basophils # (A) 0.1 k/uL (0-0.2); Basophils % (A) 1 %; Eosinophils # (A) 0.2 k/uL (0-0.7); Eosinophils % (A) 4 %; HCT 34.8 % (34.0-46.0); Lymphocytes # (A) 2.1 k/uL (1.0-4.8); Lymphocytes % (A) 41 %; MCH 26.4 pg (25.0-35.0); MCHC 31.7 g/dL (31.0-37.0); MCV 83.4 fL (80.0-100.0); Mean Platelet Volume 6.9; Monocytes # (A) 0.4 k/uL (0-1.0); Monocytes % (A) 8 %; Neutrophils # (A) 2.4 k/uL (1.3-7.7); Neutrophils % (A) 45 %; Platelet Count 374 k/uL (150-450); RBC 4.17 m/uL (3.80-5.40); RDW 15.8 % (11.5-15.5); WBC 5.2 k/uL (3.8-10.6)
[2018-12-27] MEDS ORDERED: POTASSIUM CHLORIDE ER 20 MEQ TAB.ER PO STA (09:24)
--- NOTE | 2018-12-27 09:24 | P.CRDCN ---
History of Present Illness Consult date: 12/27/18 Chief complaint: Chest pain History of present illness: This is a pleasant 68-year-old female patient who sees Dr. Luciano in the office as an outpatient with a past medical history significant for diabetes, hypertension, dyslipidemia, and history of stroke, presented to the hospital complaining of chest discomfort. The patient also stated that she was diagnosed with "heart attack" in 1995 but at that point she did not undergo any heart catheterization. The patient somewhat is a poor historian. Apparently she was under some stress where she lives now. She describes intermittent episodes of chest discomfort, in the mid of the chest, as a sharp kind of discomfort, without any radiation to the arm or neck or shoulders, and without any a ssociated symptoms of shortness of breath, dizziness, heart racing, nausea, or sweating, or syncope. Because of that she decided to come to the emergency room. Beside that she stated that she fell last night out of the bed. She cannot provide any details on that. The EKG showed sinus rhythm without any ischemic ST or T-wave abnormalities. The cardiac enzymes were checked and came in to be unremarkable. The chest x-ray did not show any acute abnormalities. The blood pressure has been elevated according to her as an outpatient and as a matter of fact the blood pressure here in the hospital continues to be elevated in spite of quite high dose of Coreg as well as quite high dose of lisinopril. Beside that she is on clonidine. She states that she was compliant with all her medications and she try to be compliant with her diet as well. Currently the patient is chest pain-free. She denies any recent heart catheterization or recent stress testing as an outpatient. Past Medical History Past Medical History: Chest Pain / Angina, CVA/TIA, Diabetes Mellitus, Eye Disorder, Fibromyalgia, GERD/Reflux, Hyperlipidemia, Hypertension, Memory Impairment, Myocardial Infarction ([place]), Osteoarthritis (OA), Rheumatoid Arthritis (RA) Additional Past Medical History / Comment(s): neuropathy both feet and hands, glaucoma, connective tissue dysfunction, peptic ulcer disease, grade 4 hiatal hernia, stroke/TIA x3-loss of short term memory, occ irregular heart beat, hx ulcers, hx carpal tunnel syndrome. dusty shoulder rotator cuff tear, finished antibiotic for cold sx-now resolved Last Myocardial Infarction Date:: 1988 History of Any Multi-Drug Resistant Organisms: None Reported Past Surgical History: Bladder Surgery, Cholecystectomy, Hysterectomy, Ort hopedic Surgery, Tubal Ligation Additional Past Surgical History / Comment(s): rhinoplasty, hand surgery bilateral-carpal tunel , cystocele/rectocele repair , rt foot-failed b unionectomy-has a metal larisa in foot, ABBEY. fatty tumor removed from rt shoulder, Past Anesthesia/Blood Transfusion Reactions: Family History of Problems w/ Anesthesia, Motion Sickness Additional Past Anesthesia/Blood Transfusion Reaction / Comment(s): mother- tongue swelled up Past Psychological History: Anxiety, Depression Smoking Status: Never smoker Past Alcohol Use History: None Reported Past Drug Use History: None Reported - Past Family History Father Additional Family Medical History / Comment(s): alcoholic, cirrhosis of the liver, Mother Family Medical History: Cancer Medications and Allergies Home Medications Medication Instructions Recorded Confirmed Type HYDROcodone/APAP 10-325MG [[place] 1 tab PO Q8HR PRN 10/10/14 12/26/18 History 10-325] metFORMIN HCL 1,000 mg PO BID 10/10/14 12/26/18 History Sertraline HCl [Zoloft] 50 mg PO DAILY 04/26/17 12/26/18 History Clopidogrel [Plavix] 75 mg PO DAILY #30 tab 04/29/17 12/26/18 Rx Insulin Degludec [Tresiba 20 - 25 unit SQ HS 12/07/17 12/26/18 History Flextouch U-100] Omeprazole 20 mg PO BID 12/07/17 12/26/18 History ALPRAZolam [Xanax] 0.25 mg PO BID PRN 05/25/18 12/26/18 History Furosemide [Lasix] 20 mg PO Q48H 05/25/18 12/26/18 History cloNIDine HCL [Catapres] 0.3 mg PO TID #90 tab 08/13/18 12/26/18 Rx Carvedilol 25 mg PO BID 09/23/18 12/26/18 History Insulin Regular, Human [NovoLIN R] 5 - 10 unit SQ DAILY PRN 09/30/18 12/26/18 History Doxazosin [Cardura] 2 mg PO Q72H 10/19/18 12/26/18 History Latanoprost/Pf [Latanoprost 0.005% 1 drop BOTH EYES HS 10/19/18 12/26/18 History Eye Drop] Lisinopril 40 mg PO DAILY 10/19/18 12/26/18 History Docusate [Colace] 100 mg PO BID 12/26/18 12/26/18 History Polyethylene Glycol 3350 [Miralax] 17 gm PO DAILY 12/26/18 12/26/18 History Allergies Allergy/AdvReac Type Severity Reaction Status Date / Time bee venom protein (honey bee) Allergy Anaphylaxis Verified 12/26/18 19:18 epinephrine Allergy Anaphylaxis Verified 12/26/18 19:18 influenza virus vaccine, Allergy Rash/Hives Verified 12/26/18 19:18 specific iodine Allergy Rash/Hives Verified 12/26/18 19:18 latex Allergy Rash/Hives Verified 12/26/18 19:18 procaine HCl [From Novocain] Allergy Anaphylaxis Verified 12/26/18 19:18 Sulfa (Sulfonamide Allergy Rash/Hives Verified 12/26/18 19:18 Antibiotics) amlodipine [From Norvasc] AdvReac Diarrhea,abdominal Verified 12/26/18 19:18 pain cephalexin monohydrate AdvReac Nausea & Verified 12/26/18 19:18 [From Keflex] Vomiting & Diarrhea codeine AdvReac Nausea & Verified 12/26/18 19:18 Vomiting cortisone AdvReac Nausea & Verified 12/26/18 19:18 Vomiting/Vertigo doxazosin [From Cardura] AdvReac constipatio Verified 12/26/18 19:18 n hydralazine AdvReac muscle Verified 12/26/18 19:18 cramps & muscular pain methadone AdvReac Nausea & Verified 12/26/18 19:18 Vomiting & Diarrhea propoxyphene AdvReac Nausea & Verified 12/26/18 19:18 [From Darvocet-N] Vomiting Qwilrrm-[id number]-Gdj Reductase AdvReac Nausea & Verified 12/26/18 19:18 Inhibitor Vomiting/Muscle Weakness cortisone AdvReac Unknown Uncoded 10/27/18 12:06 steroids AdvReac Nausea & Uncoded 10/27/18 12:06 Vomiting Physical Exam Vitals: Vital Signs Temp Pulse Pulse Pulse Resp BP BP 12/27/18 03:59 73 18 12/27/18 03:58 97.1 F L 73 18 178/78 05/26/19 23:40 60 18 12/26/18 23:38 97.6 F 60 18 173/80 12/26/18 21:30 135/73 12/26/18 20:23 98.7 F 77 18 218/81 12/26/18 20:20 77 18 12/26/18 19:46 98.1 F 65 18 214/109 12/26/18 18:00 18 12/26/18 16:51 58 L 18 12/26/18 16:47 56 L 12/26/18 15:51 98.2 F 64 22 162/77 Pulse Ox 12/27/18 03:59 12/27/18 03:58 96 12/26/18 23:40 12/26/18 23:38 96 12/26/18 21:30 12/26/18 20:23 100 12/26/18 20:20 12/26/18 19:46 98 12/26/18 18:00 98 12/26/18 16:51 98 12/26/18 16:47 12/26/18 15:51 99 Intake and Output 12/26/18 12/27/18 12/27/18 22:59 06:59 14:59 Other: Voiding Method Toilet Toilet # Voids 1 Weight 64.864 kg 60.1 kg - Constitutional General appearance: no acute distress - Respiratory Respiratory: bilateral: CTA - Cardiovascular Rhythm: regular Heart sounds: normal: S1, S2 Results 12/27/18 03:57 12/26/18 16:30 Cardiac Enzymes 12/26/18 12/26/18 12/27/18 Range/Units 16:30 21:37 03:57 Troponin I <0.012 <0.012 <0.012 (0.000-0.034) ng/mL CBC 12/26/18 12/27/18 Range/Units 16:30 03:57 WBC 6.0 5.2 (3.8-10.6) k/uL RBC 3.92 4.17 (3.80-5.40) m/uL Hgb 10.3 L 11.0 L (11.4-16.0) gm/dL Hct 31.8 L 34.8 (34.0-46.0) % Plt Count 394 374 (150-450) k/uL Comprehensive Metabolic Panel 12/26/18 Range/Units 16:30 Sodium 134 L (137-145) mmol/L Potassium 4.3 (3.5-5.1) mmol/L Chloride 97 L (98-107) mmol/L Carbon Dioxide 32 H (22-30) mmol/L BUN 16 (7-17) mg/dL Creatinine 0.56 (0.52-1.04) mg/dL Glucose 101 H (74-99) mg/dL Calcium 9.7 (8.4-10.2) mg/dL Current Medications Generic Name Dose Route Start Last Admin Trade Name Freq PRN Reason Stop Dose Admin Hydrocodone Bitart/Acetaminophen 1 each 12/26/18 19:43 12/27/18 05:00 Callao 10 PO 1 each Q8HR PRN Administration Pain Alprazolam 0.25 mg 12/26/18 19:43 12/27/18 08:10 Xanax PO 0.25 mg BID PRN Administration Anxiety Amlodipine Besylate 5 mg 12/28/18 09:00 Norvasc PO DAILY BILLY Carvedilol 25 mg 12/26/18 21:00 12/27/18 06:37 Coreg PO 25 mg AC-BID BILLY Administration Clonidine 0.3 mg 12/26/18 22:00 12/27/18 08:05 Catapres PO 0.3 mg TID BILLY Administration Clopidogrel Bisulfate 75 mg 12/27/18 09:00 12/27/18 08:05 Plavix PO 75 mg DAILY BILLY Administration Docusate Sodium 100 mg 12/26/18 21:00 12/27/18 08:06 Colace PO 100 mg BID BILLY Administration Doxazosin Mesylate 2 mg 12/29/18 09:00 Cardura PO Q72H BILLY Furosemide 20 mg 12/27/18 09:00 12/27/18 08:05 Lasix PO 20 mg Q48H BILLY Administration Insulin Aspart 0 unit 12/27/18 12:30 Novolog SQ ACHS [facility] Protocol Insulin Detemir 20 unit 12/26/18 21:00 12/26/18 20:41 Levemir SQ Not Given HS [facility] Insulin Human Regular 5 - 10 unit 12/26/18 19:43 Humulin R SQ DAILY PRN Blood Sugar - High Latanoprost 1 drops 12/26/18 21:00 12/26/18 21:15 Xalatan 0.005% BOTH EYES 1 drops HS BILLY Administration Lisinopril 40 mg 12/27/18 09:00 12/27/18 08:06 Zestril PO 40 mg DAILY BILLY Administration Naloxone HCl 0.2 mg 12/26/18 18:58 Narcan IV Q2M PRN Opioid Reversal Pantoprazole Sodium 40 mg 12/26/18 21:00 12/27/18 06:37 Protonix PO 40 mg AC-BID BILLY Administration Polyethylene Glycol 17 gm 12/27/18 09:00 12/27/18 08:06 Miralax PO 17 gm DAILY BILLY Administration Sertraline HCl 50 mg 12/27/18 09:00 12/27/18 08:05 Zoloft PO 50 mg DAILY BILLY Administration Intake and Output 12/26/18 12/27/18 12/27/18 22:59 06:59 14:59 Other: Voiding Method Toilet Toilet # Voids 1 Weight 64.864 kg 60.1 kg 12/27/18 03:57 12/26/18 16:30 Assessment and Plan Assessment: Assessment #1 intermittent episodes of atypical chest discomfort #2 uncontrolled hypertension #3 possible coronary artery disease #4 diabetes type 2 #5 history of stroke #6 dyslipidemia Plan #1 acute coronary event was ruled out. #2 the chest discomfort could be secondary to uncontrolled hypertension #3 severe underlying coronary artery disease to be ruled out #4 I am going to schedule the patient to undergo a stress test tomorrow morning #5 add Norvasc to the current medical regimen #6 an echocardiogram was Doppler Thank you for allowing us participate in her care and we will continue following up with the patient
--- NOTE | 2018-12-27 09:26 | P.HPIM ---
History of Present Illness H&P Date: 12/27/18 This is a 68-year-old female patient presented with complaints of intermittent chest pain. Patient reports that the chest pain has been intermittently occurring for 2 weeks. Patient describes pain as a sharp stabbing substernal chest pain that does occur with activity and occasionally at rest. Patient denies any recent illness. Patient denies any associated shortness of breath or nausea. Patient has past medical history of chest pain, CVA, diabetes mellitus, high disorder, fibromyalgia, GERD, hyperlipidemia, hypertension, memory impairment, myocardial infarction, osteoarthritis, rheumatoid arthritis and neuropathy. Chest x-ray completed showing no acute pulmonary process. EKG completed showing sinus bradycardia. Troponins negative 3. Cardiology services have been consulted. At this time patient denies shortness breath. Denies nausea vomiting or diarrhea. Patient denies any urinary and frequency. Review of Systems Please refer to HPI otherwise unremarkable Past Medical History Past Medical History: Chest Pain / Angina, CVA/TIA, Diabetes Mellitus, Eye Disorder, Fibromyalgia, GERD/Reflux, Hyperlipidemia, Hypertension, Memory Impairment, Myocardial Infarction ([place]), Osteoarthritis (OA), Rheumatoid Arthri tis (RA) Additional Past Medical History / Comment(s): neuropathy both feet and hands, glaucoma, connective tissue dysfunction, peptic ulcer disease, grade 4 hiatal hernia, stroke/TIA x3-loss of short term memory, occ irregular heart beat, hx ulcers, hx carpal tunnel syndrome. dusty shoulder rotator cuff tear, finished antibiotic for cold sx-now resolved Last Myocardial Infarction Date:: 1988 History of Any Multi-Drug Resistant Organisms: None Reported Past Surgical History: Bladder Surgery, Cholecystectomy, Hysterectomy, Orthopedic Surgery, Tubal Ligation Additional Past Surgical History / Comment(s): rhinoplasty, hand surgery bilateral-carpal tunel , cystocele/rectocele repair , rt foot-failed bunionectomy-has a metal larisa in foot, ABBEY. fatty tumor removed from rt shoulder, Past Anesthesia/Blood Transfusion Reactions: Family History of Problems w/ Anesthesia, Motion Sickness Additional Past Anesthesia/Blood Transfusion Reaction / Comment(s): mother- tongue swelled up Past Psychological History: Anxiety, Depression Smoking Status: Never smoker Past Alcohol Use History: None Reported Past Drug Use History: None Reported - Past Family History Father Additional Family Medical History / Comment(s): alcoholic, cirrhosis of the liver, Mother Family Medical History: Cancer Medications and Allergies Home Medications Medication Instructions Recorded Confirmed Type HYDROcodone/APAP 10-325MG [[place] 1 tab PO Q8HR PRN 10/10/14 12/26/18 History 10-325] metFORMIN HCL 1,000 mg PO BID 10/10/14 12/26/18 History Sertraline HCl [Zoloft] 50 mg PO DAILY 04/26/17 12/26/18 History Clopidogrel [Plavix] 75 mg PO DAILY #30 tab 04/29/17 12/26/18 Rx Insulin Degludec [Tresiba 20 - 25 unit SQ HS 12/07/17 12/26/18 History Flextouch U-100] Omeprazole 20 mg PO BID 12/07/17 12/26/18 History ALPRAZolam [Xanax] 0.25 mg PO BID PRN 05/25/18 12/26/18 History Furosemide [Lasix] 20 mg PO Q48H 05/25/18 12/26/18 History cloNIDine HCL [Catapres] 0.3 mg PO TID #90 tab 08/13/18 12/26/18 Rx Carvedilol 25 mg PO BID 09/23/18 12/26/18 History Insulin Regular, Human [NovoLIN R] 5 - 10 unit SQ DAILY PRN 09/30/18 12/26/18 History Doxazosin [Cardura] 2 mg PO Q72H 10/19/18 12/26/18 History Latanoprost/Pf [Latanoprost 0.005% 1 drop BOTH EYES HS 10/19/18 12/26/18 History Eye Drop] Lisinopril 40 mg PO DAILY 10/19/18 12/26/18 History Docusate [Colace] 100 mg PO BID 12/26/18 12/26/18 History Polyethylene Glycol 3350 [Miralax] 17 gm PO DAILY 12/26/18 12/26/18 History Allergies Allergy/AdvReac Type Severity Reaction Status Date / Time bee venom protein (honey bee) Allergy Anaphylaxis Verified 12/26/18 19:18 epinephrine Allergy Anaphylaxis Verified 12/26/18 19:18 influenza virus vaccine, Allergy Rash/Hives Verified 12/26/18 19:18 specific iodine Allergy Rash/Hives Verified 12/26/18 19:18 latex Allergy Rash/Hives Verified 12/26/18 19:18 procaine HCl [From Novocain] Allergy Anaphylaxis Verified 12/26/18 19:18 Sulfa (Sulfonamide Allergy Rash/Hives Verified 12/26/18 19:18 Antibiotics) amlodipine [From Norvasc] AdvReac Diarrhea,abdominal Verified 12/26/18 19:18 pain cephalexin monohydrate AdvReac Nausea & Verified 12/26/18 19:18 [From Keflex] Vomiting & Diarrhea codeine AdvReac Nausea & Verified 12/26/18 19:18 Vomiting cortisone AdvReac Nausea & Verified 12/26/18 19:18 Vomiting/Vertigo doxazosin [From Cardura] AdvReac constipatio Verified 12/26/18 19:18 n hydralazine AdvReac muscle Verified 12/26/18 19:18 cramps & muscular pain methadone AdvReac Nausea & Verified 12/26/18 19:18 Vomiting & Diarrhea propoxyphene AdvReac Nausea & Verified 12/26/18 19:18 [From Darvocet-N] Vomiting Fgjmdwf-Lzr-Qux Reductase AdvReac Nausea & Verified 12/26/18 19:18 Inhibitor Vomiting/Muscle Weakness cortisone AdvReac Unknown Uncoded 10/27/18 12:06 steroids AdvReac Nausea & Uncoded 10/27/18 12:06 Vomiting Physical Exam Vitals: Vital Signs Temp Pulse Pulse Pulse Resp BP BP 12/27/18 03:59 73 18 12/27/18 03:58 97.1 F L 73 18 178/78 12/26/18 23:40 60 18 12/26/18 23:38 97.6 F 60 18 173/80 12/26/18 21:30 135/73 12/26/18 20:23 98.7 F 77 18 218/81 12/26/18 20:20 77 18 12/26/18 19:46 98.1 F 65 18 214/109 12/26/18 18:00 18 12/26/18 16:51 58 L 18 12/26/18 16:47 56 L 12/26/18 15:51 98.2 F 64 22 162/77 Pulse Ox 12/27/18 03:59 12/27/18 03:58 96 12/26/18 23:40 12/26/18 23:38 96 12/26/18 21:30 12/26/18 20:23 100 05/26/19 20:20 12/26/18 19:46 98 12/26/18 18:00 98 12/26/18 16:51 98 12/26/18 16:47 12/26/18 15:51 99 Intake and Output 12/26/18 12/27/18 12/27/18 22:59 06:59 14:59 Other: Voiding Method Toilet Toilet # Voids 1 Weight 64.864 kg 60.1 kg Head normocephalic Neck supple Lungs clear to auscultation bilaterally no wheezing or crackles Heart regular rate and rhythm S1-S2, no rub or gallop Abdomen is soft nontender nondistended positive bowel sounds no hepatosplenomegaly Extremities no edema Neuro alert and orientated to 3 Results CBC & Chem 7: 12/27/18 03:57 12/26/18 16:30 Labs: Abnormal Lab Results - Last 24 Hours (Table) 12/26/18 12/26/18 12/26/18 Range/Units 16:30 16:30 20:27 Hgb 10.3 L (11.4-16.0) gm/dL Hct 31.8 L (34.0-46.0) % RDW 15.9 H (11.5-15.5) % Sodium 134 L (137-145) mmol/L Chloride 97 L (98-107) mmol/L Carbon Dioxide 32 H (22-30) mmol/L Glucose 101 H (74-99) mg/dL POC Glucose (mg/dL) 130 H (75-99) mg/dL 12/27/18 12/27/18 12/27/18 Range/Units 03:57 04:52 06:30 Hgb 11.0 L (11.4-16.0) gm/dL Hct (34.0-46.0) % RDW 15.8 H (11.5-15.5) % Sodium (137-145) mmol/L Chloride (98-107) mmol/L Carbon Dioxide (22-30) mmol/L Glucose (74-99) mg/dL POC Glucose (mg/dL) 126 H 132 H (75-99) mg/dL Thrombosis Risk Factor Assmnt - Choose All That Apply Any of the Below Risk Factors Present?: No Other Risk Factors: Yes Each Risk Factor Represents 2 Points: Age 61-74 years Other congenital or acquired thrombophilia - If yes, enter type in comment: No Thrombosis Risk Factor Assessment Total Risk Factor Score: 2 Thrombosis Risk Factor Assessment Level: Low Risk Assessment and Plan Assessment: 1. Chest pain. Troponins negative 3. Chest x-ray showing no acute pulmonary process. EKG completed showing sinus bradycardia heart rate in the 50s. Car diology services have been consulted. 2-D echo and stress test has been ordered 2. History of CVA 3. History of diabetes mellitus type 2: Resume metformin held sliding scale insulin added 4. History of fibromyalgia 5. History of hyperlipidemia 6. History of essential hypertension 7. History of osteoporosis 8. History of rheumatoid arthritis 9. History of myocardial infarction 10. History of anxiety and depression Time with Patient: Greater than 30 (Greater than 60% of the total time spent in counseling and coordination of care. I performed an examination of the patient and discussed their management with the Nurse Practitioner. I have reviewed the Nurse Practitioner's notes and agree with the documented findings and plan of care)
[2018-12-27 11:49] LABS: Glucose,Whole Blood 157 mg/dL (75-99)
[2018-12-27] MEDS: INSULIN ASPART (NovoLOG) 100 UNIT/ML VIAL SQ SCH ×3 (12:29→23:19)
[2018-12-27] MEDS: metFORMIN 500 MG TAB PO SCH (13:07)
[2018-12-27] MEDS ORDERED: amLODIPine 5 MG TAB PO SCH (14:12)
--- NOTE | 2018-12-27 14:50 | ECHOF ---
Referral Reason:cp MEASUREMENTS -------- HEIGHT: 160.0 cm WEIGHT: 59.9 kg BP: 178/78 RVIDd: 2.5 cm (< 3.3) IVSd: 1.2 cm (0.6 - 1.1) LVIDd: 3.8 cm (3.9 - 5.3) LVPWd: 1.2 cm (0.6 - 1.1) IVSs: 1.5 cm LVIDs: 2.5 cm LVPWs: 1.6 cm LA Diam: 3.7 cm (2.7 - 3.8) LAESV Index (A-L): 35.00 ml/m MV E Alfonso: 0.85 m/s MV DecT: 314 ms MV A Alfonso: 0.89 m/s MV E/A Ratio: 0.96 AV maxP.52 mmHg AV meanP.48 mmHg RAP: 5.00 mmHg RVSP: 23.47 mmHg FINDINGS -------- Sinus rhythm. This was a technically good study. The left ventricular size is normal. There is borderline concentric left ventricular hypertrophy. Overall left ventricular systolic function is normal with, an EF between 60 - 65 %. The right ventricle is normal in size. LA is midly dilated 29-33ml/m2. The right atrium is normal in size. Interatrial and interventricular septum intact. There is mild aortic valve sclerosis. Trace amount of aortic regurgitation. There is mild aortic stenosis present. Peak/mean gradient across the Aortic Valve is 13.52mmHg / 6.48mmHg. The mitral valve leaflets are mildly thickened. Mild mitral annular calcification present. There is trace mitral regurgitation. Mild tricuspid regurgitation present. Right ventricular systolic pressure is normal at < 35 mmHg. Trace/mild (physiologic) pulmonic regurgitation. The aortic root size is normal. Normal inferior vena cava with normal inspiratory collapse consistent with estimated right atrial pre ssure of 5 mmHg. There is no pericardial effusion. CONCLUSIONS -------- 1. Sinus rhythm. 2. This was a technically good study. 3. The left ventricular size is normal. 4. There is borderline concentric left ventricular hypertrophy. 5. Overall left ventricular systolic function is normal with, an EF between 60 - 65 %. 6. The right ventricle is normal in size. 7. LA is midly dilated 29-33ml/m2. 8. The right atrium is normal in size. 9. Interatrial and interventricular septum intact. 10. There is mild aortic valve sclerosis. 11. Trace amount of aortic regurgitation. 12. There is mild aortic stenosis present. 13. Peak/mean gradient across the Aortic Valve is 13.52mmHg / 6.48mmHg. 14. The mitral valve leaflets are mildly thickened. 15. Mild mitral annular calcification present. 16. There is trace mitral regurgitation. 17. Mild tricuspid regurgitation present. 18. Right ventricular systolic pressure is normal at < 35 mmHg. 19. Trace/mild (physiologic) pulmonic regurgitation. 20. The aortic root size is normal. 21. Normal inferior vena cava with normal inspiratory collapse consistent with estimated right atrial pressure of 5 mmHg. 22. There is no pericardial effusion. TRAIN BRAKE OPERATOR: Dede Jeff RDCS
[2018-12-27] MEDS: ONDANSETRON 4 MG/2 ML VIAL IVP PRN (16:35)
[2018-12-27 17:57] LABS: Glucose,Whole Blood 207 mg/dL (75-99)
[2018-12-27] MEDS: ACETAMINOPHEN TAB 325 MG TAB PO PRN (19:53)
[2018-12-27] MEDS: LATANOPROST 0.005% OPHTH DROPS 2.5 ML BTL BOTH EYES SCH (19:54)
[2018-12-27 21:23] LABS: Glucose,Whole Blood 169 mg/dL (75-99)
[2018-12-27] MEDS: INSULIN DETEMIR (LEVEMIR) 100 UNIT/ML SYR SQ SCH (23:18)
[2018-12-28 01:49] LABS: Glucose,Whole Blood 232 mg/dL (75-99)
[2018-12-28 05:55] LABS: Glucose,Whole Blood 116 mg/dL (75-99)
[2018-12-28 07:19] LABS: Basophils # (A) 0.1 k/uL (0-0.2); Basophils % (A) 1 %; Eosinophils # (A) 0.2 k/uL (0-0.7); Eosinophils % (A) 4 %; HCT 32.9 % (34.0-46.0); HGB 10.6 gm/dL (11.4-16.0); Hypochromasia Slight; Lymphocytes # (A) 2.1 k/uL (1.0-4.8); Lymphocytes % (A) 46 %; MCH 26.7 pg (25.0-35.0); MCHC 32.2 g/dL (31.0-37.0); MCV 82.8 fL (80.0-100.0); Mean Platelet Volume 6.4; Monocytes # (A) 0.4 k/uL (0-1.0); Monocytes % (A) 8 %; Neutrophils # (A) 1.8 k/uL (1.3-7.7); Neutrophils % (A) 39 %; Platelet Count 367 k/uL (150-450); RBC 3.97 m/uL (3.80-5.40); RDW 15.5 % (11.5-15.5); WBC 4.6 k/uL (3.8-10.6)
[2018-12-28 07:45] LABS: ALT 15 U/L (9-52); AST 18 U/L (14-36); Albumin 3.9 g/dL (3.5-5.0); Alkaline Phosphatase 69 U/L (38-126); Anion Gap 6 mmol/L; Blood Urea Nitrogen 12 mg/dL (7-17); Calcium 9.5 mg/dL (8.4-10.2); Carbon Dioxide 30 mmol/L (22-30); Chloride 100 mmol/L (98-107); Glucose 101 mg/dL (74-99); Potassium 3.6 mmol/L (3.5-5.1); Sodium 136 mmol/L (137-145); Total Bilirubin 0.4 mg/dL (0.2-1.3); Total Protein 6.8 g/dL (6.3-8.2)
[2018-12-28] MEDS ORDERED: amLODIPine 5 MG TAB PO SCH (09:00)
[2018-12-28] MEDS ORDERED: AMINOPHYLLINE 500 MG/20 ML VIAL IV PRN (09:19)
[2018-12-28] MEDS ORDERED: REGADENOSON 0.4 MG/5 ML SYRINGE IV ONE (09:19)
[2018-12-28] MEDS: DOCUSATE 100 MG CAP PO SCH ×2 (09:47→21:20)
[2018-12-28] MEDS: PANTOPRAZOLE 40 MG TABLET PO SCH ×2 (09:47→17:31)
[2018-12-28] MEDS: ACETAMINOPHEN TAB 325 MG TAB PO PRN (09:47)
[2018-12-28] MEDS: cloNIDine HCL 0.1 MG TAB PO SCH ×3 (09:47→21:20)
[2018-12-28] MEDS: ALPRAZolam 0.25 MG TAB PO PRN ×2 (09:47→21:20)
[2018-12-28] MEDS: CLOPIDOGREL 75 MG TAB PO SCH (09:48)
[2018-12-28] MEDS: LISINOPRIL 20 MG TAB PO SCH (09:48)
[2018-12-28] MEDS: POLYETHYLENE GLYCOL 3350 17 GM POWD.PACK PO SCH (09:48)
[2018-12-28] MEDS: CARVEDILOL 12.5 MG TAB PO SCH ×2 (09:48→17:35)
[2018-12-28] MEDS: SERTRALINE 50 MG TAB PO SCH (09:48)
[2018-12-28] MEDS: INSULIN ASPART (NovoLOG) 100 UNIT/ML VIAL SQ SCH ×4 (09:52→21:21)
[2018-12-28 11:24] LABS: Glucose,Whole Blood 195 mg/dL (75-99)
[2018-12-28] MEDS ORDERED: CAFFEINE CITRATE 60 MG/3 ML VIAL IV PRN (12:00)
[2018-12-28] MEDS ORDERED: SODIUM CHLORIDE 0.9% IV ONE (12:00)
[2018-12-28] MEDS ORDERED: DIPYRIDAMOLE IV ONE (12:00)
--- NOTE | 2018-12-28 15:20 | P.PN ---
Subjective Progress Note Date: 12/28/18 This is a 68-year-old female patient presented with complaints of intermittent chest pain. Patient reports that the chest pain has been intermittently occurring for 2 weeks. Patient describes pain as a sharp stabbing substernal chest pain that does occur with activity and occasionally at rest. Patient denies any recent illness. Patient denies any associated shortness of breath or nausea. Patient has past medical history of chest pain, CVA, diabetes mellitus, high disorder, fibromyalgia, GERD, hyperlipidemia, hypertension, memory impairment, myocardial infarction, osteoarthritis, rheumatoid arthritis and neuropathy. Chest x-ray completed showing no acute pulmonary process. EKG completed showing sinus bradycardia. Troponins negative 3. Cardiology services have been consulted. At this time patient denies shortness breath. Denies nausea vomiting or diarrhea. Patient denies any urinary and frequency. On 12/28/2018 patient's alert and oriented. Patient refusing stress echocardiogram. This time patient's blood pressure significantly elevated greater than 200. Patient refusing Procardia. Home meds to be given. Cardiology services are following. At this time patient denies chest pain or shortness breath. Patient denies nausea vomiting or diarrhea. Patient denies any urinary burning or frequency. Objective - Vital Signs Vital signs: Vital Signs Temp 99.0 F 12/28/18 08:00 Pulse 64 12/28/18 13:41 Resp 16 12/28/18 11:15 BP 185/75 12/28/18 13:41 Pulse Ox 96 12/28/18 11:15 Intake & Output 12/27/18 12/28/18 12/28/18 18:59 06:59 18:59 Intake Total 600 240 222 Output Total 650 600 Balance 600 -410 -378 Weight 60.4 kg Intake: Oral 600 240 222 Output: Urine 650 600 Other: Voiding Method Toilet Toilet # Voids 2 1 - Exam Head normocephalic Neck supple Lungs clear to auscultation bilaterally no wheezing or crackles Heart regular rate and rhythm S1-S2, no rub or gallop Abdomen is soft nontender nondistended positive bowel sounds no hepatosplenomegaly Extremities no edema Neuro alert and orientated to 3 - Labs CBC & Chem 7: 12/28/18 06:49 12/28/18 06:49 Labs: Abnormal Lab Results - Last 24 Hours (Table) 12/27/18 12/27/1819 Range/Units 17:54 21:20 01:46 Hgb (11.4-16.0) gm/dL Hct (34.0-46.0) % Sodium (137-145) mmol/L Glucose (74-99) mg/dL POC Glucose (mg/dL) 207 H 169 H 232 H (75-99) mg/dL 12/28/18 12/28/18 12/28/18 Range/Units 05:54 06:49 06:49 Hgb 10.6 L (11.4-16.0) gm/dL Hct 32.9 L (34.0-46.0) % Sodium 136 L (137-145) mmol/L Glucose 101 H (74-99) mg/dL POC Glucose (mg/dL) 116 H (75-99) mg/dL 12/28/18 Range/Units 11:22 Hgb (11.4-16.0) gm/dL Hct (34.0-46.0) % Sodium (137-145) mmol/L Glucose (74-99) mg/dL POC Glucose (mg/dL) 195 H (75-99) mg/dL Assessment and Plan Assessment: 1. Chest pain. Troponins negative 3. Chest x-ray showing no acute pulmonary process. EKG completed showing sinus bradycardia heart rate in the 50s. Cardio logy services have been consulted. 2-D echo completed showing EF of 60-65%. Patient refusing stress test at this time. 2. Hypertensive urgency. Blood pressure greater than 200. Patient refusing Procardia. Home meds to be given. Continue monitoring. cardiology following 3. History of CVA 4. History of diabetes mellitus type 2: Resume metformin held sliding scale insulin added 5. History of fibromyalgia 6. History of hyperlipidemia 7. History of essential hypertension 8. History of osteoporosis 9. History of rheumatoid arthritis 10. History of myocardial infarction 11. History of anxiety and depression I performed an examination of the patient and discussed their management with the Nurse Practitioner. I have reviewed the Nurse Practitioner's notes and agree with the documented findings and plan of care
[2018-12-28] MEDS ORDERED: DOXAZOSIN 2 MG TAB PO STA (17:08)
[2018-12-28 17:13] LABS: Glucose,Whole Blood 200 mg/dL (75-99)
[2018-12-28] MEDS: HYDROcodone/APAP 10-325MG 1 EACH TAB PO PRN ×2 (17:31→23:18)
[2018-12-28 20:02] LABS: Glucose,Whole Blood 217 mg/dL (75-99)
[2018-12-28] MEDS: INSULIN DETEMIR (LEVEMIR) 100 UNIT/ML SYR SQ SCH (21:21)
[2018-12-28] MEDS: LATANOPROST 0.005% OPHTH DROPS 2.5 ML BTL BOTH EYES SCH (21:21)
[2018-12-28] MEDS: ONDANSETRON 4 MG/2 ML VIAL IVP PRN (23:18)
[2018-12-29] MEDS: CARVEDILOL 12.5 MG TAB PO SCH (05:55)
[2018-12-29] MEDS: HYDROcodone/APAP 10-325MG 1 EACH TAB PO PRN (05:55)
[2018-12-29 06:34] LABS: Glucose,Whole Blood 169 mg/dL (75-99)
[2018-12-29] MEDS: PANTOPRAZOLE 40 MG TABLET PO SCH (07:06)
[2018-12-29] MEDS: INSULIN ASPART (NovoLOG) 100 UNIT/ML VIAL SQ SCH ×2 (07:07→14:04)
[2018-12-29 08:34] LABS: Basophils % (A) 1 %; Eosinophils # (A) 0.2 k/uL (0-0.7); Eosinophils % (A) 5 %; HCT 31.6 % (34.0-46.0); HGB 10.2 gm/dL (11.4-16.0); Hypochromasia Slight; Lymphocytes # (A) 1.4 k/uL (1.0-4.8); Lymphocytes % (A) 31 %; MCH 26.6 pg (25.0-35.0); MCHC 32.3 g/dL (31.0-37.0); MCV 82.4 fL (80.0-100.0); Mean Platelet Volume 6.3; Monocytes # (A) 0.4 k/uL (0-1.0); Monocytes % (A) 9 %; Neutrophils # (A) 2.3 k/uL (1.3-7.7); Neutrophils % (A) 52 %; Platelet Count 326 k/uL (150-450); RBC 3.83 m/uL (3.80-5.40); RDW 15.7 % (11.5-15.5); WBC 4.4 k/uL (3.8-10.6)
[2018-12-29] MEDS: DOCUSATE 100 MG CAP PO SCH (08:36)
[2018-12-29] MEDS: LISINOPRIL 20 MG TAB PO SCH (08:36)
[2018-12-29] MEDS: FUROSEMIDE 20 MG TAB PO SCH (08:36)
[2018-12-29] MEDS: cloNIDine HCL 0.1 MG TAB PO SCH (08:36)
[2018-12-29] MEDS: CLOPIDOGREL 75 MG TAB PO SCH (08:36)
[2018-12-29] MEDS: POLYETHYLENE GLYCOL 3350 17 GM POWD.PACK PO SCH (08:36)
[2018-12-29] MEDS: SERTRALINE 50 MG TAB PO SCH (08:36)
[2018-12-29 08:43] LABS: ALT 13 U/L (9-52); AST 17 U/L (14-36); Albumin 3.7 g/dL (3.5-5.0); Alkaline Phosphatase 70 U/L (38-126); Anion Gap 8 mmol/L; Blood Urea Nitrogen 12 mg/dL (7-17); Carbon Dioxide 30 mmol/L (22-30); Chloride 99 mmol/L (98-107); Glucose 180 mg/dL (74-99); Potassium 3.6 mmol/L (3.5-5.1); Sodium 137 mmol/L (137-145); Total Bilirubin 0.4 mg/dL (0.2-1.3); Total Protein 6.3 g/dL (6.3-8.2)
[2018-12-29] MEDS: ALPRAZolam 0.25 MG TAB PO PRN (08:49)
[2018-12-29] MEDS ORDERED: DOXAZOSIN 2 MG TAB PO SCH (09:00)
[2018-12-29 11:31] VITALS: BP 118/57; PULSE 60; RESP 16; TEMP 97
[2018-12-29 11:47] LABS: Glucose,Whole Blood 119 mg/dL (75-99)
--- NOTE | 2018-12-29 13:25 | P.DS ---
Providers Date of admission: 12/26/18 18:58 Expected date of discharge: 12/29/18 Attending physician: Alfa Cuadra Consults: 12/26/18 18:59 Consult Physician Routine Consulting Provider: [facility] Consult Reason/Comments: Chest pain Do you want consulting provider notified?: Yes Primary care physician: Alfa Venecia [facility] Hospital Course: Discharge diagnosis 1. Chest pain. Troponins negative 3. Chest x-ray showing no acute pulmonary process. EKG completed showing sinus bradycardia heart rate in the 50s. Cardiology services have been consulted. 2-D echo completed showing EF of 60- 65%. Patient refusing stress test at this time. Discussed case with cardiology services patient has been cleared for discharge from cardiology standpoint. Patient refusing additional medications and stress test. At this time patient's chest pain has resolved. Patient follow-up outpatient for further workup 2. Hypertensive urgency. Blood pressure greater than 200. Patient refusing Procardia. Home meds to be given. Continue monitoring. cardiology following his blood pressure 118/57. Patient to follow up with cardiology and PCP outpatient for further management. Advised patient to take medications as prescribed for optimal blood pressure control 3. History of CVA 4. History of diabetes mellitus type 2: Resume metformin held sliding scale insulin added 5. History of fibromyalgia 6. History of hyperlipidemia 7. History of essential hypertension 8. History of osteoporosis 9. History of rheumatoid arthritis 10. History of myocardial infarction 11. History of anxiety and depression Hospital course This is a 68-year-old female patient presented with complaints of intermittent chest pain. Patient reports that the chest pain has been intermittently occurring for 2 weeks. Patient describes pain as a sharp stabbing substernal chest pain that does occur with activity and occasionally at rest. Patient denies any recent illness. Patient denies any associated shortness of breath or nausea. Patient has past medical history of chest pain, CVA, diabetes mellitus, high disorder, fibromyalgia, GERD, hyperlipidemia, hypertension, memory impairment, myocardial infarction, osteoarthritis, rheumatoid arthritis and neuropathy. Chest x-ray completed showing no acute pulmonary process. EKG completed showing sinus bradycardia. Troponins negative 3. Cardiology services have been consulted. At this time patient denies shortness breath. Denies nausea vomiting or diarrhea. Patient denies any urinary and frequency. On 12/28/2018 patient's alert and oriented. Patient refusing stress echocardiogram. This time patient's blood pressure significantly elevated greater than 200. Patient refusing Procardia. Home meds to be given. Cardiology services are following. At this time patient denies chest pain or shortness breath. Patient denies nausea vomiting or diarrhea. Patient denies any urinary burning or frequency. On 12/29/2018 patient is alert and oriented 3. Patient's blood pressure elevated in the 200s throughout night. Patient refusing Procardia added per cardiology. Home meds given this AM. Blood pressure improving 118/57. Per cardiology patient has been cleared for discharge. Patient refused stress test. Chest pain has resolved. At this time patient denies any chest pain or shortness breath. Patient denies nausea vomiting or diarrhea. Patient denies any urinary burning or frequency. I performed an examination of the patient and discussed their management with the Nurse Practitioner. I have reviewed the Nurse Practitioner's notes and agree with the documented findings and plan of care Patient Condition at Discharge: Stable Plan - Discharge Summary Discharge Rx Participant: No New Discharge Prescriptions: Continue metFORMIN HCL 1,000 mg PO BID HYDROcodone/APAP 10-325MG [[place] 10-325] 1 tab PO Q8HR PRN PRN Reason: Pain Sertraline HCl [Zoloft] 50 mg PO DAILY Clopidogrel [Plavix] 75 mg PO DAILY #30 tab Insulin Degludec [Tresiba Flextouch U-100] 20 - 25 unit SQ HS Omeprazole 20 mg PO BID ALPRAZolam [Xanax] 0.25 mg PO BID PRN PRN Reason: Anxiety Furosemide [Lasix] 20 mg PO Q48H cloNIDine HCL [Catapres] 0.3 mg PO TID #90 tab Carvedilol 25 mg PO BID Insulin Regular, Human [NovoLIN R] 5 - 10 unit SQ DAILY PRN PRN Reason: Blood Sugar - High Latanoprost/Pf [Latanoprost 0.005% Eye Drop] 1 drop BOTH EYES HS Lisinopril 40 mg PO DAILY Doxazosin [Cardura] 2 mg PO Q72H Polyethylene Glycol 3350 [Miralax] 17 gm PO DAILY Docusate [Colace] 100 mg PO BID Discharge Medication List HYDROcodone/APAP 10-325MG [[place] 10-325] 1 tab PO Q8HR PRN 10/10/14 [History] metFORMIN HCL 1,000 mg PO BID 10/10/14 [History] Sertraline HCl [Zoloft] 50 mg PO DAILY 04/26/17 [History] Clopidogrel [Plavix] 75 mg PO DAILY #30 tab 04/29/17 [Rx] Insulin Degludec [Tresiba Flextouch U-100] 20 - 25 unit SQ HS 12/07/17 [History] Omeprazole 20 mg PO BID 12/07/17 [History] ALPRAZolam [Xanax] 0.25 mg PO BID PRN 05/25/18 [History] Furosemide [Lasix] 20 mg PO Q48H 05/25/18 [History] cloNIDine HCL [Catapres] 0.3 mg PO TID #90 tab 08/13/18 [Rx] Carvedilol 25 mg PO BID 09/23/18 [History] Insulin Regular, Human [NovoLIN R] 5 - 10 unit SQ DAILY PRN 09/30/18 [History] Doxazosin [Cardura] 2 mg PO Q72H 10/19/18 [History] Latanoprost/Pf [Latanoprost 0.005% Eye Drop] 1 drop BOTH EYES HS 10/19/18 [History] Lisinopril 40 mg PO DAILY 10/19/18 [History] Docusate [Colace] 100 mg PO BID 12/26/18 [History] Polyethylene Glycol 3350 [Miralax] 17 gm PO DAILY 12/26/18 [History] Follow up Appointment(s)/Referral(s): Alfa Cuadra MD [Primary Care Provider] - 01/07/19 11:15 am Rei Luciano MD [STAFF PHYSICIAN] - 12/31/18 1:00 pm (Please keep previous follow up appointment in [place]. Dr. Luciano will discuss stress test at this appointment.) Patient Instructions/Handouts: Chest Pain (DC), Hypertension (DC) Discharge Disposition: HOME SELF-CARE
--- NOTE | 2018-12-29 16:00 | P.PN ---
Subjective Progress Note Date: 12/28/18 12/28/2018 This is a pleasant 68-year-old female patient who sees Dr. Luciano in the office as an outpatient with a past medical history significant for diabetes, hypertension, dyslipidemia, and history of stroke, presented to the hospital complaining of chest discomfort. The patient also stated that she was diagnosed with "heart attack" in 1995 but at that point she did not undergo any heart catheterization. The patient somewhat is a poor historian. Apparently she was under some stress where she lives now. She describes intermittent episodes of chest discomfort, in the mid of the chest, as a sharp kind of discomfort, without any radiation to the arm or neck or shoulders, and without any associat ed symptoms of shortness of breath, dizziness, heart racing, nausea, or sweating, or syncope. Because of that she decided to come to the emergency room. Beside that she stated that she fell last night out of the bed. She cannot provide any details on that. The EKG showed sinus rhythm without any ischemic ST or T-wave abnormalities. The cardiac enzymes were checked and came in to be unremarkable. The chest x-ray did not show any acute abnormalities. The blood pressure has been elevated according to her as an outpatient and as a matter of fact the blood pressure here in the hospital continues to be elevated in spite of quite high dose of Coreg as well as quite high dose of lisinopril. Beside that she is on clonidine. She states that she was compliant with all her medications and she try to be compliant with her diet as well. Currently the patient is chest pain-free. She denies any recent heart catheterization or recent stress testing as an outpatient. Patient was recommended by Dr. Cao to undergo stress testing, she however refused to have this done today. She is also refusing to take her Procardia. Her blood pressure at the time of my examination was 242/102 in the right arm 218/105 in the left arm. I did encourage the patient to take her antihypertensive medications as recommended. She refuses to take Procardia, we will give her a dose of Cardura tonight, hold off on doing the stress test until outpatient. Optimize blood pressure control as much as possible. Objective - Vital Signs Vital signs: Vital Signs Temp 97.0 F L 12/29/18 08:00 Pulse 60 12/29/18 08:00 Resp 16 12/29/18 08:00 BP 118/57 12/29/18 08:00 Pulse Ox 97 12/29/18 08:00 Intake & Output 12/28/18 12/29/18 12/29/18 18:59 06:59 18:59 Intake Total 222 250 180 Output Total 600 0 Balance -378 250 180 Weight 60.7 kg Intake: IV 10 0.9 10 Oral 222 240 180 Output: Urine 600 0 Other: Voiding Method Toilet Toilet Toilet # Voids 2 1 - Exam PHYSICAL EXAMINATION: GENERAL: 68-year-old female in no acute distress at the time of my examination HEENT: Head is atraumatic, normocephalic. Pupils equal, round. Sclera anicteric. Conjunctiva are clear. Mucous membranes of the mouth are moist. Neck is supple. There is no elevated jugular venous pressure. No carotid bruit is heard. HEART EXAMINATION: Heart S1, S2 normal. No murmur or gallop heard. CHEST EXAMINATION: Lungs are clear to auscultation and precussion. No chest wall tenderness is noted on palpation or with deep breathing. ABDOMEN: Soft, nontender. Bowel sounds are heard. No organomegaly noted. EXTREMITIES: 2+ peripheral pulses with no evidence of peripheral edema and no calf tenderness noted. NEUROLOGIC patient is awake, alert and oriented 3 . . - Labs CBC & Chem 7: 12/29/18 07:21 12/29/18 07:21 Labs: Abnormal Lab Results - Last 24 Hours (Table) 12/28/18 12/28/18 12/29/18 Range/Units 17:11 20:01 06:33 Hgb (11.4-16.0) gm/dL Hct (34.0-46.0) % RDW (11.5-15.5) % Creatinine (0.52-1.04) mg/dL Glucose (74-99) mg/dL POC Glucose (mg/dL) 200 H 217 H 169 H (75-99) mg/dL 12/29/18 12/29/18 12/29/18 Range/Units 07:21 07:21 11:35 Hgb 10.2 L (11.4-16.0) gm/dL Hct 31.6 L (34.0-46.0) % RDW 15.7 H (11.5-15.5) % Creatinine 0.51 L (0.52-1.04) mg/dL Glucose 180 H (74-99) mg/dL POC Glucose (mg/dL) 119 H (75-99) mg/dL Assessment and Plan Plan: Assessment #1 intermittent episodes of atypical chest discomfort #2 uncontrolled hypertension #3 possible coronary artery disease #4 diabetes type 2 #5 history of stroke #6 dyslipidemia Plan Patient is refusing stress testing continues to be quite hypertensive. We will discontinue the stress test and have her perform that as an outpatient. She's been encouraged to take her Cardura tonight, we will monitor the blood pressures closely through the night, if stable in the morning she may be able to be discharged and follow-up in the office as an outpatient. Outpatient stress testing will be scheduled once the blood pressure is maintained under adequate c ontrol. DNP note has been reviewed, I agree with a documented findings and plan of care. Patient was seen and examined.
--- NOTE | 2018-12-29 16:02 | P.PN ---
Subjective Progress Note Date: 12/29/18 12/28/2018 This is a pleasant 68-year-old female patient who sees Dr. Luciano in the office as an outpatient with a past medical history significant for diabetes, hypertension, dyslipidemia, and history of stroke, presented to the hospital complaining of chest discomfort. The patient also stated that she was diagnosed with "heart attack" in 1995 but at that point she did not undergo any heart catheterization. The patient somewhat is a poor historian. Apparently she was under some stress where she lives now. She describes intermittent episodes of chest discomfort, in the mid of the chest, as a sharp kind of discomfort, without any radiation to the arm or neck or shoulders, and without any associat ed symptoms of shortness of breath, dizziness, heart racing, nausea, or sweating, or syncope. Because of that she decided to come to the emergency room. Beside that she stated that she fell last night out of the bed. She cannot provide any details on that. The EKG showed sinus rhythm without any ischemic ST or T-wave abnormalities. The cardiac enzymes were checked and came in to be unremarkable. The chest x-ray did not show any acute abnormalities. The blood pressure has been elevated according to her as an outpatient and as a matter of fact the blood pressure here in the hospital continues to be elevated in spite of quite high dose of Coreg as well as quite high dose of lisinopril. Beside that she is on clonidine. She states that she was compliant with all her medications and she try to be compliant with her diet as well. Currently the patient is chest pain-free. She denies any recent heart catheterization or recent stress testing as an outpatient. Patient was recommended by Dr. Cao to undergo stress testing, she however refused to have this done today. She is also refusing to take her Procardia. Her blood pressure at the time of my examination was 242/102 in the right arm 218/105 in the left arm. I did encourage the patient to take her antihypertensive medications as recommended. She refuses to take Procardia, we will give her a dose of Cardura tonight, hold off on doing the stress test until outpatient. Optimize blood pressure control as much as possible. 12/29/2018 Patient seen and examined this morning, blood pressure 118/60 with a heart rate in the 60s, 97% on room air. Blood cell count 4.4, hemoglobin 10.2, platelet count 326. Sodium 137, potassium 3.6, BUN 12 and creatinine 0.5. Objective - Vital Signs Vital signs: Vital Signs Temp 97.0 F L 12/29/18 08:00 Pulse 60 12/29/18 08:00 Resp 16 12/29/18 08:00 BP 118/57 12/29/18 08:00 Pulse Ox 97 12/29/18 08:00 Intake & Output 12/28/18 12/29/18 12/29/18 18:59 06:59 18:59 Intake Total 222 250 180 Output Total 600 0 Balance -378 250 180 Weight 60.7 kg Intake: IV 10 0.9 10 Oral 222 240 180 Output: Urine 600 0 Other: Voiding Method Toilet Toilet Toilet # Voids 2 1 - Exam PHYSICAL EXAMINATION: GENERAL: 68-year-old female in no acute distress at the time of my examination HEENT: Head is atraumatic, normocephalic. Pupils equal, round. Sclera anicteric. Conjunctiva are clear. Mucous membranes of the mouth are moist. Neck is supple. There is no elevated jugular venous pressure. No carotid bruit is heard. HEART EXAMINATION: Heart S1, S2 normal. No murmur or gallop heard. CHEST EXAMINATION: Lungs are clear to auscultation and precussion. No chest wall tenderness is noted on palpation or with deep breathing. ABDOMEN: Soft, nontender. Bowel sounds are heard. No organomegaly noted. EXTREMITIES: 2+ peripheral pulses with no evidence of peripheral edema and no calf tenderness noted. NEUROLOGIC patient is awake, alert and oriented 3 . . - Labs CBC & Chem 7: 12/29/18 07:21 12/29/18 07:21 Labs: Abnormal Lab Results - Last 24 Hours (Table) 12/28/18 12/28/18 12/29/18 Range/Units 17:11 20:01 06:33 Hgb (11.4-16.0) gm/dL Hct (34.0-46.0) % RDW (11.5-15.5) % Creatinine (0.52-1.04) mg/dL Glucose (74-99) mg/dL POC Glucose (mg/dL) 200 H 217 H 169 H (75-99) mg/dL 12/29/18 12/29/18 12/29/18 Range/Units 07:21 07:21 11:35 Hgb 10.2 L (11.4-16.0) gm/dL Hct 31.6 L (34.0-46.0) % RDW 15.7 H (11.5-15.5) % Creatinine 0.51 L (0.52-1.04) mg/dL Glucose 180 H (74-99) mg/dL POC Glucose (mg/dL) 119 H (75-99) mg/dL Assessment and Plan Plan: Assessment #1 intermittent episodes of atypical chest discomfort #2 uncontrolled hypertension #3 possible coronary artery disease #4 diabetes type 2 #5 history of stroke #6 dyslipidemia Plan Echo revealed normal left ventricular systolic function. From cardiology's perspective, patient may be able to be discharged home. We'll make a follow-up appointment in the office. Outpatient stress test will be scheduled. DNP note has been reviewed, I agree with a documented findings and plan of care. Patient was seen and examined.
== END 2018-12-29 14:30 | disposition home or self-care (01) | DRG 313 ==
LOC: EC 15:36 → 3SCARD 18:58 → OBSVTOIN 18:58
PROVIDERS: ADMIT Internal Medicine; ATTEND Internal Medicine
DX: R07.89 Other chest pain (principal); I16.0 Hypertensive urgency; I25.10 Atherosclerotic heart disease of native coronary artery without angina pectoris; E11.40 Type 2 diabetes mellitus with diabetic neuropathy, unspecified; I69.911 Memory deficit following unspecified cerebrovascular disease; E11.39 Type 2 diabetes mellitus with other diabetic ophthalmic complication; E78.5 Hyperlipidemia, unspecified; F32.9 Major depressive disorder, single episode, unspecified; F41.9 Anxiety disorder, unspecified; H42 Glaucoma in diseases classified elsewhere; I10 Essential (primary) hypertension; I25.2 Old myocardial infarction; K21.9 Gastro-esophageal reflux disease without esophagitis; M06.9 Rheumatoid arthritis, unspecified; M79.7 Fibromyalgia; M81.0 Age-related osteoporosis without current pathological fracture; K44.9 Diaphragmatic hernia without obstruction or gangrene; M19.90 Unspecified osteoarthritis, unspecified site; R00.1 Bradycardia, unspecified; Z79.02 Long term (current) use of antithrombotics/antiplatelets; Z79.4 Long term (current) use of insulin; Z79.899 Other long term (current) drug therapy; Z91.030 Bee allergy status; Z87.11 Personal history of peptic ulcer disease; Z90.710 Acquired absence of both cervix and uterus; Z90.49 Acquired absence of other specified parts of digestive tract; Z98.51 Tubal ligation status; Z88.5 Allergy status to narcotic agent; Z88.2 Allergy status to sulfonamides; Z88.7 Allergy status to serum and vaccine; Z88.8 Allergy status to other drugs, medicaments and biological substances; Z88.1 Allergy status to other antibiotic agents; Z91.041 Radiographic dye allergy status; Z91.040 Latex allergy status; Z81.1 Family history of alcohol abuse and dependence; Z83.79 Family history of other diseases of the digestive system
CPT/HCPCS: 36415; 71046; 80048; 80053; 83880; 84484; 85025; 93005; 93306; 96374; 99285

== ENCOUNTER → 2019-04-01 | Outpatient (CLI) | payer MEDICARE, OTHER ==
--- NOTE | 2019-04-01 14:48 | XR ---
EXAMINATION TYPE: XR ankle complete LT DATE OF EXAM: 04/01/2019 COMPARISON: NONE HISTORY: Pain FINDINGS: Three views of the ankle demonstrate the ankle mortise to be intact and symmetric. The joint spaces are preserved. The osseous structures are intact. Diffuse osteopenia. There is a calcaneal plantar spur. IMPRESSION: 1. No definite acute fracture or dislocation, if symptoms persist follow-up study in 7 to 10 days wou ld be suggested.
== END | disposition home or self-care (01) ==
LOC: RADXRMAIN 14:24
PROVIDERS: ATTEND Internal Medicine
DX: M25.572 Pain in left ankle and joints of left foot (principal)

== ENCOUNTER 2019-09-01 17:15 | Inpatient (IN) | payer MEDICARE, OTHER ==
[2019-09-01 22:53] LABS: Glucose,Whole Blood 82 mg/dL (75-99)
[2019-09-01] MEDS ORDERED: DEXTROSE 5%-0.45% NACL 1,000 ML IV SCH (23:15)
[2019-09-02] MEDS: LISINOPRIL 20 MG TAB PO SCH ×2 (00:13→07:57)
[2019-09-02] MEDS: MORPHINE SULFATE 4 MG/ML SYRINGE IVP PRN ×3 (00:39→09:09)
[2019-09-02] MEDS: CARVEDILOL 12.5 MG TAB PO SCH ×3 (02:03→16:29)
[2019-09-02] MEDS ORDERED: ENALAPRILAT 1.25 MG/ML 1 ML VIAL IVP STA (03:24)
[2019-09-02] MEDS: cloNIDine HCL 0.1 MG TAB PO SCH ×2 (03:34→08:04)
[2019-09-02 07:19] LABS: Glucose,Whole Blood 119 mg/dL (75-99)
[2019-09-02] MEDS: INSULIN ASPART (NovoLOG) 100 UNIT/ML VIAL SQ SCH ×4 (07:43→21:49)
[2019-09-02] MEDS: PANTOPRAZOLE 40 MG/10 ML VIAL IVP SCH (07:57)
[2019-09-02] MEDS: HEPARIN SODIUM,PORCINE 5,000 UNIT/ML 1 ML VIAL SQ SCH ×2 (07:58→21:53)
[2019-09-02 08:31] LABS: Basophils # (A) 0.1 k/uL (0-0.2); Basophils % (A) 2 %; Eosinophils # (A) 0.2 k/uL (0-0.7); Eosinophils % (A) 3 %; HCT 34.7 % (34.0-46.0); HGB 11.5 gm/dL (11.4-16.0); Lymphocytes # (A) 1.3 k/uL (1.0-4.8); Lymphocytes % (A) 26 %; MCH 27.8 pg (25.0-35.0); MCV 84.2 fL (80.0-100.0); Mean Platelet Volume 7.8; Monocytes # (A) 0.4 k/uL (0-1.0); Monocytes % (A) 8 %; Neutrophils # (A) 2.9 k/uL (1.3-7.7); Neutrophils % (A) 60 %; Platelet Count 122 k/uL (150-450); RBC 4.12 m/uL (3.80-5.40); RDW 15.1 % (11.5-15.5); WBC 4.8 k/uL (3.8-10.6)
[2019-09-02 08:50] LABS: Calcium 9.4 mg/dL (8.4-10.2); Potassium 3.5 mmol/L (3.5-5.1)
[2019-09-02] MEDS: DEXTROSE 5%-0.9% NACL 1,000 ML IV SCH ×2 (09:08→21:52)
[2019-09-02] MEDS: MAGNESIUM HYDROXIDE 2,400 MG/10 ML CUP PO SCH (09:20)
[2019-09-02] MEDS: LACTULOSE 20 GM/30 ML CUP PO SCH ×3 (09:20→21:51)
[2019-09-02] MEDS: DOCUSATE 100 MG CAP PO SCH ×2 (09:20→21:53)
--- NOTE | 2019-09-02 10:39 | P.GSCN ---
<Lavern Frost - Last Filed: 09/02/19 10:36> History of Present Illness Consult date: 09/02/19 Reason for Consult: umbilical hernia Requesting physician: Gianni E Vasu History of present illness: CHIEF COMPLAINT: umbilical hernia HISTORY OF PRESENT ILLNESS: 68-year-old female who was transferred from [facility]. Patient originally presented with abdominal pain and no bowel movement for 5 days. Patient does report a history of chronic constipation and is prescribed MiraLAX at home. Patient reports generalized abdominal pain this morning but states it is more severe in the right periumbilical region. Denies nausea or vomiting. Denies fever or chills. She reports history of a bladder sling and states every time she pushes to have a bowel movement she feels as though her bladder is falling down into her vagina. Patient states she follows with Dr. uLciano outpatient.she underwent colonoscopy in October 2018 revealing normal-appearing colon from rectum to cecum with no evidence of colorectal neoplasm. Grade 2 internal hemorrhoids. PAST MEDICAL HISTORY: See list. PAST SURGICAL HISTORY: See list. MEDICATIONS: See list. ALLERGIES: See list. SOCIAL HISTORY: No illicit drug use. REVIEW OF SYSTEMS: CONSTITUTIONAL: Denies fever or chills. HEENT: Denies blurred vision, vision changes, or eye pain. Denies hemoptysis ENDOCRINE: Denies heat or cold intolerance. CARDIOVASCULAR: Denies chest pain or pressure. RESPIRATORY: No shortness of breath. GASTROINTESTINAL: See HPI for pertinent findings NEURO: Denies history of seizures. PSYCH: No depression or suicidal ideation HEMATOLOGIC: Denies bleeding disorders. LYMPHATIC: The patient denies any lumps and bumps around the neck. GENITOURINARY: Denies any blood in urine or increased urinary frequency. Reports history of bladder sling. Reports feeling as though her bladder is full and into her vagina when she pushes to have a bowel movement. MUSCULOSKELETAL: Denies myalgias. Denies joint swelling. Denies decreased range of motion beyond patients baseline. SKIN: Denies pruitis. Denies rash. PHYSICAL EXAM: VITAL SIGNS: Reviewed GENERAL: Well-developed in no acute distress. HEENT: No sclera icterus. Extraocular movements grossly intact. Moist buccal mucosa. Head is atraumatic, normocephalic. Hears conversational speech. No nasal drainage. NECK: Supple without lymphadenopathy. CHEST: Non-labored respirations and equal bilateral excursions. CARDIOVASCULAR: Regular rate with regular rhythm. Palpable 2+ radial pulses. ABDOMEN: Soft. Nondistended. Mild diffuse tenderness with palpation, more severe in right periumbilical region. MUSCULOSKELETAL: No clubbing, cyanosis or edema. NEUROLOGIC: No focal or lateralizing signs. Cranial nerves II through XII grossly intact. PSYCH: Appropriate affect. Alert and oriented to person, place and time. SKIN: Well perfused. Good skin turgor. LABORATORY DATA: WBC 4.8. Hemoglobin 11.5. Pleasant, 122. Sodium 141. Potassium 3.5. BUN 12. Creatinine 0.80 IMAGING: CT abdomen and pelvis completed at outside facility reveals masslike thickening measuring an estimated 5.8 cm at the level of the anus. Underlying neoplasm is not excluded. Some associated inflammation extends into the distal rectum and presacral region. Concurrent proctitis is not excluded. A small ventral midline fat-containing super umbilical hernia measuring 2.3cm wide. There is a narrow neck measuring 6cm wide and some associated inflammation. ASSESSMENT: 1. Abdominal pain 2. Acute on chronic constipation 3. Possible proctitis per CT scan, however felt to be less likely 4. Masslike thickening of the anus measuring 5.8 cm 5. History of bladder sling 6. Small umbilical hernia PLAN: Patient evaluated at the bedside with Dr. Nicole. Lactulose, colace, and MOM for constipation. No suppositories or enemas to be given. Begin clear liquid diet. No surgical intervention recommended for umbilical hernia. Consult Dr. Abdirizak restrepo for possible colonoscopy and evaluation of thickening at the anus per CT scan. Consult OB to evaluate patients complaints regarding her bladder sling. Nurse practitioner note has been reviewed by physician. Signing provider agrees with the documented findings, assessment, and plan of care. Past Medical History Past Medical History: Chest Pain / Angina, CVA/TIA, Diabetes Mellitus, Eye Disorder, Fibromyalgia, GERD/Reflux, Hyperlipidemia, Hypertension, Memory Impairment, Myocardial Infarction (NE), Osteoarthritis (OA), Rheumatoid Arthritis (RA) Additional Past Medical History / Comment(s): neuropathy both feet and hands, glaucoma, connective tissue dysfunction, peptic ulcer disease, grade 4 hiatal he rnia, stroke/TIA x3-loss of short term memory, occ irregular heart beat, hx ulcers, hx carpal tunnel syndrome. dusty shoulder rotator cuff tear Last Myocardial Infarction Date:: 1988 History of Any Multi-Drug Resistant Organisms: None Reported Past Surgical History: Bladder Surgery, Cholecystectomy, Hysterectomy, Orthopedic Surgery, Tubal Ligation Additional Past Surgical History / Comment(s): rhinoplasty, hand surgery bilateral-carpal tunel , cystocele/rectocele repair , rt foot-failed bunionect jeremiah-has a metal larisa in foot, ABBEY. fatty tumor removed from rt shoulder, pelvic sling Past Anesthesia/Blood Transfusion Reactions: Family History of Problems w/ Anesthesia, Motion Sickness Additional Past Anesthesia/Blood Transfusion Reaction / Comm: mother- tongue swelled up Past Psychological History: Anxiety, Depression Additional Psychological History / Comment(s): grandson is caregiver Smoking Status: Never smoker Past Alcohol Use History: None Reported Past Drug Use History: None Reported - Past Family History Father Additional Family Medical History / Comment(s): alcoholic, cirrhosis of the liver, Mother Family Medical History: Cancer Medications and Allergies Home Medications Medication Instructions Recorded Confirmed Type HYDROcodone/APAP 10-325MG [[place] 1 tab PO QID PRN 10/10/14 09/01/19 History 10-325] Sertraline HCl [Zoloft] 50 mg PO DAILY 04/26/17 09/01/19 History Insulin Degludec [Tresiba See Protocol SQ HS 12/07/17 09/01/19 History Flextouch U-100] Omeprazole 20 mg PO BID 12/07/17 09/01/19 History ALPRAZolam [Xanax] 0.25 mg PO TID 05/25/18 09/01/19 History Furosemide [Lasix] 20 mg PO Q72H 05/25/18 09/01/19 History Carvedilol 25 mg PO BID 09/23/18 09/01/19 History Insulin Regular, Human [NovoLIN R] See Protocol SQ DAILY 09/30/18 09/01/19 History Latanoprost/Pf [Latanoprost 0.005% 1 drop BOTH EYES HS 10/19/18 09/01/19 History Eye Drop] Lisinopril 40 mg PO HS@0400 10/19/18 09/01/19 History Docusate [Colace] 100 mg PO BID 12/26/18 09/01/19 History Polyethylene Glycol 3350 [Miralax] 17 gm PO DAILY 12/26/18 09/01/19 History Clopidogrel [Plavix] 75 mg PO HS@0400 09/01/19 09/01/19 History Doxazosin [Cardura] 2 mg PO Q72H 09/01/19 09/01/19 History Ergocalciferol [Vitamin D2] 50,000 unit PO TH 09/01/19 09/01/19 History Linaclotide [Linzess] 145 mcg PO DAILY 09/01/19 09/01/19 History cloNIDine HCL 0.3 mg PO TID PRN 09/01/19 09/01/19 History Allergies Allergy/AdvReac Type Severity Reaction Status Date / Time bee venom protein (honey bee) Allergy Anaphylaxis Verified 09/01/19 22:24 epinephrine Allergy Anaphylaxis Verified 09/01/19 22:24 influenza virus vaccine, Allergy Rash/Hives Verified 09/01/19 22:24 specific iodine Allergy Rash/Hives Verified 09/01/19 22:24 latex Allergy Rash/Hives Verified 09/01/19 22:24 procaine HCl [From Novocain] Allergy Anaphylaxis Verified 09/01/19 22:24 Sulfa (Sulfonamide Allergy Rash/Hives Verified 09/01/19 22:24 Antibiotics) amlodipine [From Norvasc] AdvReac Diarrhea,abdominal Verified 09/01/19 22:24 pain cephalexin monohydrate AdvReac Nausea & Verified 09/01/19 22:24 [From Keflex] Vomiting & Diarrhea codeine AdvReac Nausea & Verified 09/01/19 22:24 Vomiting cortisone AdvReac Nausea & Verified 09/01/19 22:24 Vomiting/Vertigo doxazosin [From Cardura] AdvReac constipatio Verified 09/01/19 22:24 n hydralazine AdvReac muscle Verified 09/01/19 22:24 cramps & muscular pain methadone AdvReac Nausea & Verified 09/01/19 22:24 Vomiting & Diarrhea propoxyphene AdvReac Nausea & Verified 09/01/19 22:24 [From Sut-N] Vomiting Akdawfb-Kjx-Oam Reductase AdvReac Nausea & Verified 09/01/19 22:24 Inhibitor Vomiting/Muscle Weakness cortisone AdvReac Unknown Uncoded 10/27/18 12:06 steroids AdvReac Nausea & Uncoded 10/27/18 12:06 Vomiting Surgical - Exam Vital Signs Temp Pulse Resp BP Pulse Ox 99.2 F 77 18 170/105 99 09/01/19 20:24 09/01/19 20:24 09/01/19 20:24 09/01/19 20:24 09/01/19 20:24 Results - Labs 09/02/19 07:58 09/02/19 07:58 Abnormal Lab Results - Last 24 Hours (Table) 09/02/19 09/02/19 09/02/19 Range/Units 07:13 07:58 07:58 Plt Count 122 L (150-450) k/uL Glucose 121 H (74-99) mg/dL POC Glucose (mg/dL) 119 H (75-99) mg/dL Diabetes panel 09/02/19 Range/Units 07:58 Sodium 141 (137-145) mmol/L Potassium 3.5 (3.5-5.1) mmol/L Chloride 106 (98-107) mmol/L Carbon Dioxide 26 (22-30) mmol/L BUN 12 (7-17) mg/dL Creatinine 0.80 (0.52-1.04) mg/dL Glucose 121 H (74-99) mg/dL Calcium 9.4 (8.4-10.2) mg/dL Calcium panel 09/02/19 Range/Units 07:58 Calcium 9.4 (8.4-10.2) mg/dL Pituitary panel 09/02/19 Range/Units 07:58 Sodium 141 (137-145) mmol/L Potassium 3.5 (3.5-5.1) mmol/L Chloride 106 (98-107) mmol/L Carbon Dioxide 26 (22-30) mmol/L BUN 12 (7-17) mg/dL Creatinine 0.80 (0.52-1.04) mg/dL Glucose 121 H (74-99) mg/dL Calcium 9.4 (8.4-10.2) mg/dL Adrenal panel 09/02/19 Range/Units 07:58 Sodium 141 (137-145) mmol/L Potassium 3.5 (3.5-5.1) mmol/L Chloride 106 (98-107) mmol/L Carbon Dioxide 26 (22-30) mmol/L BUN 12 (7-17) mg/dL Creatinine 0.80 (0.52-1.04) mg/dL Glucose 121 H (74-99) mg/dL Calcium 9.4 (8.4-10.2) mg/dL <BonnieGraciela connor Jabier - Last Filed: 09/02/19 17:14> History of Present Illness History of present illness: As above. Clinically patient recently had colonoscopy less than 2 years ago. As a result, avoid any medications suppositories secondary to questionable proctitis. Recommend GI consultation as last assessment was with gas troenterology. No surgical attention at this time. Separately, patient complains of protrusion of bladder through vagina for cystocele. Gynecology consultation advised Surgical - Exam Vital Signs Temp Pulse Resp BP Pulse Ox 99.2 F 77 18 170/105 99 09/01/19 20:24 09/01/19 20:24 09/01/19 20:24 09/01/19 20:24 09/01/19 20:24 Results - Labs 09/02/19 07:58 09/02/19 07:58 Abnormal Lab Results - Last 24 Hours (Table) 09/02/19 09/02/19 09/02/19 Range/Units 07:13 07:58 07:58 Plt Count 122 L (150-450) k/uL Glucose 121 H (74-99) mg/dL POC Glucose (mg/dL) 119 H (75-99) mg/dL 09/02/19 09/02/19 Range/Units 12:26 16:56 Plt Count (150-450) k/uL Glucose (74-99) mg/dL POC Glucose (mg/dL) 203 H 176 H (75-99) mg/dL Diabetes panel 09/02/19 Range/Units 07:58 Sodium 141 (137-145) mmol/L Potassium 3.5 (3.5-5.1) mmol/L Chloride 106 (98-107) mmol/L Carbon Dioxide 26 (22-30) mmol/L BUN 12 (7-17) mg/dL Creatinine 0.80 (0.52-1.04) mg/dL Glucose 121 H (74-99) mg/dL Calcium 9.4 (8.4-10.2) mg/dL Calcium panel 09/02/19 Range/Units 07:58 Calcium 9.4 (8.4-10.2) mg/dL Pituitary panel 09/02/19 Range/Units 07:58 Sodium 141 (137-145) mmol/L Potassium 3.5 (3.5-5.1) mmol/L Chloride 106 (98-107) mmol/L Carbon Dioxide 26 (22-30) mmol/L BUN 12 (7-17) mg/dL Creatinine 0.80 (0.52-1.04) mg/dL Glucose 121 H (74-99) mg/dL Calcium 9.4 (8.4-10.2) mg/dL Adrenal panel 09/02/19 Range/Units 07:58 Sodium 141 (137-145) mmol/L Potassium 3.5 (3.5-5.1) mmol/L Chloride 106 (98-107) mmol/L Carbon Dioxide 26 (22-30) mmol/L BUN 12 (7-17) mg/dL Creatinine 0.80 (0.52-1.04) mg/dL Glucose 121 H (74-99) mg/dL Calcium 9.4 (8.4-10.2) mg/dL
[2019-09-02 12:31] LABS: Glucose,Whole Blood 203 mg/dL (75-99)
--- NOTE | 2019-09-02 13:29 | P.HPIM ---
History of Present Illness 68-year-old female with Previous history of multiple episodes of aspiration chronic constipation came in as she is unable to move her bowels for last 5 days, patient had diarrhea before this episode. Patient is comparing of pain on the right side below the medical area. Which is a dull pain. Patient is found to have constipation CAT scan was described as proctitis. Patient will undergo sigmoidoscopy tomorrow. Patient was also complaining of vesicocele whenever she tries to bear down second secondary to constipation. Patient was evaluated by general surgery. Patient was started on lactulose and being continued on Nima AX patient use MiraLAX at home Review of Systems REVIEW OF SYSTEMS: CONSTITUTIONAL: No fever, no malaise, no fatigue. HEENT: No recent visual problems or hearing problems. Denied any sore throat. CARDIOVASCULAR: No chest pain, orthopnea, PND, no palpitations, no syncope. PULMONARY: No shortness of breath, no cough, no hemoptysis. GASTROINTESTINAL: No diarrhea, no nausea, no vomiting, NEUROLOGICAL: No headaches, no weakness, no numbness. HEMATOLOGICAL: Denies any bleeding or petechiae. GENITOURINARY: Denies any burning micturition, frequency, or urgency. MUSCULOSKELETAL/RHEUMATOLOGICAL: Denies any joint pain, swelling, or any muscle pain. ENDOCRINE: Denies any polyuria or polydipsia. The rest of the 14-point review of systems is negative. Past Medical History Past Medical History: Chest Pain / Angina, CVA/TIA, Diabetes Mellitus, Eye Disorder, Fibromyalgia, GERD/Reflux, Hyperlipidemia, Hypertension, Memory Impairment, Myocardial Infarction (MD), Osteoarthritis (OA), Rheumatoid Arthritis (RA) Additional Past Medical History / Comment(s): neuropathy both feet and hands, glaucoma, connective tissue dysfunction, peptic ulcer disease, grade 4 hiatal hernia, stroke/TIA x3-loss of short term memory, occ irregular heart beat, hx ulcers, hx carpal tunnel syndrome. dusty shoulder rotator cuff tear Last Myocardial Infarction Date:: 1988 History of Any Multi-Drug Resistant Organisms: None Reported Past Surgical History: Bladder Surgery, Cholecystectomy, Hysterectomy, Orthopedic Surgery, Tubal Ligation Additional Past Surgical History / Comment(s): rhinoplasty, hand surgery bilater al-carpal tunel , cystocele/rectocele repair , rt foot-failed bunionectomy-has a metal larisa in foot, ABBEY. fatty tumor removed from rt shoulder, pelvic sling Past Anesthesia/Blood Transfusion Reactions: Family History of Problems w/ Anesthesia, Motion Sickness Additional Past Anesthesia/Blood Transfusion Reaction / Comment(s): mother- tongue swelled up Past Psychological History: Anxiety, Depression Additional Psychological History / Comment(s): grandson is caregiver Smoking Status: Never smoker Past Alcohol Use History: None Reported Past Drug Use History: None Reported - Past Family History Father Additional Family Medical History / Comment(s): alcoholic, cirrhosis of the liver, Mother Family Medical History: Cancer Medications and Allergies Home Medications Medication Instructions Recorded Confirmed Type HYDROcodone/APAP 10-325MG [[place] 1 tab PO QID PRN 10/10/14 09/01/19 History 10-325] Sertraline HCl [Zoloft] 50 mg PO DAILY 04/26/17 09/01/19 History Insulin Degludec [Tresiba See Protocol SQ HS 12/07/17 09/01/19 History Flextouch U-100] Omeprazole 20 mg PO BID 12/07/17 09/01/19 History ALPRAZolam [Xanax] 0.25 mg PO TID 05/25/18 09/01/19 History Furosemide [Lasix] 20 mg PO Q72H 05/25/18 09/01/19 History Carvedilol 25 mg PO BID 09/23/18 09/01/19 History Insulin Regular, Human [NovoLIN R] See Protocol SQ DAILY 09/30/18 09/01/19 History Latanoprost/Pf [Latanoprost 0.005% 1 drop BOTH EYES HS 10/19/18 09/01/19 History Eye Drop] Lisinopril 40 mg PO HS@0400 10/19/18 09/01/19 History Docusate [Colace] 100 mg PO BID 12/26/18 09/01/19 History Polyethylene Glycol 3350 [Miralax] 17 gm PO DAILY 12/26/18 09/01/19 History Clopidogrel [Plavix] 75 mg PO HS@0400 09/01/19 09/01/19 History Doxazosin [Cardura] 2 mg PO Q72H 09/01/19 09/01/19 History Ergocalciferol [Vitamin D2] 50,000 unit PO TH 09/01/19 09/01/19 History Linaclotide [Linzess] 145 mcg PO DAILY 09/01/19 09/01/19 History cloNIDine HCL 0.3 mg PO TID PRN 09/01/19 09/01/19 History Allergies Allergy/AdvReac Type Severity Reaction Status Date / Time bee venom protein (honey bee) Allergy Anaphylaxis Verified 09/01/19 22:24 epinephrine Allergy Anaphylaxis Verified 09/01/19 22:24 influenza virus vaccine, Allergy Rash/Hives Verified 09/01/19 22:24 specific iodine Allergy Rash/Hives Verified 09/01/19 22:24 latex Allergy Rash/Hives Verified 09/01/19 22:24 procaine HCl [From Novocain] Allergy Anaphylaxis Verified 09/01/19 22:24 Sulfa (Sulfonamide Allergy Rash/Hives Verified 09/01/19 22:24 Antibiotics) amlodipine [From Norvasc] AdvReac Diarrhea,abdominal Verified 09/01/19 22:24 pain cephalexin monohydrate AdvReac Nausea & Verified 09/01/19 22:24 [From Keflex] Vomiting & Diarrhea codeine AdvReac Nausea & Verified 09/01/19 22:24 Vomiting cortisone AdvReac Nausea & Verified 09/01/19 22:24 Vomiting/Vertigo doxazosin [From Cardura] AdvReac constipatio Verified 09/01/19 22:24 n hydralazine AdvReac muscle Verified 09/01/19 22:24 cramps & muscular pain methadone AdvReac Nausea & Verified 09/01/19 22:24 Vomiting & Diarrhea propoxyphene AdvReac Nausea & Verified 09/01/19 22:24 [From Allen] Vomiting Atyufzj-Vlm-Xka Reductase AdvReac Nausea & Verified 09/01/19 22:24 Inhibitor Vomiting/Muscle Weakness cortisone AdvReac Unknown Uncoded 10/27/18 12:06 steroids AdvReac Nausea & Uncoded 10/27/18 12:06 Vomiting Physical Exam Vitals: Vital Signs Temp Pulse Resp BP Pulse Ox 09/02/19 08:44 60 112/68 09/02/19 04:58 98 F 55 L 16 114/71 95 09/02/19 04:05 173/84 09/02/19 03:41 180/82 09/02/19 02:54 222/102 01/30/20 23:33 60 194/84 09/01/19 21:28 99.2 F 77 18 170/105 99 09/01/19 20:24 99.2 F 77 18 170/105 99 Intake and Output 09/01/19 09/02/19 09/02/19 22:59 06:59 14:59 Other: Voiding Method Toilet Toilet # Voids 0 2 # Bowel Movements 0 0 Weight 62.064 kg PHYSICAL EXAMINATION: GENERAL: The patient is alert and oriented x3, not in any acute distress. Well developed, well nourished. HEENT: Pupils are round and equally reacting to light. EOMI. No scleral icterus. No conjunctival pallor. Normocephalic, atraumatic. No pharyngeal erythema. No thyromegaly. CARDIOVASCULAR: S1 and S2 present. No murmurs, rubs, or gallops. PULMONARY: Chest is clear to auscultation, no wheezing or crackles. ABDOMEN: Soft, nontender, nondistended, normoactive bowel sounds. No palpable organomegaly. MUSCULOSKELETAL: No joint swelling or deformity. EXTREMITIES: No cyanosis, clubbing, or pedal edema. NEUROLOGICAL: Gross neurological examination did not reveal any focal deficits. SKIN: No rashes. Results CBC & Chem 7: 09/02/19 07:58 09/02/19 07:58 Labs: Abnormal Lab Results - Last 24 Hours (Table) 09/02/19 09/02/19 09/02/19 Range/Units 07:13 07:58 07:58 Plt Count 122 L (150-450) k/uL Glucose 121 H (74-99) mg/dL POC Glucose (mg/dL) 119 H (75-99) mg/dL 09/02/19 Range/Units 12:26 Plt Count (150-450) k/uL Glucose (74-99) mg/dL POC Glucose (mg/dL) 203 H (75-99) mg/dL Thrombosis Risk Factor Assmnt - Choose All That Apply Any of the Below Risk Factors Present?: Yes Each Factor Represents 1 point: Acute MD Each Risk Factor Represents 2 Points: Age 61-74 years Thrombosis Risk Factor Assessment Total Risk Factor Score: 3 Thrombosis Risk Factor Assessment Level: Moderate Risk Assessment and Plan Plan: Abdomen abdominal pain secondary to constipation with lactulose will monitor, patient will undergo sigmoidoscopy tomorrow, opiates will be disc in your patient was started on Toradol GI prophylaxis -vesicocle, possible can be managed as an outpatient but that Alonso Chong was already consulted -Type 2 diabetes mellitus -Hypertension patient's family in dose will be reduced to 0.2 3 times a day from 0.3 3 times a day -Gastroesophageal reflux disease -Hyperlipidemia -Fibromyalgia history
[2019-09-02] MEDS: cloNIDine HCL 0.2 MG TAB PO SCH ×2 (16:30→21:53)
[2019-09-02] MEDS: KETOROLAC 30 MG/ML 1 ML VIAL IVP PRN ×2 (16:32→22:06)
--- NOTE | 2019-09-02 16:38 | P.CONS ---
History of Present Illness - Reason for Consult Consult date: 09/02/[address] abdomen Requesting physician: Meseret Hendricks - Chief Complaint Constipation, rectal pain - History of Present Illness 68-year-old female with multiple medical comorbidities including chronic constipation who presented to outside hospital with complaints of rectal pain and constipation. She reported uncomfortable feeling in her rectum with associated constipation over the past 5 days. The patient has a known history of herbal bowel syndrome with constipation and is on a combination of MiraLAX therapy as well as linzess. She reports having a loose bowel movement 5 days ago and then having no bowel movement since that time. She reports an uncomfort able feeling in the rectum and was previously given a bladder sling which she feels may be failing. She is also concerned that the bowel movement she did have 5 days ago was dark and black in nature. She is on Plavix therapy with her last dose taken yesterday. Laboratory evaluation on presentation was significant for a WBC of 4.8, hemoglobin 11.5, platelet count 122,000. Computed tomography scan at the outside hospital was concerning for a 5.8 cm mass extending from the anus with recommendation for direct visualization. She has previously undergone endoscopy on 09/2017 at which time she also had an EGD which showed Coombs's esophagus and a hiatal hernia and a normal exam on colonoscopy. She is also had a colonoscopy in 10/29/2018 with findings of a normal colon. Review of Systems REVIEW OF SYSTEMS: CONSTITUTIONAL: Denies any fevers, chills, weight change or fatigue. CARDIOVASCULAR: Denies any chest pain, palpitations high or low blood pressures RESPIRATORY: Denies any shortness of breath, hemoptysis or cough. GENITOURINARY: No dysuria or hematuria. MUSCULOSKELETAL: No weakness reported. SKIN: Denies any new rashes or lesions, jaundice or pallor. PSYCHIATRIC: Denies any recent depression or anxiety. NEUROLOGY: Denies headache, denies any new focal deficits. EARS/NOSE/THROAT: No recent hearing change, congestion, nasal discharge or sore throat. EYES: No pain in eyes, discharge or change in vision. GASTROINTESTINAL: As per HPI. Past Medical History Past Medical History: Chest Pain / Angina, CVA/TIA, Diabetes Mellitus, Eye Disorder, Fibromyalgia, GERD/Reflux, Hyperlipidemia, Hypertension, Memory Impairment, Myocardial Infarction (VA), Osteoarthritis (OA), Rheumatoid Arthritis (RA) Additional Past Medical History / Comment(s): neuropathy both feet and hands, glaucoma, connective tissue dysfunction, peptic ulcer disease, grade 4 hiatal hernia, stroke/TIA x3-loss of short term memory, occ irregular heart beat, hx ulcers, hx carpal tunnel syndrome. dusty shoulder rotator cuff tear Last Myocardial Infarction Date:: 1988 History of Any Multi-Drug Resistant Organisms: None Reported Past Surgical History: Bladder Surgery, Cholecystectomy, Hysterectomy, Ort hopedic Surgery, Tubal Ligation Additional Past Surgical History / Comment(s): rhinoplasty, hand surgery bilateral-carpal tunel , cystocele/rectocele repair , rt foot-failed b unionectomy-has a metal larisa in foot, ABBEY. fatty tumor removed from rt shoulder, pelvic sling Past Anesthesia/Blood Transfusion Reactions: Family History of Problems w/ Anesthesia, Motion Sickness Additional Past Anesthesia/Blood Transfusion Reaction / Comm: mother- tongue swelled up Past Psychological History: Anxiety, Depression Additional Psychological History / Comment(s): grandson is caregiver Smoking Status: Never smoker Past Alcohol Use History: None Reported Past Drug Use History: None Reported - Past Family History Father Additional Family Medical History / Comment(s): alcoholic, cirrhosis of the liver, Mother Family Medical History: Cancer Medications and Allergies Home Medications Medication Instructions Recorded Confirmed Type HYDROcodone/APAP 10-325MG [Plain 1 tab PO QID PRN 10/10/14 09/01/19 History 10-325] Sertraline HCl [Zoloft] 50 mg PO DAILY 04/26/17 09/01/19 History Insulin Degludec [Tresiba See Protocol SQ HS 12/07/17 09/01/19 History Flextouch U-100] Omeprazole 20 mg PO BID 12/07/17 09/01/19 History ALPRAZolam [Xanax] 0.25 mg PO TID 05/25/18 09/01/19 History Furosemide [Lasix] 20 mg PO Q72H 05/25/18 09/01/19 History Carvedilol 25 mg PO BID 09/23/18 09/01/19 History Insulin Regular, Human [NovoLIN R] See Protocol SQ DAILY 09/30/18 09/01/19 History Latanoprost/Pf [Latanoprost 0.005% 1 drop BOTH EYES HS 10/19/18 09/01/19 History Eye Drop] Lisinopril 40 mg PO HS@0400 10/19/18 09/01/19 History Docusate [Colace] 100 mg PO BID 12/26/18 09/01/19 History Polyethylene Glycol 3350 [Miralax] 17 gm PO DAILY 12/26/18 09/01/19 History Clopidogrel [Plavix] 75 mg PO HS@0400 09/01/19 09/01/19 History Doxazosin [Cardura] 2 mg PO Q72H 09/01/19 09/01/19 History Ergocalciferol [Vitamin D2] 50,000 unit PO TH 09/01/19 09/01/19 History Linaclotide [Linzess] 145 mcg PO DAILY 09/01/19 09/01/19 History cloNIDine HCL 0.3 mg PO TID PRN 09/01/19 09/01/19 History Allergies Allergy/AdvReac Type Severity Reaction Status Date / Time bee venom protein (honey bee) Allergy Anaphylaxis Verified 09/01/19 22:24 epinephrine Allergy Anaphylaxis Verified 09/01/19 22:24 influenza virus vaccine, Allergy Rash/Hives Verified 09/01/19 22:24 specific iodine Allergy Rash/Hives Verified 09/01/19 22:24 latex Allergy Rash/Hives Verified 09/01/19 22:24 procaine HCl [From Novocain] Allergy Anaphylaxis Verified 09/01/19 22:24 Sulfa (Sulfonamide Allergy Rash/Hives Verified 09/01/19 22:24 Antibiotics) amlodipine [From Norvasc] AdvReac Diarrhea,abdominal Verified 09/01/19 22:24 pain cephalexin monohydrate AdvReac Nausea & Verified 09/01/19 22:24 [From Keflex] Vomiting & Diarrhea codeine AdvReac Nausea & Verified 09/01/19 22:24 Vomiting cortisone AdvReac Nausea & Verified 09/01/19 22:24 Vomiting/Vertigo doxazosin [From Cardura] AdvReac constipatio Verified 09/01/19 22:24 n hydralazine AdvReac muscle Verified 09/01/19 22:24 cramps & muscular pain methadone AdvReac Nausea & Verified 09/01/19 22:24 Vomiting & Diarrhea propoxyphene AdvReac Nausea & Verified 09/01/19 22:24 [From Darvocet-N] Vomiting Usranvy-Hdf-Voe Reductase AdvReac Nausea & Verified 09/01/19 22:24 Inhibitor Vomiting/Muscle Weakness cortisone AdvReac Unknown Uncoded 10/27/18 12:06 steroids AdvReac Nausea & Uncoded 10/27/18 12:06 Vomiting Physical Exam Vitals: Vital Signs Temp Pulse Resp BP Pulse Ox 09/02/19 15:00 97.9 F 60 16 141/76 100 09/02/19 08:44 60 112/68 09/02/19 04:58 98 F 55 L 16 114/71 95 09/02/19 04:05 173/84 09/02/19 03:41 180/82 09/02/19 02:54 222/102 09/01/19 23:33 60 194/84 09/01/19 21:28 99.2 F 77 18 170/105 99 09/01/19 20:24 99.2 F 77 18 170/105 99 Intake and Output 09/02/19 09/02/19 09/02/19 06:59 14:59 22:59 Other: Voiding Method Toilet Toilet Toilet # Voids 2 3 # Bowel Movements 0 3 On physical examination, patient appears comfortable in no apparent distress. HEAD: Normocephalic, atraumatic. EYES: No scleral icterus. No conjunctival injection. MOUTH: No lesions, tongue midline. NECK: Trachea midline, no gross abnormalities. CHEST: Clear to auscultation with no wheezing or rhonchi appreciated. HEART: Regular rate and rhythm. ABDOMEN: Soft, obese. Bowel sounds are positive. No organomegaly. No guarding or rigidity. EXTREMITIES: No pedal edema. SKIN: No rashes, no jaundice. NEUROLOGIC: Alert and oriented x3. No focal deficits. Results CBC & Chem 7: 09/02/19 07:58 09/02/19 07:58 Labs: Abnormal Lab Results - Last 24 Hours (Table) 09/02/19 09/02/19 09/02/19 Range/Units 07:13 07:58 07:58 Plt Count 122 L (150-450) k/uL Glucose 121 H (74-99) mg/dL POC Glucose (mg/dL) 119 H (75-99) mg/dL 09/02/19 Range/Units 12:26 Plt Count (150-450) k/uL Glucose (74-99) mg/dL POC Glucose (mg/dL) 203 H (75-99) mg/dL CT scan - abdomen: report reviewed (Computed tomography scan of the abdomen and pelvis without contrast performed at outside hospitals significant for masslike thickening measuring an estimated 5.8 cm at the level of the anus with a ventral hernia also noted) Assessment and Plan (1) Abnormal CT of the abdomen Narrative/Plan: 64-year-old female with multiple medical comorbidities including chronic constipation who presented to the hospital with complaints of rectal pain, worsening constipation as well as an episode of black diarrhea 5 days ago. She reports at baseline she has chronic constipation and has been treated with MiraLAX and Linzess. She previously underwent endoscopic evaluation in 09/2017 with EGD showing Coombs's esophagus and a small hiatal hernia with a normal colonoscopy. Repeat colonoscopy in 10/2018 was also significant for a normal colon. We will been on presentation was stable at 11.5. She reports no bowel movements over the past 5 days with complaints of rectal discomfort as well as concerns of failure of a previously placed bladder sling for which FILM SOUND COORDINATOR has been consult that. Computed tomography scan performed at outside hospital was significant for 5.8 cm of thickening extending from the anus was concern for possible mass versus proctitis. Current Visit: Yes Status: Acute Code(s): R93.5 - ABN FINDINGS ON DX IMAGING OF ABD REGIONS, INC RETROPERITON SNOMED Code(s): 85726198963174593 (2) Constipation Current Visit: Yes Status: Acute Code(s): K59.00 - CONSTIPATION, UNSPECIFIED SNOMED Code(s): 45975444 Plan: Supportive care Okay for liquid diet Nothing by mouth after midnight Flexible sigmoidoscopy tomorrow morning for further evaluation of the rectum and to rule out mass Prep ordered Appreciate recommendations from surgical service Thank you for allowing us to participate in the care of the patient we will continue to follow
[2019-09-02] MEDS ORDERED: PEG 3350-NA SULF,BICARB,CL/KCL 4,000 ML BOTTLE PO ONE (16:45)
[2019-09-02 17:09] LABS: Glucose,Whole Blood 176 mg/dL (75-99)
--- NOTE | 2019-09-02 18:40 | P.CON ---
Consult Note - . Consult date: 09/02/19 Assessment/Plan:: This is a 68-year-old female 6 para 3033 status post hysterectomy years ago for prolapse, status post anterior and posterior repair in the past per a transmission assembler in [place]. Patient presented to our hospital as a transfer from [facility], with chronic constipation and no bowel movement for 5 days. She states she has had increasing pain and pressure of the rectal area. She feels that her anus is swollen. Computed tomography scan reveals a 5.8 cm thickening at the level of the anus with inflammation extending to the rectum, cancer is not excluded. Patient is currently undergoing a bowel prep for colonoscopy in the morning. In obtaining the history, a provider was told that she feels pressure of the bladder when she attempts to have a bowel movement. I have been consulted to see the patient regarding same. Past obstetric history significant for normal spontaneous vaginal deliveries 3, miscarriages 3. Past medical history include multiple issues to which I would refer the reader to the chart. These include diabetes, stroke, chronic constipation. Past surgical history bilateral carpal tunnel repair, vaginal hysterectomy in the past with ovaries in situ, anterior and posterior colporrhaphy's, cholecystectomy, cyst Tosca P, colonoscopy, upper endoscopy, right foot surgery. Social history is negative for tobacco alcohol or drug use, patient is single and is not working. Family history patient's mother had a history of some type of cancer, she was a heavy smoker. Father had liver cancer and had issues with alcoholism. ALLERGIES include 18 items to which I would refer the reader to the chart. Current medications include NovoLog insulin, porcine insulin, Zestril, Protonix, heparin, Pepcid, Zestril, Coreg, Colace, Catapres. On exam the patient is 5 foot 3 inches, 136 pounds, vital signs are stable and she is afebrile. She has poor dentition. No obvious thyromegaly. Chest is clear to auscultation in all junior anteriorly and posteriorly. Abdomen is soft and nontender, hypoactive bowel sounds. No obvious organosplenomegaly. No CVA tenderness. Extremities reveal deformity of the right foot, decreased peripheral pulses and very thin skin. On pelvic exam external genitalia is well estrogenized. Vaginal vault is well suspended. There is a very small grade 1-2 cystocele. Patient is declining rectal examination as she is currently undergoing a bowel prep for surgery in the morning. Labs include hemoglobin 11.5, hematocrit 34.7, WBCs 4.8, platelets 122,000, blood sugar 121. Electrolyte panel within normal limits. Impression: Small grade 1-2 cystocele, status post anterior and posterior colporrhaphy's in the past. Admitting diagnosis proctitis, with 5.8 cm thickening noted radiographically. Bowel prep in progress, with surgery planned for morning. Plan: There is no gynecologic intervention needed at this time. I have explained this to the patient to her satisfaction. Thank you for the consultation.
[2019-09-02 21:38] LABS: Glucose,Whole Blood 100 mg/dL (75-99)
[2019-09-02] MEDS: FAMOTIDINE 20 MG TAB PO SCH (21:53)
[2019-09-03] MEDS: CARVEDILOL 12.5 MG TAB PO SCH ×2 (06:24→15:27)
[2019-09-03] MEDS: cloNIDine HCL 0.2 MG TAB PO SCH (06:24)
[2019-09-03 07:01] LABS: Glucose,Whole Blood 214 mg/dL (75-99)
[2019-09-03] MEDS: PANTOPRAZOLE 40 MG/10 ML VIAL IVP SCH (07:48)
[2019-09-03] MEDS: KETOROLAC 30 MG/ML 1 ML VIAL IVP PRN (07:48)
[2019-09-03] MEDS: LISINOPRIL 20 MG TAB PO SCH (07:49)
[2019-09-03] MEDS: FAMOTIDINE 20 MG TAB PO SCH (07:50)
[2019-09-03] MEDS: HEPARIN SODIUM,PORCINE 5,000 UNIT/ML 1 ML VIAL SQ SCH ×2 (07:50→22:27)
[2019-09-03] MEDS: MAGNESIUM HYDROXIDE 2,400 MG/10 ML CUP PO SCH (07:50)
[2019-09-03] MEDS: DOCUSATE 100 MG CAP PO SCH ×2 (07:50→22:27)
[2019-09-03] MEDS: INSULIN ASPART (NovoLOG) 100 UNIT/ML VIAL SQ SCH ×4 (07:50→22:26)
[2019-09-03] MEDS ORDERED: PROPOFOL 10 MG/ML 20 ML VIAL IV ONE (10:33)
[2019-09-03] MEDS ORDERED: IV FLUID CONTINUATION 200 ML IV ONE (10:37)
--- NOTE | 2019-09-03 10:46 | P.PCN ---
Date of Procedure: 09/03/19 Procedure(s) Performed: BRIEF HISTORY: Patient is a 67-year-old pleasant 8 female, admitted hospital with severe constipation and abdominal pain as well as rectal pain for the last 1 month duration. She had a CT of the abdomen and pelvis done that showed 5.8 cm mass/thickening of the sigmoid colon all the way up in the rectum and hence she is scheduled for a sigmoidoscopy today. PROCEDURE PERFORMED: Flexible sigmoidoscope PREOPERATIVE DIAGNOSIS: []. IV sedation per Anesthesia. PROCEDURE: After informed consent was obtained, the patient, was brought into the endoscopy unit. IV sedation was administered by Anesthesia under continuous monitoring. Digital rectal examination was normal. Initially the Olympus CF-160 flexible video colonoscope was then inserted in the rectum, gradually advanced into the splenic flexure. without any difficulty. Careful examination was performed as the scope was gradually being withdrawn. Mucosa of the descending colon, sigmoid colon, and rectum appeared normal. Retroflexion was performed in the rectum and small internal hemorrhoids ere seen. The patient tolerated the procedure well. IMPRESSION: Normal-appearing colon from rectum to splenic flexure with no evidence of polyps or colorectal neoplasia Small internal hemorrhoids seen. RECOMMENDATIONS: Findings of this examination were discussed with the patient. She will be continued on MiraLAX as well as linzess as a part of treatment of chronic constipation.
[2019-09-03] MEDS ORDERED: cloNIDine HCL 0.1 MG TAB PO STA (11:28)
[2019-09-03 11:34] LABS: Glucose,Whole Blood 151 mg/dL (75-99)
[2019-09-03] MEDS: DEXTROSE 5%-0.9% NACL 1,000 ML IV SCH (12:24)
--- NOTE | 2019-09-03 14:23 | P.PN ---
Subjective Progress Note Date: 09/03/19 Principal diagnosis: Proctitis Patient doing better today. Endoscopy results noted. No significant abnormalities identified. Currently without pain. Tolerating diet. Objective - Vital Signs Vital signs: Vital Signs Temp 97.0 F L 09/03/19 13:55 Pulse 72 09/03/19 13:55 Resp 20 09/03/19 13:55 BP 200/80 09/03/19 13:55 Pulse Ox 98 09/03/19 13:55 Intake & Output 09/02/19 09/03/19 09/03/19 18:59 06:59 18:59 Intake Total 450 Balance 450 Intake: IV 150 Oral 300 Other: Voiding Method Toilet Toilet Bedside Commode # Voids 3 3 1 # Bowel Movements 3 3 - Exam Abdomen: Soft, nontender, nondistended - Labs CBC & Chem 7: 09/02/19 07:58 09/02/19 07:58 Labs: Abnormal Lab Results - Last 24 Hours (Table) 09/02/19 09/02/19 09/03/19 Range/Units 16:56 21:18 06:53 POC Glucose (mg/dL) 176 H 100 H 214 H (75-99) mg/dL 09/03/19 Range/Units 11:31 POC Glucose (mg/dL) 151 H (75-99) mg/dL Assessment and Plan (1) Constipation Narrative/Plan: Patient doing better today. CAT scan findings thought to possibly represent ductitis from constipation. Continue diet. Discharge per primary service. Current Visit: Yes Status: Acute Code(s): K59.00 - CONSTIPATION, UNSPECIFIED SNOMED Code(s): 46301304
[2019-09-03] MEDS: cloNIDine HCL 0.1 MG TAB PO SCH ×2 (15:26→22:27)
[2019-09-03 16:43] LABS: Glucose,Whole Blood 189 mg/dL (75-99)
[2019-09-03] MEDS: ALPRAZolam 0.25 MG TAB PO PRN (16:53)
[2019-09-03] MEDS ORDERED: FUROSEMIDE 20 MG TAB PO STA (16:58)
--- NOTE | 2019-09-03 17:05 | P.PN ---
Subjective 68-year-old female with Previous history of multiple episodes of aspiration chronic constipation came in as she is unable to move her bowels for last 5 days, patient had diarrhea before this episode. Patient is comparing of pain on the right side below the medical area. Which is a dull pain. Patient is found to have constipation CAT scan was described as proctitis. Patient will undergo sigmoidoscopy tomorrow. Patient was also complaining of vesicocele whenever she tries to bear down second secondary to constipation. Patient was evaluated by general surgery. Patient was started on lactulose and being continued on MiraLAX patient use MiraLAX at home 09/03/2089 Patient underwent a colon prep for the sigmoidoscopy held constipation resolved and the patient will be discharged on MiraLAX and linzess for chronic constipation. No colorectal neoplasia. A small hemorrhoid was seen on flexible sigmoidoscopy. Patient's blood pressure is very high systolics about 200 patient takes a diuretic at home which is being held as patient is receiving IV fluids IV fluids will be discontinued patient will restart back and diuretic with will monitor overnight patient probably will be discharged tomorrow her blood pressure comes down. And feels tired and weak as she only slept for 1 hour last night and wishing to go home Constitutional: Denied any fatigue denied any fever. Cardio vascular: denied any chest pain, palpitations Gastrointestinal denied any nausea vomiting Pulmonary: Denied any shortness of breath cough Neurologic denied any new focal deficits All inpatient medications were reviewed and appropriate changes in these medic ations as dictated in the interval history and assessment and plan. Objective - Vital Signs Vital signs: Vital Signs Temp 97.0 F L 09/03/19 13:55 Pulse 72 09/03/19 13:55 Resp 18 09/03/19 16:00 BP 200/80 09/03/19 13:55 Pulse Ox 98 09/03/19 13:55 Intake & Output 09/02/19 09/03/19 09/03/19 18:59 06:59 18:59 Intake Total 450 Balance 450 Intake: IV 150 Oral 300 Other: Voiding Method Toilet Toilet Bedside Commode # Voids 3 3 1 # Bowel Movements 3 3 - Exam PHYSICAL EXAMINATION: GENERAL: The patient is alert and oriented x3, not in any acute distress. Well developed, well nourished. HEENT: Pupils are round and equally reacting to light. EOMI. No scleral icterus. No conjunctival pallor. Normocephalic, atraumatic. No pharyngeal erythema. No thyromegaly. CARDIOVASCULAR: S1 and S2 present. No murmurs, rubs, or gallops. PULMONARY: Chest is clear to auscultation, no wheezing or crackles. ABDOMEN: Soft, nontender, nondistended, normoactive bowel sounds. No palpable organomegaly. MUSCULOSKELETAL: No joint swelling or deformity. EXTREMITIES: No cyanosis, clubbing, or pedal edema. NEUROLOGICAL: Gross neurological examination did not reveal any focal deficits. SKIN: No rashes. - Labs CBC & Chem 7: 09/02/19 07:58 09/02/19 07:58 Labs: Abnormal Lab Results - Last 24 Hours (Table) 09/02/19 09/02/19 09/03/19 Range/Units 16:56 21:18 06:53 POC Glucose (mg/dL) 176 H 100 H 214 H (75-99) mg/dL 09/03/19 09/03/19 Range/Units 11:31 16:41 POC Glucose (mg/dL) 151 H 189 H (75-99) mg/dL Assessment and Plan Plan: Abdomen abdominal pain secondary to constipation patient was started on above- mentioned medications for chronic constipation -Small internal hemorrhoid without any active evidence of GI bleed -Cystocele,, gynecology evaluated the patient no further intervention at this time -Type 2 diabetes mellitus -Hypertension controlled blood pressure patient was resumed on her home dose of clonidine will be resumed on diuretic. -Gastroesophageal reflux disease -Hyperlipidemia -Fibromyalgia history
[2019-09-03] MEDS ORDERED: CARVEDILOL 12.5 MG TAB PO SCH ×2 (17:30)
[2019-09-03 22:27] LABS: Glucose,Whole Blood 138 mg/dL (75-99)
[2019-09-04] MEDS: cloNIDine HCL 0.1 MG TAB PO SCH (06:01)
[2019-09-04] MEDS: KETOROLAC 30 MG/ML 1 ML VIAL IVP PRN (06:08)
[2019-09-04] MEDS: ALPRAZolam 0.25 MG TAB PO PRN (06:09)
[2019-09-04 06:57] VITALS: RESP 18; TEMP 97.6
[2019-09-04 07:00] LABS: Glucose,Whole Blood 174 mg/dL (75-99)
[2019-09-04] MEDS ORDERED: CARVEDILOL 12.5 MG TAB PO SCH (07:30)
[2019-09-04] MEDS: DOCUSATE 100 MG CAP PO SCH (08:17)
[2019-09-04] MEDS: INSULIN ASPART (NovoLOG) 100 UNIT/ML VIAL SQ SCH ×2 (08:18→12:24)
[2019-09-04] MEDS: LISINOPRIL 20 MG TAB PO SCH (08:18)
[2019-09-04] MEDS: MAGNESIUM HYDROXIDE 2,400 MG/10 ML CUP PO SCH (08:18)
[2019-09-04] MEDS: HEPARIN SODIUM,PORCINE 5,000 UNIT/ML 1 ML VIAL SQ SCH (08:18)
[2019-09-04] MEDS: PANTOPRAZOLE 40 MG/10 ML VIAL IVP SCH (08:18)
[2019-09-04] MEDS ORDERED: FUROSEMIDE 20 MG TAB PO SCH (09:00)
[2019-09-04] MEDS ORDERED: POLYETHYLENE GLYCOL 3350 17 GM POWD.PACK PO SCH (09:45)
--- NOTE | 2019-09-04 10:30 | PN ---
PROGRESS NOTE DATE OF SERVICE: September 04, 2019 Patient is a 68 -year-old pleasant white female admitted to hospital with severe abdominal pain, especially in the left lower quadrant area as well as severe rectal pain. Initial CAT scan showed some thickening versus mass in the sigmoid colon. She underwent a flexible sigmoidoscopy by me yesterday that was completely normal and no sigmoid mass identified. She is doing better. She remains on MiraLAX 1 scoop twice daily as well as magnesium citrate as needed. She still has some rectal pain. PHYSICAL EXAMINATION: Appears comfortable in no apparent distress. VITAL SIGNS: Stable. Blood pressure 208/78, pulse is 67, temperature 97.6. HEENT examination is unremarkable. Conjunctivae pink. Sclerae anicteric. Oral cavity no lesions. NECK: No JVD or lymph node enlargement. CHEST: Clear to auscultation. HEART: Regular rate and rhythm. ABDOMEN: Soft, nontender, nondistended. Bowel sounds are positive. No organomegaly. EXTREMITIES: No pedal edema. SKIN no rashes. NEUROLOGIC: Alert and oriented x3. No focal deficits. LABS: No labs available from today. IMPRESSION: Severe constipation with left-sided abdominal pain and rectal pain. Flexible sigmoidoscopy done yesterday showed small internal hemorrhoids but otherwise unremarkable. The patient currently on MiraLAX one scoop daily and on an outpatient basis has been maintained on Linzess twice daily. Her symptoms have significantly improved. RECOMMENDATIONS: 1. Continue with MiraLAX 1 scoop daily and increase it to twice daily as needed. 2. High-fiber diet. 3. Increase water intake. 4. Use magnesium citrate as needed. 5. She can be discharged home today with outpatient followup in 2 weeks. Thank you for this consultation. MMODL / IJN: [id number] /
[2019-09-04 10:42] VITALS: BP 142/94; PULSE 69
--- NOTE | 2019-09-04 10:42 | P.PN ---
Subjective Progress Note Date: 09/04/19 Principal diagnosis: Proctitis Patient doing well today. Denies abdominal pain. Passing flatus. No abdominal pain. Objective - Vital Signs Vital signs: Vital Signs Temp 97.6 F 09/04/19 05:49 Pulse 69 09/04/19 10:41 Resp 18 09/04/19 05:49 BP 142/94 09/04/19 10:41 Pulse Ox 97 09/04/19 05:49 Intake & Output 09/03/19 09/04/19 09/04/19 18:59 06:59 18:59 Intake Total 450 Balance 450 Intake: IV 150 Oral 300 Other: Voiding Method Toilet Bedside Commode # Voids 1 1 # Bowel Movements 0 - Exam Abdomen: Soft, nontender, nondistended - Labs CBC & Chem 7: 09/02/19 07:58 09/02/19 07:58 Labs: Abnormal Lab Results - Last 24 Hours (Table) 09/03/19 09/03/19 09/03/19 Range/Units 11:31 16:41 22:26 POC Glucose (mg/dL) 151 H 189 H 138 H (75-99) mg/dL 09/04/19 Range/Units 06:57 POC Glucose (mg/dL) 174 H (75-99) mg/dL Assessment and Plan (1) Constipation Narrative/Plan: Overall patient improved. Continue stool softeners. Continue diet. May tiny castaneda. Current Visit: Yes Status: Acute Code(s): K59.00 - CONSTIPATION, UNSPECIFIED SNOMED Code(s): 79070701
--- NOTE | 2019-09-04 11:17 | P.DS ---
Providers Date of admission: 09/01/19 19:39 Attending physician: Nomi Garcia Consults: 09/01/19 23:16 Consult Physician Routine Consulting Provider: Graciela Nicole Consult Reason/Comments: umbilical hernia & mass Do you want consulting provider notified?: Yes 09/02/19 09:02 Consult Physician Routine Consulting Provider: Melanie Luciano Consult Reason/Comments: possible colon mass Do you want consulting provider notified?: Yes 09/02/19 10:26 Consult Physician Routine Consulting Provider: Deann Davis Consult Reason/Comments: hx of bladder sling, pt feels like its failing Do you want consulting provider notified?: Yes Primary care physician: [facility] Course: 68-year-old female with Previous history of multiple episodes of aspiration chronic constipation came in as she is unable to move her bowels for last 5 days, patient had diarrhea before this episode. Patient is comparing of pain on the right side below the medical area. Which is a dull pain. Patient is found to have constipation CAT scan was described as proctitis. Patient will undergo sigmoidoscopy tomorrow. Patient was also complaining of vesicocele whenever she tries to bear down second secondary to constipation. Patient was evaluated by general surgery. Patient was started on lactulose and being continued on MiraLAX patient use MiraLAX at home 09/03/2019 Patient underwent a colon prep for the sigmoidoscopy held constipation resolved and the patient will be discharged on MiraLAX and linzess for chronic constipation. No colorectal neoplasia. A small hemorrhoid was seen on flexible sigmoidoscopy. Patient's blood pressure is very high systolics about 200 patient takes a diuretic at home which is being held as patient is receiving IV fluids IV fluids will be discontinued patient will restart back and diuretic with will monitor overnight patient probably will be discharged tomorrow her blood pressure comes down. And feels tired and weak as she only slept for 1 hour last night and wishing to go home 09/04/2019 Patient blood pressure is better controlled after diuretics and patient is discharged today PHYSICAL EXAMINATION: GENERAL: The patient is alert and oriented x3, not in any acute distress. Well developed, well nourished. HEENT: Pupils are round and equally reacting to light. EOMI. No scleral icterus. No conjunctival pallor. Normocephalic, atraumatic. No pharyngeal erythema. No thyromegaly. CARDIOVASCULAR: S1 and S2 present. No murmurs, rubs, or gallops. PULMONARY: Chest is clear to auscultation, no wheezing or crackles. ABDOMEN: Soft, nontender, nondistended, normoactive bowel sounds. No palpable organomegaly. MUSCULOSKELETAL: No joint swelling or deformity. EXTREMITIES: No cyanosis, clubbing, or pedal edema. NEUROLOGICAL: Gross neurological examination did not reveal any focal deficits. SKIN: No rashes. Assessment and Plan Plan: Abdomen abdominal pain secondary to constipation patient will be discharged today and above-mentioned medications -Small internal hemorrhoid without any active evidence of GI bleed -Cystocele,, gynecology evaluated the patient no further intervention at this time -Type 2 diabetes mellitus -Hypertension controlled blood pressure patient was resumed on her home dose of clonidine resumed on diuretic. Better controlled -Gastroesophageal reflux disease -Hyperlipidemia -Fibromyalgia history Plan - Discharge Summary Discharge Rx Participant: No New Discharge Prescriptions: Continue Sertraline HCl [Zoloft] 50 mg PO DAILY Insulin Degludec [Tresiba Flextouch U-100] See Protocol SQ HS Omeprazole 20 mg PO BID ALPRAZolam [Xanax] 0.25 mg PO TID Furosemide [Lasix] 20 mg PO Q72H Carvedilol 25 mg PO BID Insulin Regular, Human [NovoLIN R] See Protocol SQ DAILY Latanoprost/Pf [Latanoprost 0.005% Eye Drop] 1 drop BOTH EYES HS Lisinopril 40 mg PO HS@0400 Polyethylene Glycol 3350 [Miralax] 17 gm PO DAILY Docusate [Colace] 100 mg PO BID Ergocalciferol [Vitamin D2 (DRISDOL)] 50,000 unit PO TH Linaclotide [Linzess] 145 mcg PO DAILY Clopidogrel [Plavix] 75 mg PO HS@0400 cloNIDine HCL 0.3 mg PO TID PRN PRN Reason: HIGH BP-SEE COMMENTS Doxazosin [Cardura] 2 mg PO Q72H Discontinued HYDROcodone/APAP 10-325MG [[place] 10-325] 1 tab PO QID PRN PRN Reason: Pain Discharge Medication List Sertraline HCl [Zoloft] 50 mg PO DAILY 04/26/17 [History] Insulin Degludec [Tresiba Flextouch U-100] See Protocol SQ HS 12/07/17 [History] Omeprazole 20 mg PO BID 12/07/17 [History] ALPRAZolam [Xanax] 0.25 mg PO TID 05/25/18 [History] Furosemide [Lasix] 20 mg PO Q72H 05/25/18 [History] Carvedilol 25 mg PO BID 09/23/18 [History] Insulin Regular, Human [NovoLIN R] See Protocol SQ DAILY 09/30/18 [History] Latanoprost/Pf [Latanoprost 0.005% Eye Drop] 1 drop BOTH EYES HS 10/19/18 [History] Lisinopril 40 mg PO HS@0400 10/19/18 [History] Docusate [Colace] 100 mg PO BID 12/26/18 [History] Polyethylene Glycol 3350 [Miralax] 17 gm PO DAILY 12/26/18 [History] Clopidogrel [Plavix] 75 mg PO HS@0400 09/01/19 [History] Doxazosin [Cardura] 2 mg PO Q72H 09/01/19 [History] Ergocalciferol [Vitamin D2 (DRISDOL)] 50,000 unit PO TH 09/01/19 [History] Linaclotide [Linzess] 145 mcg PO DAILY 09/01/19 [History] cloNIDine HCL 0.3 mg PO TID PRN 09/01/19 [History] Discharge Disposition: HOME SELF-CARE
[2019-09-04 11:28] LABS: Glucose,Whole Blood 183 mg/dL (75-99)
== END 2019-09-04 13:16 | disposition home or self-care (01) | DRG 392 ==
LOC: 6NMEDSUR 19:39
PROVIDERS: ADMIT Hospitalist; ATTEND Hospitalist
PROC: 0DJD8ZZ Inspection of Lower Intestinal Tract, Via Natural or Artificial Opening Endoscopic (ICD-10-PCS; principal; 2019-09-01)
DX: K59.09 Other constipation (principal); E11.42 Type 2 diabetes mellitus with diabetic polyneuropathy; K64.1 Second degree hemorrhoids; E78.5 Hyperlipidemia, unspecified; F32.9 Major depressive disorder, single episode, unspecified; F41.9 Anxiety disorder, unspecified; I10 Essential (primary) hypertension; I25.2 Old myocardial infarction; K21.9 Gastro-esophageal reflux disease without esophagitis; K42.9 Umbilical hernia without obstruction or gangrene; M06.9 Rheumatoid arthritis, unspecified; M21.961 Unspecified acquired deformity of right lower leg; M79.7 Fibromyalgia; N81.10 Cystocele, unspecified; K44.9 Diaphragmatic hernia without obstruction or gangrene; M19.90 Unspecified osteoarthritis, unspecified site; E11.39 Type 2 diabetes mellitus with other diabetic ophthalmic complication; H42 Glaucoma in diseases classified elsewhere; I69.311 Memory deficit following cerebral infarction; I69.314 Frontal lobe and executive function deficit following cerebral infarction; Z79.02 Long term (current) use of antithrombotics/antiplatelets; Z79.899 Other long term (current) drug therapy; Z79.4 Long term (current) use of insulin; Z87.11 Personal history of peptic ulcer disease; Z90.49 Acquired absence of other specified parts of digestive tract; Z90.710 Acquired absence of both cervix and uterus; Z98.51 Tubal ligation status; Z88.5 Allergy status to narcotic agent; Z88.2 Allergy status to sulfonamides; Z88.8 Allergy status to other drugs, medicaments and biological substances; Z88.1 Allergy status to other antibiotic agents; Z91.030 Bee allergy status; Z91.041 Radiographic dye allergy status; Z91.040 Latex allergy status; Z80.0 Family history of malignant neoplasm of digestive organs; Z80.9 Family history of malignant neoplasm, unspecified; Z81.1 Family history of alcohol abuse and dependence; Z83.79 Family history of other diseases of the digestive system
CPT/HCPCS: 45330; 80048; 85025

== ENCOUNTER → 2020-01-04 | Outpatient (CLI) | payer MEDICARE, OTHER | END | disposition home or self-care (01) | LOC: LABWHC1 13:42 | PROVIDERS: ATTEND Internal Medicine Gastroenterology | DX: Z11.59 Encounter for screening for other viral diseases (principal) ==

== ENCOUNTER 2020-01-05 16:29 | Inpatient (IN) | payer MEDICARE, OTHER ==
[2020-01-05 17:36] LABS: Basophils # (A) 0.1 k/uL (0-0.2); Basophils % (A) 1 %; Eosinophils # (A) 0.2 k/uL (0-0.7); Eosinophils % (A) 3 %; HCT 34.6 % (34.0-46.0); HGB 11.8 gm/dL (11.4-16.0); Lymphocytes # (A) 2.2 k/uL (1.0-4.8); Lymphocytes % (A) 34 %; MCH 30.1 pg (25.0-35.0); MCHC 34.1 g/dL (31.0-37.0); MCV 88.3 fL (80.0-100.0); Mean Platelet Volume 6.1; Monocytes # (A) 0.5 k/uL (0-1.0); Monocytes % (A) 7 %; Neutrophils # (A) 3.3 k/uL (1.3-7.7); Neutrophils % (A) 53 %; Platelet Count 342 k/uL (150-450); RBC 3.92 m/uL (3.80-5.40); RDW 13.9 % (11.5-15.5); WBC 6.3 k/uL (3.8-10.6)
[2020-01-05 17:44] LABS: Lactic Acid, Venous 0.9 mmol/L (0.7-2.0)
[2020-01-05 17:45] LABS: ALT 16 U/L (4-34); AST 25 U/L (14-36); Acetaminophen <10.0 ug/mL; African American GFR (CKD) >90 (>60 ml/min/1.73 sqM); Albumin 4.1 g/dL (3.5-5.0); Alcohol <10 mg/dL; Alkaline Phosphatase 76 U/L (38-126); Anion Gap 7 mmol/L; Blood Urea Nitrogen 14 mg/dL (7-17); Calcium 9.5 mg/dL (8.4-10.2); Carbon Dioxide 32 mmol/L (22-30); Chloride 94 mmol/L (98-107); Creatine Kinase 157 U/L (30-135); Glucose 77 mg/dL (74-99); Non-African American GFR(CKD) 90 (>60 ml/min/1.73 sqM); Potassium 3.7 mmol/L (3.5-5.1); Salicylate <1.0 mg/dL; Sodium 133 mmol/L (137-145); Total Bilirubin 0.4 mg/dL (0.2-1.3); Total Protein 7.2 g/dL (6.3-8.2)
[2020-01-05 17:57] LABS: Partial Thromboplastin Time 25.5 sec (22.0-30.0); Prothrombin Time 10.1 sec (9.0-12.0)
--- NOTE | 2020-01-05 17:58 | XR ---
EXAMINATION TYPE: XR chest 2V DATE OF EXAM: 01/05/2020 COMPARISON: Chest x-ray December 26, 2018. HISTORY: Altered mental status and weakness. TECHNIQUE: Frontal and lateral views of the chest are obtained. FINDINGS: There is eventration and elevation of the right hemidiaphragm. There is no suspicious new focal air space opacity, pleural effusion, or pneumothorax seen. The cardiac silhouette size remains within normal limits. Cholecystectomy clips are seen. There is underlying dextroconvex scoliosis jude tered in the upper lumbar spine redemonstrated. Osseous structures remain demineralized. IMPRESSION: Chronic changes without acute pulmonary process. No significant change from prior.
--- NOTE | 2020-01-05 18:00 | XR ---
EXAMINATION TYPE: XR KUB DATE OF EXAM: 01/05/2020 5:53 PM CLINICAL HISTORY: Constipation. TECHNIQUE: Two Upright KUB images of the abdomen are obtained. COMPARISON: Abdominal x-ray September 23, 2018. CT abdomen and pelvis September 30, 2018. FINDINGS: Scattered gas is seen in non-distended stomach bubble and small bowel loops. Gas and fecal material is seen in non-distended colon. Some prominence of fecal material in the right colon and rec drea. Persistent marked dextroconvex scoliosis centered at L2-L3 level. Cholecystectomy clips are rede monstrated. No pneumoperitoneum. IMPRESSION: Overall nonobstructive bowel gas pattern. Mild to moderate proximal and distal colonic fecal stasis n oted.
--- NOTE | 2020-01-05 18:01 | CT ---
EXAMINATION TYPE: CT brain wo con DATE OF EXAM: 01/05/2020 HISTORY: Altered mental status. CT DLP: 1040.4 mGycm. Automated Exposure Control for Dose Reduction was Utilized. TECHNIQUE: CT scan of the head is performed without contrast. COMPARISON: CT brain December 02, 2018.. FINDINGS: There is no acute intracranial hemorrhage or midline shift identified. There is diffuse v entricular and sulcal prominence consistent with diffuse age-related cerebral atrophy. There is low- attenuation in the periventricular white matter consistent with chronic small vessel ischemic change. Old lacunar infarcts lateral left thalamus and basal ganglia axial image 24 redemonstrated. The virgilio bes are intact and the visualized sinuses are clear. IMPRESSION: No acute intracranial hemorrhage or midline shift. There is mild to moderate diffuse ag e-related cerebral atrophy and chronic small vessel ischemic change along with old left lateral lacun ar infarcts are all redemonstrated. No significant change from prior CT
--- NOTE | 2020-01-05 18:15 | ED ---
Altered Mental Status HPI - General Chief Complaint: Altered Mental Status Stated Complaint: AMS Time Seen by Provider: 01/05/20 16:50 Source: EMS Mode of arrival: EMS Limitations: no limitations, language barrier, altered mental status - History of Present Illness Initial Comments: The patient is a 69-year-old female with multiple medical conditions who presents to the emergency department accompanied by her grandson for altered mental status. He called EMS because he states the patient has altered mental status for the past 2 weeks. Reports that her responses to questioning are tangential and nonsensical. He denies previous history of psychiatric disorder or dementia. He states is becoming more difficult to take care of her because she's been combative at home. She denies any headaches or visual changes. No fevers or chills. No neck pain or stiffness. Chest pain or shortness of breath. No abdominal pain. Patient is extremely hard to elicit history from as she does not answer any questions appropriately. She will follow commands. No recent medication changes. The remainder of the HPI is limited - Related Data Home Medications Medication Instructions Recorded Confirmed Sertraline HCl [Zoloft] 50 mg PO DAILY 04/26/17 01/05/20 Insulin Degludec [Tresiba See Protocol SQ HS 12/07/17 01/05/20 Flextouch U-100] Omeprazole 20 mg PO BID 12/07/17 01/05/20 ALPRAZolam [Xanax] 0.25 mg PO TID 05/25/18 01/05/20 Furosemide [Lasix] 20 mg PO Q72H 05/25/18 01/05/20 Carvedilol 25 mg PO BID 09/23/18 01/05/20 Latanoprost/Pf [Latanoprost 0.005% 1 drop BOTH EYES HS 10/19/18 01/05/20 Eye Drop] Lisinopril 40 mg PO HS 10/19/18 01/05/20 Docusate [Colace] 100 mg PO BID 12/26/18 01/05/20 Clopidogrel [Plavix] 75 mg PO DAILY 09/01/19 01/05/20 Ergocalciferol [Vitamin D2 50,000 unit PO TH 09/01/19 01/05/20 (DRISDOL)] Linaclotide [Linzess] 145 mcg PO AC-BRKFST 09/01/19 01/05/20 cloNIDine HCL 0.3 mg PO TID 09/01/19 01/05/20 HYDROcodone/APAP 10-325MG [[place] 1 tab PO QID 01/05/20 01/05/20 10-325] Allergies Allergy/AdvReac Type Severity Reaction Status Date / Time bee venom protein (honey bee) Allergy Anaphylaxis Verified 01/05/20 20:23 epinephrine Allergy Anaphylaxis Verified 01/05/20 20:23 influenza virus vaccine, Allergy Rash/Hives Verified 01/05/20 20:23 specific iodine Allergy Rash/Hives Verified 01/05/20 20:23 latex Allergy Rash/Hives Verified 01/05/20 20:23 procaine HCl [From Novocain] Allergy Anaphylaxis Verified 01/05/20 20:23 Sulfa (Sulfonamide Allergy Rash/Hives Verified 01/05/20 20:23 Antibiotics) amlodipine [From Norvasc] AdvReac Diarrhea,abdominal Verified 01/05/20 20:23 pain cephalexin monohydrate AdvReac Nausea & Verified 01/05/20 20:23 [From Keflex] Vomiting & Diarrhea codeine AdvReac Nausea & Verified 01/05/20 20:23 Vomiting cortisone AdvReac Nausea & Verified 01/05/20 20:23 Vomiting/Vertigo doxazosin [From Cardura] AdvReac constipatio Verified 01/05/20 20:23 n hydralazine AdvReac muscle Verified 01/05/20 20:23 cramps & muscular pain methadone AdvReac Nausea & Verified 01/05/20 20:23 Vomiting & Diarrhea propoxyphene AdvReac Nausea & Verified 01/05/20 20:23 [From Darvocet-N] Vomiting Eroifqz-Ofv-Sdd Reductase AdvReac Nausea & Verified 01/05/20 20:23 Inhibitor Vomiting/Muscle Weakness cortisone AdvReac Unknown Uncoded 01/05/20 16:52 steroids AdvReac Nausea & Uncoded 01/05/20 16:52 Vomiting Review of Systems ROS Statement: Those systems with pertinent positive or pertinent negative responses have been documented in the HPI. ROS Other: All systems not noted in ROS Statement are negative. Past Medical History Past Medical History: Chest Pain / Angina, CVA/TIA, Diabetes Mellitus, Eye Disorder, Fibromyalgia, GERD/Reflux, Hyperlipidemia, Hypertension, Memory Impairment, Myocardial Infarction (NE), Osteoarthritis (OA), Rheumatoid Arthritis (RA) Additional Past Medical History / Comment(s): neuropathy both feet and hands, glaucoma, connective tissue dysfunction, peptic ulcer disease, grade 4 hiatal hernia, stroke/TIA x3-loss of short term memory, occ irregular heart beat, hx ulcers, hx carpal tunnel syndrome. dusty shoulder rotator cuff tear Last Myocardial Infarction Date:: 1988 History of Any Multi-Drug Resistant Organisms: None Reported Past Surgical History: Bladder Surgery, Cholecystectomy, Hysterectomy, Orthopedic Surgery, Tubal Ligation Additional Past Surgical History / Comment(s): rhinoplasty, hand surgery bilateral-carpal tunel , cystocele/rectocele repair , rt foot-failed bunionectom y-has a metal larisa in foot, ABBEY. fatty tumor removed from rt shoulder, pelvic sling Past Anesthesia/Blood Transfusion Reactions: Family History of Problems w/ Anesthesia, Motion Sickness Additional Past Anesthesia/Blood Transfusion Reaction / Comment(s): mother- tongue swelled up Past Psychological History: Anxiety, Depression Smoking Status: Never smoker Past Alcohol Use History: None Reported Past Drug Use History: None Reported - Past Family History Father Additional Family Medical History / Comment(s): alcoholic, cirrhosis of the liver, Mother Family Medical History: Cancer General Exam Limitations: altered mental status General appearance: alert, in no apparent distress Head exam: Present: atraumatic, normocephalic, normal inspection Eye exam: Present: normal appearance, PERRL, EOMI. Absent: scleral icterus, conjunctival injection, periorbital swelling ENT exam: Present: normal exam, mucous membranes moist Neck exam: Present: normal inspection. Absent: tenderness, meningismus, lymphadenopathy Respiratory exam: Present: normal lung sounds bilaterally. Absent: respiratory distress, wheezes, rales, rhonchi, stridor Cardiovascular Exam: Present: normal rhythm, bradycardia GI/Abdominal exam: Present: soft, normal bowel sounds. Absent: distended, tenderness, guarding, rebound, rigid Neurological exam: Present: alert, CN II-XII intact, normal gait, other (confused) Psychiatric exam: Present: other (responses to questions are tangential. ) Course Vital Signs 01/05/20 01/05/20 01/05/20 16:48 18:52 19:27 Temperature 98.4 F Pulse Rate 55 L 60 64 Respiratory 18 18 18 Rate Blood Pressure 165/88 195/113 216/100 O2 Sat by Pulse 96 100 99 Oximetry 01/05/20 01/05/20 01/05/20 21:33 21:47 22:23 Temperature Pulse Rate 68 68 69 Respiratory 18 18 18 Rate Blood Pressure 195/80 195/95 160/79 O2 Sat by Pulse 98 98 98 Oximetry 01/05/20 22:44 Temperature Pulse Rate Respiratory Rate Blood Pressure 156/66 O2 Sat by Pulse Oximetry Medical Decision Making - Medical Decision Making Upon arrival the patient is placed into trauma bay 2. A thorough history and physical exam is performed. 12-lead EKG performed. Peripheral IV is established. Laboratory studies were conducted patient is sent for a chest x- ray and CT of her brain. KUB also performed because of grandson noting chronic constipation. Laboratory studies fairly unremarkable. Toxicology shows positive opiates and benzos for which the patient is prescribed. CT brain demonstrates no acute intracranial hemorrhage or midline shift. Aaum-va-lvbimcpd diffuse age-related cerebral atrophy and chronic small vessel ischemic change along with old left lateral lacunar infarcts. KUB demonstrates overall nonobstructive bowel gas pattern. Vine-wd-hjhpmzou proximal and distal colonic fecal stasis. Chest x-ray demonstrates chronic changes without acute process. Patient has hypertension throughout her stay in the emergency room. Home medications were ordered with good improvement in her symptoms. The longer the patient is kept in the emergency department for more aggressive and agitated she becomes. Grandson states that he is unable to care for her in this condition. Because of this the patient is admitted to the hospital. Discussed case with Dr. Cuadra who accepted admission. Neurology will be placed on consult. Patient was then transferred the floor in stable condition - Lab Data Result diagrams: 01/06/20 07:32 01/06/20 07:32 Lab Results 01/05/20 01/05/20 01/05/20 Range/Units 17:00 17:00 17:00 WBC 6.3 (3.8-10.6) k/uL RBC 3.92 (3.80-5.40) m/uL Hgb 11.8 (11.4-16.0) gm/dL Hct 34.6 (34.0-46.0) % MCV 88.3 (80.0-100.0) fL MCH 30.1 (25.0-35.0) pg MCHC 34.1 (31.0-37.0) g/dL RDW 13.9 (11.5-15.5) % Plt Count 342 (150-450) k/uL Neutrophils % 53 % Lymphocytes % 34 % Monocytes % 7 % Eosinophils % 3 % Basophils % 1 % Neutrophils # 3.3 (1.3-7.7) k/uL Lymphocytes # 2.2 (1.0-4.8) k/uL Monocytes # 0.5 (0-1.0) k/uL Eosinophils # 0.2 (0-0.7) k/uL Basophils # 0.1 (0-0.2) k/uL PT 10.1 (9.0-12.0) sec INR 1.0 (<1.2) APTT 25.5 (22.0-30.0) sec Sodium 133 L (137-145) mmol/L Potassium 3.7 (3.5-5.1) mmol/L Chloride 94 L (98-107) mmol/L Carbon Dioxide 32 H (22-30) mmol/L Anion Gap 7 mmol/L BUN 14 (7-17) mg/dL Creatinine 0.66 (0.52-1.04) mg/dL Est GFR (CKD-EPI)AfAm >90 (>60 ml/min/1.73 sqM) Est GFR (CKD-EPI)NonAf 90 (>60 ml/min/1.73 sqM) Glucose 77 (74-99) mg/dL Plasma Lactic Acid Lloyd (0.7-2.0) mmol/L Calcium 9.5 (8.4-10.2) mg/dL Total Bilirubin 0.4 (0.2-1.3) mg/dL AST 25 (14-36) U/L ALT 16 (4-34) U/L Alkaline Phosphatase 76 (38-126) U/L Ammonia (<30) umol/L Creatine Kinase 157 H (30-135) U/L Troponin I (0.000-0.034) ng/mL Total Protein 7.2 (6.3-8.2) g/dL Albumin 4.1 (3.5-5.0) g/dL Urine Color Urine Appearance (Clear) Urine pH (5.0-8.0) Ur Specific [place] (1.001-1.035) Urine Protein (Negative) Urine Glucose (UA) (Negative) Urine Ketones (Negative) Urine Blood (Negative) Urine Nitrite (Negative) Urine Bilirubin (Negative) Urine Urobilinogen (<2.0) mg/dL Ur Leukocyte Esterase (Negative) Salicylates <1.0 mg/dL Urine Opiates Screen (NotDetected) Ur Oxycodone Screen (NotDetected) Urine Methadone Screen (NotDetected) Ur Propoxyphene Screen (NotDetected) Acetaminophen <10.0 ug/mL Ur Barbiturates Screen (NotDetected) U Tricyclic Antidepress (NotDetected) Ur Phencyclidine Scrn (NotDetected) Ur Amphetamines Screen (NotDetected) U Methamphetamines Scrn (NotDetected) U Benzodiazepines Scrn (NotDetected) Urine Cocaine Screen (NotDetected) U Marijuana (THC) Screen (NotDetected) Serum Alcohol <10 mg/dL 01/05/20 01/05/20 01/05/20 Range/Units 17:00 17:00 18:39 WBC (3.8-10.6) k/uL RBC (3.80-5.40) m/uL Hgb (11.4-16.0) gm/dL Hct (34.0-46.0) % MCV (80.0-100.0) fL MCH (25.0-35.0) pg MCHC (31.0-37.0) g/dL RDW (11.5-15.5) % Plt Count (150-450) k/uL Neutrophils % % Lymphocytes % % Monocytes % % Eosinophils % % Basophils % % Neutrophils # (1.3-7.7) k/uL Lymphocytes # (1.0-4.8) k/uL Monocytes # (0-1.0) k/uL Eosinophils # (0-0.7) k/uL Basophils # (0-0.2) k/uL PT (9.0-12.0) sec INR (<1.2) APTT (22.0-30.0) sec Sodium (137-145) mmol/L Potassium (3.5-5.1) mmol/L Chloride (98-107) mmol/L Carbon Dioxide (22-30) mmol/L Anion Gap mmol/L BUN (7-17) mg/dL Creatinine (0.52-1.04) mg/dL Est GFR (CKD-EPI)AfAm (>60 ml/min/1.73 sqM) Est GFR (CKD-EPI)NonAf (>60 ml/min/1.73 sqM) Glucose (74-99) mg/dL Plasma Lactic Acid Lloyd 0.9 (0.7-2.0) mmol/L Calcium (8.4-10.2) mg/dL Total Bilirubin (0.2-1.3) mg/dL AST (14-36) U/L ALT (4-34) U/L Alkaline Phosphatase (38-126) U/L Ammonia <9 (<30) umol/L Creatine Kinase (30-135) U/L Troponin I <0.012 (0.000-0.034) ng/mL Total Protein (6.3-8.2) g/dL Albumin (3.5-5.0) g/dL Urine Color Colorless Urine Appearance Clear (Clear) Urine pH 6.5 (5.0-8.0) Ur Specific [place] 1.002 (1.001-1.035) Urine Protein Negative (Negative) Urine Glucose (UA) Negative (Negative) Urine Ketones Negative (Negative) Urine Blood Negative (Negative) Urine Nitrite Negative (Negative) Urine Bilirubin Negative (Negative) Urine Urobilinogen <2.0 (<2.0) mg/dL Ur Leukocyte Esterase Negative (Negative) Salicylates mg/dL Urine Opiates Screen Detected H (NotDetected) Ur Oxycodone Screen Not Detected (NotDetected) Urine Methadone Screen Not Detected (NotDetected) Ur Propoxyphene Screen Not Detected (NotDetected) Acetaminophen ug/mL Ur Barbiturates Screen Not Detected (NotDetected) U Tricyclic Antidepress Not Detected (NotDetected) Ur Phencyclidine Scrn Not Detected (NotDetected) Ur Amphetamines Screen Not Detected (NotDetected) U Methamphetamines Scrn Not Detected (NotDetected) U Benzodiazepines Scrn Detected H (NotDetected) Urine Cocaine Screen Not Detected (NotDetected) U Marijuana (THC) Screen Not Detected (NotDetected) Serum Alcohol mg/dL - EKG Data EKG Comments: EKG demonstrates a sinus bradycardia with a ventricular rate of 52. MT interval 1:30. Dressing 88. QTC of 427. Inverted T-wave in lead 3. No acute ST segment elevations or depressions. No signs of high degree block. Disposition Clinical Impression: Acute encephalopathy Disposition: ADMITTED IP TO THIS HOSP Condition: Stable Is patient prescribed a controlled substance at d/c from ED?: No Decision to Admit Reason: Admit from EC Decision Date: 01/05/20 Decision Time: 20:04
[2020-01-05 18:47] LABS: Appearance,Urine Clear (Clear); Bilirubin,Urine Negative (Negative); Blood,Urine Negative (Negative); Color,Urine Colorless; Glucose,Urine (UA) Negative (Negative); Ketones,Urine Negative (Negative); Leukocyte Esterase,Urine Negative (Negative); Nitrite,Urine Negative (Negative); PH, Urine 6.5 (5.0-8.0); Protein,Urine Negative (Negative); Specific Gravity,Urine 1.002 (1.001-1.035); Urobilinogen,Urine <2.0 mg/dL (<2.0)
[2020-01-05 18:59] LABS: Amphetamine Screen,Urine Not Detected (NotDetected); Barbiturate Screen,Urine Not Detected (NotDetected); Benzodiazepines Screen,Urine Detected (NotDetected); Cocaine Screen,Urine Not Detected (NotDetected); Methadone Screen, Urine Not Detected (NotDetected); Opiate Screen,Urine Detected (NotDetected); Oxycodone Screen, Urine Not Detected (NotDetected); Phencyclidine Screen,Urine Not Detected (NotDetected); Tricyclic Antidepressant,Urine Not Detected (NotDetected); Urn Cannabinoid Scrn Not Detected (NotDetected)
[2020-01-05] MEDS ORDERED: cloNIDine HCL 0.1 MG TAB PO STA (19:59)
[2020-01-05] MEDS ORDERED: NALOXONE 0.4 MG/ML 1 ML VIAL IV PRN (20:04)
[2020-01-05] MEDS ORDERED: HYDROcodone/APAP 10-325MG 1 EACH TAB PO ONE (20:09)
[2020-01-05] MEDS: CARVEDILOL 12.5 MG TAB PO SCH (22:10)
[2020-01-05] MEDS: LISINOPRIL 20 MG TAB PO SCH (22:11)
[2020-01-05] MEDS: HYDROcodone/APAP 10-325MG 1 EACH TAB PO SCH (22:11)
[2020-01-05] MEDS: ALPRAZolam 0.25 MG TAB PO SCH (22:11)
[2020-01-06 07:09] LABS: Glucose,Whole Blood 140 mg/dL (75-99)
[2020-01-06 07:55] LABS: Basophils % (A) 1 %; Eosinophils # (A) 0.2 k/uL (0-0.7); Eosinophils % (A) 4 %; HCT 40.7 % (34.0-46.0); HGB 13.5 gm/dL (11.4-16.0); Lymphocytes # (A) 1.6 k/uL (1.0-4.8); Lymphocytes % (A) 36 %; MCH 29.7 pg (25.0-35.0); MCHC 33.2 g/dL (31.0-37.0); MCV 89.5 fL (80.0-100.0); Mean Platelet Volume 6.1; Monocytes # (A) 0.3 k/uL (0-1.0); Monocytes % (A) 7 %; Neutrophils # (A) 2.2 k/uL (1.3-7.7); Neutrophils % (A) 50 %; Platelet Count 326 k/uL (150-450); RBC 4.55 m/uL (3.80-5.40); WBC 4.4 k/uL (3.8-10.6)
[2020-01-06] MEDS: SERTRALINE 50 MG TAB PO SCH (08:05)
[2020-01-06] MEDS: ALPRAZolam 0.25 MG TAB PO SCH ×4 (08:05→21:58)
[2020-01-06] MEDS: CARVEDILOL 12.5 MG TAB PO SCH ×2 (08:05→18:04)
[2020-01-06] MEDS: CLOPIDOGREL 75 MG TAB PO SCH (08:05)
[2020-01-06] MEDS: HYDROcodone/APAP 10-325MG 1 EACH TAB PO SCH ×5 (08:05→21:58)
[2020-01-06] MEDS: PANTOPRAZOLE 40 MG TABLET PO SCH (08:05)
[2020-01-06] MEDS: Linaclotide [Linzess] 145 MCG PO SCH (08:06)
[2020-01-06 08:14] LABS: African American GFR (CKD) >90 (>60 ml/min/1.73 sqM); Anion Gap 10 mmol/L; Blood Urea Nitrogen 14 mg/dL (7-17); Calcium 9.8 mg/dL (8.4-10.2); Carbon Dioxide 30 mmol/L (22-30); Chloride 95 mmol/L (98-107); Glucose 138 mg/dL (74-99); Non-African American GFR(CKD) >90 (>60 ml/min/1.73 sqM); Potassium 3.7 mmol/L (3.5-5.1); Sodium 135 mmol/L (137-145)
[2020-01-06 11:10] LABS: Glucose,Whole Blood 192 mg/dL (75-99)
[2020-01-06] MEDS: cloNIDine HCL 0.1 MG TAB PO PRN (13:39)
[2020-01-06] MEDS ORDERED: HYDROmorphone 0.5 MG/0.5 ML SYRINGE IVP PRN (16:18)
--- NOTE | 2020-01-06 16:32 | P.HPIM ---
History of Present Illness H&P Date: 01/06/20 peewee Abel a 69-year-old female who presented to [facility] emergency room brought in by her grandson and construction project mgr, who stated that patient has been having worsening mental status changes with confusion and occasional agitation, patient was complaining mostly of abdominal pain and constipation and rectal pain she was evaluated in emergency room and was admitted to medical floor for further evaluation. In the emergency room, vitals were stable with a temperature of 98.4 pulse 55 respiration 18 blood pressure 165/88 pulse ox 96% on room air, laboratory data were within normal limits, chest x-ray did not reveal any acute abnormality, abdomen x-ray revealed evidence of fecal stasis, otherwise no abnormality, computed tomography scan of the brain did not reveal any evidence of acute intracranial hemorrhage or midline shift, patient was admitted to medical floor, neurology consultation was requested in regard to mental status changes with increased confusion and occasional agitation, gastroenterology consultation was requested in regard to abdominal pain and rectal pain and constipation. On 01/06/2020 patient was seen and examined on the medical floor she is compla ining of abdominal pain and rectal pain she is denying any other complaints she is very hard of hearing she denies any fever or chills no headache or dizziness no chest pain no shortness of breath no cough no nausea or vomiting no diarrhea no burning with urination no frequency or urgency and no hematuria Past Medical History Past Medical History: Chest Pain / Angina, CVA/TIA, Diabetes Mellitus, Eye Disorder, Fibromyalgia, GERD/Reflux, Hyperlipidemia, Hypertension, Memory Impairment, Myocardial Infarction ([place]), Osteoarthritis (OA), Rheumatoid Arthritis (RA) Additional Past Medical History / Comment(s): neuropathy both feet and hands, glaucoma, connective tissue dysfunction, peptic ulcer disease, grade 4 hiatal hernia, stroke/TIA x3-loss of short term memory, occ irregular heart beat, hx ulcers, hx carpal tunnel syndrome. dusty shoulder rotator cuff tear Last Myocardial Infarction Date:: 1988 History of Any Multi-Drug Resistant Organisms: None Reported Past Surgical History: Bladder Surgery, Cholecystectomy, Hysterectomy, Orthopedic Surgery, Tubal Ligation Additional Past Surgical History / Comment(s): rhinoplasty, hand surgery bilateral-carpal tunel , cystocele/rectocele repair , rt foot-failed bunionectomy-has a metal larisa in foot, ABBEY. fatty tumor removed from rt shoulder, pelvic sling Past Anesthesia/Blood Transfusion Reactions: Family History of Problems w/ Anesthesia, Motion Sickness Additional Past Anesthesia/Blood Transfusion Reaction / Comment(s): mother- tongue swelled up Past Psychological History: Anxiety, Depression Additional Psychological History / Comment(s): grandson is caregiver Smoking Status: Never smoker Past Alcohol Use History: None Reported Past Drug Use History: None Reported - Past Family History Father Additional Family Medical History / Comment(s): alcoholic, cirrhosis of the liver, Mother Family Medical History: Cancer Medications and Allergies Home Medications Medication Instructions Recorded Confirmed Type Sertraline HCl [Zoloft] 50 mg PO DAILY 04/26/17 01/05/20 History Insulin Degludec [Tresiba See Protocol SQ HS 12/07/17 01/05/20 History Flextouch U-100] Omeprazole 20 mg PO BID 12/07/17 01/05/20 History ALPRAZolam [Xanax] 0.25 mg PO TID 05/25/18 01/05/20 History Furosemide [Lasix] 20 mg PO Q72H 05/25/18 01/05/20 History Carvedilol 25 mg PO BID 09/23/18 01/05/20 History Latanoprost/Pf [Latanoprost 0.005% 1 drop BOTH EYES HS 10/19/18 01/05/20 History Eye Drop] Lisinopril 40 mg PO HS 10/19/18 01/05/20 History Docusate [Colace] 100 mg PO BID 12/26/18 01/05/20 History Clopidogrel [Plavix] 75 mg PO DAILY 09/01/19 01/05/20 History Ergocalciferol [Vitamin D2 50,000 unit PO TH 09/01/19 01/05/20 History (DRISDOL)] Linaclotide [Linzess] 145 mcg PO AC-BRKFST 09/01/19 01/05/20 History cloNIDine HCL 0.3 mg PO TID 09/01/19 01/05/20 History HYDROcodone/APAP 10-325MG [[place] 1 tab PO QID 01/05/20 01/05/20 History 10-325] Allergies Allergy/AdvReac Type Severity Reaction Status Date / Time bee venom protein (honey bee) Allergy Anaphylaxis Verified 01/05/20 20:23 epinephrine Allergy Anaphylaxis Verified 01/05/20 20:23 influenza virus vaccine, Allergy Rash/Hives Verified 01/05/20 20:23 specific iodine Allergy Rash/Hives Verified 01/05/20 20:23 latex Allergy Rash/Hives Verified 01/05/20 20:23 procaine HCl [From Novocain] Allergy Anaphylaxis Verified 01/05/20 20:23 Sulfa (Sulfonamide Allergy Rash/Hives Verified 01/05/20 20:23 Antibiotics) amlodipine [From Norvasc] AdvReac Diarrhea,abdominal Verified 01/05/20 20:23 pain cephalexin monohydrate AdvReac Nausea & Verified 01/05/20 20:23 [From Keflex] Vomiting & Diarrhea codeine AdvReac Nausea & Verified 01/05/20 20:23 Vomiting cortisone AdvReac Nausea & Verified 01/05/20 20:23 Vomiting/Vertigo doxazosin [From Cardura] AdvReac constipatio Verified 01/05/20 20:23 n hydralazine AdvReac muscle Verified 01/05/20 20:23 cramps & muscular pain methadone AdvReac Nausea & Verified 01/05/20 20:23 Vomiting & Diarrhea propoxyphene AdvReac Nausea & Verified 01/05/20 20:23 [From Darvocet-N] Vomiting Jjnfpat-Sdh-Pio Reductase AdvReac Nausea & Verified 01/05/20 20:23 Inhibitor Vomiting/Muscle Weakness cortisone AdvReac Unknown Uncoded 01/05/20 16:52 steroids AdvReac Nausea & Uncoded 01/05/20 16:52 Vomiting Physical Exam Vitals: Vital Signs Temp Pulse Pulse Resp BP BP Pulse Ox 01/06/20 05:00 98.3 F 69 18 188/83 97 01/05/20 23:00 98.7 F 58 L 18 125/75 95 01/05/20 22:44 156/66 01/05/20 22:23 69 18 160/79 98 01/05/20 21:47 68 18 195/95 98 01/05/20 21:33 68 18 195/80 98 01/05/20 19:27 64 18 216/100 99 01/05/20 18:52 60 18 195/113 100 01/05/20 16:48 98.4 F 55 L 18 165/88 96 Intake and Output 01/05/20 01/06/20 01/06/20 22:59 06:59 14:59 Intake Total 200 300 Balance 200 300 Intake: Oral 200 300 Other: Voiding Method Toilet Toilet # Voids 0 2 Weight 61.689 kg 61.689 kg In general patient is alert and oriented in no apparent distress HEENT head normocephalic and atraumatic Neck is supple no JVD no goiter no lymphadenopathy Chest exam reveals a few scattered rhonchi no wheezing Cardiac exam reveals regular heart sounds no murmurs Abdomen is soft nontender no organomegaly with normal bowel sounds Extremity exam reveals no edema no cyanosis or clubbing Neurological examination reveals no gross focal deficit Results CBC & Chem 7: 01/06/20 07:32 01/06/20 07:32 Labs: Abnormal Lab Results - Last 24 Hours (Table) 01/05/20 01/05/20 01/06/20 Range/Units 17:00 18:39 07:07 Sodium 133 L (137-145) mmol/L Chloride 94 L (98-107) mmol/L Carbon Dioxide 32 H (22-30) mmol/L Glucose (74-99) mg/dL POC Glucose (mg/dL) 140 H (75-99) mg/dL Creatine Kinase 157 H (30-135) U/L Urine Opiates Screen Detected H (NotDetected) U Benzodiazepines Scrn Detected H (NotDetected) 01/06/20 01/06/20 Range/Units 07:32 11:09 Sodium 135 L (137-145) mmol/L Chloride 95 L (98-107) mmol/L Carbon Dioxide (22-30) mmol/L Glucose 138 H (74-99) mg/dL POC Glucose (mg/dL) 192 H (75-99) mg/dL Creatine Kinase (30-135) U/L Urine Opiates Screen (NotDetected) U Benzodiazepines Scrn (NotDetected) Thrombosis Risk Factor Assmnt - Choose All That Apply Any of the Below Risk Factors Present?: No Other Risk Factors: Yes Each Risk Factor Represents 2 Points: Age 61-74 years Other congenital or acquired thrombophilia - If yes, enter type in comment: No Thrombosis Risk Factor Assessment Total Risk Factor Score: 2 Thrombosis Risk Factor Assessment Level: Low Risk Assessment and Plan Assessment: 1. Mental status changes, likely related to constipation abdominal pain metabolic encephalopathy on top of underlying dementia will check ammonia level consultation for neurology was requested will add lactulose when necessary 2. Abdominal pain and rectal pain and constipation will add lactulose and Colace consultation for gastroenterology was initiated 3. Underlying history of dementia, patient lives at home and her construction project mgr is her grandson Will Consult social work program coordinator possibly patient will need alternative placement at this point. 4. Underlying history of diabetes mellitus maintained on insulin continue 5. Underlying history of hypertension well-controlled on medications continue At this time medications and labs reviewed Consultation for gastroenterology and neurology requested awaiting input Will recheck labs and follow in a.m.
[2020-01-06] MEDS ORDERED: LACTULOSE 20 GM/30 ML CUP PO ONE (16:38)
[2020-01-06 17:05] LABS: Glucose,Whole Blood 181 mg/dL (75-99)
[2020-01-06] MEDS: INSULIN ASPART (NovoLOG) 100 UNIT/ML VIAL SQ SCH ×2 (18:04→21:50)
--- NOTE | 2020-01-06 19:43 | P.CNNES ---
History of Present Illness Consult date: 01/06/20 Requesting physician: Genna Brice Reason for Consult: Acute encephalopathy History of Present Illness: Patient is a 69-year-old female with multiple medical conditions, presented to the ER yesterday at 4:30 PM, accompanied by her grandson for altered mental status. Patient has altered mental status for the past 2 weeks. It was reported that her responses to questions were tangential and nonsensical. Patient has no previous history of psychiatric disorder or dementia. He had mentioned that it is becoming more difficult for him to take care of her because she's been combative at home. No headaches or visual changes. No fever or chills. Patient is very hard of hearing. Patient not a good historian. She states that she is having soreness in the stomach. If she goes to bathroom, it hurts really bad, pointing to her buttock region. She states that she cannot poop well. If she sits down and gets up, is painful. She cannot eat much, it goes to bathroom, it is painful. She does speak tangential, as she states that she has not had sex in years. Patient had undergone CT head showed no acute intracranial hemorrhage or midline shift. There is mild to moderate diffuse age-related cerebral atrophy and chronic small vessel ischemic change along with old left lateral lacunar infarcts. No significant change from prior CT from 12/02/2018. Chest x-ray showed chronic changes without acute pulmonary process. EKG showed sinus bradycardia with nonspecific T-wave abnormality. Her previous MRI of the brain from 10/16/2017 showed acute ischemic stroke involving the left globus pallidus, left putamen and periventricular white matter of the left will radiate up. Also showed multifocal encephalomalacia from numerous prior lacunar injuries and nonspecific but but the changes. Patient had an acute left thalamic lacunar infarct on 11/28/2016 MRI. Patient had a normal carotid Doppler on 10/16/2017. Her last 2-D echo from 12/27/2018 showed normal left-ventricular size, borderline concentric LVH, EF 60-65%. Left atrium is mildly dilated. Patient had a ABBEY on 10/19/2017, which revealed no intracardiac thrombus. No evidence of shunting across the interatrial septum. It was felt patient's stroke was related to uncontrolled hypertension. Patient's current CBC, CMP is normal. Ammonia normal. Patient's last hemoglobin A1c 7.1 on 08/12/2018. Total cholesterol 226, LDL 127, HDL 47. B12 was borderline 275 and folate > 20 on 10/10/2014. Homocystine and methylmalonic acid normal. Patient had a negative acetylcholine receptor antibodies, Lyme titer on 09/15/2014. Review of Systems Patient complains of problems with her vision in the right eye. Hearing is decreased. Denies hoarseness sore throat or dysphagia. Has decreased appetite. Complains of back pain. Multiple joint pains. Joint swelling. Abdominal pain, back pain. Problems with bowels. Confusion, memory problems. History of strokes. Weakness on right side. Denies chest pain shortness of breath. Complains of fatigue. No fever or chills. All other review of systems unremarkable. Past Medical History Past Medical History: Chest Pain / Angina, CVA/TIA, Diabetes Mellitus, Eye Disorder, Fibromyalgia, GERD/Reflux, Hyperlipidemia, Hypertension, Memory Impairment, Myocardial Infarction ([place]), Osteoarthritis (OA), Rheumatoid Arthritis (RA) Additional Past Medical History / Comment(s): neuropathy both feet and hands, glaucoma, connective tissue dysfunction, peptic ulcer disease, grade 4 hiatal hernia, stroke/TIA x3-loss of short term memory, occ irregular heart beat, hx ulcers, hx carpal tunnel syndrome. dusty shoulder rotator cuff tear Last Myocardial Infarction Date:: 1988 History of Any Multi-Drug Resistant Organisms: None Reported Past Surgical History: Bladder Surgery, Cholecystectomy, Hysterectomy, Orthopedic Surgery, Tubal Ligation Additional Past Surgical History / Comment(s): rhinoplasty, hand surgery bilateral-carpal tunel , cystocele/rectocele repair , rt foot-failed bunionectomy-has a metal larisa in foot, ABBEY. fatty tumor removed from rt shoulder, pelvic sling Past Anesthesia/Blood Transfusion Reactions: Family History of Problems w/ Anesthesia, Motion Sickness Additional Past Anesthesia/Blood Transfusion Reaction / Comment(s): mother- juliana pérez swelled up Past Psychological History: Anxiety, Depression Additional Psychological History / Comment(s): grandson is caregiver Smoking Status: Never smoker Past Alcohol Use History: None Reported Past Drug Use History: None Reported - Past Family History Father Additional Family Medical History / Comment(s): alcoholic, cirrhosis of the liver, Mother Family Medical History: Cancer Medications and Allergies Home Medications Medication Instructions Recorded Confirmed Type Sertraline HCl [Zoloft] 50 mg PO DAILY 04/26/17 01/05/20 History Insulin Degludec [Tresiba See Protocol SQ HS 12/07/17 01/05/20 History Flextouch U-100] Omeprazole 20 mg PO BID 12/07/17 01/05/20 History ALPRAZolam [Xanax] 0.25 mg PO TID 05/25/18 01/05/20 History Furosemide [Lasix] 20 mg PO Q72H 05/25/18 01/05/20 History Carvedilol 25 mg PO BID 09/23/18 01/05/20 History Latanoprost/Pf [Latanoprost 0.005% 1 drop BOTH EYES HS 10/19/18 01/05/20 History Eye Drop] Lisinopril 40 mg PO HS 10/19/18 01/05/20 History Docusate [Colace] 100 mg PO BID 12/26/18 01/05/20 History Clopidogrel [Plavix] 75 mg PO DAILY 09/01/19 01/05/20 History Ergocalciferol [Vitamin D2 50,000 unit PO TH 09/01/19 01/05/20 History (DRISDOL)] Linaclotide [Linzess] 145 mcg PO AC-BRKFST 09/01/19 01/05/20 History cloNIDine HCL 0.3 mg PO TID 09/01/19 01/05/20 History HYDROcodone/APAP 10-325MG [[place] 1 tab PO QID 01/05/20 01/05/20 History 10-325] Allergies Allergy/AdvReac Type Severity Reaction Status Date / Time bee venom protein (honey bee) Allergy Anaphylaxis Verified 01/05/20 20:23 epinephrine Allergy Anaphylaxis Verified 01/05/20 20:23 influenza virus vaccine, Allergy Rash/Hives Verified 01/05/20 20:23 specific iodine Allergy Rash/Hives Verified 01/05/20 20:23 latex Allergy Rash/Hives Verified 01/05/20 20:23 procaine HCl [From Novocain] Allergy Anaphylaxis Verified 01/05/20 20:23 Sulfa (Sulfonamide Allergy Rash/Hives Verified 01/05/20 20:23 Antibiotics) amlodipine [From Norvasc] AdvReac Diarrhea,abdominal Verified 01/05/20 20:23 pain cephalexin monohydrate AdvReac Nausea & Verified 01/05/20 20:23 [From Keflex] Vomiting & Diarrhea codeine AdvReac Nausea & Verified 01/05/20 20:23 Vomiting cortisone AdvReac Nausea & Verified 01/05/20 20:23 Vomiting/Vertigo doxazosin [From Cardura] AdvReac constipatio Verified 01/05/20 20:23 n hydralazine AdvReac muscle Verified 01/05/20 20:23 cramps & muscular pain methadone AdvReac Nausea & Verified 01/05/20 20:23 Vomiting & Diarrhea propoxyphene AdvReac Nausea & Verified 01/05/20 20:23 [From Darvocet-N] Vomiting Rbiwsrx-Qcv-Ihb Reductase AdvReac Nausea & Verified 01/05/20 20:23 Inhibitor Vomiting/Muscle Weakness cortisone AdvReac Unknown Uncoded 01/05/20 16:52 steroids AdvReac Nausea & Uncoded 01/05/20 16:52 Vomiting Physical Examination - Vital Signs Vital Signs: Vital Signs Temp Pulse Pulse Resp BP BP Pulse Ox 01/06/20 12:40 98.3 F 62 16 190/80 97 01/06/20 05:00 98.3 F 69 18 188/83 97 01/05/20 23:00 98.7 F 58 L 18 125/75 95 01/05/20 22:44 156/66 01/05/20 22:23 69 18 160/79 98 01/05/20 21:47 68 18 195/95 98 01/05/20 21:33 68 18 195/80 98 01/05/20 19:27 64 18 216/100 99 01/05/20 18:52 60 18 195/113 100 Intake and Output 01/06/20 01/06/20 01/06/20 06:59 14:59 22:59 Intake Total 300 Balance 300 Intake: Oral 300 Other: Voiding Method Toilet Toilet Toilet # Voids 2 2 # Bowel Movements 2 Weight 61.689 kg On examination patient is an elderly female, who is sitting on the side of the bed. Patient is alert and awake. She is well groomed. Her speech and language functions are normal. No aphasia or dysarthria. Cognitive funct ions appear somewhat limited. Patient states it is December and the year is 20. She knows that she is in [facility] in [facility]. She thinks Ivan Silver is the president. When I asked if it was Mr. Carney, Mary or Nadeem, states is Mr. Carney. Patient knows her date of . Patient has positive palmomental reflex bilaterally. She has positive visuospatial apraxia. On cranial examination pupils are round and reactive to light, visual junior appears full, she does have some issues with the right eye. Her extraocular muscles are intact. Face is symmetric and tongue protrudes the midline. Palatal elevation and sensation normal. Hearing is significantly decreased. Shoulder shrug normal. On muscle strength testing there is no pronator drift and the strength appears normal in the arms, although with significantly decreased endurance. In the lower extremities, her right hip flexion is slightly weak 4+, normal on the left. Distally strength is normal in the lower limbs. Reflexes are 1+ and plantars are equivocal. She has some deformed toes of the right foot from previous surgery. Sensory to touch is equal. No obvious ataxia. Tone and bulk of muscles normal. Patient got up from bed and walks with a senile slow gait. No definitive parkinsonian features. No tremors noted. No obvious bruit, S1 and S2 audible. No edema. Chest is clear. Abdomen is slightly tender. Results - Laboratory Findings CBC and BMP: 01/06/20 07:32 01/06/20 07:32 Abnormal Lab Findings: Abnormal Labs 01/05/20 01/05/20 01/06/20 17:00 18:39 07:07 Sodium 133 L Chloride 94 L Carbon Dioxide 32 H Glucose POC Glucose (mg/dL) 140 H Creatine Kinase 157 H Urine Opiates Screen Detected H U Benzodiazepines Scrn Detected H 01/06/20 01/06/20 07:32 11:09 Sodium 135 L Chloride 95 L Carbon Dioxide Glucose 138 H POC Glucose (mg/dL) 192 H Creatine Kinase Urine Opiates Screen U Benzodiazepines Scrn Assessment and Plan Assessment: * Altered mental status, with confusion, tangential thoughts. Rule out delirium. Patient may have probable underlying mild to moderate dementia. * History of multiple strokes in the past. * Chronic pain. * Gastrointestinal and bowel issues. Plan: * Patient's main complaint is GI related. Await GI consult. * Patient does seem to have memory loss with some degree of cognitive impairment. She could be a candidate for cognitive enhancing medication like Aricept or Namenda. I'm not sure if she has previously tried any of those. Both of these medications themselves can have gastric side effects. Suggest follow-up with neurologist as outpatient for further evaluation of cognitive impairment and to consider cognitive enhancing medication. * We will check B12, folate, and TSH to rule out metabolic causes of cognitive impairment. * Patient does have chronic pain involving multiple joints. We will check ESR, PRAFUL and rheumatoid factor. Consider rheumatology consultation as outpatient. * PT and OT.
[2020-01-06 20:32] LABS: Glucose,Whole Blood 169 mg/dL (75-99)
[2020-01-06] MEDS: LISINOPRIL 20 MG TAB PO SCH (21:50)
[2020-01-06] MEDS: INSULIN DETEMIR (LEVEMIR) 100 UNIT/ML SYR SQ SCH (21:51)
[2020-01-06] MEDS: LATANOPROST 0.005% OPHTH DROPS 2.5 ML BTL BOTH EYES SCH (23:05)
[2020-01-07 04:46] LABS: Folate, Serum 22.6 ng/mL
[2020-01-07 06:09] LABS: Hemoglobin A1C 6.7 % (4.0-6.0)
[2020-01-07 07:34] LABS: Glucose,Whole Blood 85 mg/dL (75-99)
[2020-01-07] MEDS: INSULIN ASPART (NovoLOG) 100 UNIT/ML VIAL SQ SCH ×4 (08:17→21:36)
[2020-01-07] MEDS: CLOPIDOGREL 75 MG TAB PO SCH (09:00)
[2020-01-07] MEDS: ALPRAZolam 0.25 MG TAB PO SCH ×3 (09:00→21:37)
[2020-01-07] MEDS: FUROSEMIDE 20 MG TAB PO SCH (09:00)
[2020-01-07] MEDS: CARVEDILOL 12.5 MG TAB PO SCH ×2 (09:00→17:17)
[2020-01-07] MEDS: PANTOPRAZOLE 40 MG TABLET PO SCH (09:00)
[2020-01-07] MEDS: SERTRALINE 50 MG TAB PO SCH (09:00)
[2020-01-07] MEDS: Linaclotide [Linzess] 145 MCG PO SCH (09:01)
[2020-01-07] MEDS: HYDROcodone/APAP 10-325MG 1 EACH TAB PO SCH ×4 (09:01→21:37)
[2020-01-07] MEDS: LACTULOSE 20 GM/30 ML CUP PO SCH ×2 (09:11→22:35)
[2020-01-07 12:34] LABS: Glucose,Whole Blood 155 mg/dL (75-99)
--- NOTE | 2020-01-07 12:49 | P.PN ---
Subjective Progress Note Date: 01/07/20 peewee Abel a 69-year-old female who presented to [facility] emergency room brought in by her grandson and community advocate, who stated that patient has been having worsening mental status changes with confusion and occasional agitation, patient was complaining mostly of abdominal pain and constipation and rectal pain she was evaluated in emergency room and was admitted to medical floor for further evaluation. In the emergency room, vitals were stable with a temperature of 98.4 pulse 55 respiration 18 blood pressure 165/88 pulse ox 96% on room air, laboratory data were within normal limits, chest x-ray did not reveal any acute abnormality, abdomen x-ray revealed evidence of fecal stasis, otherwise no abnormality, computed tomography scan of the brain did not reveal any evidence of acute intracranial hemorrhage or midline shift, patient was admitted to medical floor, neurology consultation was requested in regard to mental status changes with increased confusion and occasional agitation, gastroenterology consultation was requested in regard to abdominal pain and rectal pain and constipation. On 01/06/2020 patient was seen and examined on the medical floor she is complaining of abdominal pain and rectal pain she is denying any other complaints she is very hard of hearing she denies any fever or chills no headache or dizziness no chest pain no shortness of breath no cough no nausea or vomiting no diarrhea no burning with urination no frequency or urgency and no hematuria. 01/07/2020 patient is alert confused in no apparent distress she is still complaining of abdominal pain and rectal pain otherwise she denies any complaints there is no fever or chills no headache or dizziness no chest pain no shortness of breath no cough no nausea or vomiting no diarrhea no blood in the stools no burning was urination no frequency or urgency and no hematuria. Objective - Vital Signs Vital signs: Vital Signs Temp 98.8 F 01/07/20 07:00 Pulse 74 01/07/20 07:00 Resp 18 01/07/20 07:00 BP 178/73 01/07/20 07:00 Pulse Ox 99 01/07/20 07:00 Intake & Output 01/06/20 01/07/20 01/07/20 18:59 06:59 18:59 Other: Voiding Method Toilet Toilet Toilet # Voids 2 # Bowel Movements 1 3 - Exam In general patient is alert and slightly confused in no apparent distress HEENT head normocephalic and atraumatic Neck is supple no JVD no goiter no lymphadenopathy Chest exam reveals a few scattered rhonchi no wheezing Cardiac exam reveals regular heart sounds no murmurs Abdomen is soft nontender no organomegaly with normal bowel sounds Extremity exam reveals no edema no cyanosis or clubbing Neurological examination reveals no gross focal deficit - Labs CBC & Chem 7: 01/06/20 07:32 01/06/20 07:32 Labs: Abnormal Lab Results - Last 24 Hours (Table) 01/06/20 01/06/20 01/06/20 Range/Units 07:32 07:32 17:03 POC Glucose (mg/dL) 181 H (75-99) mg/dL Hemoglobin A1c 6.7 H (4.0-6.0) % Vitamin B12 1028.0 H (200.0-944.0) pg/mL 01/06/20 Range/Units 20:16 POC Glucose (mg/dL) 169 H (75-99) mg/dL Hemoglobin A1c (4.0-6.0) % Vitamin B12 (200.0-944.0) pg/mL Assessment and Plan Assessment: 1. Mental status changes, likely related to constipation abdominal pain metabolic encephalopathy on top of underlying dementia will check ammonia level consultation for neurology was requested will add lactulose when necessary 2. Abdominal pain and rectal pain and constipation will add lactulose and Colace consultation for gastroenterology was initiated 3. Underlying history of dementia, patient lives at home and her community advocate is her grandson Will Consult social organization professor possibly patient will need alternative placement at this point. 4. Underlying history of diabetes mellitus maintained on insulin continue 5. Underlying history of hypertension well-controlled on medications continue At this time medications and labs reviewed Consultation for gastroenterology and neurology requested awaiting input Will recheck labs and follow in a.m.
--- NOTE | 2020-01-07 15:16 | CONS ---
CONSULTATION DATE OF CONSULTATION: January 07, 2020. REASON FOR CONSULTATION: Abdominal pain and constipation. HISTORY OF PRESENT ILLNESS: The patient is a 69-year-old white female came into the emergency room yesterday apparently brought in by her family members because of altered mental status and ongoing abdominal pain and severe constipation for the last several months' duration. The patient has been complaining of diffuse abdominal pain and severe constipation for the last several years duration. On her medical records, she has been taking Linzess daily. Patient is a very poor historian she does give some history and she states that she usually has bowel movements once every 2-3 days. She has been taking the Linzess. Her symptoms initially have improved, but for the last few weeks, she continues to have worsening constipation. She does not recall if she had tried osmotic laxatives in the past. She was given a dose of lactulose and as per the nursing staff, she had several bowel movements through the night. In the emergency room, she did have abdominal x-rays done that showed evidence of fecal stasis. CT of the head was unremarkable. Because of the altered mental status, she was evaluated by Neurology. Ammonia levels were normal. PAST MEDICAL HISTORY: Significant for diabetes mellitus, fibromyalgia, hypertension, hyperlipidemia, gastroesophageal reflux disease, possible dementia, coronary artery disease and rheumatoid arthritis. PAST SURGICAL HISTORY: Cholecystectomy hysterectomy, tubal ligation, rhinoplasty, hand surgery, bunionectomy. MEDICATIONS: At home include Zoloft, insulin, Xanax, Lasix, carvedilol, lisinopril, Colace, Plavix, vitamin D3, Linzess, clonidine and Railroad. ALLERGIES: TO EPINEPHRINE, IODINE, PROCAINE, SULFA, KEFLEX, CODEINE, CORTISONE, DOXAZOSIN. SOCIAL HISTORY: No smoking. No alcohol use. FAMILY HISTORY: Unremarkable. REVIEW OF SYSTEMS: CARDIOPULMONARY: She denies any chest pain or shortness of breath. no dysuria or hematuria. MUSCULOSKELETAL unremarkable. SKIN unremarkable. ENDOCRINE unremarkable. PSYCHIATRIC: History of anxiety. NEUROLOGY some altered mental status and mild dementia noted. CONSTITUTIONAL no recent weight loss. No fever, chills, night sweats. PHYSICAL EXAMINATION: She appears comfortable. No apparent distress. VITAL SIGNS: Stable. Blood pressure 138/78, pulse is 65, temperature 98.1. HEENT examination unremarkable. Conjunctivae pink. Sclerae anicteric. Oral cavity no lesions. NECK no JVD or lymph node enlargement. CHEST was clear to auscultation. HEART: Regular rate and rhythm. ABDOMEN: Soft. Bowel sounds are positive. There was mild diffuse tenderness noted, but no severe tenderness seen. No rebound or rigidity. EXTREMITIES: No pedal edema. SKIN no rashes. NEURO: She is alert, oriented to name but not to place or time. LABS: From today WBC 4.4, hemoglobin 13.5, platelets normal. Basic metabolic panel is within normal limits. BUN and creatinine are normal. ALT, AST, T-bilirubin, alkaline phosphatase are all within normal limits. Ammonia level is less than 9. CT of the brain was unremarkable. IMPRESSION: 1. Chronic abdominal pain/chronic constipation of several years duration. The patient has been maintained on Linzess on an outpatient basis. Last colonoscopy by me in October of 2018 showed scattered sigmoid diverticulosis but no evidence of colorectal neoplasia. She received a dose of lactulose last night and has had about 3 or 4 bowel movements and is feeling much better. 2. Altered mental status which appears to have resolved. Neurology following the patient closely. She does appear to have underlying dementia as per the neurologist. 3. History of diabetes mellitus. 4. History of hypertension. RECOMMENDATIONS: 1. We will continue with lactulose 20 mg twice daily and hold it if she has more than 3 bowel movements daily. 2. We will start her on Bentyl for abdominal pain 10 mg twice daily. 3. Advance diet as tolerated. 4. No plans on any endoscopy intervention as the patient already had a colonoscopy last in October of 2018 that was unremarkable. 5. We will follow with you closely. Thank you for this consultation. MMODL / IJN: [id number] /
[2020-01-07 17:10] LABS: Glucose,Whole Blood 157 mg/dL (75-99)
[2020-01-07 20:43] LABS: Glucose,Whole Blood 244 mg/dL (75-99)
[2020-01-07] MEDS: INSULIN DETEMIR (LEVEMIR) 100 UNIT/ML SYR SQ SCH (21:37)
[2020-01-07] MEDS: LISINOPRIL 20 MG TAB PO SCH (21:38)
[2020-01-07] MEDS: LATANOPROST 0.005% OPHTH DROPS 2.5 ML BTL BOTH EYES SCH (21:38)
[2020-01-08] MEDS: cloNIDine HCL 0.1 MG TAB PO PRN ×2 (04:37→20:36)
[2020-01-08] MEDS: Linaclotide [Linzess] 145 MCG PO SCH (08:16)
[2020-01-08] MEDS: ALPRAZolam 0.25 MG TAB PO SCH ×3 (10:35→22:21)
[2020-01-08] MEDS: PANTOPRAZOLE 40 MG TABLET PO SCH (10:35)
[2020-01-08] MEDS: CARVEDILOL 12.5 MG TAB PO SCH ×2 (10:35→16:23)
[2020-01-08] MEDS: SERTRALINE 50 MG TAB PO SCH (10:35)
[2020-01-08] MEDS: HYDROcodone/APAP 10-325MG 1 EACH TAB PO SCH ×4 (10:35→22:21)
[2020-01-08] MEDS: CLOPIDOGREL 75 MG TAB PO SCH (10:35)
[2020-01-08] MEDS: LACTULOSE 20 GM/30 ML CUP PO SCH ×2 (10:36→20:36)
[2020-01-08] MEDS: INSULIN ASPART (NovoLOG) 100 UNIT/ML VIAL SQ SCH ×4 (10:36→20:34)
[2020-01-08 12:20] LABS: Glucose,Whole Blood 205 mg/dL (75-99)
--- NOTE | 2020-01-08 13:51 | P.PN ---
Subjective Progress Note Date: 01/08/20 peewee Abel a 69-year-old female who presented to [facility] emergency room brought in by her grandson and music theory teacher, who stated that patient has been having worsening mental status changes with confusion and occasional agitation, patient was complaining mostly of abdominal pain and constipation and rectal pain she was evaluated in emergency room and was admitted to medical floor for further evaluation. In the emergency room, vitals were stable with a temperature of 98.4 pulse 55 respiration 18 blood pressure 165/88 pulse ox 96% on room air, laboratory data were within normal limits, chest x-ray did not reveal any acute abnormality, abdomen x-ray revealed evidence of fecal stasis, otherwise no abnormality, computed tomography scan of the brain did not reveal any evidence of acute intracranial hemorrhage or midline shift, patient was admitted to medical floor, neurology consultation was requested in regard to mental status changes with increased confusion and occasional agitation, gastroenterology consultation was requested in regard to abdominal pain and rectal pain and constipation. On 01/06/2020 patient was seen and examined on the medical floor she is complaining of abdominal pain and rectal pain she is denying any other complaints she is very hard of hearing she denies any fever or chills no headache or dizziness no chest pain no shortness of breath no cough no nausea or vomiting no diarrhea no burning with urination no frequency or urgency and no hematuria. 01/07/2020 patient is alert confused in no apparent distress she is still complaining of abdominal pain and rectal pain otherwise she denies any complaints there is no fever or chills no headache or dizziness no chest pain no shortness of breath no cough no nausea or vomiting no diarrhea no blood in the stools no burning was urination no frequency or urgency and no hematuria. On 01/08/2020 patient is alert, has significant confusion today, in no apparent distress, she is still complaining of abdominal pain and rectal pain , there is no fever or chills no headache or dizziness no chest pain no shortness of breath no cough no nausea or vomiting no diarrhea no burning with urination no fr equency or urgency and no hematuria Objective - Vital Signs Vital signs: Vital Signs Temp 98.2 F 01/08/20 13:00 Pulse 66 01/08/20 13:00 Resp 17 01/08/20 13:00 BP 118/71 01/08/20 13:00 Pulse Ox 98 01/08/20 13:00 Intake & Output 01/07/20 01/08/20 01/08/20 18:59 06:59 18:59 Output Total 2 4 Balance -2 -4 Output: Stool 2 4 Other: Voiding Method Toilet Toilet Toilet # Voids 3 2 1 # Bowel Movements 2 1 - Exam In general patient is alert and slightly confused in no apparent distress HEENT head normocephalic and atraumatic Neck is supple no JVD no goiter no lymphadenopathy Chest exam reveals a few scattered rhonchi no wheezing Cardiac exam reveals regular heart sounds no murmurs Abdomen is soft nontender no organomegaly with normal bowel sounds Extremity exam reveals no edema no cyanosis or clubbing Neurological examination reveals no gross focal deficit - Labs CBC & Chem 7: 01/06/20 07:32 01/06/20 07:32 Labs: Abnormal Lab Results - Last 24 Hours (Table) 01/07/20 01/07/20 01/08/20 Range/Units 17:08 20:38 12:18 POC Glucose (mg/dL) 157 H 244 H 205 H (75-99) mg/dL Assessment and Plan Assessment: 1. Mental status changes, likely related to constipation abdominal pain metabolic encephalopathy on top of underlying dementia will check ammonia level consultation for neurology was requested will add lactulose when necessary 2. Abdominal pain and rectal pain and constipation will add lactulose and Colace consultation for gastroenterology was initiated 3. Underlying history of dementia, patient lives at home and her music theory teacher is her grandson Will Consult drug abuse social worker possibly patient will need alternative placement at this point. 4. Underlying history of diabetes mellitus maintained on insulin continue 5. Underlying history of hypertension well-controlled on medications continue At this time medications and labs reviewed Consultation for gastroenterology and neurology requested awaiting input Will recheck labs and follow in a.m.
--- NOTE | 2020-01-08 15:48 | PN ---
PROGRESS NOTE DATE OF DICTATION: January 08, 2020 Patient is a 69-year-old white female admitted to the hospital with altered mental status. She is doing much better today. She had severe chronic constipation and was started on lactulose and as per the nursing staff, she had about 3 or 4 bowel movements. The patient became very agitated last night and was not able to sleep. This morning received some antianxiety medications and she is feeling better. She still complains of abdominal pain with eating. No nausea or vomiting. PHYSICAL EXAMINATION: She appears comfortable. No apparent distress. Vital signs stable. Blood pressure is 118/71, pulse rate is 66, temperature 98.2. HEENT examination unremarkable. Conjunctivae pink. Sclerae anicteric. Oral cavity no lesions. Neck no JVD or lymph node enlargement. CHEST: Clear to auscultation. HEART: Regular rate and rhythm. ABDOMEN: Soft, it was nontender, nondistended. Bowel sounds are positive. EXTREMITIES: No pedal edema. NEURO: She is awake, oriented to name, place but not to time. LABS: No labs available from today. IMPRESSION: 1. Intermittent areas of confusion, possibly because of underlying dementia. 2. Chronic abdominal pain associated with constipation. CT of the abdomen was negative. Presently on oral lactulose and as per the nursing staff, she has been having 2 or 3 bowel movements daily. She was also started on Bentyl 10 mg 3 times daily for abdominal pain. 3. History of hypertension and hyperlipidemia. RECOMMENDATIONS: 1. Continue with oral lactulose. 2. Use Bentyl as needed for the abdominal pain. 3. Advance diet as tolerated. 4. No plans for any endoscopic intervention at the present time. 5. We will follow with you closely. Thank you for this consultation. MMODL / IJN: [id number] /
[2020-01-08 17:14] LABS: Glucose,Whole Blood 159 mg/dL (75-99)
[2020-01-08 20:18] LABS: Glucose,Whole Blood 248 mg/dL (75-99)
[2020-01-08] MEDS: INSULIN DETEMIR (LEVEMIR) 100 UNIT/ML SYR SQ SCH (20:35)
[2020-01-08] MEDS: LISINOPRIL 20 MG TAB PO SCH (20:36)
[2020-01-08] MEDS: LATANOPROST 0.005% OPHTH DROPS 2.5 ML BTL BOTH EYES SCH (20:36)
[2020-01-09 06:34] LABS: Basophils % (A) 0 %; Eosinophils # (A) 0.2 k/uL (0-0.7); Eosinophils % (A) 3 %; HCT 32.9 % (34.0-46.0); HGB 11.4 gm/dL (11.4-16.0); Lymphocytes # (A) 1.7 k/uL (1.0-4.8); Lymphocytes % (A) 36 %; MCH 30.3 pg (25.0-35.0); MCHC 34.5 g/dL (31.0-37.0); MCV 87.7 fL (80.0-100.0); Mean Platelet Volume 6.4; Monocytes # (A) 0.5 k/uL (0-1.0); Monocytes % (A) 10 %; Neutrophils # (A) 2.2 k/uL (1.3-7.7); Neutrophils % (A) 47 %; Platelet Count 276 k/uL (150-450); RBC 3.76 m/uL (3.80-5.40); RDW 13.7 % (11.5-15.5); WBC 4.7 k/uL (3.8-10.6)
[2020-01-09 06:52] LABS: ALT 18 U/L (4-34); AST 28 U/L (14-36); African American GFR (CKD) >90 (>60 ml/min/1.73 sqM); Albumin 3.6 g/dL (3.5-5.0); Alkaline Phosphatase 77 U/L (38-126); Anion Gap 6 mmol/L; Blood Urea Nitrogen 19 mg/dL (7-17); Calcium 9.2 mg/dL (8.4-10.2); Carbon Dioxide 33 mmol/L (22-30); Chloride 94 mmol/L (98-107); Glucose 127 mg/dL (74-99); Non-African American GFR(CKD) >90 (>60 ml/min/1.73 sqM); Potassium 3.2 mmol/L (3.5-5.1); Sodium 133 mmol/L (137-145); Total Bilirubin 0.7 mg/dL (0.2-1.3); Total Protein 6.4 g/dL (6.3-8.2)
[2020-01-09 07:27] LABS: Glucose,Whole Blood 128 mg/dL (75-99)
[2020-01-09] MEDS: SERTRALINE 50 MG TAB PO SCH (08:59)
[2020-01-09] MEDS: CARVEDILOL 12.5 MG TAB PO SCH ×2 (08:59→18:13)
[2020-01-09] MEDS: cloNIDine HCL 0.1 MG TAB PO PRN (08:59)
[2020-01-09] MEDS: DICYCLOMINE 10 MG CAP PO PRN ×2 (08:59→18:13)
[2020-01-09] MEDS: CLOPIDOGREL 75 MG TAB PO SCH (08:59)
[2020-01-09] MEDS: PANTOPRAZOLE 40 MG TABLET PO SCH (08:59)
[2020-01-09] MEDS: INSULIN ASPART (NovoLOG) 100 UNIT/ML VIAL SQ SCH ×4 (09:00→20:50)
[2020-01-09] MEDS: LACTULOSE 20 GM/30 ML CUP PO SCH ×2 (09:00→20:52)
[2020-01-09] MEDS: ALPRAZolam 0.25 MG TAB PO SCH ×3 (09:00→22:12)
[2020-01-09] MEDS: HYDROcodone/APAP 10-325MG 1 EACH TAB PO SCH ×4 (09:00→22:13)
[2020-01-09] MEDS: Linaclotide [Linzess] 145 MCG PO SCH (09:01)
[2020-01-09] MEDS ORDERED: WITCH HAZEL 1 EACH MED..PAD TOPICAL PRN (09:39)
[2020-01-09] MEDS ORDERED: Potassium Replacement Protocol 1 EACH MISC MISCELLANE PRN (10:07)
[2020-01-09 11:39] LABS: Glucose,Whole Blood 195 mg/dL (75-99)
[2020-01-09 16:54] LABS: Glucose,Whole Blood 205 mg/dL (75-99)
--- NOTE | 2020-01-09 17:57 | P.PN ---
Subjective Progress Note Date: 01/09/20 peewee Abel a 69-year-old female who presented to [facility] emergency room brought in by her grandson and employee relations specialist, who stated that patient has been having worsening mental status changes with confusion and occasional agitation, patient was complaining mostly of abdominal pain and constipation and rectal pain she was evaluated in emergency room and was admitted to medical floor for further evaluation. In the emergency room, vitals were stable with a temperature of 98.4 pulse 55 respiration 18 blood pressure 165/88 pulse ox 96% on room air, laboratory data were within normal limits, chest x-ray did not reveal any acute abnormality, abdomen x-ray revealed evidence of fecal stasis, otherwise no abnormality, computed tomography scan of the brain did not reveal any evidence of acute intracranial hemorrhage or midline shift, patient was admitted to medical floor, neurology consultation was requested in regard to mental status changes with increased confusion and occasional agitation, gastroenterology consultation was requested in regard to abdominal pain and rectal pain and constipation. On 01/06/2020 patient was seen and examined on the medical floor she is complaining of abdominal pain and rectal pain she is denying any other complaints she is very hard of hearing she denies any fever or chills no headache or dizziness no chest pain no shortness of breath no cough no nausea or vomiting no diarrhea no burning with urination no frequency or urgency and no hematuria. 01/07/2020 patient is alert confused in no apparent distress she is still complaining of abdominal pain and rectal pain otherwise she denies any complaints there is no fever or chills no headache or dizziness no chest pain no shortness of breath no cough no nausea or vomiting no diarrhea no blood in the stools no burning was urination no frequency or urgency and no hematuria. On 01/08/2020 patient is alert, has significant confusion today, in no apparent distress, she is still complaining of abdominal pain and rectal pain , there is no fever or chills no headache or dizziness no chest pain no shortness of breath no cough no nausea or vomiting no diarrhea no burning with urination no fr equency or urgency and no hematuria. On 01/09/2020 patient was seen and examined on the medical floor she is alert confused in no apparent distress there is no fever or chills no headache or dizziness no chest pain no shortness of breath no cough no nausea or vomiting she is still complaining of abdominal pain running was urination no frequency or urgency and no hematuria Objective - Vital Signs Vital signs: Vital Signs Temp 98.5 F 01/09/20 13:29 Pulse 60 01/09/20 15:39 Resp 16 01/09/20 15:39 BP 128/64 01/09/20 13:29 Pulse Ox 99 01/09/20 13:29 Intake & Output 01/08/20 01/09/20 01/09/20 18:59 06:59 18:59 Intake Total 720 240 Output Total 2 2 4 Balance -2 718 236 Intake: Oral 720 240 Output: Stool 2 2 4 Other: Voiding Method Toilet Toilet Toilet # Voids 1 2 3 # Bowel Movements 1 1 3 - Exam In general patient is alert and slightly confused in no apparent distress HEENT head normocephalic and atraumatic Neck is supple no JVD no goiter no lymphadenopathy Chest exam reveals a few scattered rhonchi no wheezing Cardiac exam reveals regular heart sounds no murmurs Abdomen is soft nontender no organomegaly with normal bowel sounds Extremity exam reveals no edema no cyanosis or clubbing Neurological examination reveals no gross focal deficit - Labs CBC & Chem 7: 01/09/20 06:19 01/09/20 06:19 Labs: Abnormal Lab Results - Last 24 Hours (Table) 01/08/20 01/09/20 01/09/20 Range/Units 20:16 06:19 06:19 RBC 3.76 L (3.80-5.40) m/uL Hct 32.9 L (34.0-46.0) % Sodium 133 L (137-145) mmol/L Potassium 3.2 L (3.5-5.1) mmol/L Chloride 94 L (98-107) mmol/L Carbon Dioxide 33 H (22-30) mmol/L BUN 19 H (7-17) mg/dL Glucose 127 H (74-99) mg/dL POC Glucose (mg/dL) 248 H (75-99) mg/dL 01/09/20 01/09/20 01/09/20 Range/Units 07:25 11:29 16:50 RBC (3.80-5.40) m/uL Hct (34.0-46.0) % Sodium (137-145) mmol/L Potassium (3.5-5.1) mmol/L Chloride (98-107) mmol/L Carbon Dioxide (22-30) mmol/L BUN (7-17) mg/dL Glucose (74-99) mg/dL POC Glucose (mg/dL) 128 H 195 H 205 H (75-99) mg/dL Assessment and Plan Assessment: 1. Mental status changes, likely related to constipation abdominal pain metabolic encephalopathy on top of underlying dementia will check ammonia level consultation for neurology was requested will add lactulose when necessary 2. Abdominal pain and rectal pain and constipation will add lactulose and Colace consultation for gastroenterology was initiated 3. Underlying history of dementia, patient lives at home and her employee relations specialist is her grandson Will Consult social service agency director possibly patient will need alternative placement at this point. 4. Underlying history of diabetes mellitus maintained on insulin continue 5. Underlying history of hypertension well-controlled on medications continue At this time medications and labs reviewed Consultation for gastroenterology and neurology requested awaiting input Will recheck labs and follow in a.m.
--- NOTE | 2020-01-09 19:55 | PN ---
PROGRESS NOTE DATE OF SERVICE: January 09, 2020 Patient is a 69-year-old pleasant white female admitted to hospital 2 days ago with abdominal pain and altered mental status. She continues to complain of some abdominal pain, having regular bowel movements. Remains on lactulose 30 mL twice daily. She does have confusion and has 1 on 1 sitter today. No acute events noted overnight. PHYSICAL EXAMINATION: Appears comfortable. Blood pressure 128/64. Pulse rate 75, temp 98.5. HEENT examination unremarkable. Conjunctivae pink. Sclerae anicteric. Oral cavity no lesions. NECK: No JVD or lymph node enlargement. CHEST was clear to auscultation. HEART: Regular rate and rhythm. ABDOMEN: Soft, nontender, nondistended. Bowel sounds are positive. EXTREMITIES: No pedal edema. NEUROLOGIC: Alert, oriented to name. LABORATORY DATA: Today WBC 4.7, hemoglobin 11.4, platelets normal. Basic metabolic panel showed potassium of 3.2, BUN 19, creatinine 0.61. IMPRESSION: 1. Abdominal pain chronic constipation, on oral lactulose-normal bowel movements, tolerating diet reasonably well. 2. Altered mental status with periods of confusion, possibly related to dementia. Neurology following the patient closely. RECOMMENDATION: 1. Continue with lactulose daily. 2. High-fiber diet. 3. Advance diet as tolerated. 4. Continue with close observation. We will follow with you closely. Thank you for this consultation. MMODL / IJN: [id number] /
[2020-01-09 20:30] LABS: Glucose,Whole Blood 118 mg/dL (75-99)
[2020-01-09] MEDS: INSULIN DETEMIR (LEVEMIR) 100 UNIT/ML SYR SQ SCH (20:52)
[2020-01-09] MEDS: LISINOPRIL 20 MG TAB PO SCH (20:52)
[2020-01-09] MEDS: LATANOPROST 0.005% OPHTH DROPS 2.5 ML BTL BOTH EYES SCH (20:52)
[2020-01-10] MEDS: DICYCLOMINE 10 MG CAP PO PRN (03:12)
[2020-01-10] MEDS: cloNIDine HCL 0.1 MG TAB PO PRN (03:58)
[2020-01-10 05:52] VITALS: RESP 18
[2020-01-10 07:02] LABS: Glucose,Whole Blood 210 mg/dL (75-99)
[2020-01-10] MEDS: ALPRAZolam 0.25 MG TAB PO SCH ×2 (07:32→16:54)
[2020-01-10] MEDS: HYDROcodone/APAP 10-325MG 1 EACH TAB PO SCH ×2 (07:32→12:26)
[2020-01-10] MEDS: SERTRALINE 50 MG TAB PO SCH (07:33)
[2020-01-10] MEDS: CLOPIDOGREL 75 MG TAB PO SCH (07:34)
[2020-01-10] MEDS: INSULIN ASPART (NovoLOG) 100 UNIT/ML VIAL SQ SCH ×2 (07:34→12:28)
[2020-01-10] MEDS: PANTOPRAZOLE 40 MG TABLET PO SCH (07:34)
[2020-01-10] MEDS: CARVEDILOL 12.5 MG TAB PO SCH (07:34)
[2020-01-10] MEDS: LACTULOSE 20 GM/30 ML CUP PO SCH (07:34)
[2020-01-10] MEDS: FUROSEMIDE 20 MG TAB PO SCH (07:34)
[2020-01-10] MEDS: Linaclotide [Linzess] 145 MCG PO SCH (07:35)
[2020-01-10 11:39] LABS: Glucose,Whole Blood 187 mg/dL (75-99)
[2020-01-10 11:48] VITALS: BP 159/73; TEMP 98.6
--- NOTE | 2020-01-10 13:33 | P.DS ---
Providers Date of admission: 01/05/20 20:09 Expected date of discharge: 01/10/20 Attending physician: Alfa Cuadra Consults: 01/05/20 20:08 Consult Physician Urgent Consulting Provider: Jovana Lobo Consult Reason/Comments: acute encephalopathy Do you want consulting provider notified?: Yes 01/06/20 16:18 Consult Physician Routine Consulting Provider: Melanie Luciano Consult Reason/Comments: abdominal pain Do you want consulting provider notified?: Yes Primary care physician: Alfa Venecia [facility] Course: Diagnosis on discharge: 1. Mental status changes, likely related to constipation abdominal pain metabolic encephalopathy on top of underlying dementia will check ammonia level consultation for neurology was requested will add lactulose when necessary 2. Abdominal pain and rectal pain and constipation will add lactulose and Colace consultation for gastroenterology was initiated, Bentyl was added to regimen no other testing was recommended by gastroenterology at this pointe. 3. Underlying history of dementia, patient lives at home and her field support technician is her grandson Will Consult social security benefits interviewer possibly patient will need alternative placement at this point. 4. Underlying history of diabetes mellitus maintained on insulin continue 5. Underlying history of hypertension well-controlled on medications continue Hospital course: peewee Abel a 69-year-old female who presented to [facility] emergency room brought in by her grandson and field support technician, who stated that patient has been having worsening mental status changes with confusion and occasional agitation, patient was complaining mostly of abdominal pain and constipation and rectal pain she was evaluated in emergency room and was admitted to medical floor for further evaluation. In the emergency room, vitals were stable with a temperature of 98.4 pulse 55 respiration 18 blood pressure 165/88 pulse ox 96% on room air, laboratory data were within normal limits, chest x-ray did not reveal any acute abnormality, abdomen x-ray revealed evidence of fecal stasis, otherwise no abnormality, computed tomography scan of the brain did not reveal any evidence of acute intracranial hemorrhage or midline shift, patient was admitted to medical floor, neurology consultation was requested in regard to mental status changes with increased confusion and occasional agitation, gastroenterology consultation was requested in regard to abdominal pain and rectal pain and constipation. On 01/06/2020 patient was seen and examined on the medical floor she is complaining of abdominal pain and rectal pain she is denying any other complaints she is very hard of hearing she denies any fever or chills no headache or dizziness no chest pain no shortness of breath no cough no nausea or vomiting no diarrhea no burning with urination no frequency or urgency and no hematuria. 01/07/2020 patient is alert confused in no apparent distress she is still complaining of abdominal pain and rectal pain otherwise she denies any complaints there is no fever or chills no headache or dizziness no chest pain no shortness of breath no cough no nausea or vomiting no diarrhea no blood in the stools no burning was urination no frequency or urgency and no hematuria. On 01/08/2020 patient is alert, has significant confusion today, in no apparent distress, she is still complaining of abdominal pain and rectal pain , there is no fever or chills no headache or dizziness no chest pain no shortness of breath no cough no nausea or vomiting no diarrhea no burning with urination no frequency or urgency and no hematuria. On 01/09/2020 patient was seen and examined on the medical floor she is alert confused in no apparent distress there is no fever or chills no headache or dizziness no chest pain no shortness of breath no cough no nausea or vomiting she is still complaining of abdominal pain running was urination no frequency or urgency and no hematuria. Patient Condition at Discharge: Stable Plan - Discharge Summary Discharge Rx Participant: Yes New Discharge Prescriptions: New Dicyclomine [Bentyl] 10 mg PO TID PRN cap PRN Reason: Dyspepsia Lactulose [Cephulac] 20 gm PO BID ml Insulin Detemir (Levemir) [Levemir] 15 unit SQ HS syr INSULIN ASPART (NovoLOG) [NovoLOG (formulary)] 0 unit SQ ACHS vial Pantoprazole [Protonix] 40 mg PO DAILY@0730 tablet.dr Continue Sertraline HCl [Zoloft] 50 mg PO DAILY ALPRAZolam [Xanax] 0.25 mg PO TID Furosemide [Lasix] 20 mg PO Q72H Carvedilol 25 mg PO BID Latanoprost/Pf [Latanoprost 0.005% Eye Drop] 1 drop BOTH EYES HS Lisinopril 40 mg PO HS Docusate [Colace] 100 mg PO BID Ergocalciferol [Vitamin D2 (DRISDOL)] 50,000 unit PO TH Linaclotide [Linzess] 145 mcg PO AC-BRKFST Clopidogrel [Plavix] 75 mg PO DAILY cloNIDine HCL 0.3 mg PO TID HYDROcodone/APAP 10-325MG [Parks 10-325] 1 tab PO QID Discontinued Insulin Degludec [Tresiba Flextouch U-100] See Protocol SQ HS Omeprazole 20 mg PO BID Discharge Medication List Sertraline HCl [Zoloft] 50 mg PO DAILY 04/26/17 [History] ALPRAZolam [Xanax] 0.25 mg PO TID 05/25/18 [History] Furosemide [Lasix] 20 mg PO Q72H 05/25/18 [History] Carvedilol 25 mg PO BID 09/23/18 [History] Latanoprost/Pf [Latanoprost 0.005% Eye Drop] 1 drop BOTH EYES HS 10/19/18 [History] Lisinopril 40 mg PO HS 10/19/18 [History] Docusate [Colace] 100 mg PO BID 12/26/18 [History] Clopidogrel [Plavix] 75 mg PO DAILY 09/01/19 [History] Ergocalciferol [Vitamin D2 (DRISDOL)] 50,000 unit PO TH 09/01/19 [History] Linaclotide [Linzess] 145 mcg PO AC-BRKFST 09/01/19 [History] cloNIDine HCL 0.3 mg PO TID 09/01/19 [History] HYDROcodone/APAP 10-325MG [Parks 10-325] 1 tab PO QID 01/05/20 [History] Dicyclomine [Bentyl] 10 mg PO TID PRN cap 01/10/20 [Rx] INSULIN ASPART (NovoLOG) [NovoLOG (formulary)] 0 unit SQ ACHS vial 01/10/20 [Rx] Insulin Detemir (Levemir) [Levemir] 15 unit SQ HS syr 01/10/20 [Rx] Lactulose [Cephulac] 20 gm PO BID ml 01/10/20 [Rx] Pantoprazole [Protonix] 40 mg PO DAILY@0730 tablet. 01/10/20 [Rx] Follow up Appointment(s)/Referral(s): Alfa Cuadra MD [Primary Care Provider] - 1-2 days
[2020-01-10 16:52] VITALS: PULSE 60
--- NOTE | 2020-01-10 18:38 | PN ---
PROGRESS NOTE This patient is a 69-year-old white female admitted to the hospital with abdominal pain and altered mental status. She was having constipation and was started on lactulose. She is doing much better. She has been having regular bowel movements. As per the nursing staff, she has been doing well. She has been having intermittent episodes of confusion. Neurology is following the patient. Possible mild dementia. PHYSICAL EXAMINATION: Appears comfortable. No apparent distress. VITAL SIGNS: Stable. Blood pressure 196/76, pulse rate 71, temperature 98. HEENT examination unremarkable. Conjunctivae pink. Sclerae anicteric. Oral cavity no lesions. NECK: No JVD or lymph node enlargement. CHEST: Clear to auscultation. HEART: Regular rate and rhythm. ABDOMEN: Soft. Bowel sounds are positive. No organomegaly. EXTREMITIES: No pedal edema. NEUROLOGIC: Alert. Oriented to name and place. LABS: WBC 4.7, hemoglobin 11.4, platelets normal. Basic metabolic panel showed a potassium of 3.2, BUN and creatinine normal. IMPRESSION: 1. Altered mental status, improving. Has underlying mild dementia. 2. Abdominal pain and chronic constipation; better on oral lactulose 30 mL twice daily. RECOMMENDATIONS: 1. Patient was advised to continue with lactulose as needed on an outpatient basis for constipation. 2. She can be discharged home today with outpatient followup as needed. Thank you for this consultation. MMDANAL / KORI: [id number] /
== END 2020-01-10 17:56 | DRG 391 ==
LOC: EC 16:29 → 5NMEDONC 20:09
PROVIDERS: ADMIT Internal Medicine; ATTEND Internal Medicine
DX: K59.09 Other constipation (principal); G93.41 Metabolic encephalopathy; Z79.4 Long term (current) use of insulin; F02.80 Dementia in other diseases classified elsewhere, unspecified severity, without behavioral disturbance, psychotic disturbance, mood disturbance, and anxiety; G93.89 Other specified disorders of brain; E11.42 Type 2 diabetes mellitus with diabetic polyneuropathy; M06.9 Rheumatoid arthritis, unspecified; Z11.59 Encounter for screening for other viral diseases; K57.30 Diverticulosis of large intestine without perforation or abscess without bleeding; R40.2362 Coma scale, best motor response, obeys commands, at arrival to emergency department; R40.2142 Coma scale, eyes open, spontaneous, at arrival to emergency department; R40.2242 Coma scale, best verbal response, confused conversation, at arrival to emergency department; M79.7 Fibromyalgia; I10 Essential (primary) hypertension; E78.5 Hyperlipidemia, unspecified; M19.90 Unspecified osteoarthritis, unspecified site; K21.9 Gastro-esophageal reflux disease without esophagitis; H40.9 Unspecified glaucoma; K44.9 Diaphragmatic hernia without obstruction or gangrene; F41.9 Anxiety disorder, unspecified; F32.9 Major depressive disorder, single episode, unspecified; R00.1 Bradycardia, unspecified; G31.9 Degenerative disease of nervous system, unspecified; G89.29 Other chronic pain; K62.89 Other specified diseases of anus and rectum; I25.2 Old myocardial infarction; Z79.899 Other long term (current) drug therapy; Z79.02 Long term (current) use of antithrombotics/antiplatelets; Z86.73 Personal history of transient ischemic attack (TIA), and cerebral infarction without residual deficits; Z96.7 Presence of other bone and tendon implants; Z87.11 Personal history of peptic ulcer disease; Z90.710 Acquired absence of both cervix and uterus; Z87.828 Personal history of other (healed) physical injury and trauma; Z90.49 Acquired absence of other specified parts of digestive tract; Z98.890 Other specified postprocedural states; Z88.5 Allergy status to narcotic agent; Z88.2 Allergy status to sulfonamides; Z88.7 Allergy status to serum and vaccine; Z88.8 Allergy status to other drugs, medicaments and biological substances; Z88.1 Allergy status to other antibiotic agents; Z91.030 Bee allergy status; Z91.040 Latex allergy status; Z83.79 Family history of other diseases of the digestive system; Z80.9 Family history of malignant neoplasm, unspecified
CPT/HCPCS: 36415; 70450; 71046; 74018; 80048; 80053; 80306; 80320; 80329; 81003; 82140; 82550; 82607; 82746; 83036; 83520; 83605; 84443; 84484; 85025; 85610; 85730; 86038; 86431; 93005; 99285

== ENCOUNTER 2020-01-16 10:32 | Emergency (ER) | payer MEDICARE, OTHER ==
--- NOTE | 2020-01-16 11:48 | XR ---
Left hand and left elbow HISTORY: Trauma and pain 3 views of the left hand, 3 views the left elbow submitted No comparisons Bone mineralization is reduced. Joint spaces and alignment are maintained. Small ossific densities me dial and dorsal to the distal interphalangeal joint of the third and second digit is well-corticated and not felt likely to be acute. Hypertrophic changes, joint space loss at the carpometacarpal joint of the first digit consistent with osteoarthritis. Lateral exam not optimally positioned. There is so ft tissue swelling present. The left elbow shows no joint effusion. Alignment and joint spaces are maintained. IMPRESSION: No fracture or dislocation of the left elbow were hand.
--- NOTE | 2020-01-16 11:53 | XR ---
EXAMINATION TYPE: XR Hip LT and AP Pelvis, XR lumbar spine 2 or 3V DATE OF EXAM: 01/16/2020 COMPARISON: NONE HISTORY: Trauma and pain TECHNIQUE: A single AP view of the pelvis is obtained. Two views of the left hip are obtained. 3 vie ws of the lumbar spine FINDINGS: The patient is rotated. There is no acute fracture/dislocation evident in the pelvis. The hip and sacroiliac joints appear symmetric and unremarkable. The overlying soft tissue appears unre markable. Two views of left hip show no acute fracture or dislocation. No focal lytic or sclerotic lesion seen in the proximal left femur. The overlying soft tissue is unremarkable. There is a dextroscoliosis with rotatory component centered at L2. Lumbar vertebral bodies show prese rved height. There is multilevel spondylosis. Vacuum phenomenon present at L2-3, loss of disc height present at intervertebral levels. Sclerosis present in the posterior elements of the lumbar spine. Oli ne mineralization is reduced. Surgical clips present in the right upper quadrant. Sclerosis present i n the posterior elements of the lower lumbar spine compatible with facet arthropathy. Dense vascular calcifications in the distribution of the aortoiliac vasculature. IMPRESSION: There is no acute fracture or dislocation in the pelvis or left hip. Degenerative disc d isease, facet arthropathy, osteopenia, scoliosis and lumbar spine.
--- NOTE | 2020-01-16 12:23 | ED ---
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 I discussed history with nurse taking care of patient who states she frequently seeks attention, and is bizzare in terms of her behaviors. They state they noted no neurological changes, but patient stated she fell out of bed this AM. Denied head injiury and staff did not note any PE findings of head injury, but patient was complaining of left hip pain and thus was sent for evaluation. Patient was ambulatory. Patient states she fell, she had left hip, left elbow, low back pain. She states she has had right hand pain for years and no one knows whats wrong denies injury today to right hand/wrist. Patient unsure of head injury. Denies syncope, LOC. Patient denies neck pain and has no additional complaints, denying chest pain, SOB, visual changes, weakness of the UE and LE, or sensation deficits. - Related Data Home Medications Medication Instructions Recorded Confirmed Sertraline HCl [Zoloft] 50 mg PO DAILY 04/26/17 01/16/20 ALPRAZolam [Xanax] 0.25 mg PO TID 05/25/18 01/16/20 Furosemide [Lasix] 20 mg PO DAILY 05/25/18 01/16/20 Carvedilol 25 mg PO BID 09/23/18 01/16/20 Latanoprost/Pf [Latanoprost 0.005% 1 drop BOTH EYES HS 10/19/18 01/16/20 Eye Drop] Lisinopril 40 mg PO HS 10/19/18 01/16/20 Docusate [Colace] 100 mg PO BID 12/26/18 01/16/20 Clopidogrel [Plavix] 75 mg PO DAILY 09/01/19 01/16/20 Ergocalciferol [Vitamin D2 50,000 unit PO TH 09/01/19 01/16/20 (DRISDOL)] Linaclotide [Linzess] 145 mcg PO AC-BRKFST 09/01/19 01/16/20 cloNIDine HCL 0.3 mg PO TID@0500,1300,2100 09/01/19 01/16/20 HYDROcodone/APAP 10-325MG [[place] 1 tab PO QID@05,11,17,23 01/05/20 01/16/20 10-325] INSULIN ASPART (NovoLOG) [NovoLOG See Protocol SQ ACHS 01/16/20 01/16/20 (formulary)] Pantoprazole [Protonix] 40 mg PO DAILY 01/16/20 01/16/20 Previous Rx's Medication Instructions Recorded Dicyclomine [Bentyl] 10 mg PO TID PRN cap 01/10/20 Insulin Detemir (Levemir) [Levemir] 15 unit SQ HS syr 01/10/20 Lactulose [Cephulac] 20 gm PO BID ml 01/10/20 Allergies Allergy/AdvReac Type Severity Reaction Status Date / Time bee venom protein (honey bee) Allergy Anaphylaxis Verified 01/16/20 11:15 epinephrine Allergy Anaphylaxis Verified 01/16/20 11:15 influenza virus vaccine, Allergy Rash/Hives Verified 01/16/20 11:15 specific iodine Allergy Rash/Hives Verified 01/16/20 11:15 latex Allergy Rash/Hives Verified 01/16/20 11:15 procaine HCl [From Novocain] Allergy Anaphylaxis Verified 01/16/20 11:15 Sulfa (Sulfonamide Allergy Rash/Hives Verified 01/16/20 11:15 Antibiotics) amlodipine [From Norvasc] AdvReac Diarrhea,abdominal Verified 01/16/20 11:15 pain cephalexin monohydrate AdvReac Nausea & Verified 01/16/20 11:15 [From Keflex] Vomiting & Diarrhea codeine AdvReac Nausea & Verified 01/16/20 11:15 Vomiting cortisone AdvReac Nausea & Verified 01/16/20 11:15 Vomiting/Vertigo doxazosin [From Cardura] AdvReac constipatio Verified 01/16/20 11:15 n hydralazine AdvReac muscle Verified 01/16/20 11:15 cramps & muscular pain methadone AdvReac Nausea & Verified 01/16/20 11:15 Vomiting & Diarrhea propoxyphene AdvReac Nausea & Verified 01/16/20 11:15 [From Marisol-N] Vomiting Jagjvdp-Fxs-Llo Reductase AdvReac Nausea & Verified 01/16/20 11:15 Inhibitor Vomiting/Muscle Weakness steroids AdvReac Nausea & Uncoded 01/16/20 11:15 Vomiting Review of Systems ROS Statement: Those systems with pertinent positive or pertinent negative responses have been documented in the HPI. ROS Other: All systems not noted in ROS Statement are negative. Past Medical History Past Medical History: Chest Pain / Angina, CVA/TIA, Diabetes Mellitus, Eye Disorder, Fibromyalgia, GERD/Reflux, Hyperlipidemia, Hypertension, Memory Impairment, Myocardial Infarction ([place]), Osteoarthritis (OA), Rheumatoid Arthritis (RA) Additional Past Medical History / Comment(s): neuropathy both feet and hands, glaucoma, connective tissue dysfunction, peptic ulcer disease, grade 4 hiatal hernia, stroke/TIA x3-loss of short term memory, occ irregular heart beat, hx ulcers, hx carpal tunnel syndrome. dusty shoulder rotator cuff tear Last Myocardial Infarction Date:: 1988 History of Any Multi-Drug Resistant Organisms: None Reported Past Surgical History: Bladder Surgery, Cholecystectomy, Hysterectomy, Orthopedic Surgery, Tubal Ligation Additional Past Surgical History / Comment(s): rhinoplasty, hand surgery bilateral-carpal tunel , cystocele/rectocele repair , rt foot-failed bunionectomy-has a metal larisa in foot, ABBEY. fatty tumor removed from rt shoulder, pelvic sling Past Anesthesia/Blood Transfusion Reactions: Family History of Problems w/ Anesthesia, Motion Sickness Additional Past Anesthesia/Blood Transfusion Reaction / Comment(s): mother- tongue swelled up Past Psychological History: Anxiety, Depression Smoking Status: Never smoker Past Alcohol Use History: None Reported Past Drug Use History: None Reported - Past Family History Father Additional Family Medical History / Comment(s): alcoholic, cirrhosis of the liver, Mother Family Medical History: Cancer General Exam - General Exam Comments Initial Comments: General: The patient is awake and alert, in no distress Eye: +3 mm pupils are equal, round and reactive to light, extra-ocular movements are intact. No nystagmus. There is normal conjunctiva bilaterally. No signs of icterus. Ears, nose, mouth and throat: There are moist mucous membranes and no oral lesions. Neck: The neck is supple, there is no tenderness or JVD. Cardiovascular: There is a regular rate and rhythm. No murmur, rub or gallop is appreciated. Respiratory: Lungs are clear to auscultation, respirations are non-labored, breath sounds are equal. No wheezes, stridor, rales, or rhonchi. Gastrointestinal: Soft, non-distended, non-tender abdomen without masses or organomegaly noted. There is no rebound or guarding present. Musculoskeletal: Inspection of the hips bilaterally no bruising no swelling no rotation or shortening patient able to weight-bear Normal ROM shoulders elbows wrists hands hips and knees ankles bilaterally complains of pain at the left elbow and left hip Strength 5/5 of the UE and LE equal b/l. Sensation intact of the UE and LE equal b/l. Radial and DP pulses equal bilaterally 2+. Neurological: A&O x 3. CN II-XII intact, There are no obvious motor or sensory deficits. Coordination appears grossly intact. Speech is normal. Skin: Skin is warm and dry and no rashes or lesions are noted. Psychiatric: Cooperative, appropriate mood & affect, normal judgment. Limitations: altered mental status Course Vital Signs 01/16/20 01/16/20 01/16/20 10:36 10:43 11:00 Temperature 98.3 F Pulse Rate 58 L Respiratory 18 Rate Blood Pressure 123/56 123/56 O2 Sat by Pulse 98 95 94 L Oximetry 01/16/20 01/16/20 01/16/20 11:30 12:00 12:30 Temperature Pulse Rate Respiratory Rate Blood Pressure 126/64 170/79 O2 Sat by Pulse 94 L 97 Oximetry 01/16/20 01/16/20 13:00 14:09 Temperature 97.9 F Pulse Rate 81 Respiratory 17 Rate Blood Pressure 178/77 161/92 O2 Sat by Pulse 96 99 Oximetry Medical Decision Making - Medical Decision Making 69-year-old female presenting to the emergency department today for chief complaint of fall. States she fell out of bed. Denies syncope. Spoke with staff who confirms story they state patient is frequently seeking attention. Patient initially was hard to take history as she was having so many complaints about her life, and chronic hand pain, once redirected patient states left hip and elbow pain. she is pleasant and does not appear altered as triage noted, just slightly difficult to redirect as patient gets focused on chatting. Patient has no focal neurological changes or deficits. She is ambulatory. No skin changes. CT brain c-spine (-) elbow, bakc and hips (-). Patient will be discharged to care facility who is agreeable to her return and care plan. pt agreeable and appears happy with care plan and discharge. Dr. Hill is agreeable to care plan. Disposition Clinical Impression: Fall, Left elbow pain, Left hip pain Disposition: HOME SELF-CARE Condition: Good Instructions (If sedation given, give patient instructions): Fall Prevention (ED) Additional Instructions: Please use medication as discussed. Please follow-up with family doctor in the next 2 days. Please return to emergency room if the symptoms increase or worsen or for any other concerns. Is patient prescribed a controlled substance at d/c from ED?: No Referrals: Alfa Cuadra MD [Primary Care Provider] - 1-2 days Time of Disposition: 13:07
--- NOTE | 2020-01-16 13:04 | CT ---
EXAMINATION TYPE: CT brain cspine wo con DATE OF EXAM: 01/16/2020 COMPARISON: CT brain January 05, 2020 HISTORY: Possible fall injury, confusion and neck pain. CT DLP: 1243.9 mGycm. Automated Exposure Control for Dose Reduction was Utilized. TECHNIQUE: CT scan of the head and cervical spine are performed without contrast. FINDINGS: There is no acute intracranial hemorrhage or midline shift identified. Diffuse ventricula r and sulcal prominence redemonstrated. Low attenuation in the deep and periventricular white matter again seen. Old infarcts left inferior basal ganglia is 25 redemonstrated. The calvarium is intact. The globes are intact and the visualized sinuses are clear. Cervical spine is visualized in its entirety from C1 through upper thoracic levels and demonstrates s traightened alignment without evidence of acute fracture or dislocation. There is grade 1 anterolisth esis C3 on C4 and grade 1 retrolisthesis C4 on C5 C5 on C6 Prevertebral soft tissue appears within n ormal limits. The C1-C2 articulation is within normal limits on the coronal images. Vertebral body h eights are maintained. Moderate disc space narrowing with moderate to severe spurring C4-C5 through C 6-C7 levels. Posterior spur disc complexes efface the anterior thecal sac at these levels. Review of axial images shows uncovertebral facet degenerative changes causing left-sided neural foraminal narro wing at C4-C5 level. Thyroid gland is within normal limits. Lung apices show no pneumothorax. IMPRESSION: 1. There is no acute fracture or dislocation evident in the cervical spine. 2. No acute intracranial hemorrhage or midline shift is seen. There is mild diffuse cerebral atrophy and mild to moderate chronic small vessel ischemic change with old left-sided infarcts are all redemo nstrated. No significant change from prior.
[2020-01-16 14:11] VITALS: BP 161/92; PULSE 81; RESP 17; TEMP 97.9
== END 2020-01-16 14:13 | disposition home or self-care (01) ==
LOC: EC 10:32
DX: M25.552 Pain in left hip (principal); M25.522 Pain in left elbow; M54.5 Low back pain; M79.643 Pain in unspecified hand; G89.29 Other chronic pain; E11.9 Type 2 diabetes mellitus without complications; I10 Essential (primary) hypertension; K21.9 Gastro-esophageal reflux disease without esophagitis; I25.2 Old myocardial infarction; F41.9 Anxiety disorder, unspecified; F32.9 Major depressive disorder, single episode, unspecified; Z79.02 Long term (current) use of antithrombotics/antiplatelets; Z79.899 Other long term (current) drug therapy; Z79.4 Long term (current) use of insulin; Z91.030 Bee allergy status; Z88.7 Allergy status to serum and vaccine; Z91.040 Latex allergy status; Z91.048 Other nonmedicinal substance allergy status; Z88.4 Allergy status to anesthetic agent; Z88.6 Allergy status to analgesic agent; Z88.2 Allergy status to sulfonamides; Z88.5 Allergy status to narcotic agent; Z88.1 Allergy status to other antibiotic agents; Z88.8 Allergy status to other drugs, medicaments and biological substances; Z86.73 Personal history of transient ischemic attack (TIA), and cerebral infarction without residual deficits; W06.XXXA Fall from bed, initial encounter
CPT/HCPCS: 70450; 72100; 72125; 73502; 99284

== ENCOUNTER 2020-06-12 21:45 | Emergency (ER) | payer MEDICARE, OTHER ==
[2020-06-12 22:01] VITALS: TEMP 98
[2020-06-12] MEDS ORDERED: NITROGLYCERIN SL TABS 0.4 MG TAB SUBLINGUAL STA (22:08)
[2020-06-12] MEDS ORDERED: cloNIDine HCL 0.2 MG TAB PO STA (22:08)
--- NOTE | 2020-06-12 22:43 | ED ---
Recheck HPI - General Chief Complaint: Recheck/Abnormal Lab/Rx Stated Complaint: Hypertension Time Seen by Provider: 06/12/20 22:06 Source: EMS Mode of arrival: EMS Limitations: no limitations - History of Present Illness Initial Comments: this patient is a 69-year-old woman who presents from skilled nursing to be evaluated for ypertension. The patient does have long-standing history of this. Per skilled nursing, they called the primary physician for blood pressure in the neighborhood of 200/100 and a new physician was covering and recommended that the patient be transferred to the hospital. They do not report any symptoms. When I interview the patient, she is only complaining of some itching to her trunk. Patient is denying chest pain, dyspnea, headache, abdominal pain or any other symptoms MD Complaint: other (hypertension) -: hour(s) Returns Today for: other (hypertension) Symptoms Since Prior Visit: no new symptoms Associated Symptoms: none - Related Data Home Medications Medication Instructions Recorded Confirmed Sertraline HCl [Zoloft] 50 mg PO DAILY 04/26/17 06/12/20 ALPRAZolam [Xanax] 0.25 mg PO TID 05/25/18 06/12/20 Furosemide [Lasix] 20 mg PO DAILY 05/25/18 06/12/20 carvediloL [Carvedilol] 25 mg PO BID 09/23/18 06/12/20 Latanoprost/Pf [Latanoprost 0.005% 1 drop BOTH EYES HS 10/19/18 06/12/20 Eye Drop] lisinopriL 40 mg PO HS 10/19/18 06/12/20 Docusate [Colace] 100 mg PO BID 12/26/18 06/12/20 Clopidogrel [Plavix] 75 mg PO DAILY 09/01/19 06/12/20 Ergocalciferol [Vitamin D2 50,000 unit PO TH 09/01/19 06/12/20 (DRISDOL)] Linaclotide [Linzess] 145 mcg PO DAILY 09/01/19 06/12/20 cloNIDine HCL 0.3 mg PO Q8H 09/01/19 06/12/20 HYDROcodone/APAP 10-325MG [[place] 1 tab PO Q6H 01/05/20 06/12/20 10-325] Pantoprazole [Protonix] 40 mg PO DAILY 01/16/20 06/12/20 Cyclobenzaprine [Flexeril] 10 mg PO HS 06/12/20 06/12/20 Dicyclomine [Bentyl] 10 mg PO TID PRN 06/12/20 06/12/20 Insulin Aspart [NovoLOG Flexpen] See Protocol SQ ACHS 06/12/20 06/12/20 Insulin Detemir [Levemir Flextouch] 15 units SQ HS 06/12/20 06/12/20 risperiDONE [RisperDAL] 1 mg PO BID 06/12/20 06/12/20 Previous Rx's Medication Instructions Recorded Lactulose [Cephulac] 20 gm PO BID ml 01/10/20 Potassium Chloride ER [K-Dur 20] 20 meq PO DAILY #5 tab 06/12/20 Allergies Allergy/AdvReac Type Severity Reaction Status Date / Time bee venom protein (honey bee) Allergy Anaphylaxis Verified 06/12/20 22:43 epinephrine Allergy Anaphylaxis Verified 06/12/20 22:43 influenza virus vaccine, Allergy Rash/Hives Verified 06/12/20 22:43 specific iodine Allergy Rash/Hives Verified 06/12/20 22:43 latex Allergy Rash/Hives Verified 06/12/20 22:43 procaine HCl [From Novocain] Allergy Anaphylaxis Verified 06/12/20 22:43 Sulfa (Sulfonamide Allergy Rash/Hives Verified 06/12/20 22:43 Antibiotics) amlodipine [From Norvasc] AdvReac Diarrhea,abdominal Verified 06/12/20 22:43 pain cephalexin monohydrate AdvReac Nausea & Verified 06/12/20 22:43 [From Keflex] Vomiting & Diarrhea codeine AdvReac Nausea & Verified 06/12/20 22:43 Vomiting cortisone AdvReac Nausea & Verified 06/12/20 22:43 Vomiting/Vertigo doxazosin [From Cardura] AdvReac constipatio Verified 06/12/20 22:43 n hydralazine AdvReac muscle Verified 06/12/20 22:43 cramps & muscular pain methadone AdvReac Nausea & Verified 06/12/20 22:43 Vomiting & Diarrhea propoxyphene AdvReac Nausea & Verified 06/12/20 22:43 [From Marisol-N] Vomiting Ysxtcsz-Gya-Ftt Reductase AdvReac Nausea & Verified 06/12/20 22:43 Inhibitor Vomiting/Muscle Weakness steroids AdvReac Nausea & Uncoded 06/12/20 22:43 Vomiting Review of Systems ROS Statement: Those systems with pertinent positive or pertinent negative responses have been documented in the HPI. ROS Other: All systems not noted in ROS Statement are negative. Constitutional: Denies: fever, weakness Eyes: Denies: vision change Respiratory: Denies: cough, dyspnea Cardiovascular: Denies: chest pain, orthopnea Gastrointestinal: Denies: abdominal pain, vomiting Genitourinary: Denies: dysuria Musculoskeletal: Denies: back pain Skin: Reports: pruritus Neurological: Denies: headache Past Medical History Past Medical History: Chest Pain / Angina, CVA/TIA, Diabetes Mellitus, Eye Disorder, Fibromyalgia, GERD/Reflux, Hyperlipidemia, Hypertension, Memory Impairment, Myocardial Infarction ([place]), Osteoarthritis (OA), Rheumatoid Arthritis (RA) Additional Past Medical History / Comment(s): neuropathy both feet and hands, glaucoma, connective tissue dysfunction, peptic ulcer disease, grade 4 hiatal hernia, stroke/TIA x3-loss of short term memory, occ irregular heart beat, hx ulcers, hx carpal tunnel syndrome. dusty shoulder rotator cuff tear Last Myocardial Infarction Date:: 1988 History of Any Multi-Drug Resistant Organisms: None Reported Past Surgical History: Bladder Surgery, Cholecystectomy, Hysterectomy, Orthope dic Surgery, Tubal Ligation Additional Past Surgical History / Comment(s): rhinoplasty, hand surgery bilateral-carpal tunel , cystocele/rectocele repair , rt foot-failed bunio nectomy-has a metal larisa in foot, ABBEY. fatty tumor removed from rt shoulder, pelvic sling Past Anesthesia/Blood Transfusion Reactions: Family History of Problems w/ Anesthesia, Motion Sickness Additional Past Anesthesia/Blood Transfusion Reaction / Comment(s): mother- tongue swelled up Past Psychological History: Anxiety, Depression Smoking Status: Unknown if ever smoked Past Alcohol Use History: Unable to Obtain Past Drug Use History: Unable to Obtain - Past Family History Father Additional Family Medical History / Comment(s): alcoholic, cirrhosis of the liver, Mother Family Medical History: Cancer General Exam Limitations: no limitations General appearance: alert, in no apparent distress Head exam: Present: atraumatic, normocephalic Eye exam: Present: normal appearance. Absent: scleral icterus, conjunctival injection ENT exam: Present: normal oropharynx Respiratory exam: Present: normal lung sounds bilaterally. Absent: respiratory distress, wheezes, rales, rhonchi, stridor Cardiovascular Exam: Present: regular rate, normal rhythm, systolic murmur. Absent: diastolic murmur, rubs, gallop Back exam: Present: normal inspection. Absent: CVA tenderness (R), CVA tenderness (L) Neurological exam: Present: alert Skin exam: Present: warm, dry, intact, normal color. Absent: rash Course Vital Signs 06/12/20 06/12/20 21:51 22:00 Temperature 98 F Pulse Rate 73 70 Respiratory 17 17 Rate Blood Pressure 183/83 189/78 O2 Sat by Pulse 100 99 Oximetry Medical Decision Making - Lab Data Result diagrams: 06/12/20 22:31 06/12/20 22:31 Lab Results 06/12/20 06/12/20 Range/Units 22:31 22:31 WBC 5.1 (3.8-10.6) k/uL RBC 3.74 L (3.80-5.40) m/uL Hgb 12.0 (11.4-16.0) gm/dL Hct 34.7 (34.0-46.0) % MCV 92.7 (80.0-100.0) fL MCH 32.1 (25.0-35.0) pg MCHC 34.6 (31.0-37.0) g/dL RDW 12.6 (11.5-15.5) % Plt Count 411 (150-450) k/uL MPV 6.1 Neutrophils % 51 % Lymphocytes % 30 % Monocytes % 9 % Eosinophils % 7 % Basophils % 1 % Neutrophils # 2.6 (1.3-7.7) k/uL Lymphocytes # 1.5 (1.0-4.8) k/uL Monocytes # 0.5 (0-1.0) k/uL Eosinophils # 0.3 (0-0.7) k/uL Basophils # 0.1 (0-0.2) k/uL Sodium 138 (137-145) mmol/L Potassium 3.2 L (3.5-5.1) mmol/L Chloride 98 (98-107) mmol/L Carbon Dioxide 33 H (22-30) mmol/L Anion Gap 7 mmol/L BUN 14 (7-17) mg/dL Creatinine 0.52 (0.52-1.04) mg/dL Est GFR (CKD-EPI)AfAm >90 (>60 ml/min/1.73 sqM) Est GFR (CKD-EPI)NonAf >90 (>60 ml/min/1.73 sqM) Glucose 155 H (74-99) mg/dL Calcium 9.5 (8.4-10.2) mg/dL - EKG Data -: EKG Interpreted by Me EKG shows normal: sinus rhythm, axis (normal), intervals (normal), QRS complexes (normal), ST-T waves (normal) Rate: normal (rate 68 bpm) Disposition Clinical Impression: Hypertension, Hypokalemia Disposition: HOME SELF-CARE Condition: Good Instructions (If sedation given, give patient instructions): Hypertension (ED) Prescriptions: Potassium Chloride ER [K-Dur 20] 20 meq PO DAILY #5 tab Is patient prescribed a controlled substance at d/c from ED?: No Referrals: Alfa Cuadra MD [Primary Care Provider] - 1-2 days
[2020-06-12 22:55] LABS: Basophils # (A) 0.1 k/uL (0-0.2); Basophils % (A) 1 %; Eosinophils # (A) 0.3 k/uL (0-0.7); Eosinophils % (A) 7 %; HCT 34.7 % (34.0-46.0); Lymphocytes # (A) 1.5 k/uL (1.0-4.8); Lymphocytes % (A) 30 %; MCH 32.1 pg (25.0-35.0); MCHC 34.6 g/dL (31.0-37.0); MCV 92.7 fL (80.0-100.0); Mean Platelet Volume 6.1; Monocytes # (A) 0.5 k/uL (0-1.0); Monocytes % (A) 9 %; Neutrophils # (A) 2.6 k/uL (1.3-7.7); Neutrophils % (A) 51 %; Platelet Count 411 k/uL (150-450); RBC 3.74 m/uL (3.80-5.40); RDW 12.6 % (11.5-15.5); WBC 5.1 k/uL (3.8-10.6)
[2020-06-12 23:03] LABS: African American GFR (CKD) >90 (>60 ml/min/1.73 sqM); Anion Gap 7 mmol/L; Blood Urea Nitrogen 14 mg/dL (7-17); Calcium 9.5 mg/dL (8.4-10.2); Carbon Dioxide 33 mmol/L (22-30); Chloride 98 mmol/L (98-107); Glucose 155 mg/dL (74-99); Non-African American GFR(CKD) >90 (>60 ml/min/1.73 sqM); Potassium 3.2 mmol/L (3.5-5.1); Sodium 138 mmol/L (137-145)
[2020-06-12] MEDS ORDERED: POTASSIUM CHLORIDE ER 20 MEQ TAB.ER PO STA (23:30)
[2020-06-13 01:00] VITALS: BP 153/60; PULSE 69; RESP 18
== END 2020-06-13 00:18 | disposition home or self-care (01) ==
LOC: EC 21:45 → EEVIPCON 21:45 → EC 06-13 00:18
DX: I10 Essential (primary) hypertension (principal); E87.6 Hypokalemia; E78.5 Hyperlipidemia, unspecified; F32.9 Major depressive disorder, single episode, unspecified; F41.9 Anxiety disorder, unspecified; I25.2 Old myocardial infarction; K21.9 Gastro-esophageal reflux disease without esophagitis; M06.9 Rheumatoid arthritis, unspecified; E11.40 Type 2 diabetes mellitus with diabetic neuropathy, unspecified; Z79.02 Long term (current) use of antithrombotics/antiplatelets; Z79.4 Long term (current) use of insulin; Z79.899 Other long term (current) drug therapy; Z91.030 Bee allergy status; Z88.7 Allergy status to serum and vaccine; Z91.040 Latex allergy status; Z88.4 Allergy status to anesthetic agent; Z88.2 Allergy status to sulfonamides; Z88.8 Allergy status to other drugs, medicaments and biological substances; Z88.5 Allergy status to narcotic agent; Z88.1 Allergy status to other antibiotic agents; Z86.73 Personal history of transient ischemic attack (TIA), and cerebral infarction without residual deficits
CPT/HCPCS: 36415; 80048; 85025; 93005; 99284

== ENCOUNTER 2020-11-08 08:28 | Emergency (ER) | payer MEDICARE, OTHER ==
[2020-11-08] MEDS ORDERED: DIPH,PERTUS(ACELL)TETVAC-LF 0.5 ML VIAL IM ONE (08:46)
[2020-11-08 08:47] VITALS: RESP 16
[2020-11-08] MEDS ORDERED: ASPIRIN 81 MG PO STA (08:52)
[2020-11-08] MEDS ORDERED: NITROGLYCERIN OINT 1 INCH/GM PACKET TOPICAL STA (08:52)
--- NOTE | 2020-11-08 08:54 | ED ---
General Adult HPI - General Chief complaint: Fall Stated complaint: Fall/face injury Time Seen by Provider: 11/08/20 08:30 Source: patient, EMS, RN notes reviewed, old records reviewed Mode of arrival: EMS Limitations: altered mental status - History of Present Illness Initial comments: This is a 70-year-old female who presents to the emergency department because she was found on the ground. According to EMS she was somewhat combative when they got there her sugar was 45 they gave her an amp of D50 and she became alert and oriented times one which they were told was her baseline. EMS believe she fell out of bed. Patient has some blood from the upper lip and patient's heart rate was in the 40s. No other history is available this time. - Related Data Home Medications Medication Instructions Recorded Confirmed Sertraline HCl [Zoloft] 50 mg PO DAILY 04/26/17 11/08/20 Furosemide [Lasix] 20 mg PO DAILY 05/25/18 11/08/20 carvediloL [Carvedilol] 25 mg PO BID 09/23/18 11/08/20 Latanoprost/Pf [Latanoprost 0.005% 1 drop BOTH EYES HS 10/19/18 11/08/20 Eye Drop] lisinopriL 40 mg PO HS 10/19/18 11/08/20 Docusate [Colace] 100 mg PO BID 12/26/18 11/08/20 Clopidogrel [Plavix] 75 mg PO DAILY 09/01/19 11/08/20 Ergocalciferol [Vitamin D2 50,000 unit PO TH 09/01/19 11/08/20 (DRISDOL)] Linaclotide [Linzess] 145 mcg PO DAILY 09/01/19 11/08/20 cloNIDine HCL [Catapres] 0.3 mg PO Q8H 09/01/19 11/08/20 HYDROcodone/APAP 10-325MG [Ruston 1 tab PO Q6H 01/05/20 11/08/20 10-325] Pantoprazole [Protonix] 40 mg PO DAILY 01/16/20 11/08/20 Dicyclomine [Bentyl] 10 mg PO TID PRN 06/12/20 11/08/20 Insulin Aspart [NovoLOG Flexpen] See Protocol SQ ACHS 06/12/20 11/08/20 Insulin Detemir [Levemir Flextouch] 15 units SQ HS 06/12/20 11/08/20 ALPRAZolam [Xanax] 0.5 mg PO HS 11/08/20 11/08/20 MORPHINE ORAL ANITA CONC 20mg/mL 5 mg PO QID 11/08/20 11/08/20 [Roxanol Oral Soln Conc 20MG/ML] Previous Rx's Medication Instructions Recorded Lactulose [Cephulac] 20 gm PO BID ml 01/10/20 Potassium Chloride ER [K-Dur 20] 20 meq PO DAILY #5 tab 06/12/20 Allergies Allergy/AdvReac Type Severity Reaction Status Date / Time bee venom protein (honey bee) Allergy Anaphylaxis Verified 11/08/20 09:20 epinephrine Allergy Anaphylaxis Verified 11/08/20 09:20 influenza virus vaccine, Allergy Rash/Hives Verified 11/08/20 09:20 specific iodine Allergy Rash/Hives Verified 11/08/20 09:20 latex Allergy Rash/Hives Verified 11/08/20 09:20 procaine HCl [From Novocain] Allergy Anaphylaxis Verified 11/08/20 09:20 Sulfa (Sulfonamide Allergy Rash/Hives Verified 11/08/20 09:20 Antibiotics) amlodipine [From Norvasc] AdvReac Diarrhea,abdominal Verified 11/08/20 09:20 pain cephalexin monohydrate AdvReac Nausea & Verified 11/08/20 09:20 [From Keflex] Vomiting & Diarrhea codeine AdvReac Nausea & Verified 11/08/20 09:20 Vomiting cortisone AdvReac Nausea & Verified 11/08/20 09:20 Vomiting/Vertigo doxazosin [From Cardura] AdvReac constipatio Verified 11/08/20 09:20 n hydralazine AdvReac muscle Verified 11/08/20 09:20 cramps & muscular pain methadone AdvReac Nausea & Verified 11/08/20 09:20 Vomiting & Diarrhea propoxyphene AdvReac Nausea & Verified 11/08/20 09:20 [From Sut-N] Vomiting Nalioer-Vwj-Smt Reductase AdvReac Nausea & Verified 11/08/20 09:20 Inhibitor Vomiting/Muscle Weakness steroids AdvReac Nausea & Uncoded 11/08/20 09:20 Vomiting Review of Systems ROS Statement: Those systems with pertinent positive or pertinent negative responses have been documented in the HPI. ROS Other: All systems not noted in ROS Statement are negative. Past Medical History Past Medical History: Chest Pain / Angina, CVA/TIA, Diabetes Mellitus, Eye Disorder, Fibromyalgia, GERD/Reflux, Hyperlipidemia, Hypertension, Memory Impairment, Myocardial Infarction (CO), Osteoarthritis (OA), Rheumatoid Arthritis (RA) Additional Past Medical History / Comment(s): neuropathy both feet and hands, glaucoma, connective tissue dysfunction, peptic ulcer disease, grade 4 hiatal hernia, stroke/TIA x3-loss of short term memory, occ irregular heart beat, hx ulcers, hx carpal tunnel syndrome. dusty shoulder rotator cuff tear Last Myocardial Infarction Date:: 1988 History of Any Multi-Drug Resistant Organisms: None Reported Past Surgical History: Bladder Surgery, Cholecystectomy, Hysterectomy, Orthopedic Surgery, Tubal Ligation Additional Past Surgical History / Comment(s): rhinoplasty, hand surgery bilateral-carpal tunel , cystocele/rectocele repair , rt foot-failed bunionectomy-has a metal larisa in foot, ABBEY. fatty tumor removed from rt shoulder, pelvic sling Past Anesthesia/Blood Transfusion Reactions: Family History of Problems w/ Anesthesia, Motion Sickness Additional Past Anesthesia/Blood Transfusion Reaction / Comment(s): mother- tongue swelled up Past Psychological History: Anxiety, Depression Smoking Status: Unknown if ever smoked Past Alcohol Use History: Unable to Obtain Past Drug Use History: Unable to Obtain - Past Family History Father Additional Family Medical History / Comment(s): alcoholic, cirrhosis of the liver, Mother Family Medical History: Cancer General Exam - General Exam Comments Initial Comments: nGENERAL: Patient is well-developed and well-nourished. Patient is nontoxic and well- hydrated and is in mild distress. ENT: Neck is soft and supple. No significant lymphadenopathy is noted. Oropharynx is clear. Moist mucous membranes. Neck has full range of motion without eliciting any pain. EYES: The sclera were anicteric and conjunctiva were pink and moist. Extraocular movements were intact and pupils were equal round and reactive to light. Eyelids were unremarkable. PULMONARY: Unlabored respirations. Good breath sounds bilaterally. No audible rales rhonchi or wheezing was noted. CARDIOVASCULAR: Patient's heart rate was about 45 beats a minute and regular ABDOMEN: Soft and nontender with normal bowel sounds. SKIN: Patient has an abrasion on the anterior aspect of her upper lip and a small p uncture wound to the posterior aspect of her upper lip NEUROLOGIC: Patient is alert and oriented x3. Cranial nerves II through XII are grossly intact. Motor and sensory are also intact. Normal speech, volume and content. Symmetrical smile. MUSCULOSKELETAL: Normal extremities with adequate strength and full range of motion. LYMPHATICS: No significant lymphadenopathy is noted PSYCHIATRIC: Normal psychiatric evaluation Limitations: altered mental status Course Vital Signs 11/08/20 11/08/20 11/08/20 08:29 08:55 09:02 Temperature 97 F L Pulse Rate 47 L 46 L Respiratory 16 Rate Blood Pressure 228/169 231/96 207/95 O2 Sat by Pulse 100 Oximetry 11/08/20 11/08/20 09:37 11:11 Temperature Pulse Rate 59 L Respiratory 16 Rate Blood Pressure 132/76 151/73 O2 Sat by Pulse 97 Oximetry Medical Decision Making - Medical Decision Making EKG shows sinus bradycardia with an occasional PVC at 46 bpm TN interval 200 QRS is 96 QT interval 580 QTC is 507. Patient's EKG shows no ST segment elevation or depression. Patient had 600 mL of urine so Lopez catheter was placed. Patient was alert and oriented times one and occasionally 2 according to EMS this is her baseline. Patient's heart rate was sometimes down to 45 however it also was up into the 60s and patient was asymptomatic and also paperwork indicat es patient's is a hospice patient - Lab Data Result diagrams: 11/08/20 09:06 11/08/20 09:06 Lab Results 11/08/20 11/08/20 11/08/20 Range/Units 09:06 09:06 09:06 WBC 8.0 (3.8-10.6) k/uL RBC 4.77 (3.80-5.40) m/uL Hgb 14.8 (11.4-16.0) gm/dL Hct 42.2 (34.0-46.0) % MCV 88.4 (80.0-100.0) fL MCH 31.1 (25.0-35.0) pg MCHC 35.2 (31.0-37.0) g/dL RDW 13.1 (11.5-15.5) % Plt Count 427 (150-450) k/uL MPV 6.6 Neutrophils % 76 % Lymphocytes % 15 % Monocytes % 7 % Eosinophils % 1 % Basophils % 1 % Neutrophils # 6.0 (1.3-7.7) k/uL Lymphocytes # 1.2 (1.0-4.8) k/uL Monocytes # 0.6 (0-1.0) k/uL Eosinophils # 0.1 (0-0.7) k/uL Basophils # 0.0 (0-0.2) k/uL Sodium 138 (137-145) mmol/L Potassium 3.4 L (3.5-5.1) mmol/L Chloride 95 L (98-107) mmol/L Carbon Dioxide 37 H (22-30) mmol/L Anion Gap 6 mmol/L BUN 18 H (7-17) mg/dL Creatinine 0.51 L (0.52-1.04) mg/dL Est GFR (CKD-EPI)AfAm >90 (>60 ml/min/1.73 sqM) Est GFR (CKD-EPI)NonAf >90 (>60 ml/min/1.73 sqM) Glucose 95 (74-99) mg/dL Calcium 9.3 (8.4-10.2) mg/dL Magnesium 1.6 (1.6-2.3) mg/dL Total Bilirubin 0.8 (0.2-1.3) mg/dL AST 50 H (14-36) U/L ALT 21 (4-34) U/L Alkaline Phosphatase 106 (38-126) U/L Troponin I <0.012 (0.000-0.034) ng/mL Total Protein 8.3 H (6.3-8.2) g/dL Albumin 4.5 (3.5-5.0) g/dL Urine Color Urine Appearance (Clear) Urine pH (5.0-8.0) Ur Specific Henderson (1.001-1.035) Urine Protein (Negative) Urine Glucose (UA) (Negative) Urine Ketones (Negative) Urine Blood (Negative) Urine Nitrite (Negative) Urine Bilirubin (Negative) Urine Urobilinogen (<2.0) mg/dL Ur Leukocyte Esterase (Negative) Urine RBC (0-5) /hpf Urine WBC (0-5) /hpf Urine Bacteria (None) /hpf 11/08/20 Range/Units 10:42 WBC (3.8-10.6) k/uL RBC (3.80-5.40) m/uL Hgb (11.4-16.0) gm/dL Hct (34.0-46.0) % MCV (80.0-100.0) fL MCH (25.0-35.0) pg MCHC (31.0-37.0) g/dL RDW (11.5-15.5) % Plt Count (150-450) k/uL MPV Neutrophils % % Lymphocytes % % Monocytes % % Eosinophils % % Basophils % % Neutrophils # (1.3-7.7) k/uL Lymphocytes # (1.0-4.8) k/uL Monocytes # (0-1.0) k/uL Eosinophils # (0-0.7) k/uL Basophils # (0-0.2) k/uL Sodium (137-145) mmol/L Potassium (3.5-5.1) mmol/L Chloride (98-107) mmol/L Carbon Dioxide (22-30) mmol/L Anion Gap mmol/L BUN (7-17) mg/dL Creatinine (0.52-1.04) mg/dL Est GFR (CKD-EPI)AfAm (>60 ml/min/1.73 sqM) Est GFR (CKD-EPI)NonAf (>60 ml/min/1.73 sqM) Glucose (74-99) mg/dL Calcium (8.4-10.2) mg/dL Magnesium (1.6-2.3) mg/dL Total Bilirubin (0.2-1.3) mg/dL AST (14-36) U/L ALT (4-34) U/L Alkaline Phosphatase (38-126) U/L Troponin I (0.000-0.034) ng/mL Total Protein (6.3-8.2) g/dL Albumin (3.5-5.0) g/dL Urine Color Colorless Urine Appearance Clear (Clear) Urine pH 8.0 (5.0-8.0) Ur Specific Henderson 1.001 (1.001-1.035) Urine Protein Negative (Negative) Urine Glucose (UA) 1+ H (Negative) Urine Ketones Negative (Negative) Urine Blood Small H (Negative) Urine Nitrite Negative (Negative) Urine Bilirubin Negative (Negative) Urine Urobilinogen <2.0 (<2.0) mg/dL Ur Leukocyte Esterase Negative (Negative) Urine RBC 1 (0-5) /hpf Urine WBC 1 (0-5) /hpf Urine Bacteria Rare H (None) /hpf Disposition Clinical Impression: Hypoglycemia, Bradycardia, Urinary retention Disposition: HOME SELF-CARE Instructions (If sedation given, give patient instructions): Acute Urinary Retention in Women (ED), Fall Prevention (ED) Is patient prescribed a controlled substance at d/c from ED?: No Referrals: Alfa Cuadra MD [Primary Care Provider] - 1-2 days Time of Disposition: 11:35
[2020-11-08] MEDS ORDERED: LORazepam 2 MG/ML INJ IV STA (08:58)
[2020-11-08] MEDS ORDERED: hydrALAZINE HCL 20 MG/ML 1 ML VIAL IVP STA (09:05)
[2020-11-08 09:22] LABS: Basophils % (A) 1 %; Eosinophils # (A) 0.1 k/uL (0-0.7); Eosinophils % (A) 1 %; HCT 42.2 % (34.0-46.0); HGB 14.8 gm/dL (11.4-16.0); Lymphocytes # (A) 1.2 k/uL (1.0-4.8); Lymphocytes % (A) 15 %; MCH 31.1 pg (25.0-35.0); MCHC 35.2 g/dL (31.0-37.0); MCV 88.4 fL (80.0-100.0); Mean Platelet Volume 6.6; Monocytes # (A) 0.6 k/uL (0-1.0); Monocytes % (A) 7 %; Neutrophils % (A) 76 %; Platelet Count 427 k/uL (150-450); RBC 4.77 m/uL (3.80-5.40); RDW 13.1 % (11.5-15.5)
--- NOTE | 2020-11-08 09:37 | XR ---
EXAMINATION TYPE: XR chest 2V DATE OF EXAM: 11/08/2020 COMPARISON: 01/05/2020 HISTORY: 70 year-old female shortness of breath, difficulty breathing TECHNIQUE: AP and lateral views FINDINGS: Somewhat kyphotic positioning of the patient. There may be an underlying rotator cuff tear on the rig ht. Eventration anterior right hemidiaphragm redemonstrated. Heart normal size. Some strandy right ba silar opacity, likely atelectasis. Upper and mid lungs appear clear. No pleural effusion. IMPRESSION: Some strandy opacity at the right base suggestive of atelectasis. Otherwise, no definite acute proces s.
[2020-11-08 09:44] LABS: ALT 21 U/L (4-34); African American GFR (CKD) >90 (>60 ml/min/1.73 sqM); Anion Gap 6 mmol/L; Blood Urea Nitrogen 18 mg/dL (7-17); Calcium 9.3 mg/dL (8.4-10.2); Carbon Dioxide 37 mmol/L (22-30); Chloride 95 mmol/L (98-107); Glucose 95 mg/dL (74-99); Non-African American GFR(CKD) >90 (>60 ml/min/1.73 sqM); Sodium 138 mmol/L (137-145); Total Bilirubin 0.8 mg/dL (0.2-1.3)
--- NOTE | 2020-11-08 09:45 | CT ---
EXAMINATION TYPE: CT brain diogenes wo con DATE OF EXAM: 11/08/2020 COMPARISON: 01/16/2020 HISTORY: 70-year-old female with pain after Fall, Facial injury. Trauma CT DLP: 1014.6 mGycm Automated exposure control for dose reduction was used. Technique: Examination of the head was done in axial plane without intravenous contrast. Coronal and sagittal reconstructions performed. CT of the cervical spine was obtained in axial plane without intravenous injection of contrast mater ial. Coronal and sagittal reformatted images were obtained from the axial views for evaluation of f ractures, spinal alignment and canal. FINDINGS: Head: There is no evidence of acute intracranial hemorrhage, acute ischemic changes, mass, mass-effect, or extra-axial fluid collection. There is no effacement of cerebral sulci or basal subarachnoid cister ns. There is no hydrocephalus. There is no midline shift. Marte-white matter distinction is preserv ed. Mild to moderate patchy white matter hypodensities in both cerebral hemispheres. Old lacunar infarcts redemonstrated left basal ganglia and left subinsular white matter. Mastoid air cells well pneumatized. The facial bones reported separately. No calvarial fracture. Cervical spine: No craniocervical junction and upper body, predental space widening, or prevertebral soft tissue swel ling. Moderate disc/endplate degenerative change mid to lower cervical spine. Hypertrophic facet and uncovertebral joint arthropathy is present. Changes result in degenerative grade 1 retrolisthesis at C4-C5 and C5-C6. Grade 1 anterolisthesis at C7-T1. Findings unchanged from 2020. Disc osteophyte complexes may cause very variable mild narrowing of the spinal canal. No acute fracture is identified. Moderate right neural foraminal stenosis at C4-C5. Sagittal and coronal reformatted images confirm above findings. COMBINED IMPRESSION: 1. Similar mild to moderate patchy burden of chronic small vessel ischemic disease and old lacunar in farcts in the left basal ganglia. No acute intracranial abnormality seen. 2. No acute fracture of the cervical spine. Similar moderate spondylotic change with degenerative gra de 1 spondylolisthesis at C4-C5, C5-C6, and C7-T1. 3. Facial bones reported separately.
--- NOTE | 2020-11-08 09:49 | CT ---
EXAMINATION TYPE: CT facial bones wo con DATE OF EXAM: 11/08/2020 COMPARISON: None HISTORY: 70-year-old female with pain after Fall, facial injury, trauma TECHNIQUE: Contiguous axial scanning of the facial bones without IV contrast. Coronal reconstructions performed. CT DLP: 1014.6 mGycm Automated exposure control for dose reduction was used. FINDINGS: There may be some soft tissue injury to the anterior lips extensive dental amalgam artifact limits as sessment of the teeth. The mandible appears intact. Moderate to severe degenerative change at the lef t TMJ. The pterygoid plates, zygomatic arches, facial bones, and nasal bones appear intact. Orbits and globes appear intact. Mild mucosal thickening right maxillary sinus. No air-fluid levels in the paranasal sinuses. IMPRESSION: QUERY SOFT TISSUE INJURY TO THE LIPS. DENTAL AMALGAM ARTIFACT LIMITS ASSESSMENT OF THE TEETH. OTHERWI SE, NO ACUTE FACIAL BONE FRACTURE SEEN. 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
[2020-11-08 09:57] LABS: Potassium 3.4 mmol/L (3.5-5.1)
[2020-11-08 09:58] LABS: AST 50 U/L (14-36); Albumin 4.5 g/dL (3.5-5.0); Alkaline Phosphatase 106 U/L (38-126); Magnesium 1.6 mg/dL (1.6-2.3); Total Protein 8.3 g/dL (6.3-8.2)
[2020-11-08 11:05] LABS: Appearance,Urine Clear (Clear); Bacteria,Urine Rare /hpf; Bilirubin,Urine Negative (Negative); Blood,Urine Small (Negative); Color,Urine Colorless; Glucose,Urine (UA) 1+ (Negative); Ketones,Urine Negative (Negative); Leukocyte Esterase,Urine Negative (Negative); Nitrite,Urine Negative (Negative); Protein,Urine Negative (Negative); RBC,Urine 1 /hpf (0-5); Specific Gravity,Urine 1.001 (1.001-1.035); Urobilinogen,Urine <2.0 mg/dL (<2.0); WBC,Urine 1 /hpf (0-5)
[2020-11-08 11:57] VITALS: BP 158/84; PULSE 73; TEMP 97.8
== END 2020-11-08 11:57 | disposition home or self-care (01) ==
LOC: EC 08:28
DX: E11.649 Type 2 diabetes mellitus with hypoglycemia without coma (principal); R00.1 Bradycardia, unspecified; R33.9 Retention of urine, unspecified; I10 Essential (primary) hypertension; E78.5 Hyperlipidemia, unspecified; K21.9 Gastro-esophageal reflux disease without esophagitis; I25.2 Old myocardial infarction; E11.40 Type 2 diabetes mellitus with diabetic neuropathy, unspecified; F41.9 Anxiety disorder, unspecified; F32.9 Major depressive disorder, single episode, unspecified; Z79.899 Other long term (current) drug therapy; Z79.02 Long term (current) use of antithrombotics/antiplatelets; Z91.030 Bee allergy status; Z88.4 Allergy status to anesthetic agent; Z88.7 Allergy status to serum and vaccine; Z91.040 Latex allergy status; Z88.2 Allergy status to sulfonamides; Z88.5 Allergy status to narcotic agent; Z88.8 Allergy status to other drugs, medicaments and biological substances; Z86.73 Personal history of transient ischemic attack (TIA), and cerebral infarction without residual deficits
CPT/HCPCS: 36415; 93005; 80053; 83735; 84484; 85025; 81001; 71046; 72125; 70486; 70450; 90715; 99285; 96374; 96375; 90471; J2060; J0360